=== PATIENT | male | born 1960 | race Caucasian/White ===

== ENCOUNTER 2018-08-06 21:25 | Inpatient (IN) ==
[2018-08-06] MEDS ORDERED: VANCOMYCIN 1,250 MG in 0.9 % SODIUM CHLORIDE 250 ML IV ONE (21:53)
--- NOTE | 2018-08-06 22:27 | Emergency Department Note ---
Skin/Abscess/FB HPI - General Chief complaint: Skin/Abscess/Foreign Body Stated complaint: infection Time Seen by Provider: 08/06/18 21:32 Source: patient Mode of arrival: ambulatory Limitations: no limitations - History of Present Illness HPI Narrative: 57-year-old male patient on dialysis is sent here by Dr. Barraza after receiving phone call by bacteremia. Apparently he has been sick for several weeks or more and has a sore near the his AV fistula. They did get blood cultures he was found to be bacteremic with gram-positive cocci in pairs but culture has not been finalized yet. He has had general malaise. Denies shortness of breath nausea vomiting diarrhea - Related Data Home Medications Medication Instructions Recorded Confirmed glipizide PO QDAY 03/13/18 04/22/18 Previous Rx's Medication Instructions Recorded sodium polystyrene sulfonate 15 60 ml PO .COMPLEX #500 ml 05/09/18 gram/60 mL oral suspension calcium acetate 667 mg tablet 667 mg PO TID #240 tab 06/18/18 vitamin B complex-vitamin C-folic 1 tab PO QDAY #90 tab 06/18/18 acid 0.8 mg tablet clindamycin HCl 300 mg capsule 300 mg PO Q6H #42 cap 08/06/18 Allergies Allergy/AdvReac Type Severity Reaction Status Date / Time bee venom protein (honey bee) Allergy Severe Anaphylaxis Verified 08/06/18 21:27 ceftriaxone Allergy Mild Hives Verified 08/06/18 21:27 coconut Allergy Unknown Unknown Verified 08/06/18 21:27 Penicillins Allergy Unknown Unknown Verified 08/06/18 21:27 Review of Systems All systems ED: reviewed and negative except as stated. Past Medical History - Past Medical History Attestation: Yes: The following information was validated with the patient. [facility] Narrative: Family History (Last Reviewed 04/22/18 @ 12:52 by Lori Pitts MD) Father Coronary artery disease Mother Coronary artery disease Medical History (Last Reviewed 04/22/18 @ 12:52 by Lori Pitts MD) History of shortness of breath (Chronic) Staghorn calculus (Chronic) Uremia (Chronic) DM type 2 (diabetes mellitus, type 2) (Chronic) Acute diastolic (congestive) heart failure (Chronic) Weakness (Chronic) Vomiting (Chronic) Flank pain (Chronic) UTI (urinary tract infection) (Chronic 09/08/17) DVT prophylaxis (Chronic 09/08/17) Hypertension (Chronic 09/08/17) Hyperkalemia (Chronic 09/08/17) Volume depletion (Chronic 09/08/17) Pyelonephritis (Chronic 09/08/17) Acute renal failure (Chronic 09/08/17) Acute kidney injury (Chronic 09/08/17) Insomnia (Chronic) Renal calculi (Chronic) Anemia due to end stage renal disease (Chronic) Staghorn renal calculus (Chronic) ESRD on hemodialysis (Chronic) Proteus (mirabilis) (morganii) as the cause of diseases classified elsewhere (Chronic) Past Surgical History (Last Reviewed 04/22/18 @ 12:52 by Lori Pitts MD) History of knee surgery (Chronic) History of nephrectomy (Chronic) Status post removal of arteriovenous fistula (Chronic) - Social History smoking status: Never smoker Physical Exam No acute distress resting. Normocephalic atraumatic. Conjunctive bilaterally mildly injected and nonicteric. No nasal discharge or congestion. Oropharynx is pink and moist. Neck is supple without lymphadenopathy or thyromegaly. Heart is regular rate and rhythm. 2 out of 6 midsystolic murmur. Lungs are clear to auscultation bilaterally without wheezes rales rhonchi or respiratory distress. Abdomen soft nontender nondistended. I did look at his AV fistula at the left wrist there is a small sore proximal to this but it has been unroofed. He is keeping this area bandaged. Mild erythema but I do not see any drainage. No pedal edema. Alert oriented, mentating at baseline. Hoarse voice Limitations: no limitations Course Vital Signs Temperature 99.3 F H 08/06/18 21:25 Pulse Rate 87 08/06/18 21:25 Respiratory Rate 20 08/06/18 21:25 Blood Pressure 116/69 08/06/18 21:25 Pulse Oximetry (%) 97 08/06/18 21:25 Temperature 98.2 F 08/07/18 02:35 Pulse Rate 70 08/07/18 02:35 Respiratory Rate 24 H 08/07/18 02:35 Blood Pressure 154/80 08/07/18 02:35 Pulse Oximetry (%) 96 08/07/18 02:35 Skin/Abscess/Foreign Body - Lab Data Lab results reviewed: Yes I reviewed the patient's lab results. Result diagrams: 08/07/18 03:40 08/07/18 03:40 Lab Results 08/06/18 08/06/18 08/06/18 Range/Units 22:29 22:29 22:29 WBC 11.9 H (4.5-11.0) K/mcL RBC 3.67 L (4.50-5.90) M/mcL Hgb 10.7 L (13.5-16.5) g/dL Hct 31.7 L (41.0-55.0) % MCV 86.3 (80.0-100.0) fL MCH 29.1 (26.0-34.0) pg MCHC 33.7 (31.0-36.0) g/dL RDW 13.2 (11.5-14.5) % Plt Count 239 (140-440) K/mcL MPV 8.4 (7.4-10.4) fL Gran % 81.8 H (38.0-78.0) % Lymph % (Auto) 9.2 L (15.5-49.0) % [place]imer % (Auto) 7.8 (1.0-12.0) % Eos % (Auto) 0.8 (0.0-7.0) % Baso % (Auto) 0.4 (0.0-2.0) % Gran # 9.8 H (1.8-8.0) K/mcL Lymph # (Auto) 1.1 L (1.5-4.8) K/mcL [place] # (Auto) 0.9 (0.1-0.9) K/mcL Eos # (Auto) 0.1 (0.0-0.7) K/mcL Baso # (Auto) 0 (0.0-0.3) K/mcL VBG Lactic Acid 1.0 (0.5-2.0) mmol/L Sodium 135 (133-145) mmol/L Potassium 4.7 (3.3-5.1) mmol/L Chloride 91 L (96-108) mmol/L Carbon Dioxide 28 (22-30) mmol/L Anion Gap 16.0 (8-16) BUN 33 H (6-20) mg/dl Creatinine 9.0 H* (0.7-1.2) mg/dl GFR Calculation 6 Glucose 113 H (70-105) mg/dL Calcium 8.7 (8.6-10.4) mg/dl Total Bilirubin 0.4 (0.0-1.0) mg/dL AST 8 (0-37) U/l ALT 6 (0-40) U/l Alkaline Phosphatase 54 (39-117) U/L Total Protein 7.4 (5.9-8.4) gm/dL Albumin 3.9 (3.2-5.2) gm/dL Globulin 3.5 (2.2-3.7) gm/dL Albumin/Globulin Ratio 1.1 (1.0-2.3) Disposition Pt seen by DESK[employer] PUBLISHER/PA only: No Clinical Impression: Bacteremia, ESRD on hemodialysis Summary: Per my discussion with Dr. Barraza will go ahead and start renal dose vancomycin for presumptive streptococci. Repeat cultures. labs ordered After getting labs back I contacted Dr. Wolf, the hospitalist. He agreed to admit the patient for further care and evaluation hospitalist. Dr. Barraza will be consulted Disposition: Xfer As Inpt ([facility]) Condition: Fair
[2018-08-06 23:00] LABS: Basophils # (Auto) 0 K/mcL (0.0-0.3); Basophils % (Auto) 0.4 % (0.0-2.0); Eosinophils # (Auto) 0.1 K/mcL (0.0-0.7); Eosinophils % (Auto) 0.8 % (0.0-7.0); Granulocytes % (Auto) 81.8 % (38.0-78.0); Lymphocytes # (Auto) 1.1 K/mcL (1.5-4.8); Lymphocytes % (Auto) 9.2 % (15.5-49.0); Mean Cell Volume 86.3 fL (80.0-100.0); Mean Corpuscular HGB Conc 33.7 g/dL (31.0-36.0); Monocytes # (Auto) 0.9 K/mcL (0.1-0.9); Monocytes % (Auto) 7.8 % (1.0-12.0); Platelet Count 239 K/mcL (140-440); RBC 3.67 M/mcL (4.50-5.90); Red Cell Distribution Width 13.2 % (11.5-14.5)
[2018-08-06 23:26] LABS: ALT/SGPT 6 U/l (0-40); Albumin 3.9 gm/dL (3.2-5.2); Albumin/Globulin Ratio 1.1 (1.0-2.3); Alkaline Phosphatase 54 U/L (39-117); Blood Urea Nitrogen 33 mg/dl (6-20)
[2018-08-07] MEDS ORDERED: ACETAMINOPHEN 325 MG TABLET PO PRN ×2 (05:11→07:12)
[2018-08-07] MEDS ORDERED: ACETAMINOPHEN 325 MG TABLET PO ONE (05:24)
[2018-08-07 05:57] LABS: Basophils # (Auto) 0.1 K/mcL (0.0-0.3); Basophils % (Auto) 0.8 % (0.0-2.0); Eosinophils # (Auto) 0.1 K/mcL (0.0-0.7); Eosinophils % (Auto) 1.4 % (0.0-7.0); Lymphocytes # (Auto) 1.5 K/mcL (1.5-4.8); Lymphocytes % (Auto) 13.6 % (15.5-49.0); Mean Cell Volume 89.2 fL (80.0-100.0); Mean Corpuscular HGB Conc 32.8 g/dL (31.0-36.0); Monocytes % (Auto) 9.2 % (1.0-12.0); Platelet Count 218 K/mcL (140-440); RBC 3.52 M/mcL (4.50-5.90); Red Cell Distribution Width 14.4 % (11.5-14.5)
[2018-08-07 07:00] LABS: ALT/SGPT 6 U/l (0-40); Albumin/Globulin Ratio 1.2 (1.0-2.3); Alkaline Phosphatase 63 U/L (39-117); Bilirubin,Direct < 0.2 mg/dL (0.0-0.3); Blood Urea Nitrogen 34 mg/dl (6-20); Gamma Glutamyl Transpeptidase 17 U/L (8-61); Uric Acid 4.1 mg/dL (2.5-8.0)
[2018-08-07] MEDS ORDERED: ONDANSETRON 4 MG/2 ML VIAL IV PRN (07:12)
[2018-08-07] MEDS ORDERED: VANCOMYCIN PER PHARMACY IV SCH (07:12)
[2018-08-07 08:41] LABS: Hemoglobin A1C 4.9 % HGB (4.0-6.0)
[2018-08-07] MEDS ORDERED: HEPARIN 5,000 UNIT/ML VIAL SQ SCH (09:00)
[2018-08-07] MEDS ORDERED: DOCUSATE SODIUM 100 MG CAPSULE PO SCH (09:00)
--- NOTE | 2018-08-07 10:49 | Internal Med History&Physical ---
Medical - H&P: [facility] Patient information: Note initiated : 08/07/18 at 10:47 am Service Date, if different from initiated Date: [] Patient: Khadar Rizo a 57 y/o M admitted on 08/07/18 for infection. Chief Complaint: [] Chief complaint: feeling sick History of present illness: Mr. Rizo is a 57 year old M who was sent for evaluation in the ER after blood cultures were found positive for gram-positive cocci. Patient is on hemodialysis following nephrectomy 2018. He has a left wrist fistula. He was in his baseline state of health. He has been splitting wood recently and possibly had a splinter injury on wrist around the fistula site couple of weeks ago. Over the last week and a half he has been feeling weak fatigued with increasing tenderness swelling around the left wrist extending up to the elbow. He was subsequently evaluated and underwent blood cultures and nephrology clinic and was directed to the ER following gram-positive cocci. Patient was started on vancomycin, hospitalist service was consulted. At the time evaluation patient is alert oriented. Denies any active distress. Denies drenching sweats, chest pain, bloody sputum, joint pain, back pain, head ache. Review of systems 10 point review of system was performed and is negative except as discussed above Medical - H&P: PMH Medical history: History of shortness of breath (Chronic) Staghorn calculus (Chronic) Uremia (Chronic) DM type 2 (diabetes mellitus, type 2) (Chronic) Acute diastolic (congestive) heart failure (Chronic) Weakness (Chronic) Vomiting (Chronic) Flank pain (Chronic) UTI (urinary tract infection) (Chronic 09/08/17) DVT prophylaxis (Chronic 09/08/17) Hypertension (Chronic 09/08/17) Hyperkalemia (Chronic 09/08/17) Volume depletion (Chronic 09/08/17) Pyelonephritis (Chronic 09/08/17) Acute renal failure (Chronic 09/08/17) Acute kidney injury (Chronic 09/08/17) Insomnia (Chronic) Renal calculi (Chronic) Anemia due to end stage renal disease (Chronic) Staghorn renal calculus (Chronic) ESRD on hemodialysis (Chronic) Proteus (mirabilis) (morganii) as the cause of diseases classified elsewhere (Chronic) Surgical History History of knee surgery (Chronic) History of nephrectomy (Chronic) Status post removal of arteriovenous fistula (Chronic) Family History Father Coronary artery disease Mother Coronary artery disease Social History smoking status: Never smoker alcohol intake frequency: does not drink substance use type: does not use Medical - H&P: Meds Home Medications Medication Instructions Recorded Confirmed Type glipizide PO QDAY 03/13/18 04/22/18 History sodium polystyrene sulfonate 15 60 ml PO .COMPLEX #500 ml 05/09/18 08/07/18 Rx gram/60 mL oral suspension calcium acetate 667 mg tablet 667 mg PO TID #240 tab 06/18/18 08/07/18 Rx vitamin B complex-vitamin C-folic 1 tab PO QDAY #90 tab 06/18/18 08/07/18 Rx acid 0.8 mg tablet clindamycin HCl 300 mg capsule 300 mg PO Q6H #42 cap 08/06/18 08/07/18 Rx Allergies Allergy/AdvReac Type Severity Reaction Status Date / Time bee venom protein (honey bee) Allergy Severe Anaphylaxis Verified 08/06/18 21:27 ceftriaxone Allergy Mild Hives Verified 08/06/18 21:27 coconut Allergy Unknown Unknown Verified 08/06/18 21:27 Penicillins Allergy Unknown Unknown Verified 08/06/18 21:27 Medical - H&P: Exam - Constitutional Vitals: Temp Pulse Resp BP Pulse Ox 98.2 F 70 24 H 154/80 96 08/07/18 02:35 08/07/18 02:35 08/07/18 02:35 08/07/18 02:35 08/07/18 02:35 General appearance: no acute distress Exam: Head normocephalic No lymphadenopathy Oral cavity dry No ear discharge S1 and S2 irregular rhythm Diminished breath sounds bases Abdomen soft Left upper extremity swelling around the ventral wrist along with tenderness extending up to the elbow No lymphedema No other suspicious skin lesion Psych alert cooperative Neuro nonfocal Medical - H&P: Reslt - Labs CBC & Chem 7: 08/07/18 03:40 08/07/18 03:40 Labs: Short CBC 08/06/18 08/07/18 Range/Units 22:29 03:40 WBC 11.9 H 10.9 (4.5-11.0) K/mcL Hgb 10.7 L 10.3 L (13.5-16.5) g/dL Hct 31.7 L 31.4 L (41.0-55.0) % Plt Count 239 218 (140-440) K/mcL BMP 08/06/18 08/07/18 22:29 03:40 Sodium 135 137 Potassium 4.7 4.6 Chloride 91 L 92 L Carbon Dioxide 28 30 BUN 33 H 34 H Creatinine 9.0 H* 8.8 H* Glucose 113 H 92 Calcium 8.7 8.8 Liver Function 08/06/18 08/07/18 Range/Units 22:29 03:40 Total Bilirubin 0.4 0.5 (0.0-1.0) mg/dL Direct Bilirubin < 0.2 (0.0-0.3) mg/dL GGT 17 (8-61) U/L AST 8 8 (0-37) U/l ALT 6 6 (0-40) U/l Alkaline Phosphatase 54 63 (39-117) U/L Albumin 3.9 4.0 (3.2-5.2) gm/dL Medical - H&P: A/P (1) Bacteremia due to Streptococcus Status: Acute * Streptococcus pyogenes bacteremia-continue vancomycin/clindamycin. Fernie veillance cultures. Likely source infected fistula. Consider ID consult. Echocardiogram * Left upper extremity cellulitis. Left wrist imaging. Antibiotic coverage. * Sepsis secondary to above-pending management per guidelines. White count 11.9. * ESRD on hemodialysis managed per nephrology * Full code * Prophylaxis heparin Plan * Antibiotic coverage/ID consult * Left wrist imaging * Echocardiogram Medical - H&P: Qual - VTE Deep Vein Thrombosis/Pulmonary Embolism Present on Admission: No
[2018-08-07] MEDS: SEVELAMER 800 MG TABLET PO SCH ×2 (11:00→17:36)
[2018-08-07] MEDS ORDERED: CLINDAMYCIN 600 MG in DEXTROSE 5% IN WATER 50 ML IV SCH (11:00)
[2018-08-07] MEDS ORDERED: 0.9 % SODIUM CHLORIDE 10 ML SYRINGE IV SCH (14:00)
--- NOTE | 2018-08-07 14:51 | Internal Med Progress Note ---
Medical - PN: Subj Patient information: Note initiated : 08/07/18 at 2:46 pm Service Date, if different from initiated Date: [] Patient: Khadar Rizo 57 y/o M admitted on 08/07/18 for infection. Chief Complaint: [] Interval history: Mr. Rizo is a 57 year old M who was sent for evaluation in the ER after blood cultures were found positive for gram-positive cocci. Patient is on hemodialysis following nephrectomy 2018. He has a left wrist fistula. He was in his baseline state of health. He has been splitting wood recently and possibly had a splinter injury on wrist around the fistula site couple of weeks ago. Over the last week and a half he has been feeling weak fatigued with increasing tenderness swelling around the left wrist extending up to the elbow. He was subsequently evaluated and underwent blood cultures and nephrology clinic and was directed to the ER following gram-positive cocci. Patient was started on vancomycin, hospitalist service was consulted. At the time evaluation patient is alert oriented. Denies any active distress. Denies drenching sweats, chest pain, bloody sputum, joint pain, back pain, headache. 08/08 - Constitutional Vitals: Vital Signs Temp Pulse Resp BP Pulse Ox 98.1 F 61 18 130/74 97 08/07/18 12:00 08/07/18 08:00 08/07/18 12:00 08/07/18 12:00 08/07/18 12:00 Period Temp Pulse Resp BP Sys/Ding Pulse Ox Last 24 Hr 98.0 F-99.3 F 61-87 3-24 116-184/66-91 89-99 Intake and Output 08/07/18 08/07/18 08/07/18 05:59 13:59 21:59 Intake Total 250 414 Balance 250 414 Weight 108.182 kg Intake & Output: Intake & Output 08/07/18 08/07/18 08/07/18 05:59 13:59 21:59 Intake Total 250 414 Balance 250 414 Weight 108.182 kg Intake: IV 250 54 Cleocin 600 mg In Dextrose 5% 54 in Water 50 ml @ 100 mls/hr IV Q8H [facility] Rx#:[id number] Vancomycin 1,250 mg In Sodium 250 Chloride 0.9% 250 ml @ 250 mls/ hr IV ONCE ONE Rx#:[id number] Oral 360 Other: Meal Lunch Percent of Meal Consumed 50% Feeding Ability Independent Exam: General: Alert, Awake, No acute Distress Eyes/N/T: EOMI, Head/Neck: neck supple, CV: irreg irreg, No murmurs, Pulm: Abd: soft, nontender, +BS x4 Ext: no clubbing/cyanosis/edema LE's. Left wrist with swelling/tenderness Neuro: Alert, no focal deficits, moves all extremities Skin: warm/dry Medical - PN: Obj Da - Labs CBC & Chem 7: 08/07/18 03:40 08/07/18 03:40 Labs: Abnormal Lab Results 08/07/18 08/07/18 08/06/18 03:40 03:40 22:29 WBC RBC 3.52 L Hgb 10.3 L Hct 31.4 L Gran % Lymph % (Auto) 13.6 L Gran # 8.2 H Lymph # (Auto) Be[place] # (Auto) 1.0 H Chloride 92 L 91 L BUN 34 H 33 H Creatinine 8.8 H* 9.0 H* Glucose 113 H Phosphorus 5.2 H 08/06/18 22:29 WBC 11.9 H RBC 3.67 L Hgb 10.7 L Hct 31.7 L Gran % 81.8 H Lymph % (Auto) 9.2 L Gran # 9.8 H Lymph # (Auto) 1.1 L [place] # (Auto) Chloride BUN Creatinine Glucose Phosphorus Meds: Medications Acetaminophen (Tylenol) 650 mg PO Q4-6HP PRN PRN Reason: PAIN/FEVER > 101 Docusate Sodium (Colace) 100 mg PO BID [facility] Last Admin: 08/07/18 08:31 Dose: Not Given Documented by: Heparin Sodium (Porcine) (Heparin) 5,000 unit SQ Q12 [facility] Last Admin: 08/07/18 08:33 Dose: 5,000 unit Documented by: Clindamycin Phosphate 600 mg/ (Dextrose) 54 mls @ 100 mls/hr IV Q8H [facility]; Protocol Last Infusion: 08/07/18 11:35 Dose: Infused Documented by: Ondansetron HCl (Zofran) 4 mg IV Q4-6HP PRN PRN Reason: Nausea And Vomiting Senna/Docusate Sodium (Senna Plus Tablet) 1 tab PO HS [facility] Sevelamer Carbonate (Renvela) 800 mg PO TIDCC [facility] Last Admin: 08/07/18 11:00 Dose: 800 mg Documented by: Sodium Chloride (Saline Flush) 10 ml IV Q8 [facility] Last Admin: 08/07/18 13:55 Dose: 10 ml Documented by: Vancomycin HCl (Vancomycin Per Pharmacy) 1 order IV UD [facility] Medical - PN: A/P - Time Spent With Patient Total time spent is greater than 50% in coordination of care (as documented) at patient's floor/unit and/or counseling patient: - Narrative A/P Narrative: A: *Streptococcus pyogenes bacteremia: Likely source infected fistula. *Left upper extremity cellulitis. Left wrist imaging. Antibiotic coverage. *Sepsis: 2/2 above *ESRD on hemodialysis managed per nephrology * Plan: -continue vancomycin/clindamycin. Surveillance cultures. -pending BC -echo pending -Consider ID consult -Antibiotic coverage/ID consult -Left wrist imaging -ppx: heparin full code Medical - PN: Qual - VTE Deep Vein Thrombosis/Pulmonary Embolism Present on Admission: No
--- NOTE | 2018-08-07 14:51 | Ultrasound Report ---
CLINICAL INFORMATION: infection, r/o abscess COMPARISON: None. FINDINGS: Radial artery to cephalic vein fistula is widely patent. There are two complex fluid collections adjacent to the cephalic outflow vein each approximately 2.5 cm. One is 4 cm from the anastomosis and the other is 8 cm from the anastomosis. Suspect small abscesses IMPRESSION: Small abscesses adjacent to the cephalic outflow vein - this is approximately 2.5 cm Radial artery to cephalic vein fistula is widely patent no stenosis or occlusion Interpreted and Authenticated by: Facundo Thorpe 08/07/18
--- NOTE | 2018-08-07 15:57 | Ultrasound Report ---
CLINICAL INFORMATION: CIRRHOSIS OF LIVER COMPARISON: None. FINDINGS: Liver is mildly enlarged and hyperechoic suggesting fatty change or other diffuse hepatocellular process. It is normal in configuration without supportive evidence for cirrhosis. No focal hepatic lesion. The gallbladder and bile ducts normal: CBD is 5 mm. the pancreas is normal. IMPRESSION: Mild enlarged, hyperechoic liver suggesting a diffuse hepatocellular process such as inflammation. No supportive evidence for cirrhosis however Interpreted and Authenticated by: Facundo Thorpe 08/07/18
--- NOTE | 2018-08-07 17:03 | Nephrology Consult Note ---
History of Present Illness - Reason for Consult Patient information: Note initiated : 08/07/18 at 4:59 pm Service Date, if different from initiated Date: [] Patient: Khadar Rizo 57 y/o M admitted on 08/07/18 for infection. Chief Complaint: [] Consult date: 08/07/18 end stage renal disease Requesting physician: Chad Huber - Chief Complaint bactremia - History of Present Illness Patient is a 57 y/o male with PMH of ESRD on HD who was sent to ER by me for gram positive bacteremia Patient had a wound on his AVF arm which he reported he got from cutting wood, this wound later got inflammed, keeler polygraph operator tried to educate him about caring the wound and to call if any concerns of antibiotics but he walked out on her. Vascular RN called him on Sunday to check on him but he reported his wound is getting better, he came for his routine dialysis yesterday and his AVF arm had edema and he had s/o infection/cellulitis proximal to AVF, we send blood culture and started him on oral antibiotic but his culture later came back positive and he was requested to come to ER by me (he initially declined but on persistent requested did come to ER) he did have URI symptoms and some weakness denied SOB, CP no edema denied any other concerns Review of Systems All systems PM: reviewed and no additional remarkable complaints except as stated (as in HPI) Past History Past medical history: 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 anemia of CKD DM type 2 CURRENTLY not on meds h/o staghorn calculi s/p nephrectomy to prevent recurrent infection/sepsis per urology recommendation HTN Past surgical history: avf h/o TCC b/l nephrectomy Past family history: not pertinent to this hospitalisation Past social history: no active addictions 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 Medications and Allergies Home Medications Medication Instructions Recorded Confirmed Type glipizide PO QDAY 03/13/18 04/22/18 History sodium polystyrene sulfonate 15 60 ml PO .COMPLEX #500 ml 05/09/18 08/07/18 Rx gram/60 mL oral suspension calcium acetate 667 mg tablet 667 mg PO TID #240 tab 06/18/18 08/07/18 Rx vitamin B complex-vitamin C-folic 1 tab PO QDAY #90 tab 06/18/18 08/07/18 Rx acid 0.8 mg tablet clindamycin HCl 300 mg capsule 300 mg PO Q6H #42 cap 08/06/18 08/07/18 Rx Allergies Allergy/AdvReac Type Severity Reaction Status Date / Time bee venom protein (honey bee) Allergy Severe Anaphylaxis Verified 08/06/18 21:27 ceftriaxone Allergy Mild Hives Verified 08/06/18 21:27 coconut Allergy Unknown Unknown Verified 08/06/18 21:27 Penicillins Allergy Unknown Unknown Verified 08/06/18 21:27 Exam - Vital Signs Vital signs: Temp Pulse Resp BP Pulse Ox 97.7 F 65 18 131/76 97 08/07/18 16:00 08/07/18 08:00 08/07/18 16:00 08/07/18 16:00 08/07/18 16:00 - General Appearance General appearance: appears started age EENT: mucous membranes moist Neck: no JVD Respiratory: clear Cardiology: no rub, no edema, regular rate, regular rhythm Gastrointestinal: normoactive bowel sounds, no guarding Integumentary: warm and dry (Left arm with erythema distal to AVF, no obvious purulent drainage , eryhtema and swelling imrpoved since yesterday) Neurologic: alert and oriented x3 Musculoskeletal: no cyanosis, no clubbing Psychiatric: mood/affect appropriate Results - Lab Results 08/07/18 03:40 08/07/18 03:40 Most recent lab results Calcium 8.8 mg/dl (8.6-10.4) 08/07/18 03:40 Phosphorus 5.2 mg/dL (2.7-4.5) H 08/07/18 03:40 Magnesium 2.0 mg/dL (1.6-2.5) 08/07/18 03:40 Assessment and Plan (1) Secondary hyperparathyroidism Status: Acute (2) Bacteremia due to Streptococcus Status: Acute (3) ESRD on hemodialysis Status: Chronic (4) Anemia due to end stage renal disease Status: Chronic - Narrative A/P Narrative: Patient with strep pyogenes bacteremia from infection distal to AVF on left arm AVF us with 2 small abscess[address] 2.5cm ct vanc, clindamycin added given strep bacteremia (penicillin cannot be used due to allergy) discussed with vascular surgery (Dr Payton) given issues on AVF arm requested to evaluate for possible need to drain abscess and surgical intervention discussed with the patient and he is willing to go to [facility] for this ESRD on HD, dialysis TTS, will need HD tomorrow anemia of CKD: Hb at goal for CKD today elevated phosphorus: initiated on renvela, renal diet liver US shows mild enlargement of liver ? fatty liver vs other process no cirrhosis (got rejected for renal transplant for cirrhosis on CT done in the past) will refer to GI for further evaluation of this and see if he could be cleared for renal transplant Appreciate hospitalist help in managing this patient
--- NOTE | 2018-08-07 17:36 | Transfer Summary ---
Transfer Discharge Sum: Prov Patient information: Note initiated : 08/07/18 at 5:32 pm Service Date, if different from initiated Date: [] Patient: Khadar Rizo 57 y/o M admitted on 08/07/18 for infection. Chief Complaint: [] Date of admission: 08/07/18 02:35 Discharge Date: 08/07/18 Primary care physician: Paulette García Consults: 08/07/18 Consult to Physician [CONS] Stat Comment: Consulting Provider: Chad Huber Reason For Exam: Physician to Consult 08/07/18 07:14 Consult to Physician [CONS] Routine Comment: Consulting Provider: Evelin Barraza Reason For Exam: Physician to Consult Transfer Discharge Sum: Med - Medications Active and Home Medications: Home Medications glipizide PO QDAY 03/13/18 [History Confirmed 04/22/18] sodium polystyrene sulfonate 15 gram/60 mL oral suspension 60 ml PO .COMPLEX #500 ml 05/09/18 [Rx Confirmed 08/07/18] calcium acetate 667 mg tablet 667 mg PO TID #240 tab 06/18/18 [Rx Confirmed 08/07/18] vitamin B complex-vitamin C-folic acid 0.8 mg tablet 1 tab PO QDAY #90 tab 06/18/18 [Rx Confirmed 08/07/18] clindamycin HCl 300 mg capsule 300 mg PO Q6H #42 cap 08/06/18 [Rx Confirmed 08/07/18] Active Medications Acetaminophen (Tylenol) 650 mg PO Q4-6HP PRN PRN Reason: PAIN/FEVER > 101 Docusate Sodium (Colace) 100 mg PO BID [facility] Last Admin: 08/07/18 08:31 Dose: Not Given Documented by: Heparin Sodium (Porcine) (Heparin) 5,000 unit SQ Q12 RED Last Admin: 08/07/18 08:33 Dose: 5,000 unit Documented by: Clindamycin Phosphate 600 mg/ (Dextrose) 54 mls @ 100 mls/hr IV Q8H [facility]; Protocol Last Infusion: 08/07/18 11:35 Dose: Infused Documented by: Ondansetron HCl (Zofran) 4 mg IV Q4-6HP PRN PRN Reason: Nausea And Vomiting Senna/Docusate Sodium (Senna Plus Tablet) 1 tab PO HS RED Sevelamer Carbonate (Renvela) 800 mg PO TIDCC [facility] Last Admin: 08/07/18 11:00 Dose: 800 mg Documented by: Sodium Chloride (Saline Flush) 10 ml IV Q8 [facility] Last Admin: 08/07/18 13:55 Dose: 10 ml Documented by: Vancomycin HCl (Vancomycin Per Pharmacy) 1 order IV UD [facility] Transfer Discharge Sum: Hosp Hospital course: Mr. Rizo is a 57 year old M who was sent for evaluation in the ER after blood cultures were found positive for gram-positive cocci. Patient is on hemodialysis following nephrectomy 2018. He has a left wrist fistula. He was in his baseline state of health. He has been splitting wood recently and possibly had a splinter injury on wrist around the fistula site couple of weeks ago. Over the last week and a half he has been feeling weak fatigued with increasing tenderness swelling around the left wrist extending up to the elbow. He was subsequently evaluated and underwent blood cultures and nephrology clinic and was directed to the ER following gram-positive cocci. Patient was started on vancomycin, hospitalist service was consulted. At the time evaluation patient is alert oriented. Denies any active distress. Denies drenching sweats, chest pain, bloody sputum, joint pain, back pain, headache. Patient found to have several small abscesses around the fistula site. Dr. Barraza talked to Dr. Payton at [facility] would accept the patient in consult with hospitalist. Discussed case with Dr. Davis who accepted patient. - Time Spent with Patient Total time spent providing and/or coordinating transfer services: Greater than 30 minutes Transfer Discharge Sum: Exam - Constitutional Vitals: Vital Signs Temp Pulse Pulse Resp BP BP Pulse Ox 08/07/18 16:00 97.7 F 18 131/76 97 08/07/18 12:00 98.1 F 18 130/74 97 08/07/18 08:00 98.0 F 65 19 141/67 97 08/07/18 02:35 98.2 F 70 24 H 154/80 96 08/07/18 02:17 75 21 173/82 96 08/07/18 02:01 10 L 176/81 08/07/18 01:46 72 6 L 177/72 91 08/07/18 01:31 68 12 159/75 96 08/07/18 01:16 76 13 176/75 93 08/07/18 01:01 72 14 166/74 94 08/07/18 00:46 70 12 184/66 89 L 08/07/18 00:31 72 10 L 183/66 89 L 08/07/18 00:16 74 11 L 177/75 91 08/07/18 00:01 73 12 169/76 91 08/06/18 23:55 77 3 L 175/74 94 08/06/18 23:31 74 13 167/91 96 08/06/18 23:16 73 13 161/71 95 08/06/18 23:01 75 19 166/69 94 08/06/18 22:49 79 164/67 99 08/06/18 22:46 79 164/67 94 08/06/18 21:25 99.3 F H 87 20 116/69 97 Intake and Output 08/07/18 08/07/18 08/07/18 05:59 13:59 21:59 Intake Total 250 414 100 Balance 250 414 100 Intake: IV 250 54 Cleocin 600 mg In Dextrose 5% 54 in Water 50 ml @ 100 mls/hr IV Q8H [facility] Rx#:[id number] Vancomycin 1,250 mg In Sodium 250 Chloride 0.9% 250 ml @ 250 mls/ hr IV ONCE ONE Rx#:[id number] Oral 360 100 Other: Meal Lunch Percent of Meal Consumed 50% Feeding Ability Independent Weight 108.182 kg Transfer Discharge Sum: Data Procedures and tests throughout hospitalization: Pending Orders 08/06/18 22:41 Blood Culture Stat 08/07/18 Condition Routine Consult to Physician [CONS] Stat 08/07/18 00:31 Elevate head of bed .ROUTINE IV Insertion/Management NOW Notify Provider .prn Vital Signs Q4 RD to Adjust Diet/Supplements as Needed Routine Incentive Spirometry Assess/Tx Q2HWA Pulse Oximetry .ROUTINE 08/07/18 00:32 Admit as Inpatient Routine 08/07/18 00:33 wire taper CONT 08/07/18 03:28 Resuscitation Status Routine 08/07/18 04:24 Renal/Consistent Carbohydrate Diet 08/07/18 04:25 Wound Nurse Referral .Routine 08/07/18 05:11 Acetaminophen [Tylenol] 650 mg PO Q4-6HP PRN 08/07/18 07:12 Ondansetron [Zofran] 4 mg IV Q4-6HP PRN Vancomycin Per Pharmacy 1 order IV UD Occupational Therapy Eval & Tx DAILY 08/07/18 07:13 Case Management Referral .Routine Ambulate-Progressive PRN Blood Culture PRN PRN Intake and Output 04,16 Occult blood, stool, guaic poc .ALL STOOLS Oral hygiene .ROUTINE PICC Line PRN Specialty Bed PRN Weight Monitoring QHS Physical Therapy Eval & Tx QD-BID Oxygen Order .Routine 08/07/18 07:14 Consult to Physician [CONS] Routine 08/07/18 08:19 Blood Culture DAILY 08/07/18 09:00 Docusate Sodium [Colace] 100 mg PO BID Heparin 5,000 unit SQ Q12 08/07/18 11:00 Clindamycin [Cleocin] 600 mg Dextrose 5% in Water 50 ml IV Q8H 08/07/18 12:00 Sevelamer [Renvela] 800 mg PO TIDCC 08/07/18 14:00 0.9 % Sodium Chloride [Saline Flush] 10 ml IV Q8 08/07/18 21:00 Sennosides/Docusate Sodium [Senna Plus Tablet] 1 tab PO HS 08/08/18 04:00 Complete Blood Count Man Dif DAILY Inpatient Panel DAILY 08/08/18 07:15 Blood Culture DAILY 08/09/18 04:00 Complete Blood Count Man Dif DAILY Inpatient Panel DAILY 08/09/18 07:15 Blood Culture DAILY 08/10/18 04:00 Complete Blood Count Man Dif DAILY Inpatient Panel DAILY 08/11/18 04:00 Complete Blood Count Man Dif DAILY Inpatient Panel DAILY 08/12/18 04:00 Complete Blood Count Man Dif DAILY Inpatient Panel DAILY Transfer Discharge Sum: A/P - Plan Overall status at transfer: patient is not back to baseline Disposition: [facility] Quality Measure Queries - VTE Deep Vein Thrombosis/Pulmonary Embolism Present on Admission: No
[2018-08-07] MEDS ORDERED: SENNOSIDES/DOCUSATE SODIUM 1 TAB TABLET PO SCH (21:00)
== END 2018-08-07 19:47 | disposition short-term general hospital (02) | DRG 871 ==
LOC: ED 21:25 → ICU 08-07 02:35
PROVIDERS: ADMIT Internal Medicine; ATTEND Internal Medicine

== ENCOUNTER 2020-03-22 07:00 | Inpatient (IN) ==
--- NOTE | 2020-03-22 07:27 | Emergency Department Note ---
HPI General Chief complaint: Cold/Flu Symptoms Stated complaint: cough Time Seen by Provider: 03/22/20 07:16 Source: patient and RN notes reviewed Mode of arrival: ambulatory Limitations: no limitations History of Present Illness HPI Narrative: Narrative: The dialysis patient was about to start dialysis but decided to come to the emergency room instead because he has had sinus congestion cough shortness of breath and back pain for the last couple of days. He says however he is always had a cough. May be slightly worse. He does have a headache but no nausea vomiting or diarrhea. Onset (ago): day(s) Related Data Home Medications Medication Instructions Recorded Confirmed acetaminophen 325 mg capsule 650 mg PO Q6H PRN 01/22/20 calcitriol 0.25 mcg capsule 0.25 mcg PO 3XW 01/22/20 calcium carbonate 200 mg calcium 2,000 mg PO TID tab 01/22/20 (500 mg) chewable tablet darbepoetin juany in polysorbat 40 40 mcg IV QWEEK 01/22/20 mcg/mL in polysorbate injection etelcalcetide 5 mg/mL intravenous 2.5 mg IV 3XW 01/22/20 solution heparin (porcine) 1,000 unit/mL 1,200 unit IV ml 01/22/20 injection solution heparin (porcine) 1,000 unit/mL 2,000 unit IV ml 01/22/20 injection solution hydroxyzine HCl 10 mg tablet 10 mg PO TID PRN 01/22/20 sodium ferric gluconat-sucrose 62.5 mg IV QWEEK ml 01/22/20 62.5 mg/5 mL intravenous Allergies Allergy/AdvReac Type Severity Reaction Status Date / Time bee venom protein (honey bee) Allergy Severe Anaphylaxis Verified 03/22/20 07:03 ceftriaxone Allergy Mild Hives Verified 03/22/20 07:03 coconut Allergy Unknown Unknown Verified 03/22/20 07:03 Penicillins Allergy Unknown Unknown Verified 03/22/20 07:03 Review of Systems ROS ROS Narrative: Narrative: All systems ED: reviewed and negative except as stated. PFSH Narrative Patient History Narrative: Narrative: Medical/Surgical/Family History All Active Problems (Updated 03/22/20 @ 08:47 by Sander Vega MD) Pneumonia (Acute) S/p nephrectomy (Acute) Fatty liver disease, nonalcoholic (Acute) Bacteremia (Acute) Bacteremia due to Streptococcus (Acute) Secondary hyperparathyroidism (Acute) Cellulitis (Acute) Abdominal muscle strain (Acute) Complications, dialysis, catheter, mechanical (Chronic) History of shortness of breath (Chronic) Staghorn calculus (Chronic) Uremia (Chronic) DM type 2 (diabetes mellitus, type 2) (Chronic) Acute diastolic (congestive) heart failure (Chronic) Weakness (Chronic) Vomiting (Chronic) Flank pain (Chronic) UTI (urinary tract infection) (Chronic 09/08/17) DVT prophylaxis (Chronic 09/08/17) Hypertension (Chronic 09/08/17) Hyperkalemia (Chronic 09/08/17) Volume depletion (Chronic 09/08/17) Pyelonephritis (Chronic 09/08/17) Acute renal failure (Chronic 09/08/17) Acute kidney injury (Chronic 09/08/17) Insomnia (Chronic) Renal calculi (Chronic) Anemia due to end stage renal disease (Chronic) Staghorn renal calculus (Chronic) ESRD on hemodialysis (Chronic) Proteus (mirabilis) (morganii) as the cause of diseases classified elsewhere (Chronic) Medical History (Updated 03/22/20 @ 08:47 by Sander Vega MD) Acute diastolic (congestive) heart failure (Chronic) Acute kidney injury (Chronic 09/08/17) Acute renal failure (Chronic 09/08/17) Anemia due to end stage renal disease (Chronic) DM type 2 (diabetes mellitus, type 2) (Chronic) DVT prophylaxis (Chronic 09/08/17) ESRD on hemodialysis (Chronic) Flank pain (Chronic) History of shortness of breath (Chronic) Hyperkalemia (Chronic 09/08/17) Hypertension (Chronic 09/08/17) Insomnia (Chronic) Proteus (mirabilis) (morganii) as the cause of diseases classified elsewhere (Chronic) Pyelonephritis (Chronic 09/08/17) Renal calculi (Chronic) Staghorn calculus (Chronic) Staghorn renal calculus (Chronic) Uremia (Chronic) UTI (urinary tract infection) (Chronic 09/08/17) Volume depletion (Chronic 09/08/17) Vomiting (Chronic) Weakness (Chronic) Surgical History (Updated 08/09/18 @ 22:45 by Chad Huber MD) History of knee surgery (Chronic) History of nephrectomy (Chronic) Status post removal of arteriovenous fistula (Chronic) Family History Father Coronary artery disease Mother Coronary artery disease Social History Smoking Status: Never smoker Alcohol Intake Frequency: does not drink Substance Use: does not use Exam Narrative Narrative: Narrative: General Limitations: no limitations Head Head: Present atraumatic, normocephalic and normal inspection Eye Eye: Present normal appearance and EOMI; Absent scleral icterus and conjunctival injection ENT ENT: Present normal exam, normal oropharynx and mucous membranes moist Expanded ENT Nose: negative sinus tenderness Neck Neck: Present normal inspection and full ROM Chest Chest: Present symmetric chest wall rise Respiratory Respiratory: Present normal lung sounds bilaterally; Absent respiratory distress, rales/crackles and wheezes Cardiovascular Cardiovascular: Present regular rate, normal rhythm and normal heart sounds Adbominal Abdominal: Present soft; Absent distention and tenderness Extremities Extremities: Present normal inspection and full ROM; Absent pedal edema and pretibial edema Neurological Neurological: Present alert Psychiatric Psychiatric: Present normal affect Skin Skin: Present warm (WNL) and dry; Absent diaphoresis Course Vital Signs Vital signs: Vital Signs Pulse Rate 78 03/22/20 07:01 Respiratory Rate 16 03/22/20 07:01 Blood Pressure 156/86 03/22/20 07:01 Pulse Oximetry (%) 98 03/22/20 07:01 Pulse Rate 78 03/22/20 07:01 Respiratory Rate 16 03/22/20 07:01 Blood Pressure 156/86 03/22/20 07:01 Pulse Oximetry (%) 98 03/22/20 07:01 [facility] MDM Narrative Medical decision making narrative: Narrative: Final disposition on this patient will be per Dr. Ji. Lab Data Result diagrams: 03/22/20 07:33 03/22/20 07:33 Labs: Lab Results 03/22/20 03/22/20 Range/Units 07:33 07:33 WBC 15.1 H (4.5-11.0) K/mcL RBC 3.12 L (4.50-5.90) M/mcL Hgb 9.4 L (13.5-16.5) g/dL Hct 28.6 L (41.0-55.0) % MCV 91.7 (80.0-100.0) fL MCH 30.1 (26.0-34.0) pg MCHC 32.9 (31.0-36.0) g/dL RDW 13.0 (11.5-14.5) % Plt Count 241 (140-440) K/mcL MPV 11.1 H (7.4-10.4) fL Neut % (Auto) 84.2 H (38.0-78.0) % Lymph % (Auto) 5.0 L (15.0-49.0) % [place] % (Auto) 6.7 (1.0-12.0) % Eos % (Auto) 3.6 (0.0-7.0) % Baso % (Auto) 0.5 (0.0-2.0) % Lymph # (Auto) 0.75 L (1.50-4.80) K/mcL [place] # (Auto) 1.01 H (0.10-0.90) K/mcL Eos # (Auto) 0.54 (0.00-0.70) K/mcL Baso # (Auto) 0.08 (0.00-0.20) K/mcL Absolute Neutrophils 12.67 H (1.80-8.00) K/mcL VBG Lactic Acid 0.9 (0.5-2.0) mmol/L Discharge Plan Patient/Caregiver Discharge Instructions Pt seen by ADV[employer]ALITY ENGINEER/PA only: No Clinical Impression: Pneumonia Patient Disposition: Still a Patient Follow up with: Paulette García ARNP [Primary Care Provider] - Prescriptions: No Action Aranesp (in polysorbate) 40 mcg/mL solution 40 mcg IV QWEEK RF: 0 calcitriol 0.25 mcg capsule 0.25 mcg PO 3XW RF: 0 sodium ferric gluconat-sucrose [Ferrlecit] 62.5 mg/5 mL solution 62.5 mg IV QWEEK RF: 0 heparin (porcine) 1,000 unit/mL solution 2,000 unit IV RF: 0 heparin (porcine) 1,000 unit/mL solution 1,200 unit IV RF: 0 hydroxyzine HCl 10 mg tablet 10 mg PO TID PRNRF: 0 Parsabiv 5 mg/mL solution 2.5 mg IV 3XW RF: 0 calcium carbonate [Tums] 200 mg calcium (500 mg) tablet,chewable 2,000 mg PO TID RF: 0 acetaminophen 325 mg capsule 650 mg PO Q6H PRNRF: 0
[2020-03-22] MEDS ORDERED: IPRATROPIUM/ALBUTEROL 3 ML AMPUL.NEB NEB ONE (07:37)
[2020-03-22] MEDS ORDERED: guaiFENesin/CODEINE 10 ML UDC PO ONE (07:46)
[2020-03-22] MEDS ORDERED: HYDROmorphone 0.5 MG/0.5 ML SYRINGE IV PRN ×2 (08:08→08:12)
[2020-03-22] MEDS ORDERED: AZITHROMYCIN 500 MG in DEXTROSE 5% IN WATER 250 ML IV ONE (08:13)
[2020-03-22 08:35] LABS: Basophils # (Auto) 0.08 K/mcL (0.00-0.20); Basophils % (Auto) 0.5 % (0.0-2.0); Eosinophils # (Auto) 0.54 K/mcL (0.00-0.70); Eosinophils % (Auto) 3.6 % (0.0-7.0); Hematocrit 28.6 % (41.0-55.0); Hemoglobin 9.4 g/dL (13.5-16.5); Lymphocytes # (Auto) 0.75 K/mcL (1.50-4.80); Mean Cell Volume 91.7 fL (80.0-100.0); Mean Corpuscular HGB Conc 32.9 g/dL (31.0-36.0); Mean Platelet Volume 11.1 fL (7.4-10.4); Monocytes # (Auto) 1.01 K/mcL (0.10-0.90); Monocytes % (Auto) 6.7 % (1.0-12.0); Neutrophils % (Auto) 84.2 % (38.0-78.0); Platelet Count 241 K/mcL (140-440); RBC 3.12 M/mcL (4.50-5.90); WBC 15.1 K/mcL (4.5-11.0)
--- NOTE | 2020-03-22 08:39 | XRay Report ---
INDICATION: sob TECHNIQUE: AP portable upright chest x-ray COMPARISON: Previous chest x-ray dated 03/12/2018 FINDINGS: Lungs:Mild patchy bibasilar pulmonary parenchymal infiltrates. Findings are improved but may be recurrent since 03/12/2018. Appearance is consistent with pneumonia and Covid pneumonia is possible Heart, vascular:No significant cardiomegaly. Pulmonary vascularity is normal. No pulmonary edema or pulmonary congestion Mediastinum, jl:No mediastinal widening. No hilar mass Pleura:No pleural fluid. No pleural-based mass or calcification Skeletal:Negative. IMPRESSION: Bilateral pulmonary parenchymal infiltrates consistent with pneumonia Interpreted and Authenticated by: Facundo Allred 03/22/20
[2020-03-22] MEDS ORDERED: OLANZapine 10 MG VIAL IM SCH (08:45)
[2020-03-22] MEDS: cefTRIAXone 2 GM in DEXTROSE 5% IN WATER 50 ML IV ONE ×2 (09:23→09:55)
[2020-03-22 10:03] LABS: ALT/SGPT 9 U/L (<40); AST/SGOT 12 U/L (<40); Albumin/Globulin Ratio 1.2 (1.0-2.3); Alkaline Phosphatase 74 U/L (39-117); Bilirubin,Total 0.4 mg/dL (0.1-1.0); Blood Urea Nitrogen 57 mg/dL (6-20); Calcium 9.2 mg/dL (8.6-10.4); Carbon Dioxide 20 mmol/L (22-30); Chloride 94 mmol/L (96-108); Globulin 3.3 gm/dL (2.2-3.7); Glomerular Filtration Rate 4; Glucose 95 mg/dL (70-105)
--- NOTE | 2020-03-22 10:33 | Emergency Department Note ---
HPI General Chief complaint: Cold/Flu Symptoms Stated complaint: cough Time Seen by Provider: 03/22/20 07:16 Source: patient and RN notes reviewed Mode of arrival: ambulatory Limitations: no limitations History of Present Illness HPI Narrative: Narrative: See dictated history and physical by Dr. Vega. Patient was to have dialysis this morning beginning around 7 AM but was sent here from dialysis due to cough and possible pneumonia. Evaluation here demonstrates a bilateral parenchymal bibasilar infiltrate. Appearance actually looks a little improved from 2 years ago also in February but is consistent with a pneumonia even a viral or Covid type of pneumonia. He denies fevers chills and sweats but is some short of breath. Rapid Covid test is negative. His nursing teacher is Dr. Hopper. Since arriving he had a breathing treatment and this seemed to help as well as a pain shot seem to help. He is a little less short of breath. He does not normally use oxygen. His cough is been present for multiple years but worse recently. He reports getting wet and cold last week 4 to 5 days ago and it seems to have worsened since then. The cause of his dialysis appears to have been staghorn calculi bilateral that got infected requiring removal of his kidneys. He reports that he does not usually wheeze. He does not have asthma. Related Data Home Medications Medication Instructions Recorded Confirmed acetaminophen 325 mg capsule 650 mg PO Q6H PRN 01/22/20 calcitriol 0.25 mcg capsule 0.25 mcg PO 3XW 01/22/20 calcium carbonate 200 mg calcium 2,000 mg PO TID tab 01/22/20 (500 mg) chewable tablet darbepoetin juany in polysorbat 40 40 mcg IV QWEEK 01/22/20 mcg/mL in polysorbate injection etelcalcetide 5 mg/mL intravenous 2.5 mg IV 3XW 01/22/20 solution heparin (porcine) 1,000 unit/mL 1,200 unit IV ml 01/22/20 injection solution heparin (porcine) 1,000 unit/mL 2,000 unit IV ml 01/22/20 injection solution hydroxyzine HCl 10 mg tablet 10 mg PO TID PRN 01/22/20 sodium ferric gluconat-sucrose 62.5 mg IV QWEEK ml 01/22/20 62.5 mg/5 mL intravenous Allergies Allergy/AdvReac Type Severity Reaction Status Date / Time bee venom protein (honey bee) Allergy Severe Anaphylaxis Verified 03/22/20 07:03 ceftriaxone Allergy Mild Hives Verified 03/22/20 07:03 coconut Allergy Unknown Unknown Verified 03/22/20 07:03 Penicillins Allergy Unknown Unknown Verified 03/22/20 07:03 Review of Systems ROS ROS Narrative: Narrative: [facility] Narrative Patient History Narrative: Narrative: Medical/Surgical/Family History All Active Problems (Updated 03/22/20 @ 10:34 by Albert Ji DO) Pneumonia (Acute) Dialysis patient (Acute) S/p nephrectomy (Acute) Fatty liver disease, nonalcoholic (Acute) Bacteremia (Acute) Bacteremia due to Streptococcus (Acute) Secondary hyperparathyroidism (Acute) Cellulitis (Acute) Abdominal muscle strain (Acute) Complications, dialysis, catheter, mechanical (Chronic) History of shortness of breath (Chronic) Staghorn calculus (Chronic) Uremia (Chronic) DM type 2 (diabetes mellitus, type 2) (Chronic) Acute diastolic (congestive) heart failure (Chronic) Weakness (Chronic) Vomiting (Chronic) Flank pain (Chronic) UTI (urinary tract infection) (Chronic 09/08/17) DVT prophylaxis (Chronic 09/08/17) Hypertension (Chronic 09/08/17) Hyperkalemia (Chronic 09/08/17) Volume depletion (Chronic 09/08/17) Pyelonephritis (Chronic 09/08/17) Acute renal failure (Chronic 09/08/17) Acute kidney injury (Chronic 09/08/17) Insomnia (Chronic) Renal calculi (Chronic) Anemia due to end stage renal disease (Chronic) Staghorn renal calculus (Chronic) ESRD on hemodialysis (Chronic) Proteus (mirabilis) (morganii) as the cause of diseases classified elsewhere (Chronic) Medical History (Updated 03/22/20 @ 10:34 by Albert Ji DO) Acute diastolic (congestive) heart failure (Chronic) Acute kidney injury (Chronic 09/08/17) Acute renal failure (Chronic 09/08/17) Anemia due to end stage renal disease (Chronic) DM type 2 (diabetes mellitus, type 2) (Chronic) DVT prophylaxis (Chronic 09/08/17) ESRD on hemodialysis (Chronic) Flank pain (Chronic) History of shortness of breath (Chronic) Hyperkalemia (Chronic 09/08/17) Hypertension (Chronic 09/08/17) Insomnia (Chronic) Proteus (mirabilis) (morganii) as the cause of diseases classified elsewhere (Chronic) Pyelonephritis (Chronic 09/08/17) Renal calculi (Chronic) Staghorn calculus (Chronic) Staghorn renal calculus (Chronic) Uremia (Chronic) UTI (urinary tract infection) (Chronic 09/08/17) Volume depletion (Chronic 09/08/17) Vomiting (Chronic) Weakness (Chronic) Surgical History (Updated 08/09/18 @ 22:45 by Chad Huber MD) History of knee surgery (Chronic) History of nephrectomy (Chronic) Status post removal of arteriovenous fistula (Chronic) Family History Coronary artery disease Father Mother Social History Smoking Status: Never smoker Alcohol Intake Frequency: does not drink Substance Use: does not use Exam Narrative Narrative: Narrative: General: Interactive and appropriate without major distress or toxic appearance. Mildly short of breath Lungs: Scattered pop wheezes posteriorly and mild coarseness. CV: Regular without murmur. Not particularly tachycardia. Slight systolic murmur present. Extremities: No edema of significance. Saturating normal on room air. General Limitations: no limitations Course Vital Signs Vital signs: Vital Signs Pulse Rate 78 03/22/20 07:01 Respiratory Rate 16 03/22/20 07:01 Blood Pressure 156/86 03/22/20 07:01 Pulse Oximetry (%) 98 03/22/20 07:01 Temperature 98.0 F 03/22/20 09:00 Pulse Rate 82 03/22/20 10:38 Respiratory Rate 20 03/22/20 10:38 Blood Pressure 149/80 03/22/20 10:38 Pulse Oximetry (%) 97 03/22/20 10:38 MDM MDM Narrative Medical decision making narrative: Narrative: Labs include a white count of 15.1. Hemoglobin and hematocrit are little lower than usual 4/28.6. Lactic acid however is normal at 0.9. PCR for Covid is negative. BNP is significantly elevated at 31,820. No other ones to compare with. Blood sugar on Accu-Chek was 104. Orders from Dr. Vega included ceftriaxone and azithromycin. Ceftriaxone canceled after it came to light that he had a previous rash reaction to ceftriaxone. Patient was given the azithromycin. 10:30 AM - call out recently to Dr. Hopper to discuss his inpatient treatment. Likely needs dialysis while getting antibiotics. 11:28 AM - spoke with nursing teacher, Dr. Hopper, who agrees with admission and willing to follow-up. He recommends Levaquin 500 q. OD. This was ordered for coverage now because of his ceftriaxone allergy. Call pending with hospitalist. 11:45 AM approximately - I spoke with Dr. Jerry Timmons, hospitalist, who will see patient for admission. Lab Data Result diagrams: 03/22/20 07:33 03/22/20 07:33 Labs: Lab Results 03/22/20 03/22/20 03/22/20 Range/Units 07:33 07:33 07:33 WBC 15.1 H (4.5-11.0) K/mcL RBC 3.12 L (4.50-5.90) M/mcL Hgb 9.4 L (13.5-16.5) g/dL Hct 28.6 L (41.0-55.0) % MCV 91.7 (80.0-100.0) fL MCH 30.1 (26.0-34.0) pg MCHC 32.9 (31.0-36.0) g/dL RDW 13.0 (11.5-14.5) % Plt Count 241 (140-440) K/mcL MPV 11.1 H (7.4-10.4) fL Neut % (Auto) 84.2 H (38.0-78.0) % Lymph % (Auto) 5.0 L (15.0-49.0) % [place] % (Auto) 6.7 (1.0-12.0) % Eos % (Auto) 3.6 (0.0-7.0) % Baso % (Auto) 0.5 (0.0-2.0) % Lymph # (Auto) 0.75 L (1.50-4.80) K/mcL [place] # (Auto) 1.01 H (0.10-0.90) K/mcL Eos # (Auto) 0.54 (0.00-0.70) K/mcL Baso # (Auto) 0.08 (0.00-0.20) K/mcL Absolute Neutrophils 12.67 H (1.80-8.00) K/mcL VBG Lactic Acid 0.9 (0.5-2.0) mmol/L Sodium 138 (133-145) mmol/L Potassium 4.7 (3.3-5.1) mmol/L Chloride 94 L (96-108) mmol/L Carbon Dioxide 20 L (22-30) mmol/L Anion Gap 24.0 H (8.0-16.0) BUN 57 H (6-20) mg/dL Creatinine 12.9 H* (0.7-1.2) mg/dL GFR Calculation 4 Glucose 95 (70-105) mg/dL Calcium 9.2 (8.6-10.4) mg/dL Total Bilirubin 0.4 (0.1-1.0) mg/dL AST 12 (<40) U/L ALT 9 (<40) U/L Alkaline Phosphatase 74 (39-117) U/L Troponin T (<0.03) ng/mL NT-Pro-B Natriuret Pep 25387.0 H (<125.0) pg/mL Total Protein 7.3 (5.9-8.4) gm/dL Albumin 4.0 (3.2-5.2) gm/dL Globulin 3.3 (2.2-3.7) gm/dL Albumin/Globulin Ratio 1.2 (1.0-2.3) SARS-CoV-2 (PCR) (Negative) 03/22/20 03/22/20 Range/Units 07:33 07:51 WBC (4.5-11.0) K/mcL RBC (4.50-5.90) M/mcL Hgb (13.5-16.5) g/dL Hct (41.0-55.0) % MCV (80.0-100.0) fL MCH (26.0-34.0) pg MCHC (31.0-36.0) g/dL RDW (11.5-14.5) % Plt Count (140-440) K/mcL MPV (7.4-10.4) fL Neut % (Auto) (38.0-78.0) % Lymph % (Auto) (15.0-49.0) % [place]reary % (Auto) (1.0-12.0) % Eos % (Auto) (0.0-7.0) % Baso % (Auto) (0.0-2.0) % Lymph # (Auto) (1.50-4.80) K/mcL [place] # (Auto) (0.10-0.90) K/mcL Eos # (Auto) (0.00-0.70) K/mcL Baso # (Auto) (0.00-0.20) K/mcL Absolute Neutrophils (1.80-8.00) K/mcL VBG Lactic Acid (0.5-2.0) mmol/L Sodium (133-145) mmol/L Potassium (3.3-5.1) mmol/L Chloride (96-108) mmol/L Carbon Dioxide (22-30) mmol/L Anion Gap (8.0-16.0) BUN (6-20) mg/dL Creatinine (0.7-1.2) mg/dL GFR Calculation Glucose (70-105) mg/dL Calcium (8.6-10.4) mg/dL Total Bilirubin (0.1-1.0) mg/dL AST (<40) U/L ALT (<40) U/L Alkaline Phosphatase (39-117) U/L Troponin T 0.09 H* (<0.03) ng/mL NT-Pro-B Natriuret Pep (<125.0) pg/mL Total Protein (5.9-8.4) gm/dL Albumin (3.2-5.2) gm/dL Globulin (2.2-3.7) gm/dL Albumin/Globulin Ratio (1.0-2.3) SARS-CoV-2 (PCR) Negative (Negative) Discharge Plan Patient/Caregiver Discharge Instructions Pt seen by PRODUCTION TRUCK DRIVER/PA only: No Clinical Impression: Dialysis patient Pneumonia Qualifiers: Pneumonia type: due to unspecified organism Laterality: bilateral Lung location: lower lobe of lung Qualified Code(s): J18.9 - Pneumonia, unspecified organism Patient Disposition: Xfer As Outpt/Obs ([facility]) Follow up with: Paulette García ARNP [Primary Care Provider] - Prescriptions: No Action Aranesp (in polysorbate) 40 mcg/mL solution 40 mcg IV QWEEK RF: 0 calcitriol 0.25 mcg capsule 0.25 mcg PO 3XW RF: 0 sodium ferric gluconat-sucrose [Ferrlecit] 62.5 mg/5 mL solution 62.5 mg IV QWEEK RF: 0 heparin (porcine) 1,000 unit/mL solution 2,000 unit IV RF: 0 heparin (porcine) 1,000 unit/mL solution 1,200 unit IV RF: 0 hydroxyzine HCl 10 mg tablet 10 mg PO TID PRNRF: 0 Parsabiv 5 mg/mL solution 2.5 mg IV 3XW RF: 0 calcium carbonate [Tums] 200 mg calcium (500 mg) tablet,chewable 2,000 mg PO TID RF: 0 acetaminophen 325 mg capsule 650 mg PO Q6H PRNRF: 0
[2020-03-22] MEDS ORDERED: LEVOFLOXACIN 500 MG/100 ML BAG IV ONE (11:35)
--- NOTE | 2020-03-22 12:08 | Internal Med History&Physical ---
HPI History of Present Illness Patient information: Note initiated : 03/22/20 at 12:04 pm Service Date, if different from initiated Date: [] Patient: Khadar Rizo a 59 y/o M admitted on for Cough. Chief Complaint: [] History of present illness: Mr. Rizo is a 59 year old M With a history of end-stage renal disease secondary to bilateral nephrectomies from staghorn calculi. Presents with worsening cough and shortness of breath. Patient does have a chronic cough however several days ago after getting back from hunting in the rain and getting chilled; subsequently developed an increased cough and shortness of breath. Dialysis this morning and because of the worsening cough and shortness of breath patient was sent to the ED. He was maintaining his oxygenation in the ED but appeared to be labored in his breathing. Case discussed with his retail department manager felt the patient needed dialysis today which we will do inpatient as well as admit for treating his pneumonia. Blood cell count elevated at 15. Patient denies fever chest pain but does have a headache and back pain from coughing. Patient denies history of heart condition and denies swelling in the legs however he says that he has been sitting in a chair for the past couple nights and has developed a little swelling in his legs. Review of Systems: Pertinent positives as above. Denies /fever/chills/nausea/vomiting/chest or abdominal pain/diarrhea. Many 10 point review of system reviewed negative PFSH PFSH All Active Problems (Updated 03/22/20 @ 10:34 by Albert Ji DO) Pneumonia (Acute) Dialysis patient (Acute) S/p nephrectomy (Acute) Fatty liver disease, nonalcoholic (Acute) Bacteremia (Acute) Bacteremia due to Streptococcus (Acute) Secondary hyperparathyroidism (Acute) Cellulitis (Acute) Abdominal muscle strain (Acute) Complications, dialysis, catheter, mechanical (Chronic) History of shortness of breath (Chronic) Staghorn calculus (Chronic) Uremia (Chronic) DM type 2 (diabetes mellitus, type 2) (Chronic) Acute diastolic (congestive) heart failure (Chronic) Weakness (Chronic) Vomiting (Chronic) Flank pain (Chronic) UTI (urinary tract infection) (Chronic 09/08/17) DVT prophylaxis (Chronic 09/08/17) Hypertension (Chronic 09/08/17) Hyperkalemia (Chronic 09/08/17) Volume depletion (Chronic 09/08/17) Pyelonephritis (Chronic 09/08/17) Acute renal failure (Chronic 09/08/17) Acute kidney injury (Chronic 09/08/17) Insomnia (Chronic) Renal calculi (Chronic) Anemia due to end stage renal disease (Chronic) Staghorn renal calculus (Chronic) ESRD on hemodialysis (Chronic) Proteus (mirabilis) (morganii) as the cause of diseases classified elsewhere (Chronic) Medical History (Updated 03/22/20 @ 10:34 by Albert Ji DO) Acute diastolic (congestive) heart failure (Chronic) Acute kidney injury (Chronic 09/08/17) Acute renal failure (Chronic 09/08/17) Anemia due to end stage renal disease (Chronic) DM type 2 (diabetes mellitus, type 2) (Chronic) DVT prophylaxis (Chronic 09/08/17) ESRD on hemodialysis (Chronic) Flank pain (Chronic) History of shortness of breath (Chronic) Hyperkalemia (Chronic 09/08/17) Hypertension (Chronic 09/08/17) Insomnia (Chronic) Proteus (mirabilis) (morganii) as the cause of diseases classified elsewhere (Chronic) Pyelonephritis (Chronic 09/08/17) Renal calculi (Chronic) Staghorn calculus (Chronic) Staghorn renal calculus (Chronic) Uremia (Chronic) UTI (urinary tract infection) (Chronic 09/08/17) Volume depletion (Chronic 09/08/17) Vomiting (Chronic) Weakness (Chronic) Surgical History (Updated 08/09/18 @ 22:45 by Chad Huber MD) History of knee surgery (Chronic) History of nephrectomy (Chronic) Status post removal of arteriovenous fistula (Chronic) Family History Father Coronary artery disease Mother Coronary artery disease Social History (Updated 04/22/18 @ 12:58 by Lori Pitts MD) smoking status: Never smoker alcohol intake frequency: does not drink substance use type: does not use MEDS/ALLERGIES Home Medications and Allergies Home Medications Medication Instructions Recorded Confirmed Type acetaminophen 325 mg capsule 650 mg PO Q6H PRN 01/22/20 History calcitriol 0.25 mcg capsule 0.25 mcg PO 3XW 01/22/20 History calcium carbonate 200 mg calcium 2,000 mg PO TID tab 01/22/20 History (500 mg) chewable tablet darbepoetin juany in polysorbat 40 40 mcg IV QWEEK 01/22/20 History mcg/mL in polysorbate injection etelcalcetide 5 mg/mL intravenous 2.5 mg IV 3XW 01/22/20 History solution heparin (porcine) 1,000 unit/mL 1,200 unit IV ml 01/22/20 History injection solution heparin (porcine) 1,000 unit/mL 2,000 unit IV ml 01/22/20 History injection solution hydroxyzine HCl 10 mg tablet 10 mg PO TID PRN 01/22/20 History sodium ferric gluconat-sucrose 62.5 mg IV QWEEK ml 01/22/20 History 62.5 mg/5 mL intravenous Allergies Allergy/AdvReac Type Severity Reaction Status Date / Time bee venom protein (honey bee) Allergy Severe Anaphylaxis Verified 03/22/20 07:03 ceftriaxone Allergy Mild Hives Verified 03/22/20 07:03 coconut Allergy Unknown Unknown Verified 03/22/20 07:03 Penicillins Allergy Unknown Unknown Verified 03/22/20 07:03 EXAM Constitutional Vitals: Temp Pulse Resp BP Pulse Ox 98.0 F 82 20 149/80 97 03/22/20 09:00 03/22/20 10:38 03/22/20 10:38 03/22/20 10:38 03/22/20 10:38 Exam: General: Alert, Awake, No acute Distress, obese Eyes/N/T: EOMI, PERRL, Head/Neck: neck supple, normocephalic atraumatic CV: RRR, No murmurs, normal s1/s2 Pulm: rhonchi b/l worse on left, no wheezing Abd: soft, nontender, +BS x4 Ext: no clubbing/cyanosis, 1+ b/l LE edema Neuro: Alert, no focal deficits, moves all extremities, CN 2-12 grossly intact, symmetrical strength b/l upper/lower, sensations intact b/l upper/lower Skin: warm/dry DATA Data Completed and Pending Labs: Labs from last 24 hours 03/22/20 03/22/20 03/22/20 07:51 07:33 07:33 WBC RBC Hgb Hct MCV MCH MCHC RDW Plt Count MPV Neut % (Auto) Lymph % (Auto) [place] % (Auto) Eos % (Auto) Baso % (Auto) Lymph # (Auto) [place] # (Auto) Eos # (Auto) Baso # (Auto) Absolute Neutrophils VBG Lactic Acid Sodium Potassium Chloride Carbon Dioxide Anion Gap BUN Creatinine GFR Calculation Glucose Calcium Total Bilirubin AST ALT Alkaline Phosphatase Troponin T 0.09 H* NT-Pro-B Natriuret Pep Total Protein Albumin Globulin Albumin/Globulin Ratio SARS-CoV-2 (PCR) Negative Pending 03/22/20 03/22/20 03/22/20 07:33 07:33 07:33 WBC 15.1 H RBC 3.12 L Hgb 9.4 L Hct 28.6 L MCV 91.7 MCH 30.1 MCHC 32.9 RDW 13.0 Plt Count 241 MPV 11.1 H Neut % (Auto) 84.2 H Lymph % (Auto) 5.0 L [place] % (Auto) 6.7 Eos % (Auto) 3.6 Baso % (Auto) 0.5 Lymph # (Auto) 0.75 L [place] # (Auto) 1.01 H Eos # (Auto) 0.54 Baso # (Auto) 0.08 Absolute Neutrophils 12.67 H VBG Lactic Acid 0.9 Sodium 138 Potassium 4.7 Chloride 94 L Carbon Dioxide 20 L Anion Gap 24.0 H BUN 57 H Creatinine 12.9 H* GFR Calculation 4 Glucose 95 Calcium 9.2 Total Bilirubin 0.4 AST 12 ALT 9 Alkaline Phosphatase 74 Troponin T NT-Pro-B Natriuret Pep 87839.0 H Total Protein 7.3 Albumin 4.0 Globulin 3.3 Albumin/Globulin Ratio 1.2 SARS-CoV-2 (PCR) A/P Narrative A/P Narrative: A: *CAP: -covid neg *Dyspnea/labored breathing: *ESRD: Follows with Dr. Hopper *Anemia, chronic: *Obesity: P: -Rocephin/azithromycin -RVP/SC pending -monitor O2 -Nephrology for HD -ppx: Heparin Full code Time Spent With Patient Time: Total time spent is greater than 50% in coordination of care (as documented) at patient's floor/unit and/or counseling patient:
[2020-03-22 13:24] LABS: Band Neutrophils % 11 % (0-10); Eosinophils % (Manual) 3 % (0-7); Hypochromasia 1+ (None Seen); Lymphocytes % 6 % (15-49); Monocytes % (Manual) 5 % (1-12); Platelet Estimate NORMAL (Normal); RBC Morphology ABNORMAL (Normal); Segmented Neutrophils % 75 % (38-78)
[2020-03-22] MEDS ORDERED: ONDANSETRON 4 MG/2 ML VIAL IV PRN (15:27)
[2020-03-22] MEDS ORDERED: SENNOSIDES 1 TABLET PO PRN (15:27)
[2020-03-22] MEDS ORDERED: POLYETHYLENE GLYCOL 3350 17 GM PACKET PO PRN (15:27)
[2020-03-22] MEDS ORDERED: IPRATROPIUM/ALBUTEROL 3 ML AMPUL.NEB NEB PRN (15:27)
[2020-03-22] MEDS ORDERED: MAGNESIUM SULFATE 2 GM/50 ML BAG IV PRN (15:27)
[2020-03-22] MEDS ORDERED: AZITHROMYCIN 500 MG in DEXTROSE 5% IN WATER 250 ML IV SCH (15:27)
[2020-03-22] MEDS ORDERED: cefTRIAXone 2 GM in DEXTROSE 5% IN WATER 50 ML IV SCH (15:27)
[2020-03-22] MEDS ORDERED: POTASSIUM CHLORIDE 20 MEQ TABLET PO PRN (15:27)
[2020-03-22] MEDS ORDERED: POTASSIUM CHLORIDE 40 MEQ in DEXTROSE 5% IN WATER 500 ML IV PRN (15:27)
--- NOTE | 2020-03-22 15:45 | Nephrology Consult Note ---
HPI Data of Consult Primary Care Provider: Paulette García Consult Narrative Patient Information: Note initiated : 03/22/20 at 3:42 pm Service Date, if different from initiated Date: [] Patient: Khadar Rizo 59 y/o M admitted on 03/22/20 for Cough. Chief Complaint: [Cough and SOB] Patient is well-known to me he has end-stage renal disease due to obstructive uropathy from staghorn calculi. In anticipation of renal transplant consideration he underwent bilateral nephrectomies but has not yet been approved for renal transplantation. Transplant surgeons were working under the assumption that he had hepatic cirrhosis but what he in fact has is a fatty liver and no evidence of cirrhosis and we have been working hard to get him reevaluated for transplant surgery. In addition to ESRD and a fatty liver, he has hypertension secondary hyperparathyroidism and the anemia of chronic kidney disease. Presented to the emergency room with worsening cough and shortness of breath. Patient does have a chronic cough however several days ago after getting back from hunting in the rain and getting chilled; subsequently developed an increased cough and shortness of breath. Dialysis this morning and because of the worsening cough and shortness of breath patient was sent to the ED. He was maintaining his oxygenation in the ED but appeared to be labored in his breathing. Case discussed with his weatherization and housing inspector felt the patient needed dialysis today which we will do inpatient as well as admit for treating his pneumonia. Blood cell count elevated at 15. Patient denies fever chest pain but does have a headache and back pain from coughing. Patient denies history of heart condition and denies swelling in the legs however he says that he has been sitting in a chair for the past couple nights and has developed a little swelling in his legs. Laboratory Tests 03/22/20 03/22/20 03/22/20 07:33 07:33 07:33 WBC 15.1 H Hgb 9.4 L Hct 28.6 L Plt Count 241 Eos % (Auto) 3.6 VBG Lactic Acid 0.9 Sodium 138 Potassium 4.7 Chloride 94 L Carbon Dioxide 20 L Anion Gap 24.0 H BUN 57 H Creatinine 12.9 H* GFR Calculation 4 Glucose 95 Calcium 9.2 Troponin T C-Reactive Protein NT-Pro-B Natriuret Pep 27671.0 H Albumin 4.0 Procalcitonin SARS-CoV-2 (PCR) 03/22/20 03/22/20 03/22/20 07:33 07:33 07:33 WBC Hgb Hct Plt Count Eos % (Auto) VBG Lactic Acid Sodium Potassium Chloride Carbon Dioxide Anion Gap BUN Creatinine GFR Calculation Glucose Calcium Troponin T 0.09 H* C-Reactive Protein 21.80 H NT-Pro-B Natriuret Pep Albumin Procalcitonin 1.47 H SARS-CoV-2 (PCR) neg CXR FINDINGS: Lungs:Mild patchy bibasilar pulmonary parenchymal infiltrates. Findings are improved but may be recurrent since 03/12/2018. Appearance is consistent with pneumonia and Covid pneumonia is possible Heart, vascular:No significant cardiomegaly. Pulmonary vascularity is normal. No pulmonary edema or pulmonary congestion Mediastinum, jl:No mediastinal widening. No hilar mass Pleura:No pleural fluid. No pleural-based mass or calcification Skeletal:Negative. IMPRESSION: Bilateral pulmonary parenchymal infiltrates consistent with pneumonia cc:: CC: Jerry Timmons Review of Systems All systems: reviewed and no additional remarkable complaints except as stated Constitutional Constitutional: Present headache(s); Absent chills and fever(s) Additional comments: Muscle pain EENT Eyes: Present as per HPI Nose, mouth and throat: Present headache(s) Cardiovascular Cardiovascular: Present as per HPI, chest pain, dyspnea and other Additional comments: cough with some sputum Respiratory Respiratory: Present cough, dyspnea on exertion, chest congestion and pain with cough Gastrointestinal Gastrointestinal: Present as per HPI Genitourinary Genitourinary: as per HPI Musculoskeletal Musculoskeletal: Present myalgias and neck pain Integumentary Integumentary: Present as per HPI Neurological Neurological: Present headache(s) Psychiatric Psychiatric: Present as per HPI and anxiety Endocrine Endocrine: Present as per HPI Hematologic/Lymphatic Additional comments: ALEX Therapy Allergic/Immunologic Allergic/Immunologic: Present as per HPI and seasonal rhinorrhea PFSH PFSH All Active Problems (Updated 03/22/20 @ 10:34 by Albert Ji DO) Pneumonia (Acute) Dialysis patient (Acute) S/p nephrectomy (Acute) Fatty liver disease, nonalcoholic (Acute) Bacteremia (Acute) Bacteremia due to Streptococcus (Acute) Secondary hyperparathyroidism (Acute) Cellulitis (Acute) Abdominal muscle strain (Acute) Complications, dialysis, catheter, mechanical (Chronic) History of shortness of breath (Chronic) Staghorn calculus (Chronic) Uremia (Chronic) DM type 2 (diabetes mellitus, type 2) (Chronic) Acute diastolic (congestive) heart failure (Chronic) Weakness (Chronic) Vomiting (Chronic) Flank pain (Chronic) UTI (urinary tract infection) (Chronic 09/08/17) DVT prophylaxis (Chronic 09/08/17) Hypertension (Chronic 09/08/17) Hyperkalemia (Chronic 09/08/17) Volume depletion (Chronic 09/08/17) Pyelonephritis (Chronic 09/08/17) Acute renal failure (Chronic 09/08/17) Acute kidney injury (Chronic 09/08/17) Insomnia (Chronic) Renal calculi (Chronic) Anemia due to end stage renal disease (Chronic) Staghorn renal calculus (Chronic) ESRD on hemodialysis (Chronic) Proteus (mirabilis) (morganii) as the cause of diseases classified elsewhere (Chronic) Medical History (Updated 03/22/20 @ 10:34 by Albert Ji DO) Acute diastolic (congestive) heart failure (Chronic) Acute kidney injury (Chronic 09/08/17) Acute renal failure (Chronic 09/08/17) Anemia due to end stage renal disease (Chronic) DM type 2 (diabetes mellitus, type 2) (Chronic) DVT prophylaxis (Chronic 09/08/17) ESRD on hemodialysis (Chronic) Flank pain (Chronic) History of shortness of breath (Chronic) Hyperkalemia (Chronic 09/08/17) Hypertension (Chronic 09/08/17) Insomnia (Chronic) Proteus (mirabilis) (morganii) as the cause of diseases classified elsewhere (Chronic) Pyelonephritis (Chronic 09/08/17) Renal calculi (Chronic) Staghorn calculus (Chronic) Staghorn renal calculus (Chronic) Uremia (Chronic) UTI (urinary tract infection) (Chronic 09/08/17) Volume depletion (Chronic 09/08/17) Vomiting (Chronic) Weakness (Chronic) Surgical History (Updated 08/09/18 @ 22:45 by Chad Huber MD) History of knee surgery (Chronic) History of nephrectomy (Chronic) Status post removal of arteriovenous fistula (Chronic) Family History Father Coronary artery disease Mother Coronary artery disease Social History (Updated 04/22/18 @ 12:58 by Lori Pitts MD) smoking status: Never smoker alcohol intake frequency: does not drink substance use type: does not use MEDS/ALLERGIES Home Medications and Allergies Home Medications Medication Instructions Recorded Confirmed Type calcitriol 0.25 mcg capsule 0.25 mcg PO 3XW 01/22/20 History calcium carbonate 200 mg calcium 2,000 mg PO TID tab 01/22/20 History (500 mg) chewable tablet darbepoetin juany in polysorbat 40 40 mcg IV QWEEK 01/22/20 History mcg/mL in polysorbate injection etelcalcetide 5 mg/mL intravenous 2.5 mg IV 3XW 01/22/20 History solution heparin (porcine) 1,000 unit/mL 1,200 unit IV ml 01/22/20 History injection solution heparin (porcine) 1,000 unit/mL 2,000 unit IV ml 01/22/20 History injection solution hydroxyzine HCl 10 mg tablet 10 mg PO TID PRN 01/22/20 History sodium ferric gluconat-sucrose 62.5 mg IV QWEEK ml 01/22/20 History 62.5 mg/5 mL intravenous Allergies Allergy/AdvReac Type Severity Reaction Status Date / Time bee venom protein (honey bee) Allergy Severe Anaphylaxis Verified 03/22/20 12:15 ceftriaxone Allergy Mild Hives Verified 03/22/20 12:15 coconut Allergy Unknown Unknown Verified 03/22/20 12:15 Penicillins Allergy Unknown Unknown Verified 03/22/20 12:15 Physical Examination Vital Signs Vital signs: Temp Pulse Resp BP Pulse Ox 37.0 C 80 22 135/83 99 03/22/20 14:10 03/22/20 14:10 03/22/20 14:10 03/22/20 14:10 03/22/20 14:10 General Appearance General appearance: appears started age, moderate distress and chronically ill EENT EENT: ATNC, PERRL and mucous membranes dry Neck Neck: no JVD, no carotid bruit and supple Respiratory Respiratory: no kyphosis, wheezing, course breath sounds and rhonchi Cardiovascular Cardiology: mid-systolic murmur, no gallops, regular rate, regular rhythm, normal S1 and normal S2 Gastrointestinal Gastrointestinal: normoactive bowel sounds and no guarding Integumentary Integumentary: no rash and warm and dry Neurologic Neurologic: no focal deficit, no asterixis, alert and oriented x3, strength 5/5 and CN 3-12 intact Musculoskeletal Musculoskeletal: no deformities, no erythema, no cyanosis and no clubbing Psychiatric Psychiatric: mood/affect appropriate and cooperative Results Lab Results Result Diagrams: 03/22/20 07:33 03/22/20 07:33 Lab results: Most recent lab results Calcium 9.2 mg/dL (8.6-10.4) 03/22/20 07:33 A/P Assessment and plan (1) ESRD on hemodialysis: Assessment and plan: * Dialysis this evening * Will probably do isolated ultrafiltration for more fluid removal tomorrow as there is likely to be a volume component given his edema and markedly elevated proBNP level * Orders have been written Status: Chronic (2) Pneumonia: Assessment and plan: * Sputum Gram stain and C&S ordered * Initial COVID-19 negative * Respiratory virus panel pending * Erythromycin x1 dose * Levofloxacin 500 mg IV every 48 hours * Additional dialysis to remove excess fluid Status: Acute Qualifiers: Laterality: bilateral Lung location: lower lobe of lung Pneumonia type: due to unspecified organism Qualified Code(s): J18.9 - Pneumonia, unspecified organism (3) Secondary hyperparathyroidism: Assessment and plan: * Continue calcitriol and calcium acetate Status: Acute (4) Anemia due to end stage renal disease: Status: Chronic Narrative A/P Narrative: Aranesp weekly Time Spent With Patient Time: Total time spent is greater than 50% in coordination of care (as documented) at patient's floor/unit and/or counseling patient: Total time spent with greater than 50% in coordination of care (as documented) at patient's floor/unit and/or counseling patient:: Greater than 35 minutes
[2020-03-22] MEDS ORDERED: LEVOFLOXACIN 250 MG/50 ML BAG IV ONE (16:00)
[2020-03-22] MEDS: 0.9 % SODIUM CHLORIDE 10 ML SYRINGE IV SCH ×2 (16:33→23:00)
[2020-03-22] MEDS: ACETAMINOPHEN 325 MG TABLET PO PRN (16:37)
[2020-03-22] MEDS: guaiFENesin/CODEINE 10 ML UDC PO PRN (17:44)
[2020-03-22] MEDS ORDERED: KETOROLAC 30 MG/ML VIAL IV ONE (18:24)
[2020-03-22] MEDS ORDERED: hydrALAZINE 20 MG/ML VIAL IV PRN (21:30)
[2020-03-22] MEDS: DOCUSATE SODIUM 100 MG CAPSULE PO SCH (21:50)
[2020-03-22] MEDS: HEPARIN 5,000 UNIT/ML VIAL SQ SCH (23:00)
[2020-03-23] MEDS: guaiFENesin/CODEINE 10 ML UDC PO PRN ×4 (00:27→22:48)
[2020-03-23] MEDS: 0.9 % SODIUM CHLORIDE 10 ML SYRINGE IV SCH ×3 (04:55→20:11)
[2020-03-23 06:56] LABS: Basophils # (Auto) 0.07 K/mcL (0.00-0.20); Basophils % (Auto) 0.6 % (0.0-2.0); Eosinophils # (Auto) 0.55 K/mcL (0.00-0.70); Eosinophils % (Auto) 5.1 % (0.0-7.0); Hematocrit 28.4 % (41.0-55.0); Hemoglobin 9.2 g/dL (13.5-16.5); Lymphocytes % (Auto) 6.4 % (15.0-49.0); Mean Cell Volume 92.8 fL (80.0-100.0); Mean Corpuscular HGB Conc 32.4 g/dL (31.0-36.0); Mean Platelet Volume 11.4 fL (7.4-10.4); Monocytes # (Auto) 0.84 K/mcL (0.10-0.90); Monocytes % (Auto) 7.7 % (1.0-12.0); Neutrophils % (Auto) 80.2 % (38.0-78.0); Platelet Count 214 K/mcL (140-440); RBC 3.06 M/mcL (4.50-5.90); Red Cell Distribution Width 13.1 % (11.5-14.5); WBC 10.9 K/mcL (4.5-11.0)
[2020-03-23] MEDS: DOCUSATE SODIUM 100 MG CAPSULE PO SCH ×2 (07:11→20:12)
[2020-03-23] MEDS: ACETAMINOPHEN 325 MG TABLET PO PRN ×3 (07:28→22:48)
--- NOTE | 2020-03-23 07:32 | Internal Med Progress Note ---
SUBJECTIVE Subjective Patient information: Note initiated : 03/23/20 at 7:28 am Service Date, if different from initiated Date: [] Patient: Khadar Rizo a 59 y/o M admitted on 03/22/20 for Cough. Chief Complaint: [] Interval history: History of present illness: Mr. Rizo is a 59 year old M With a history of end-stage renal disease secondary to bilateral nephrectomies from staghorn calculi. Presents with worsening cough and shortness of breath. Patient does have a chronic cough however several days ago after getting back from hunting in the rain and getting chilled; subsequently developed an increased cough and shortness of breath. Dialysis this morning and because of the worsening cough and shortness of breath patient was sent to the ED. He was maintaining his oxygenation in the ED but appeared to be labored in his breathing. Case discussed with his sonography technician felt the patient needed dialysis today which we will do inpatient as well as admit for treating his pneumonia. Blood cell count elevated at 15. Patient denies fever chest pain but does have a headache and back pain from coughing. Patient denies history of heart condition and denies swelling in the legs however he says that he has been sitting in a chair for the past couple nights and has developed a little swelling in his legs. 03/23 Feeling better today. Breathing better. Does have cough with headaches. She hemodialysis earlier this morning. Review of Systems: denies headache/fever/chills/nausea/vomiting/chest or abdominal pain/diarrhea. Otherwise see above. Constitutional Vitals: Vital Signs Temp Pulse Resp BP Pulse Ox 98.7 F 100 H 20 156/91 98 03/23/20 07:07 03/23/20 07:07 03/23/20 07:07 03/23/20 07:07 03/23/20 07:07 Period Temp Pulse Resp BP Sys/Ding Pulse Ox Last 24 Hr 97.8 F-98.9 F 61-105 18-28 106-182/62-108 93-99 Intake and Output 03/22/20 03/23/20 03/23/20 21:59 05:59 13:59 Intake Total 150 700 Output Total 3800 Balance 150 -3100 Weight 124.103 kg Intake & Output: Intake & Output 03/22/20 03/23/20 03/23/20 21:59 05:59 13:59 Intake Total 150 700 Output Total 3800 Balance 150 -3100 Weight 124.103 kg Intake: IV 50 Oral 100 700 Output: Hemodialysis UF 3800 Exam: General: Alert, Awake, No acute Distress, obese Eyes/N/T: EOMI, Head/Neck: neck supple, CV: RRR, No murmurs, Pulm: rhonchi b/l worse on left, no wheezing Abd: soft, nontender, +BS x4 Ext: no clubbing/cyanosis, trace b/l LE edema Neuro: Alert, no focal deficits, moves all extremities, Skin: warm/dry OBJ DATA Labs CBC & Chem 7: 03/23/20 05:15 03/23/20 05:15 Labs: Abnormal Lab Results 03/23/20 03/22/20 03/22/20 05:15 07:33 07:33 WBC RBC 3.06 L Hgb 9.2 L Hct 28.4 L MPV 11.4 H Neut % (Auto) 80.2 H Lymph % (Auto) 6.4 L Lymph # (Auto) 0.70 L [place] # (Auto) Band Neutrophils % Lymphocytes % Absolute Neutrophils 8.71 H RBC Morphology Hypochromasia Chloride Carbon Dioxide Anion Gap BUN Creatinine Troponin T C-Reactive Protein 21.80 H NT-Pro-B Natriuret Pep Procalcitonin 1.47 H 03/22/20 03/22/20 03/22/20 07:33 07:33 07:33 WBC RBC Hgb Hct MPV Neut % (Auto) Lymph % (Auto) Lymph # (Auto) [place] # (Auto) Band Neutrophils % 11 H Lymphocytes % 6 L Absolute Neutrophils RBC Morphology Abnormal A Hypochromasia 1+ A Chloride 94 L Carbon Dioxide 20 L Anion Gap 24.0 H BUN 57 H Creatinine 12.9 H* Troponin T 0.09 H* C-Reactive Protein NT-Pro-B Natriuret Pep 61270.0 H Procalcitonin 03/22/20 07:33 WBC 15.1 H RBC 3.12 L Hgb 9.4 L Hct 28.6 L MPV 11.1 H Neut % (Auto) 84.2 H Lymph % (Auto) 5.0 L Lymph # (Auto) 0.75 L [place] # (Auto) 1.01 H Band Neutrophils % Lymphocytes % Absolute Neutrophils 12.67 H RBC Morphology Hypochromasia Chloride Carbon Dioxide Anion Gap BUN Creatinine Troponin T C-Reactive Protein NT-Pro-B Natriuret Pep Procalcitonin Meds: Medications Acetaminophen (Tylenol) 650 mg PO Q6HP PRN PRN Reason: PAIN/FEVER > 101 Last Admin: 03/22/20 16:37 Dose: 650 mg Documented by: Albuterol/Ipratropium (Duoneb) 3 ml NEB Q4HP PRN PRN Reason: Shortness Of Breath Docusate Sodium (Colace) 100 mg PO BID [facility] Last Admin: 03/23/20 07:11 Dose: Not Given Documented by: Guaifenesin/Codeine Phosphate (Robitussin Ac) 10 ml PO Q4HP PRN PRN Reason: Cough Last Admin: 03/23/20 00:27 Dose: 10 ml Documented by: Heparin Sodium (Porcine) (Heparin) 5,000 unit SQ Q12 [facility] Last Admin: 03/22/20 23:00 Dose: 5,000 unit Documented by: Hydralazine HCl (Apresoline) 10 mg IV Q6HP PRN PRN Reason: Hypertension Potassium Chloride 40 meq/ (Dextrose) 520 mls @ 130 mls/hr IV UD PRN PRN Reason: Potassium < 3 Magnesium Sulfate (Magnesium Sulfate) 2 gm in 50 mls @ 50 mls/hr IV UD PRN PRN Reason: Magnesium </= 1.6 Levofloxacin (Levaquin) 500 mg in 100 mls @ 100 mls/hr IV Q48H [facility] Ondansetron HCl (Zofran) 4 mg IV Q4HP PRN PRN Reason: Nausea And Vomiting Pneumococcal Polyvalent Vaccine (Pneumovax 23) 0.5 ml IM .ONCE ONE Stop: 03/23/20 10:01 Polyethylene Glycol (Miralax) 17 gm PO DAILYP PRN PRN Reason: Constipation Potassium Chloride (Kdur) 40 meq PO UD PRN PRN Reason: Potassium < 3 Senna (Senokot) 2 tab PO DAILYP PRN PRN Reason: Constipation Sodium Chloride (Saline Flush) 10 ml IV Q8 [facility] Last Admin: 03/23/20 04:55 Dose: 10 ml Documented by: A/P Narrative A/P Narrative: A: *CAP: -covid neg, rhinovirus +, PCT elevated -SC with GPC *SIRS: leukocytosis resolved *Dyspnea/labored breathing: improved *ESRD: Follows with Dr. Hopper *Anemia, chronic: *Obesity: P: -Levaquin -SC pending -monitor O2 -Nephrology for HD -ppx: Heparin Time Spent With Patient Time: Total time spent is greater than 50% in coordination of care (as docume nted) at patient's floor/unit and/or counseling patient: QUALITY VTE Deep Vein Thrombosis/Pulmonary Embolism Present on Admission: No
[2020-03-23 07:52] LABS: ALT/SGPT 10 U/L (<40); AST/SGOT 15 U/L (<40); Albumin 3.9 gm/dL (3.2-5.2); Albumin/Globulin Ratio 1.1 (1.0-2.3); Alkaline Phosphatase 78 U/L (39-117); Bilirubin,Direct < 0.2 mg/dL (<0.3); Bilirubin,Total 0.6 mg/dL (0.1-1.0); Blood Urea Nitrogen 25 mg/dL (6-20); Calcium 8.8 mg/dL (8.6-10.4); Carbon Dioxide 28 mmol/L (22-30); Chloride 89 mmol/L (96-108); Globulin 3.4 gm/dL (2.2-3.7); Glomerular Filtration Rate 7; Glucose 88 mg/dL (70-105); Lactate Dehydrogenase 218 U/L (135-225); Phosphorous 4.1 mg/dL (2.5-4.5); Triglycerides 114 mg/dL (<150); Uric Acid 3.1 mg/dL (2.5-8.0)
[2020-03-23] MEDS: HEPARIN 5,000 UNIT/ML VIAL SQ SCH ×2 (08:39→20:11)
[2020-03-23] MEDS ORDERED: PNEUMOCOCCAL 23-VAL P-SAC VAC 0.5 ML SYRINGE IM ONE (10:00)
--- NOTE | 2020-03-23 17:31 | Nephrology Progress Note ---
SUBJECTIVE Subjective Patient information: Note initiated : 03/23/20 at 5:31 pm Service Date, if different from initiated Date: [] Patient: Khadar Rizo 59 y/o M admitted on 03/22/20 for Cough. Chief Complaint: [Cough and shortness of breath] Admitted yesterday with cough shortness of breath and concern for community- acquired pneumonia ABx given Looks like Strep will grow from gram stain and sputum culture Influenza, SARS CoV -2 neg x 2, Mycoplasma neg Dialyzed yesterday and additional isolated U/F today to make sure he is "dry" Routine MWF HD from here on out. Recheck procal, proBNP and CXR Laboratory Tests 03/23/20 03/23/20 03/23/20 05:15 05:15 08:17 WBC 10.9 Hgb 9.2 L Hct 28.4 L MCV 92.8 Plt Count 214 Eos % (Auto) 5.1 Sodium 132 L Potassium 4.2 Chloride 89 L Carbon Dioxide 28 BUN 25 H Creatinine 7.6 H* Glucose 88 Uric Acid 3.1 Calcium 8.8 Phosphorus 4.1 Magnesium 2.0 Mycoplasma pneumon IgM Negative Echo with rLVEF Need to start afterload reduction. Constitutional Vitals: Vital Signs Temp Pulse Resp BP Pulse Ox 36.7 C 95 H 20 167/107 98 03/23/20 16:42 03/23/20 17:10 03/23/20 16:00 03/23/20 17:10 03/23/20 12:00 Period Temp Pulse Resp BP Sys/Ding Pulse Ox Last 24 Hr 36.6 C-37.2 C 61-101 18-24 106-167/62-108 93-99 Intake and Output 03/23/20 03/23/20 03/23/20 05:59 13:59 21:59 Intake Total 700 500 Output Total 3800 Balance -3100 500 Weight 124.103 kg Patient Weight 03/24/20 05:59 Weight 124.103 kg Intake & Output: Intake & Output 03/23/20 03/23/20 03/23/20 05:59 13:59 21:59 Intake Total 700 500 Output Total 3800 Balance -3100 500 Weight 124.103 kg Intake: Oral 700 500 Output: Hemodialysis UF 3800 Other: Meal Breakfast Percent of Meal Consumed 100% Feeding Ability Independent General appearance: average body habitus, cooperative and mild distress Head Head exam: Present atraumatic and normocephalic Eye Eye exam: Present EOMI and PERRL Pupils: Present PERRL ENT ENT exam: Present mucous membranes moist Neck Neck exam: Present full ROM and normal inspection; Absent meningismus Respiratory Respiratory exam: Present decreased breath sounds, prolonged expiratory phase and rhonchi Cardiovascular Cardiovascular exam: Present normal rate and rhythm, +S1, +S2 and systolic murmur (2/6 GABY); Absent rubs and +S3 GI/Abdominal GI/Abdominal exam: Present normal bowel sounds; Absent bruit and distended Rectal Rectal exam: Present deferred Extremities Exam Extremities exam: Present pedal edema; Absent calf tenderness Back Exam Additional comments: No CVAT Neurological Exam Neurological exam: Present CN II-XII intact and oriented X3 Additional comments: Nonfocal Psychiatric Psychiatric exam: Present normal affect and normal mood Skin Skin exam: Present pallor A/P Assessment and plan (1) ESRD on hemodialysis: Assessment and plan: * Dialyzed close to euvolemia * Continue levoquin q 48 hr * Start losartan for rLVEF * Next HD tomorrow Status: Chronic (2) Pneumonia: Assessment and plan: * Sputum Gram stain and C&S not finalized but looks like gm positive in pairs, chains and clusters => ?strep * Initial COVID-19 negative * Respiratory virus panel negative * Erythromycin x1 dose * Levofloxacin 500 mg IV every 48 hours * Additional dialysis to remove excess fluid Status: Acute Qualifiers: Laterality: bilateral Lung location: lower lobe of lung Pneumonia type: due to unspecified organism Qualified Code(s): J18.9 - Pneumonia, unspecified organism (3) Secondary hyperparathyroidism: Assessment and plan: * Continue calcitriol and calcium acetate Status: Acute (4) Anemia due to end stage renal disease: Assessment and plan: Aranesp 100 ug tomorrow with HD Status: Chronic (5) Acute on chronic combined systolic and diastolic CHF, NYHA class 2: Status: Acute Comment: Start Losartan 25 mg po qHS Narrative A/P Narrative: Suspect he has bilateral strep pneumonia based on Gram stain of sputum Recheck procalcitonin and proBNP level Recheck PA and lateral chest x-ray tomorrow after dialysis Aranesp 100 mcg IV with dialysis tomorrow Start medical Rx or combined systolic and diastolic CHF with carvedilol and losartan Time Spent With Patient Time: Total time spent is greater than 50% in coordination of care (as docum ented) at patient's floor/unit and/or counseling patient: Total time spent with greater than 50% in coordination of care (as documented) at patient's floor/unit and/or counseling patient:: Greater than 35 minutes
[2020-03-23] MEDS ORDERED: LOSARTAN 25 MG TABLET PO SCH (21:00)
[2020-03-24] MEDS: 0.9 % SODIUM CHLORIDE 10 ML SYRINGE IV SCH (04:43)
--- NOTE | 2020-03-24 07:28 | Discharge Summary ---
Discharge Provider Provider Patient information: Note initiated : 03/24/20 at 7:27 am Service Date, if different from initiated Date: [] Patient: Khadar Rizo a 59 y/o M admitted on 03/22/20 for Cough. Chief Complaint: Discharge diagnosis *CAP: -covid neg, rhinovirus +, PCT elevated -SC with GPC. Clinically improved. Feels at baseline. Discharging on additional 4 days Levaquin *SIRS: leukocytosis resolved *Dyspnea/labored breathing: improved *ESRD: Follows with Dr. Hopper. Continue outpatient management as per nephrology *Anemia, chronic: *Obesity: Brief hospital course History of present illness: Mr. Rizo is a 59 year old M With a history of end-stage renal disease secondary to bilateral nephrectomies from staghorn calculi. Presents with worsening cough and shortness of breath. Patient does have a chronic cough however several days ago after getting back from hunting in the rain and getting chilled; subsequently developed an increased cough and shortness of breath. Dialysis this morning and because of the worsening cough and shortness of breath patient was sent to the ED. He was maintaining his oxygenation in the ED but appeared to be labored in his breathing. Case discussed with his motor bike mechanic felt the patient needed dialysis today which we will do inpatient as well as admit for treating his pneumonia. Blood cell count elevated at 15. Patient denies fever chest pain but does have a headache and back pain from coughing. Patient denies history of heart condition and denies swelling in the legs however he says that he has been sitting in a chair for the past couple nights and has developed a little swelling in his legs. 03/23 Feeling better today. Breathing better. Does have cough with headaches. She hemodialysis earlier this morning. 03/24-patient doing a lot better. White count normalized. Discharging with advised to continue hemodialysis outpatient follow-up with nephrology. Continue Levaquin for additional 4 days. Denies shortness of breath fever chills. Date of admission: 03/22/20 15:27 Discharge date: 03/24/20 Primary care physician: Paulette García Consults: 03/22/20 Consult to Physician [CONS] Stat Comment: Consulting Provider: Jerry Timmons Reason For Exam: Physician to Consult Consult to Physician [CONS] Stat Comment: Consulting Provider: Esau Hopper Reason For Exam: Physician to Consult Discharge Meds Discharge Medications Home Medications calcitriol 0.25 mcg capsule 0.25 mcg PO 3XW 01/22/20 [History Confirmed 03/22/20 Last Taken 03/19/20 11:00] calcium carbonate 200 mg calcium (500 mg) chewable tablet 2,000 mg PO TID tab 01/22/20 [History Confirmed 03/22/20 Last Taken 03/21/20 20:00] darbepoetin juany in polysorbat 40 mcg/mL in polysorbate injection 40 mcg IV Q WEEK 01/22/20 [History Confirmed 03/22/20 Last Taken 03/17/20 09:00] etelcalcetide 5 mg/mL intravenous solution 2.5 mg IV 3XW 01/22/20 [History Confirmed 03/22/20 Last Taken 03/19/20 11:00] heparin (porcine) 1,000 unit/mL injection solution 1,200 unit IV 3XW ml 01/22/20 [History Confirmed 03/22/20 Last Taken 03/19/20 09:00] heparin (porcine) 1,000 unit/mL injection solution 2,000 unit IV 3XW ml 01/22/20 [History Confirmed 03/22/20 Last Taken 03/19/20 09:00] hydroxyzine HCl 10 mg tablet 10 mg PO TID PRN 01/22/20 [History Confirmed 03/22/20 Last Taken Unknown] sodium ferric gluconat-sucrose 62.5 mg/5 mL intravenous 62.5 mg IV QWEEK ml 01/22/20 [History Confirmed 03/22/20 Last Taken 03/15/20 09:00] levofloxacin 500 mg PO Q48H #3 tab 03/24/20 [Rx Last Taken Unknown] COURSE Hospital Course Hospital course: . Discharge diagnosis: . Time Spent with Patient Time attestation: Total time spent providing and/or coordinating discharge services: EXAM Constitutional Vitals: Temp Pulse Resp BP Pulse Ox 97.6 F 92 H 20 145/92 96 03/24/20 04:42 03/24/20 04:42 03/24/20 04:42 03/24/20 04:42 03/24/20 04:42 Discharge Data Data Completed and Pending Labs on day of discharge: Labs from last 24 hours 03/23/20 03/23/20 03/22/20 08:17 05:15 07:33 Sodium 132 L Potassium 4.2 Chloride 89 L Carbon Dioxide 28 Anion Gap 15.0 BUN 25 H Creatinine 7.6 H* GFR Calculation 7 Glucose 88 Uric Acid 3.1 Calcium 8.8 Phosphorus 4.1 Magnesium 2.0 Total Bilirubin 0.6 Direct Bilirubin < 0.2 GGT 18 AST 15 ALT 10 Alkaline Phosphatase 78 Lactate Dehydrogenase 218 Total Protein 7.3 Albumin 3.9 Globulin 3.4 Albumin/Globulin Ratio 1.1 Triglycerides 114 Mycoplasma pneumon IgM Negative SARS-CoV-2 (PCR) Not detected Preliminary micro results at discharge 03/23/20 16:20 Gram Stain - Preliminary Sputum - Expectorated Sputum Culture - Preliminary 03/23/20 01:21 Gram Stain - Preliminary Sputum - Induced Sputum Culture - Preliminary Discharge Plan Patient/Caregiver Discharge Instructions Activity: increase activity as tolerated Diet: Renal Activity Restrictions/Additional Instructions: Continue dialysis as prior Follow-up nephrology as scheduled Continue additional 4 days oral Levaquin Return to ER if worsening shortness of breath fever chills noted Prescriptions: New levofloxacin 500 mg tablet 500 mg PO Q48H Qty: 3 RF: 0 Continued Aranesp (in polysorbate) 40 mcg/mL solution 40 mcg IV QWEEK RF: 0 calcitriol 0.25 mcg capsule 0.25 mcg PO 3XW RF: 0 sodium ferric gluconat-sucrose [Ferrlecit] 62.5 mg/5 mL solution 62.5 mg IV QWEEK RF: 0 heparin (porcine) 1,000 unit/mL solution 2,000 unit IV 3XW RF: 0 heparin (porcine) 1,000 unit/mL solution 1,200 unit IV 3XW RF: 0 hydroxyzine HCl 10 mg tablet 10 mg PO TID PRN (Reason: Anxiety) RF: 0 Parsabiv 5 mg/mL solution 2.5 mg IV 3XW RF: 0 calcium carbonate [Tums] 200 mg calcium (500 mg) tablet,chewable 2,000 mg PO TID RF: 0 Follow Up Plan Follow up with: Paulette García ARNP [Primary Care Provider] - Patient Disposition: Home, Self-Care Rehab Potential: Fair I certify that the patient requires SNF services: No Overall status at discharge: patient is progressing back to baseline Discharge Orders: Discharge Order (Routine); Ordered 03/24/20 Ordered By: Chad Huber QUALITY VTE Deep Vein Thrombosis/Pulmonary Embolism Present on Admission: No
[2020-03-24] MEDS ORDERED: CARVEDILOL 3.125 MG TABLET PO SCH (08:00)
[2020-03-24] MEDS ORDERED: LEVOFLOXACIN 500 MG/100 ML BAG IV SCH (09:00)
[2020-03-24] MEDS ORDERED: DARBEPOETIN ALFA 100 MCG/ML VIAL IV ONE (12:00)
== END 2020-03-24 08:00 | disposition home or self-care (01) | DRG 193 ==
LOC: ICU 07:00 → ED 07:00
PROVIDERS: ADMIT Internal Medicine; ATTEND Internal Medicine

== ENCOUNTER 2021-01-13 13:14 | Inpatient (IN) ==
[2021-01-13] MEDS ORDERED: ONDANSETRON 4 MG/2 ML VIAL IV ONE (13:51)
--- NOTE | 2021-01-13 13:59 | Emergency Department Note ---
SOB HPI General Chief Complaint: Shortness of Breath/Dyspnea Stated Complaint: SOB, cough, weakness Time Seen by Provider: 01/13/21 13:43 Source: patient Mode of arrival: ambulatory Limitations: no limitations History of Present Illness HPI Narrative: 60-year-old male presents chief complaint of shortness of breath for the last 2 days. Patient is on hemodialysis Sunday and missed dialysis yesterday and only had half a treatment on 2 days ago. He states he missed dialysis due to vomiting and diarrhea. He has had some nasal congestion for the last few days which he says is more of a chronic thing and has a subjective fevers and chills. Denies any chest pain. Patient was not vaccinated against COVID-19. Patient states he did have some family member that tested positive for COVID-19 but he most recently had a negative test. Some mild swelling in his legs. Related Data Home Medications Medication Instructions Recorded Confirmed calcitriol 0.25 mcg capsule 1 mcg PO 3XW cap 07/12/20 07/12/20 Previous Rx's Medication Instructions Recorded hydroxyzine HCl 25 mg tablet 25 mg PO TID PRN #90 tab 08/30/20 gabapentin 100 mg capsule 200 mg PO BID #120 cap 09/20/20 calcium acetate(phosphat bind) 667 2,668 mg PO .TID with meals #360 01/03/21 mg capsule cap Allergies Allergy/AdvReac Type Severity Reaction Status Date / Time bee venom protein (honey bee) Allergy Severe Anaphylaxis Verified 03/22/20 12:15 ceftriaxone Allergy Mild Hives Verified 03/22/20 12:15 coconut Allergy Unknown Unknown Verified 03/22/20 12:15 Penicillins Allergy Unknown Unknown Verified 03/22/20 12:15 Review of Systems ROS ROS Narrative: Narrative: All systems ED: reviewed and negative except as stated. Constitutional: Reports fever and chills Eyes: Denies vision change ENT ED: Reports congestion Cardiovascular: Denies chest pain Respiratory: Reports shortness of breath Gastrointestinal: Reports vomiting and diarrhea; Denies abdominal pain Genitourinary: Denies dysuria, frequency, urgency and hematuria Musculoskeletal: Denies back pain and joint pain Integumentary: Denies rash Neurological: Denies headache and dizziness Psychiatric: Denies anxiety, suicidal thoughts and homicidal thoughts Endocrine: Denies polydipsia and polyuria Hematological/Lymphatic: Denies easy bleeding and easy bruising PFSH Narrative Patient History Narrative: Narrative: Medical/Surgical/Family History All Active Problems (Updated 01/13/21 @ 16:06 by Oliver Smith MD) Proteus (mirabilis) (morganii) as the cause of diseases classified elsewhere (Chronic) ESRD on hemodialysis (Chronic) Staghorn renal calculus (Chronic) Anemia due to end stage renal disease (Chronic) Renal calculi (Chronic) Insomnia (Chronic) Acute kidney injury (Chronic 09/08/17) Acute renal failure (Chronic 09/08/17) Pyelonephritis (Chronic 09/08/17) Volume depletion (Chronic 09/08/17) Hyperkalemia (Acute 09/08/17) Hypertension (Chronic 09/08/17) DVT prophylaxis (Chronic 09/08/17) UTI (urinary tract infection) (Chronic 09/08/17) Flank pain (Chronic) Vomiting (Chronic) Weakness (Chronic) Acute diastolic (congestive) heart failure (Chronic) DM type 2 (diabetes mellitus, type 2) (Chronic) Uremia (Chronic) Staghorn calculus (Chronic) History of shortness of breath (Chronic) Complications, dialysis, catheter, mechanical (Chronic) Bacteremia (Acute) Bacteremia due to Streptococcus (Acute) Secondary hyperparathyroidism (Acute) Cellulitis (Acute) Abdominal muscle strain (Acute) Fatty liver disease, nonalcoholic (Acute) S/p nephrectomy (Acute) Pneumonia (Acute) Dialysis patient (Acute) Acute on chronic combined systolic and diastolic CHF, NYHA class 2 (Acute) Hyperparathyroidism due to end stage renal disease on dialysis (Acute) RLS (restless legs syndrome) (Acute) Nocturnal myoclonus (Acute) Pre-transplant evaluation for end stage renal disease (Acute) Pain (Acute) COVID-19 (Acute) Acute hyperkalemia (Acute) Fluid overload (Acute) Medical History (Updated 01/13/21 @ 16:06 by Oliver Smith MD) Acute diastolic (congestive) heart failure Acute kidney injury (09/08/17) Acute renal failure (09/08/17) Anemia due to end stage renal disease DM type 2 (diabetes mellitus, type 2) DVT prophylaxis (09/08/17) ESRD on hemodialysis Flank pain History of shortness of breath Hyperkalemia (09/08/17) Hypertension (09/08/17) Insomnia Proteus (mirabilis) (morganii) as the cause of diseases classified elsewhere Pyelonephritis (09/08/17) Renal calculi Staghorn calculus Staghorn renal calculus Uremia UTI (urinary tract infection) (09/08/17) Volume depletion (09/08/17) Vomiting Weakness Surgical History History of knee surgery History of nephrectomy Status post removal of arteriovenous fistula Family History Father Coronary artery disease Mother Coronary artery disease Social History Smoking Status: Never smoker Alcohol Intake Frequency: does not drink Substance Use: does not use Exam Narrative Narrative: Vital Signs reviewed. Constitutional: Awake alert no acute distress morbidly obese Head: Normocephalic, atraumatic Eyes: PERRLA, EOMI, no conjunctivitis Ear: Normal external exam Oropharynx: moist oral mucosa, no edema, no erythema, no exudate Neck: Supple, no lymphadenopathy, no JVD Lungs: Diminished breath sounds bases bilaterally lungs clear Cardiac: Regular rate and rhythm, normal distal pulses, GI: Soft nontender nondistended no guarding no rebound Musculoskeletal: No tenderness, no deformities, trace pedal edema full range of motion Back: no CVA or midline tenderness Neuro: Awake alert, cranial nerves II through XII grossly intact, no focal motor or sensory deficits Psychiatric: Normal mood and affect Skin: Warm dry no rash, cap refill less than 2 seconds General Limitations: no limitations Course Consultations Consultation #1: As discussed with store grocery merchandiser Dr. Smith who agreed to see the patient in consultation for dialysis Time: 15:21 Vital Signs Vital signs: Vital Signs Temperature 98.8 F 01/13/21 13:17 Pulse Rate 61 01/13/21 13:17 Respiratory Rate 24 H 01/13/21 13:17 Blood Pressure 170/75 01/13/21 13:17 Pulse Oximetry (%) 93 01/13/21 13:17 Temperature 98.8 F 01/13/21 13:17 Pulse Rate 51 L 01/13/21 15:56 Respiratory Rate 22 01/13/21 15:56 Blood Pressure 123/57 01/13/21 15:56 Pulse Oximetry (%) 93 01/13/21 15:56 [facility] MDM Narrative Medical decision making narrative: 60-year-old male presents with shortness of breath along with fevers chills upper respiratory symptoms for last few days. Patient is positive for COVID-19. Labs showed normal white blood cell count hemoglobin 10.4 metabolic derangements include sodium 138 potassium 7.6 which was treated with calcium, Kayexalate D50 and insulin, chloride 85 carb 20 BUN 85 creatinine 17.4. Shows cardiomegaly and bilateral alveolar infiltrates consistent with fluid overload. Pa Case discussed with store grocery merchandiser Dr. Cooper agrees to see the patient in consultation for dialysis. Unfortunately there are no beds available here at [facility] so the patient will need to be transferred. Care transferred and case discussed with oncoming physician awaiting transfer to a facility with capabilities to treat the patient needing dialysis. Differential Diagnosis Differential Diagnosis: Fluid overload CHF, metabolic derangement, Covid, pneumonia Lab Data Result diagrams: 01/13/21 14:05 01/13/21 14:05 Labs: Lab Results 01/13/21 01/13/21 01/13/21 Range/Units 14:05 14:05 14:05 WBC 7.2 (4.5-11.0) K/mcL RBC 3.60 L (4.63-6.08) M/mcL Hgb 10.4 L (13.7-17.5) g/dL Hct 32.8 L (40.1-51.0) % MCV 91.1 (80.0-100.0) fL MCH 28.9 (26.0-34.0) pg MCHC 31.7 (31.0-36.0) g/dL RDW 13.8 (11.5-14.5) % Plt Count 168 (140-440) K/mcL MPV 11.0 H (7.4-10.4) fL Seg Neutrophils % 82 H (38-78) % Band Neutrophils % 1 (0-10) % Lymphocytes % 5 L (15-49) % Monocytes % (Manual) 9 (1-12) % Eosinophils % (Manual) 3 (0-7) % Platelet Estimate Normal (Normal) RBC Morphology Normal (Normal) PT 14.7 H (11.9-14.5) sec INR 1.1 (0.9-1.1) APTT 39.7 H (20.0-37.0) sec Sodium 130 L (133-145) mmol/L Potassium 7.6 H* (3.3-5.1) mmol/L Chloride 85 L (96-108) mmol/L Carbon Dioxide 20 L (22-30) mmol/L Anion Gap 25.0 H (8.0-16.0) BUN 85 H (6-20) mg/dL Creatinine 17.4 H* (0.7-1.2) mg/dL GFR Calculation 3 Glucose 91 (70-105) mg/dL Calcium 7.4 L (8.6-10.4) mg/dL Total Bilirubin 0.2 (0.1-1.0) mg/dL AST 18 (<40) U/L ALT 13 (<40) U/L Alkaline Phosphatase 79 (39-117) U/L Troponin T (<0.03) ng/mL NT-Pro-B Natriuret Pep 55967.0 H (<125.0) pg/mL Total Protein 6.9 (5.9-8.4) gm/dL Albumin 3.6 (3.2-5.2) gm/dL Globulin 3.3 (2.2-3.7) gm/dL Albumin/Globulin Ratio 1.1 (1.0-2.3) 01/13/21 Range/Units 14:05 WBC (4.5-11.0) K/mcL RBC (4.63-6.08) M/mcL Hgb (13.7-17.5) g/dL Hct (40.1-51.0) % MCV (80.0-100.0) fL MCH (26.0-34.0) pg MCHC (31.0-36.0) g/dL RDW (11.5-14.5) % Plt Count (140-440) K/mcL MPV (7.4-10.4) fL Seg Neutrophils % (38-78) % Band Neutrophils % (0-10) % Lymphocytes % (15-49) % Monocytes % (Manual) (1-12) % Eosinophils % (Manual) (0-7) % Platelet Estimate (Normal) RBC Morphology (Normal) PT (11.9-14.5) sec INR (0.9-1.1) APTT (20.0-37.0) sec Sodium (133-145) mmol/L Potassium (3.3-5.1) mmol/L Chloride (96-108) mmol/L Carbon Dioxide (22-30) mmol/L Anion Gap (8.0-16.0) BUN (6-20) mg/dL Creatinine (0.7-1.2) mg/dL GFR Calculation Glucose (70-105) mg/dL Calcium (8.6-10.4) mg/dL Total Bilirubin (0.1-1.0) mg/dL AST (<40) U/L ALT (<40) U/L Alkaline Phosphatase (39-117) U/L Troponin T 0.06 H* (<0.03) ng/mL NT-Pro-B Natriuret Pep (<125.0) pg/mL Total Protein (5.9-8.4) gm/dL Albumin (3.2-5.2) gm/dL Globulin (2.2-3.7) gm/dL Albumin/Globulin Ratio (1.0-2.3) ED POC Tests ED POC Tests: ANABELA - SARS Antigen Positive Radiology Data Radiology results reviewed: Yes I reviewed the patient's radiology results. Radiology results narrative: IMPRESSION: Cardiomegaly Alveolar opacities in both lungs which could be congestive heart failure with pulmonary edema or diffuse pneumonia. Interpreted and Authenticated by: Wojciech Almaraz 01/13/21 EKG Data EKG #1: EKG attestation: Yes I reviewed and interpreted this EKG. and Yes There are no EKG findings of acute coronary syndrome EKG results narrative: EKG performed at 1406 shows sinus rhythm rate of 55 first-degree AV block normal axis nonspecific intraventricular conduction Jeff nonspecific ST changes no ectopy Discharge Plan Patient/Caregiver Discharge Instructions Pt seen by MONONITROTOLUENE OPERATOR/PA only: No Clinical Impression: COVID-19, ESRD on hemodialysis, Acute hyperkalemia, Fluid overload Patient Disposition: Still a Patient Condition: Fair Follow up with: Paulette García ARNP [Primary Care Provider] - Prescriptions: No Action hydroxyzine HCl 25 mg tablet 25 mg PO TID PRN (Reason: itching) Qty: 90 RF: 3 gabapentin 100 mg capsule 200 mg PO BID Qty: 120 RF: 11 calcium acetate(phosphat bind) 667 mg capsule 2,668 mg PO .TID with meals Qty: 360 RF: 11 calcitriol 0.25 mcg capsule 1 mcg PO 3XW RF: 0 Hold Instructions: Doctor's Order
[2021-01-13 14:39] LABS: Hematocrit 32.8 % (40.1-51.0); Hemoglobin 10.4 g/dL (13.7-17.5); Mean Cell Volume 91.1 fL (80.0-100.0); Mean Corpuscular HGB Conc 31.7 g/dL (31.0-36.0); Platelet Count 168 K/mcL (140-440); Red Cell Distribution Width 13.8 % (11.5-14.5); WBC 7.2 K/mcL (4.5-11.0)
[2021-01-13 14:57] LABS: INR 1.1 (0.9-1.1); Partial Thromboplastin Time 39.7 sec (20.0-37.0); Prothrombin Time 14.7 sec (11.9-14.5)
[2021-01-13 15:01] LABS: Band Neutrophils % 1 % (0-10); Eosinophils % (Manual) 3 % (0-7); Lymphocytes % 5 % (15-49); Monocytes % (Manual) 9 % (1-12); Platelet Estimate NORMAL (Normal); RBC Morphology NORMAL (Normal); Segmented Neutrophils % 82 % (38-78)
--- NOTE | 2021-01-13 15:01 | XRay Report ---
HISTORY: Dyspnea, cough and weakness FINDINGS: The heart is mild to moderately enlarged but magnified by portable technique. There are mild generalized alveolar opacities in both lungs and the pulmonary vessels appear enlarged. No pleural effusion is present. Comparison with the prior exam done on 06/29/2020 and 03/22/2020 shows the heart is larger today. Similar alveolar opacities were seen in 2020 but there is more diffuse involvement on today's study. IMPRESSION: Cardiomegaly Alveolar opacities in both lungs which could be congestive heart failure with pulmonary edema or diffuse pneumonia. Interpreted and Authenticated by: Wojciech Almaraz 01/13/21
[2021-01-13 15:06] LABS: ALT/SGPT 13 U/L (<40); AST/SGOT 18 U/L (<40); Albumin 3.6 gm/dL (3.2-5.2); Albumin/Globulin Ratio 1.1 (1.0-2.3); Alkaline Phosphatase 79 U/L (39-117); Bilirubin,Total 0.2 mg/dL (0.1-1.0); Blood Urea Nitrogen 85 mg/dL (6-20); Calcium 7.4 mg/dL (8.6-10.4); Carbon Dioxide 20 mmol/L (22-30); Chloride 85 mmol/L (96-108); Globulin 3.3 gm/dL (2.2-3.7); Glomerular Filtration Rate 3; Glucose 91 mg/dL (70-105)
[2021-01-13] MEDS ORDERED: DEXTROSE 50% 50 ML SYRINGE IV ONE (15:15)
[2021-01-13] MEDS ORDERED: INSULIN REGULAR, HUMAN 1 UNIT/0.01 ML UNIT IV ONE (15:15)
[2021-01-13] MEDS ORDERED: SODIUM POLYSTYRENE SULFONATE 15 GM/60 ML SUSPENSION PO ONE (15:15)
[2021-01-13] MEDS ORDERED: CALCIUM CHLORIDE 1,000 MG in DEXTROSE 5% IN WATER 50 ML IV ONE (15:15)
[2021-01-13] MEDS ORDERED: DEXTROSE 50% 50 ML VIAL IV ONE ×2 (15:23→17:04)
--- NOTE | 2021-01-13 16:06 | Nephrology Consult Note ---
HPI Data of Consult Patient: known to practice within the last 3 years Consult date: 01/13/21 Requesting physician: Сергей Salazar Primary Care Provider: Paulette García Consult Narrative Patient Information: Note initiated : 01/13/21 at 4:03 pm Patient: Khadar Rizo 60 y/o M admitted on for SOB, cough, weakness. Khadar Rizo is a 60-year-old male with end stage renal disease on hemodialysis, chronic anemia due to ESRD, hypertension, diabetes mellitus type 2 presented to ED for shortness of breath and being admitted on 01/13/21. His wo rkup in ED was significant for fluid overload, hyperkalemia, hyponatremia, metabolic acidosis as well as Covid-19. Nephrology consultation was requested for end stage renal disease. Chief complaint: Shortness of breath Reason for consult: End stage renal disease cc:: CC: Review of Systems ROS unobtainable: other PFSH PFSH All Active Problems (Updated 01/13/21 @ 16:06 by Oliver Smith MD) Proteus (mirabilis) (morganii) as the cause of diseases classified elsewhere (Chronic) ESRD on hemodialysis (Chronic) Staghorn renal calculus (Chronic) Anemia due to end stage renal disease (Chronic) Renal calculi (Chronic) Insomnia (Chronic) Acute kidney injury (Chronic 09/08/17) Acute renal failure (Chronic 09/08/17) Pyelonephritis (Chronic 09/08/17) Volume depletion (Chronic 09/08/17) Hyperkalemia (Acute 09/08/17) Hypertension (Chronic 09/08/17) DVT prophylaxis (Chronic 09/08/17) UTI (urinary tract infection) (Chronic 09/08/17) Flank pain (Chronic) Vomiting (Chronic) Weakness (Chronic) Acute diastolic (congestive) heart failure (Chronic) DM type 2 (diabetes mellitus, type 2) (Chronic) Uremia (Chronic) Staghorn calculus (Chronic) History of shortness of breath (Chronic) Complications, dialysis, catheter, mechanical (Chronic) Bacteremia (Acute) Bacteremia due to Streptococcus (Acute) Secondary hyperparathyroidism (Acute) Cellulitis (Acute) Abdominal muscle strain (Acute) Fatty liver disease, nonalcoholic (Acute) S/p nephrectomy (Acute) Pneumonia (Acute) Dialysis patient (Acute) Acute on chronic combined systolic and diastolic CHF, NYHA class 2 (Acute) Hyperparathyroidism due to end stage renal disease on dialysis (Acute) RLS (restless legs syndrome) (Acute) Nocturnal myoclonus (Acute) Pre-transplant evaluation for end stage renal disease (Acute) Pain (Acute) COVID-19 (Acute) Acute hyperkalemia (Acute) Fluid overload (Acute) Medical History (Updated 01/13/21 @ 16:06 by Oliver Smith MD) Acute diastolic (congestive) heart failure Acute kidney injury (09/08/17) Acute renal failure (09/08/17) Anemia due to end stage renal disease DM type 2 (diabetes mellitus, type 2) DVT prophylaxis (09/08/17) ESRD on hemodialysis Flank pain History of shortness of breath Hyperkalemia (09/08/17) Hypertension (09/08/17) Insomnia Proteus (mirabilis) (morganii) as the cause of diseases classified elsewhere Pyelonephritis (09/08/17) Renal calculi Staghorn calculus Staghorn renal calculus Uremia UTI (urinary tract infection) (09/08/17) Volume depletion (09/08/17) Vomiting Weakness Surgical History History of knee surgery History of nephrectomy Status post removal of arteriovenous fistula Family History Father Coronary artery disease Mother Coronary artery disease Social History (Updated 04/22/18 @ 12:58 by Lori Pitts MD) alcohol intake frequency: does not drink substance use type: does not use MEDS/ALLERGIES Home Medications and Allergies Home Medications Medication Instructions Recorded Confirmed Type calcitriol 0.25 mcg capsule 1 mcg PO 3XW cap 07/12/20 07/12/20 History hydroxyzine HCl 25 mg tablet 25 mg PO TID PRN #90 tab 08/30/20 Rx gabapentin 100 mg capsule 200 mg PO BID #120 cap 09/20/20 Rx calcium acetate(phosphat bind) 667 2,668 mg PO .TID with meals #360 01/03/21 Rx mg capsule cap Allergies Allergy/AdvReac Type Severity Reaction Status Date / Time bee venom protein (honey bee) Allergy Severe Anaphylaxis Verified 03/22/20 12:15 ceftriaxone Allergy Mild Hives Verified 03/22/20 12:15 coconut Allergy Unknown Unknown Verified 03/22/20 12:15 Penicillins Allergy Unknown Unknown Verified 03/22/20 12:15 Physical Examination Vital Signs Vital signs: Temp Pulse Resp BP Pulse Ox 98.8 F 51 L 22 123/57 93 01/13/21 13:17 01/13/21 15:56 01/13/21 15:56 01/13/21 15:56 01/13/21 15:56 General Appearance General appearance: obese and chronically ill Respiratory Respiratory: course breath sounds Cardiovascular Cardiology: edema Gastrointestinal Gastrointestinal: obese Integumentary Integumentary: no rash Neurologic Neurologic: alert and oriented x3 Psychiatric Psychiatric: mood/affect appropriate and cooperative Results Lab Results Result Diagrams: 01/13/21 14:05 01/13/21 14:05 Lab results: Most recent lab results Calcium 7.4 mg/dL (8.6-10.4) L 01/13/21 14:05 A/P Assessment and plan (1) ESRD on hemodialysis: Assessment and plan: Khadar Rizo is a 60-year-old male with end stage renal disease on hemod ialysis, chronic anemia due to ESRD, hypertension, diabetes mellitus type 2 presented to ED for shortness of breath and being admitted on 01/13/21. His workup in ED was significant for fluid overload, hyperkalemia, hyponatremia, metabolic acidosis as well as Covid-19. Nephrology consultation was requested for end stage renal disease. End stage renal disease on hemodialysis on MWF at [facility]. He missed hemodialysis yesterday. Fluid overload. Hyperkalemia. Hyponatremia. Metabolic acidosis. Chronic anemia due to ESRD. Recommendations/Plan: Hemodialysis today [facility] then again tomorrow. Status: Chronic (2) Hyperkalemia: Status: Acute (3) Fluid overload: Status: Acute Time Spent With Patient Time: Total time spent is greater than 50% in coordination of care (as documented) at patient's floor/unit and/or counseling patient:
[2021-01-13] MEDS ORDERED: morphine 2 MG/ML VIAL IV ONE (17:17)
--- NOTE | 2021-01-13 18:06 | Emergency Department Note ---
HPI General Chief complaint: Shortness of Breath/Dyspnea Stated complaint: SOB, cough, weakness Time Seen by Provider: 01/13/21 13:43 Source: patient Mode of arrival: ambulatory Limitations: no limitations History of Present Illness HPI Narrative: Narrative: Pt presented today for SOB, cough, weakness in setting of missed HD sessions d/t N/V/D. He was evaluated by Dr Jolley who found him to have COVID19 and hy perkalemia, along w/ a CXR showing pulmonary edema vs B/L infiltrates. He was started on standard hyperkalemia measures and supplemental O2 for mild hypoxia. Nephrology was consulted and was agreeable to admission here for HD, however no beds were available. I received the pt in sign out pending transfer. I spoke w/ Dr Castillo, the hospitalist at [facility], and she accepted the pt for T/F. However, the pt adamantly refused T/F, stating that he had no financial means of getting home and no family that could come pick him up. Related Data Home Medications Medication Instructions Recorded Confirmed calcitriol 0.25 mcg capsule 1 mcg PO 3XW cap 07/12/20 07/12/20 Previous Rx's Medication Instructions Recorded hydroxyzine HCl 25 mg tablet 25 mg PO TID PRN #90 tab 08/30/20 gabapentin 100 mg capsule 200 mg PO BID #120 cap 09/20/20 calcium acetate(phosphat bind) 667 2,668 mg PO .TID with meals #360 01/03/21 mg capsule cap Allergies Allergy/AdvReac Type Severity Reaction Status Date / Time bee venom protein (honey bee) Allergy Severe Anaphylaxis Verified 03/22/20 12:15 ceftriaxone Allergy Mild Hives Verified 03/22/20 12:15 coconut Allergy Unknown Unknown Verified 03/22/20 12:15 Penicillins Allergy Unknown Unknown Verified 03/22/20 12:15 Review of Systems ROS ROS Narrative: Narrative: Constitutional: Reports fever and chills ENT ED: Reports congestion Respiratory: Reports shortness of breath Gastrointestinal: Reports vomiting and diarrhea; Denies abdominal pain PFSH Narrative Patient History Narrative: Narrative: Medical/Surgical/Family History All Active Problems (Updated 01/13/21 @ 16:06 by Oliver Smith MD) Proteus (mirabilis) (morganii) as the cause of diseases classified elsewhere (Chronic) ESRD on hemodialysis (Chronic) Staghorn renal calculus (Chronic) Anemia due to end stage renal disease (Chronic) Renal calculi (Chronic) Insomnia (Chronic) Acute kidney injury (Chronic 09/08/17) Acute renal failure (Chronic 09/08/17) Pyelonephritis (Chronic 09/08/17) Volume depletion (Chronic 09/08/17) Hyperkalemia (Acute 09/08/17) Hypertension (Chronic 09/08/17) DVT prophylaxis (Chronic 09/08/17) UTI (urinary tract infection) (Chronic 09/08/17) Flank pain (Chronic) Vomiting (Chronic) Weakness (Chronic) Acute diastolic (congestive) heart failure (Chronic) DM type 2 (diabetes mellitus, type 2) (Chronic) Uremia (Chronic) Staghorn calculus (Chronic) History of shortness of breath (Chronic) Complications, dialysis, catheter, mechanical (Chronic) Bacteremia (Acute) Bacteremia due to Streptococcus (Acute) Secondary hyperparathyroidism (Acute) Cellulitis (Acute) Abdominal muscle strain (Acute) Fatty liver disease, nonalcoholic (Acute) S/p nephrectomy (Acute) Pneumonia (Acute) Dialysis patient (Acute) Acute on chronic combined systolic and diastolic CHF, NYHA class 2 (Acute) Hyperparathyroidism due to end stage renal disease on dialysis (Acute) RLS (restless legs syndrome) (Acute) Nocturnal myoclonus (Acute) Pre-transplant evaluation for end stage renal disease (Acute) Pain (Acute) COVID-19 (Acute) Acute hyperkalemia (Acute) Fluid overload (Acute) Medical History (Updated 01/13/21 @ 16:06 by Oliver Smith MD) Acute diastolic (congestive) heart failure Acute kidney injury (09/08/17) Acute renal failure (09/08/17) Anemia due to end stage renal disease DM type 2 (diabetes mellitus, type 2) DVT prophylaxis (09/08/17) ESRD on hemodialysis Flank pain History of shortness of breath Hyperkalemia (09/08/17) Hypertension (09/08/17) Insomnia Proteus (mirabilis) (morganii) as the cause of diseases classified elsewhere Pyelonephritis (09/08/17) Renal calculi Staghorn calculus Staghorn renal calculus Uremia UTI (urinary tract infection) (09/08/17) Volume depletion (04/14/18) Vomiting Weakness Surgical History History of knee surgery History of nephrectomy Status post removal of arteriovenous fistula Family History Father Coronary artery disease Mother Coronary artery disease Social History Smoking Status: Never smoker Alcohol Intake Frequency: does not drink Substance Use: does not use Exam Narrative Narrative: Narrative: General Limitations: no limitations General appearance: Present alert and in no apparent distress Neurological Neurological: Present alert and oriented X3 Psychiatric Psychiatric: Present normal affect Course Vital Signs Vital signs: Vital Signs Temperature 98.8 F 01/13/21 13:17 Pulse Rate 61 01/13/21 13:17 Respiratory Rate 24 H 01/13/21 13:17 Blood Pressure 170/75 01/13/21 13:17 Pulse Oximetry (%) 93 01/13/21 13:17 Temperature 100 F H 01/14/21 00:57 Pulse Rate 68 01/14/21 00:27 Respiratory Rate 14 01/14/21 00:27 Blood Pressure 125/84 01/14/21 00:08 Pulse Oximetry (%) 96 01/14/21 00:27 MDM MDM Narrative Medical decision making narrative: Narrative: This pt tolerated hyperkalemia measures well, and has remained stable. I was able to arrange for T/F, however as noted above, pt refused. The night manager has arrived and has confirmed that we have nurses ove rnight that can care for him in the PCU and that we are able to perform dialysis. I d/w nephrology again, reviewing his course thus far and repeat labs, and he is comfortable with this plan. He has requested that we contact the HD RN to come in. I have contacted the hospitalist, who has accepted the pt for admission. We reviewed his case and the hospitalist and I discussed options for the pts persistent hyperkalemia. It is 7.5 on repeat, however this is a POC, and thus it's hard to know the true trend as the previous K+ was a standard lab result. However, we both agree on a dose of calcium now. Pt will now be admitted to the PCU for ongoing care. Lab Data Lab results reviewed: Yes I reviewed the patient's lab results. Result diagrams: 01/13/21 14:05 01/13/21 14:05 Labs: Lab Results 01/13/21 01/13/21 01/13/21 Range/Units 14:05 14:05 14:05 WBC 7.2 (4.5-11.0) K/mcL RBC 3.60 L (4.63-6.08) M/mcL Hgb 10.4 L (13.7-17.5) g/dL Hct 32.8 L (40.1-51.0) % POC Hct (41-55) % MCV 91.1 (80.0-100.0) fL MCH 28.9 (26.0-34.0) pg MCHC 31.7 (31.0-36.0) g/dL RDW 13.8 (11.5-14.5) % Plt Count 168 (140-440) K/mcL MPV 11.0 H (7.4-10.4) fL Seg Neutrophils % 82 H (38-78) % Band Neutrophils % 1 (0-10) % Lymphocytes % 5 L (15-49) % Monocytes % (Manual) 9 (1-12) % Eosinophils % (Manual) 3 (0-7) % Platelet Estimate Normal (Normal) RBC Morphology Normal (Normal) PT 14.7 H (11.9-14.5) sec INR 1.1 (0.9-1.1) APTT 39.7 H (20.0-37.0) sec POC Sodium (133-145) mEq/L Sodium 130 L (133-145) mmol/L POC Potassium (3.3-5.1) mEql/L Potassium 7.6 H* (3.3-5.1) mmol/L POC Chloride (96-108) mEq/L Chloride 85 L (96-108) mmol/L Carbon Dioxide 20 L (22-30) mmol/L POC Total CO2 (22-30) mmol/L Anion Gap 25.0 H (8.0-16.0) POC BUN (6-20) mg/dL BUN 85 H (6-20) mg/dL Creatinine 17.4 H* (0.7-1.2) mg/dL POC Creatinine (0.6-1.2) mg/dL GFR Calculation 3 Glucose 91 (70-105) mg/dL POC Glucose (70-105) mg/dL Calcium 7.4 L (8.6-10.4) mg/dL POC WB Ioniz Calcium (1.16-1.32) mmEq/L Total Bilirubin 0.2 (0.1-1.0) mg/dL AST 18 (<40) U/L ALT 13 (<40) U/L Alkaline Phosphatase 79 (39-117) U/L Troponin T (<0.03) ng/mL NT-Pro-B Natriuret Pep 91310.0 H (<125.0) pg/mL Total Protein 6.9 (5.9-8.4) gm/dL Albumin 3.6 (3.2-5.2) gm/dL Globulin 3.3 (2.2-3.7) gm/dL Albumin/Globulin Ratio 1.1 (1.0-2.3) 01/13/21 01/13/21 Range/Units 14:05 23:38 WBC (4.5-11.0) K/mcL RBC (4.63-6.08) M/mcL Hgb (13.7-17.5) g/dL Hct (40.1-51.0) % POC Hct 31 L (41-55) % MCV (80.0-100.0) fL MCH (26.0-34.0) pg MCHC (31.0-36.0) g/dL RDW (11.5-14.5) % Plt Count (140-440) K/mcL MPV (7.4-10.4) fL Seg Neutrophils % (38-78) % Band Neutrophils % (0-10) % Lymphocytes % (15-49) % Monocytes % (Manual) (1-12) % Eosinophils % (Manual) (0-7) % Platelet Estimate (Normal) RBC Morphology (Normal) PT (11.9-14.5) sec INR (0.9-1.1) APTT (20.0-37.0) sec POC Sodium 129 L (133-145) mEq/L Sodium (133-145) mmol/L POC Potassium 7.5 H* (3.3-5.1) mEql/L Potassium (3.3-5.1) mmol/L POC Chloride 97 (96-108) mEq/L Chloride (96-108) mmol/L Carbon Dioxide (22-30) mmol/L POC Total CO2 22 (22-30) mmol/L Anion Gap (8.0-16.0) POC BUN 106 H* (6-20) mg/dL BUN (6-20) mg/dL Creatinine (0.7-1.2) mg/dL POC Creatinine 20.0 H* (0.6-1.2) mg/dL GFR Calculation Glucose (70-105) mg/dL POC Glucose 87 (70-105) mg/dL Calcium (8.6-10.4) mg/dL POC WB Ioniz Calcium 0.87 L (1.16-1.32) mmEq/L Total Bilirubin (0.1-1.0) mg/dL AST (<40) U/L ALT (<40) U/L Alkaline Phosphatase (39-117) U/L Troponin T 0.06 H* (<0.03) ng/mL NT-Pro-B Natriuret Pep 41450.0 H (<125.0) pg/mL Total Protein (5.9-8.4) gm/dL Albumin (3.2-5.2) gm/dL Globulin (2.2-3.7) gm/dL Albumin/Globulin Ratio (1.0-2.3) ED POC Tests ED POC Tests: ANABELA - SARS Antigen Positive Discharge Plan Patient/Caregiver Discharge Instructions Pt seen by [employer] OFFICER/PA only: No Clinical Impression: COVID-19, ESRD on hemodialysis, Acute hyperkalemia, Fluid overload Patient Disposition: Xfer As Inpt ([facility]) Condition: Fair Follow up with: Paulette García ARNP [Primary Care Provider] - Prescriptions: No Action hydroxyzine HCl 25 mg tablet 25 mg PO TID PRN (Reason: itching) Qty: 90 RF: 3 gabapentin 100 mg capsule 200 mg PO BID Qty: 120 RF: 11 calcium acetate(phosphat bind) 667 mg capsule 2,668 mg PO .TID with meals Qty: 360 RF: 11 calcitriol 0.25 mcg capsule 1 mcg PO 3XW RF: 0 Hold Instructions: Doctor's Order
[2021-01-13 23:51] LABS: POC Blood Urea Nitrogen 106 mg/dL (6-20); POC CO2 22 mmol/L (22-30); POC Calcium, Ionized 0.87 mmEq/L (1.16-1.32); POC Chloride 97 mEq/L (96-108); POC Glucose, Random 87 mg/dL (70-105); POC Hematocrit 31 % (41-55); POC Sodium 129 mEq/L (133-145)
[2021-01-14] MEDS ORDERED: CALCIUM GLUCONATE 4.65 MEQ/10 ML VIAL IV ONE (00:30)
[2021-01-14] MEDS ORDERED: SODIUM BICARBONATE 50 MEQ/50 ML VIAL IV ONE (00:59)
[2021-01-14] MEDS ORDERED: morphine 4 MG/ML VIAL IV ONE (01:28)
[2021-01-14] MEDS ORDERED: ONDANSETRON 4 MG/2 ML VIAL IV ONE (01:30)
[2021-01-14 03:39] LABS: POC Potassium 7.5 mEql/L (3.3-5.1)
[2021-01-14] MEDS ORDERED: morphine 2 MG/ML VIAL IV ONE (07:51)
--- NOTE | 2021-01-14 08:07 | Nephrology Progress Note ---
SUBJECTIVE Subjective Patient information: Note initiated : 01/14/21 at 8:02 am Patient: Khadar Rizo 60 y/o M admitted on 01/14/21 for SOB, cough, weakness. Chief Complaint: Shortness of breath Pertinent ROS: Shortness of breath Edema Confusion Weakness Constitutional Vitals: Vital Signs Temp Pulse Resp BP Pulse Ox 98.5 F 85 24 H 124/52 100 01/14/21 06:31 01/14/21 07:13 01/14/21 07:03 01/14/21 07:13 01/14/21 07:03 Period Temp Pulse Resp BP Sys/Ding Pulse Ox Last 24 Hr 98.5 F-100 F 40-109 14-31 101-267/52-239 82-100 Intake and Output 01/13/21 01/14/21 01/14/21 21:59 05:59 13:59 Intake Total 60 Output Total 3000 Balance 60 -3000 Weight 302 lb 12.8 oz Intake & Output: Intake & Output 01/13/21 01/14/21 01/14/21 21:59 05:59 13:59 Intake Total 60 Output Total 3000 Balance 60 -3000 Weight 302 lb 12.8 oz Intake: IV 60 Calcium Chloride 1,000 mg In 60 Dextrose 5% in Water 50 ml @ 25 mls/hr IV ONCE ONE Rx#: [id number] Output: Hemodialysis UF 3000 General appearance: no acute distress Exam: limited due to covid isolation Head Head exam: Present atraumatic and normal inspection Eye Eye exam: Present normal appearance Respiratory Additional comments: No respiratory distress Cardiovascular Cardiovascular exam: Present +S1 and +S2 GI/Abdominal Additional comments: nondistended Extremities Exam Extremities exam: Present pedal edema Neurological Exam Neurological exam: Present alert Psychiatric Psychiatric exam: Present agitated Skin Skin exam: Present pallor A/P Assessment and plan (1) ESRD on hemodialysis: Assessment and plan: Khadar Rizo is a 60-year-old male with end stage renal disease on hemodialysis, chronic anemia due to ESRD, hypertension, diabetes mellitus type 2 presented to ED for shortness of breath and being admitted on 01/13/21. His workup in ED was significant for fluid overload, hyperkalemia, hyponatremia, metabolic acidosis as well as Covid-19. Nephrology consultation was requested for end stage renal disease. End stage renal disease on hemodialysis on MWF at [facility]. Fluid overload. Hyperkalemia. Hyponatremia. Metabolic acidosis. Chronic anemia due to ESRD. Progress: Hemodialysis overnight for 3.5 hours and 3 kg UF. Recommendations/Plan: Next hemodialysis tomorrow. Status: Chronic (2) Hyperkalemia: Status: Acute (3) Fluid overload: Status: Acute Time Spent With Patient Time: Total time spent is greater than 50% in coordination of care (as documented) at patient's floor/unit and/or counseling patient:
--- NOTE | 2021-01-14 08:08 | Internal Med History&Physical ---
HPI History of Present Illness Patient information: Note initiated : 01/14/21 at 7:59 am Service Date, if different from initiated Date: [] Patient: Khadar Rizo a 60 y/o M admitted on 01/14/21 for SOB, cough, weakness. Chief Complaint: [] History of present illness: Mr. Rizo is a 60 year old M presents to ED with dyspnea. has missed last HD session due to vomiting and diarrhea and has had some sinus congestion. Was not vaccine against COVID-19 but it was around family members that were positive. Patient did test for positive for COVID-19 here. Chest x-ray shows bilateral infiltrates it was felt that is probably fluid overload as opposed to COVID-19 although that is not ruled out. Patient has a chronic cough that is no different than usual. Patient also had a hyperkalemia of 7.5. Case discussed with Dr. Garcia cigarette maker. Patient initially was given transferred out for urgent dialysis but we will to find a bed in the middle the night and case was rediscussed with Dr. nowak who ordered dialysis in the morning. Review of Systems: Pertinent positives as above. Denies headache/fever/chills/chest or abdominal pain. Remaining 10 point review of system reviewed negative PFSH PFSH All Active Problems (Updated 01/13/21 @ 16:06 by Oliver Nowak MD) Proteus (mirabilis) (morganii) as the cause of diseases classified elsewhere (Chronic) ESRD on hemodialysis (Chronic) Staghorn renal calculus (Chronic) Anemia due to end stage renal disease (Chronic) Renal calculi (Chronic) Insomnia (Chronic) Acute kidney injury (Chronic 09/08/17) Acute renal failure (Chronic 09/08/17) Pyelonephritis (Chronic 09/08/17) Volume depletion (Chronic 09/08/17) Hyperkalemia (Acute 09/08/17) Hypertension (Chronic 09/08/17) DVT prophylaxis (Chronic 09/08/17) UTI (urinary tract infection) (Chronic 09/08/17) Flank pain (Chronic) Vomiting (Chronic) Weakness (Chronic) Acute diastolic (congestive) heart failure (Chronic) DM type 2 (diabetes mellitus, type 2) (Chronic) Uremia (Chronic) Staghorn calculus (Chronic) History of shortness of breath (Chronic) Complications, dialysis, catheter, mechanical (Chronic) Bacteremia (Acute) Bacteremia due to Streptococcus (Acute) Secondary hyperparathyroidism (Acute) Cellulitis (Acute) Abdominal muscle strain (Acute) Fatty liver disease, nonalcoholic (Acute) S/p nephrectomy (Acute) Pneumonia (Acute) Dialysis patient (Acute) Acute on chronic combined systolic and diastolic CHF, NYHA class 2 (Acute) Hyperparathyroidism due to end stage renal disease on dialysis (Acute) RLS (restless legs syndrome) (Acute) Nocturnal myoclonus (Acute) Pre-transplant evaluation for end stage renal disease (Acute) Pain (Acute) COVID-19 (Acute) Acute hyperkalemia (Acute) Fluid overload (Acute) Medical History (Updated 01/13/21 @ 16:06 by Oliver Nowak MD) Acute diastolic (congestive) heart failure Acute kidney injury (09/08/17) Acute renal failure (09/08/17) Anemia due to end stage renal disease DM type 2 (diabetes mellitus, type 2) DVT prophylaxis (09/08/17) ESRD on hemodialysis Flank pain History of shortness of breath Hyperkalemia (09/08/17) Hypertension (09/08/17) Insomnia Proteus (mirabilis) (morganii) as the cause of diseases classified elsewhere Pyelonephritis (09/08/17) Renal calculi Staghorn calculus Staghorn renal calculus Uremia UTI (urinary tract infection) (09/08/17) Volume depletion (09/08/17) Vomiting Weakness Surgical History History of knee surgery History of nephrectomy Status post removal of arteriovenous fistula Family History Father Coronary artery disease Mother Coronary artery disease Social History (Updated 04/22/18 @ 12:58 by Lori Pitts MD) alcohol intake frequency: does not drink substance use type: does not use MEDS/ALLERGIES Home Medications and Allergies Home Medications Medication Instructions Recorded Confirmed Type calcitriol 0.25 mcg capsule 1 mcg PO 3XW cap 07/12/20 07/12/20 History hydroxyzine HCl 25 mg tablet 25 mg PO TID PRN #90 tab 08/30/20 Rx gabapentin 100 mg capsule 200 mg PO BID #120 cap 09/20/20 Rx calcium acetate(phosphat bind) 667 2,668 mg PO .TID with meals #360 01/03/21 Rx mg capsule cap Allergies Allergy/AdvReac Type Severity Reaction Status Date / Time bee venom protein (honey bee) Allergy Severe Anaphylaxis Verified 03/22/20 12:15 ceftriaxone Allergy Mild Hives Verified 03/22/20 12:15 coconut Allergy Unknown Unknown Verified 03/22/20 12:15 Penicillins Allergy Unknown Unknown Verified 03/22/20 12:15 EXAM Constitutional Vitals: Temp Pulse Resp BP Pulse Ox 98.5 F 85 24 H 124/52 100 01/14/21 06:31 01/14/21 07:13 01/14/21 07:03 01/14/21 07:13 01/14/21 07:03 Exam: General: Alert, Awake, No acute Distress, obese Eyes/N/T: EOMI, PERRL, Head/Neck: neck supple, normocephalic atraumatic CV: RRR, No murmurs, normal s1/s2 Pulm: Fine rales and diminished b/l, no wheezing Abd: soft, nontender, +BS x4 Ext: no clubbing/cyanosis, mild b/l LE edema Neuro: Alert, no focal deficits, moves all extremities, CN 2-12 grossly intact, symmetrical strength b/l upper/lower, sensations intact b/l upper/lower Skin: warm/dry DATA Data Completed and Pending Labs: Labs from last 24 hours 01/13/21 01/13/21 01/13/21 23:38 14:05 14:05 WBC RBC Hgb Hct POC Hct 31 L MCV MCH MCHC RDW Plt Count MPV Seg Neutrophils % Band Neutrophils % Lymphocytes % Monocytes % (Manual) Eosinophils % (Manual) Platelet Estimate RBC Morphology PT 14.7 H INR 1.1 APTT 39.7 H POC Sodium 129 L Sodium POC Potassium 7.5 H* Potassium POC Chloride 97 Chloride Carbon Dioxide POC Total CO2 22 Anion Gap POC BUN 106 H* BUN Creatinine POC Creatinine 20.0 H* GFR Calculation Glucose POC Glucose 87 Calcium POC WB Ioniz Calcium 0.87 L Total Bilirubin AST ALT Alkaline Phosphatase Troponin T 0.06 H* NT-Pro-B Natriuret Pep 36750.0 H Total Protein Albumin Globulin Albumin/Globulin Ratio 01/13/21 01/13/21 14:05 14:05 WBC 7.2 RBC 3.60 L Hgb 10.4 L Hct 32.8 L POC Hct MCV 91.1 MCH 28.9 MCHC 31.7 RDW 13.8 Plt Count 168 MPV 11.0 H Seg Neutrophils % 82 H Band Neutrophils % 1 Lymphocytes % 5 L Monocytes % (Manual) 9 Eosinophils % (Manual) 3 Platelet Estimate Normal RBC Morphology Normal PT INR APTT POC Sodium Sodium 130 L POC Potassium Potassium 7.6 H* POC Chloride Chloride 85 L Carbon Dioxide 20 L POC Total CO2 Anion Gap 25.0 H POC BUN BUN 85 H Creatinine 17.4 H* POC Creatinine GFR Calculation 3 Glucose 91 POC Glucose Calcium 7.4 L POC WB Ioniz Calcium Total Bilirubin 0.2 AST 18 ALT 13 Alkaline Phosphatase 79 Troponin T NT-Pro-B Natriuret Pep 27439.0 H Total Protein 6.9 Albumin 3.6 Globulin 3.3 Albumin/Globulin Ratio 1.1 A/P Narrative A/P Narrative: A: *Volume overload: missed HD session *Hyperkalemia: *b/l infiltrates on CXR: felt in ED to be more fluid overload vs covid, but not ruled out -f/u cxr with improvement on right and left same *COVID-19: n/v/diarrhea possible from covid *Acute hypoxic respiratory failure: 2/2 volume overload vs covid *ESRD: *Anemia, chronic: *obesity: *Hyponatremia: P: -Nephro for HD and electrolytes abnormalities -Dexa, no remdesivir d/t ESRD -wean O2 -f/u CXR - -pt/ot -ppx: heparin Time Spent With Patient Time: Total time spent is greater than 50% in coordination of care (as documented) at patient's floor/unit and/or counseling patient: QUALITY VTE Deep Vein Thrombosis/Pulmonary Embolism Present on Admission: No
[2021-01-14] MEDS ORDERED: REMDESIVIR 100 MG in 0.9 % SODIUM CHLORIDE 250 ML IV SCH (08:15)
[2021-01-14] MEDS ORDERED: REMDESIVIR 200 MG in 0.9 % SODIUM CHLORIDE 250 ML IV ONE (08:15)
[2021-01-14] MEDS: HYDROcodone/APAP 5/325MG TABLET PO PRN (08:20)
--- NOTE | 2021-01-14 08:38 | XRay Report ---
HISTORY: Fever cough and weakness FINDINGS: There is a patchy distribution of alveolar infiltrates in both lungs. There is greater involvement on the left side than right. There has been improvement on the right side and little change on the left since 01/13/21. The heart is mildly enlarged and has decreased in size. There is no lobar consolidation or pleural effusion. Impression: improved cardiomegaly. Improved infiltrate in the right lung and no change in the left. This is still nonspecific and could be due to congestive heart failure, pneumonia or combination of the two Interpreted and Authenticated by: Wojciech Almaraz 01/14/21
[2021-01-14 09:06] LABS: Hematocrit 31.9 % (40.1-51.0); Hemoglobin 10.5 g/dL (13.7-17.5); Mean Cell Volume 88.1 fL (80.0-100.0); Mean Corpuscular HGB Conc 32.9 g/dL (31.0-36.0); Platelet Count 185 K/mcL (140-440); RBC 3.62 M/mcL (4.63-6.08); Red Cell Distribution Width 13.9 % (11.5-14.5); WBC 6.8 K/mcL (4.5-11.0)
[2021-01-14] MEDS ORDERED: IPRATROPIUM/ALBUTEROL 3 ML AMPUL.NEB NEB PRN (09:14)
[2021-01-14] MEDS ORDERED: POTASSIUM CHLORIDE 40 MEQ in DEXTROSE 5% IN WATER 500 ML IV PRN (09:14)
[2021-01-14] MEDS ORDERED: POLYETHYLENE GLYCOL 3350 17 GM PACKET PO PRN (09:14)
[2021-01-14] MEDS ORDERED: MAGNESIUM SULFATE 2 GM/50 ML BAG IV PRN (09:14)
[2021-01-14] MEDS ORDERED: POTASSIUM CHLORIDE 20 MEQ TABLET PO PRN ×2 (09:14)
[2021-01-14] MEDS ORDERED: SENNOSIDES 1 TABLET PO PRN (09:14)
[2021-01-14 09:36] LABS: ALT/SGPT 16 U/L (<40); AST/SGOT 25 U/L (<40); Albumin 3.6 gm/dL (3.2-5.2); Alkaline Phosphatase 74 U/L (39-117); Bilirubin,Direct < 0.2 mg/dL (0-0.3); Bilirubin,Total 0.3 mg/dL (0.1-1.0); Blood Urea Nitrogen 38 mg/dL (6-20); Calcium 8.5 mg/dL (8.6-10.4); Carbon Dioxide 26 mmol/L (22-30); Chloride 88 mmol/L (96-108); Globulin 3.7 gm/dL (2.2-3.7); Glomerular Filtration Rate 6; Glucose 91 mg/dL (70-105); Lactate Dehydrogenase 339 U/L (135-225); Phosphorous 5.2 mg/dL (2.5-4.5); Triglycerides 202 mg/dL (<150)
[2021-01-14] MEDS: DEXAMETHASONE 4 MG TABLET PO SCH (10:00)
[2021-01-14] MEDS: HEPARIN 5,000 UNIT/ML VIAL SQ SCH ×2 (10:01→21:15)
[2021-01-14] MEDS: ONDANSETRON 4 MG/2 ML VIAL IV PRN ×3 (10:01→21:16)
[2021-01-14 10:43] LABS: Band Neutrophils % 7 % (0-10); Hypochromasia RARE (None Seen); Lymphocytes % 10 % (15-49); Monocytes % (Manual) 6 % (1-12); Platelet Estimate NORMAL (Normal); RBC Morphology ABNORMAL (Normal); Segmented Neutrophils % 77 % (38-78)
[2021-01-14] MEDS: 0.9 % SODIUM CHLORIDE 10 ML SYRINGE IV SCH ×2 (13:43→21:15)
[2021-01-14] MEDS ORDERED: PROMETHAZINE 25 MG/ML VIAL IV PRN (22:53)
[2021-01-14] MEDS ORDERED: METOCLOPRAMIDE 10 MG/2 ML VIAL IV PRN (22:53)
[2021-01-14] MEDS ORDERED: diphenhydrAMINE 50 MG/ML VIAL IV PRN (22:54)
[2021-01-15] MEDS: HYDROcodone/APAP 5/325MG TABLET PO PRN ×2 (02:35→17:43)
[2021-01-15] MEDS: 0.9 % SODIUM CHLORIDE 10 ML SYRINGE IV SCH ×3 (05:45→20:12)
[2021-01-15 07:47] LABS: ALT/SGPT 18 U/L (<40); AST/SGOT 27 U/L (<40); Albumin 3.5 gm/dL (3.2-5.2); Alkaline Phosphatase 67 U/L (39-117); Bilirubin,Direct < 0.2 mg/dL (0-0.3); Bilirubin,Total 0.3 mg/dL (0.1-1.0); Blood Urea Nitrogen 59 mg/dL (6-20); Calcium 8.1 mg/dL (8.6-10.4); Carbon Dioxide 27 mmol/L (22-30); Chloride 86 mmol/L (96-108); Globulin 3.5 gm/dL (2.2-3.7); Glomerular Filtration Rate 4; Glucose 119 mg/dL (70-105); Lactate Dehydrogenase 318 U/L (135-225); Phosphorous 10.9 mg/dL (2.5-4.5); Triglycerides 152 mg/dL (<150); Uric Acid 6.6 mg/dL (2.5-8.0)
[2021-01-15] MEDS ORDERED: hydrOXYzine 25 MG TABLET PO PRN (07:57)
--- NOTE | 2021-01-15 08:00 | Internal Med Progress Note ---
SUBJECTIVE Subjective Patient information: Note initiated : 01/15/21 at 7:54 am Service Date, if different from initiated Date: [] Patient: Khadar Rizo a 60 y/o M admitted on 01/14/21 for SOB, cough, weakness. Chief Complaint: [] Interval history: History of present illness: Mr. Rizo is a 60 year old M presents to ED with dyspnea. has missed last HD session due to vomiting and diarrhea and has had some sinus congestion. Was not vaccine against COVID-19 but it was around family members that were positive. Patient did test for posit richy for COVID-19 here. Chest x-ray shows bilateral infiltrates it was felt that is probably fluid ov erload as opposed to COVID-19 although that is not ruled out. Patient has a chronic cough that is no different than usual. Patient also had a hyperkalemia of 7.5. Case discussed with Dr. Garcia field pipe lines supervisor. Patient initially was given transferred out for urgent dialysis but we will to find a bed in the middle the night and case was rediscussed with Dr. nowak who ordered dialysis in the morning. 01/15 Patient had some sharp back pain with dialysis likely related to bed positioning. Had some nausea that went away on its own. Overall feels much better since his arrival. No new complaints. Patient does not wear oxygen at home. Undergoing dialysis this morning. Review of Systems: denies headache/fever/chills/nausea/vomiting/chest or abdominal pain/cough/dyspnea/diarrhea. Otherwise see above. Constitutional Vitals: Vital Signs Temp Pulse Resp BP Pulse Ox 97.5 F 66 16 136/79 95 01/15/21 04:00 01/15/21 06:28 01/15/21 06:28 01/15/21 06:01 01/15/21 06:28 Period Temp Pulse Resp BP Sys/Ding Pulse Ox Last 24 Hr 97.4 F-99.0 F 65-112 14-22 106-160/63-114 80-98 Intake and Output 01/14/21 01/15/21 01/15/21 21:59 05:59 13:59 Intake Total 240 Output Total 250 Balance -10 Weight 133.175 kg Intake & Output: Intake & Output 01/14/21 01/15/21 01/15/21 21:59 05:59 13:59 Intake Total 240 Output Total 250 Balance -10 Weight 133.175 kg Intake: Oral 240 Output: Emesis 250 Other: Meal Dinner Percent of Meal Consumed 25% Feeding Ability Independent Exam: General: Alert, Awake, No acute Distress, obese Eyes/N/T: EOMI, Head/Neck: neck supple, CV: RRR, No murmurs, Pulm: Fine rales and diminished b/l but better aeration today, no wheezing Abd: soft, nontender, +BS x4 Ext: no clubbing/cyanosis, mild b/l LE edema Neuro: Alert, no focal deficits, moves all extremities, Skin: warm/dry OBJ DATA Labs CBC & Chem 7: 01/15/21 04:55 01/15/21 04:55 Labs: Abnormal Lab Results 01/15/21 01/14/21 01/14/21 04:55 08:33 08:33 RBC Hgb Hct POC Hct MPV Seg Neutrophils % Lymphocytes % RBC Morphology Hypochromasia PT APTT POC Sodium Sodium POC Potassium Potassium 5.4 H Chloride 86 L 88 L Carbon Dioxide Anion Gap 23.0 H 22.0 H POC BUN BUN 59 H 38 H Creatinine 12.4 H* 9.2 H* POC Creatinine Glucose 119 H Calcium 8.1 L 8.5 L POC WB Ioniz Calcium Phosphorus 10.9 H* 5.2 H Lactate Dehydrogenase 318 H 339 H Troponin T C-Reactive Protein 19.20 H NT-Pro-B Natriuret Pep Triglycerides 152 H 202 H Procalcitonin 1.51 H 01/14/21 01/13/21 01/13/21 08:33 23:38 14:05 RBC 3.62 L Hgb 10.5 L Hct 31.9 L POC Hct 31 L MPV 11.0 H Seg Neutrophils % Lymphocytes % 10 L RBC Morphology Abnormal A Hypochromasia Rare A PT APTT POC Sodium 129 L Sodium POC Potassium 7.5 H* Potassium Chloride Carbon Dioxide Anion Gap POC BUN 106 H* BUN Creatinine POC Creatinine 20.0 H* Glucose Calcium POC WB Ioniz Calcium 0.87 L Phosphorus Lactate Dehydrogenase Troponin T 0.06 H* C-Reactive Protein NT-Pro-B Natriuret Pep 32139.0 H Triglycerides Procalcitonin 01/13/21 01/13/21 01/13/21 14:05 14:05 14:05 RBC 3.60 L Hgb 10.4 L Hct 32.8 L POC Hct MPV 11.0 H Seg Neutrophils % 82 H Lymphocytes % 5 L RBC Morphology Hypochromasia PT 14.7 H APTT 39.7 H POC Sodium Sodium 130 L POC Potassium Potassium 7.6 H* Chloride 85 L Carbon Dioxide 20 L Anion Gap 25.0 H POC BUN BUN 85 H Creatinine 17.4 H* POC Creatinine Glucose Calcium 7.4 L POC WB Ioniz Calcium Phosphorus Lactate Dehydrogenase Troponin T C-Reactive Protein NT-Pro-B Natriuret Pep 50607.0 H Triglycerides Procalcitonin Meds: Medications Hydrocodone Bitart/Acetaminophen (Hydrocodone/Apap 5/325mg Tablet) 1 tab PO Q6HP PRN; Protocol PRN Reason: Per Pain Protocol Last Admin: 01/15/21 02:35 Dose: 1 tab Documented by: Albuterol/Ipratropium (Ipratropium/Albuterol 3 Ml Ampul.Neb) 3 ml NEB Q4HP PRN PRN Reason: Shortness Of Breath Dexamethasone (Dexamethasone 4 Mg Tablet) 6 mg PO DAILY [facility] Last Admin: 01/14/21 10:00 Dose: 6 mg Documented by: Diphenhydramine HCl (Diphenhydramine 50 Mg/Ml Vial) 25 mg IV Q6HP PRN PRN Reason: Nausea And Vomiting Heparin Sodium (Porcine) (Heparin 5,000 Unit/Ml Vial) 5,000 unit SQ Q12 [facility] Last Admin: 01/14/21 21:15 Dose: 5,000 unit Documented by: Potassium Chloride 40 meq/ (Dextrose) 520 mls @ 130 mls/hr IV UD PRN PRN Reason: Potassium < 3 Magnesium Sulfate (Magnesium Sulfate) 2 gm in 50 mls @ 50 mls/hr IV UD PRN PRN Reason: Magnesium </= 1.6 Metoclopramide HCl (Metoclopramide 10 Mg/2 Ml Vial) 10 mg IV Q6HP PRN PRN Reason: Nausea And Vomiting Ondansetron HCl (Ondansetron 4 Mg/2 Ml Vial) 4 mg IV Q4HP PRN PRN Reason: Nausea And Vomiting Last Admin: 01/14/21 21:16 Dose: 4 mg Documented by: Polyethylene Glycol (Polyethylene Glycol 3350 17 Gm Packet) 17 gm PO DAILYP PRN PRN Reason: Constipation Potassium Chloride (Potassium Chloride 20 Meq Tablet) 40 meq PO UD PRN PRN Reason: Potssium is 3-3.5 Potassium Chloride (Potassium Chloride 20 Meq Tablet) 40 meq PO UD PRN PRN Reason: Potassium < 3 Promethazine HCl (Promethazine 25 Mg/Ml Vial) 12.5 mg IV Q6HP PRN PRN Reason: Nausea And Vomiting Senna (Sennosides 1 Tablet) 2 tab PO DAILYP PRN PRN Reason: Constipation Sodium Chloride (0.9 % Sodium Chloride 10 Ml Syringe) 10 ml IV Q8 RED Last Admin: 01/15/21 05:45 Dose: 10 ml Documented by: A/P Narrative A/P Narrative: A: *Volume overload: missed HD session *Hyperkalemia: resolved with initial HD, but mildly elevated again *b/l infiltrates on CXR: felt in ED to be more fluid overload vs covid, but not ruled out -f/u cxr with improvement on right and left same *COVID-19: n/v/diarrhea possible from covid *Acute on chronic hypoxic respiratory failure: 2/2 volume overload +/- covid -difficult to interpret pct in setting of ESRD *ESRD: *Anemia, chronic: *obesity: *Hyponatremia: improved P: -Nephro for HD and electrolytes abnormalities -Dexa, no remdesivir d/t ESRD -wean O2 -f/u CXR -home meds clarified and started this morning -pt/ot -ppx: heparin Time Spent With Patient Time: Total time spent is greater than 50% in coordination of care (as documented) at patient's floor/unit and/or counseling patient: QUALITY VTE Deep Vein Thrombosis/Pulmonary Embolism Present on Admission: No
[2021-01-15] MEDS ORDERED: morphine 2 MG/ML VIAL IV PRN (08:04)
[2021-01-15] MEDS: CALCIUM ACETATE 667 MG CAPSULE PO SCH ×3 (08:22→17:24)
[2021-01-15] MEDS: DEXAMETHASONE 4 MG TABLET PO SCH (08:23)
[2021-01-15] MEDS: HEPARIN 5,000 UNIT/ML VIAL SQ SCH ×2 (08:23→20:11)
[2021-01-15] MEDS: GABAPENTIN 100 MG CAPSULE PO SCH ×2 (08:23→20:11)
[2021-01-15 08:25] LABS: Hematocrit 31.2 % (40.1-51.0); Hemoglobin 10.1 g/dL (13.7-17.5); Mean Cell Volume 90.4 fL (80.0-100.0); Mean Corpuscular HGB Conc 32.4 g/dL (31.0-36.0); Mean Platelet Volume 11.3 fL (7.4-10.4); Platelet Count 187 K/mcL (140-440); RBC 3.45 M/mcL (4.63-6.08)
[2021-01-15 08:45] LABS: Band Neutrophils % 4 % (0-10); Lymphocytes % 5 % (15-49); Monocytes % (Manual) 11 % (1-12); Myelocytes % 1 %; Platelet Estimate NORMAL (Normal); RBC Morphology NORMAL (Normal); Segmented Neutrophils % 79 % (38-78)
--- NOTE | 2021-01-15 10:41 | XRay Report ---
HISTORY: Short of breath, cough, weakness, follow-up pulmonary infiltrates FINDINGS: There is respiration motion artifact. Mild alveolar infiltrates are present centrally in both lungs. Lung volumes are slightly larger today than they were yesterday. The heart is mildly enlarged and has increased in size since yesterday, but is similar to that seen on 01/13/21. No pleural effusion is present. IMPRESSION: Persistent cardiomegaly and mild congestive heart failure. Underlying pneumonia cannot be excluded. Interpreted and Authenticated by: Wojciech Almaraz 01/15/21
[2021-01-15] MEDS: CALCITRIOL 0.25 MCG CAPSULE PO SCH (13:31)
--- NOTE | 2021-01-15 17:33 | Nephrology Progress Note ---
SUBJECTIVE Subjective Patient information: Note initiated : 01/15/21 at 5:30 pm Service Date, if different from initiated Date: [] Patient: Khadar Rizo 60 y/o M admitted on 01/14/21 for SOB, cough, weakness. 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 Usually compliant with Tx schedule but no show Weds and To ED and dialysis early Sunday 01/14 and repeat today. Seen on HD. Sputum sent today (+) gm positive cocci in pairs along with intracullular location. Microbiology 01/15/21 14:45 Sputum source - Expectorated Few Epithelial Cells Many Polys Many Intracellular and Extracellular Gram Positive Cocci in Pairs and Chains Moderate Gram Negative Diplococci Few Gram Positive Bacilli Few Gram Negative Bacilli Laboratory Tests 01/15/21 04:55 WBC 6.0 Hgb 10.1 L Plt Count 187 Seg Neutrophils % 79 H Band Neutrophils % 4 01/15/21 04:55 Sodium 136 Potassium 5.4 H Chloride 86 L Carbon Dioxide 27 Anion Gap 23.0 H BUN 59 H Creatinine 12.4 H* GFR Calculation 4 Glucose 119 H Uric Acid 6.6 Calcium 8.1 L Phosphorus 10.9 H* Magnesium 2.2 Alkaline Phosphatase 67 Lactate Dehydrogenase 318 H Albumin 3.5 I would recommend Doxy or Azithro as treatment for pneumococcal PNA based on gram stain pending final ID as well as therap'y for moderately ill CoVid 19 patient requiring supplemental O2. Constitutional Vitals: Vital Signs Temp Pulse Resp BP Pulse Ox 36.2 C 98 H 19 122/74 93 01/15/21 16:01 01/15/21 16:01 01/15/21 16:01 01/15/21 16:01 01/15/21 16:01 Period Temp Pulse Resp BP Sys/Ding Pulse Ox Last 24 Hr 36.2 C-37.2 C 56-112 12-22 82-160/41-114 80-100 Intake and Output 01/15/21 01/15/21 01/15/21 05:59 13:59 21:59 Intake Total 250 360 240 Output Total 2000 Balance 250 -1640 240 Weight 133.175 kg Patient Weight 01/16/21 05:59 Weight 133.175 kg Current Medications Hydrocodone Bitart/Acetaminophen (Hydrocodone/Apap 5/325mg Tablet) 1 tab PO Q6HP PRN; Protocol PRN Reason: Per Pain Protocol Last Admin: 01/15/21 02:35 Dose: 1 tab Documented by: Albuterol/Ipratropium (Ipratropium/Albuterol 3 Ml Ampul.Neb) 3 ml NEB Q4HP PRN PRN Reason: Shortness Of Breath Calcitriol (Calcitriol 0.25 Mcg Capsule) 1 mcg PO MoWeFr [facility] Last Admin: 01/15/21 13:31 Dose: 1 mcg Documented by: Calcium Acetate (Calcium Acetate 667 Mg Capsule) 2,668 mg PO TIDCC [facility] Last Admin: 01/15/21 17:24 Dose: 2,668 mg Documented by: Dexamethasone (Dexamethasone 4 Mg Tablet) 6 mg PO DAILY [facility] Last Admin: 01/15/21 08:23 Dose: 6 mg Documented by: Diphenhydramine HCl (Diphenhydramine 50 Mg/Ml Vial) 25 mg IV Q6HP PRN PRN Reason: Nausea And Vomiting Gabapentin (Gabapentin 100 Mg Capsule) 200 mg PO BID [facility] Last Admin: 01/15/21 08:23 Dose: 200 mg Documented by: Heparin Sodium (Porcine) (Heparin 5,000 Unit/Ml Vial) 5,000 unit SQ Q12 [facility] Last Admin: 01/15/21 08:23 Dose: 5,000 unit Documented by: Hydroxyzine HCl (Hydroxyzine 25 Mg Tablet) 25 mg PO TID PRN PRN Reason: itching Potassium Chloride 40 meq/ (Dextrose) 520 mls @ 130 mls/hr IV UD PRN PRN Reason: Potassium < 3 Magnesium Sulfate (Magnesium Sulfate) 2 gm in 50 mls @ 50 mls/hr IV UD PRN PRN Reason: Magnesium </= 1.6 Metoclopramide HCl (Metoclopramide 10 Mg/2 Ml Vial) 10 mg IV Q6HP PRN PRN Reason: Nausea And Vomiting Morphine Sulfate (Morphine 2 Mg/Ml Vial) 1 - 4 mg IV Q6HP PRN; Protocol PRN Reason: Per Pain Protocol Ondansetron HCl (Ondansetron 4 Mg/2 Ml Vial) 4 mg IV Q4HP PRN PRN Reason: Nausea And Vomiting Last Admin: 01/14/21 21:16 Dose: 4 mg Documented by: Polyethylene Glycol (Polyethylene Glycol 3350 17 Gm Packet) 17 gm PO DAILYP PRN PRN Reason: Constipation Potassium Chloride (Potassium Chloride 20 Meq Tablet) 40 meq PO UD PRN PRN Reason: Potssium is 3-3.5 Potassium Chloride (Potassium Chloride 20 Meq Tablet) 40 meq PO UD PRN PRN Reason: Potassium < 3 Promethazine HCl (Promethazine 25 Mg/Ml Vial) 12.5 mg IV Q6HP PRN PRN Reason: Nausea And Vomiting Senna (Sennosides 1 Tablet) 2 tab PO DAILYP PRN PRN Reason: Constipation Sodium Chloride (0.9 % Sodium Chloride 10 Ml Syringe) 10 ml IV Q8 RED Last Admin: 01/15/21 13:31 Dose: 10 ml Documented by: Intake & Output: Intake & Output 01/15/21 01/15/21 01/15/21 05:59 13:59 21:59 Intake Total 250 360 240 Output Total 1999 Balance 250 -1640 240 Weight 133.175 kg Intake: Oral 250 360 240 Output: Hemodialysis UF 2000 Other: Meal Breakfast Lunch Percent of Meal Consumed 50% 100% Feeding Ability Independent Independent Nourishment/Supplement name ice chips General appearance: mild distress and obese Head Head exam: Present atraumatic Eye Eye exam: Present EOMI and PERRL; Absent scleral icterus Neck Neck exam: Present full ROM; Absent meningismus Respiratory Respiratory exam: Present decreased breath sounds, prolonged expiratory phase and rhonchi; Absent rales Cardiovascular Cardiovascular exam: Present normal rate and rhythm, +S1 and +S2 GI/Abdominal GI/Abdominal exam: Present soft and diminished bowel sounds Extremities Exam Extremities exam: Present full ROM; Absent calf tenderness, tenderness and Sameer's sign Expanded Lower Extremity Exam Ankle exam: Present swelling Foot/Toe exam: Present swelling Neurological Exam Neurological exam: Present CN II-XII intact and oriented X3 Skin Skin exam: Present dry; Absent petechiae, rash and vesicles A/P Assessment and plan (1) Community acquired pneumonia, bilateral: Status: Acute (2) COVID-19: Status: Acute (3) ESRD on hemodialysis: Assessment and plan: Khadar Rizo is a 60-year-old male with end stage renal disease on hemodialysis, chronic anemia due to ESRD, hypertension, diabetes mellitus type 2 presented to ED for shortness of breath and being admitted on 01/13/21. His workup in ED was significant for fluid overload, hyperkalemia, hyponatremia, metabolic acidosis as well as Covid-19. Nephrology consultation was requested for end stage renal disease. End stage renal disease on hemodialysis on MWF at [facility]. Fluid overload. Hyperkalemia. Hyponatremia. Metabolic acidosis. Chronic anemia due to ESRD. Progress: Hemodialysis overnight for 3.5 hours and 3 kg UF. Recommendations/Plan: Next hemodialysis tomorrow. Status: Chronic (4) Hyperkalemia: Status: Acute (5) Hyperparathyroidism due to end stage renal disease on dialysis: Status: Acute (6) Acute on chronic combined systolic and diastolic CHF, NYHA class 2: Status: Acute Comment: Start Losartan 25 mg po qHS Narrative A/P Narrative: 1. Pending sputum culture results, treat with azithromycin 250 mg p.o. twice daily 2. Continue dexamethasone 3. I would add ivermectin 600 mg po BID for COVID Tx 4. Daily O2 sats on R/A 5. Consider Apixaban 2.5 mg po BID. 6. Next HD Sunday but must confirm availability of isolation room for HD tr eatment as outpatient. Time Spent With Patient Time: Total time spent is greater than 50% in coordination of care (as document ed) at patient's floor/unit and/or counseling patient: Total time spent with greater than 50% in coordination of care (as documented) at patient's floor/unit and/or counseling patient:: 25 - 35 minutes
[2021-01-15] MEDS ORDERED: BENZONATATE 100 MG CAPSULE PO PRN (17:45)
[2021-01-15] MEDS ORDERED: guaiFENesin/CODEINE 10 ML UDC PO ONE (19:10)
[2021-01-15] MEDS: ONDANSETRON 4 MG/2 ML VIAL IV PRN (19:44)
[2021-01-15] MEDS: AZITHROMYCIN 250 MG TABLET PO SCH (20:18)
[2021-01-15] MEDS: IVERMECTIN 3 MG TABLET PO SCH (21:44)
[2021-01-16] MEDS ORDERED: VANCOMYCIN PER PHARMACY IV ONE (00:14)
[2021-01-16] MEDS ORDERED: VANCOMYCIN 1,500 MG in 0.9 % SODIUM CHLORIDE 500 ML IV ONE (00:42)
[2021-01-16] MEDS: PIPERACILLIN SODIUM/TAZOBACTAM 2.25 GM in DEXTROSE 5% IN WATER 50 ML IV SCH ×4 (01:00→20:59)
[2021-01-16] MEDS: ONDANSETRON 4 MG/2 ML VIAL IV PRN (01:23)
[2021-01-16] MEDS ORDERED: LORazepam 2 MG/ML VIAL IV ONE (01:30)
[2021-01-16] MEDS ORDERED: LORazepam 2 MG/ML VIAL ONE (01:35)
[2021-01-16] MEDS: 0.9 % SODIUM CHLORIDE 10 ML SYRINGE IV SCH ×3 (06:00→20:59)
--- NOTE | 2021-01-16 07:49 | Internal Med Progress Note ---
SUBJECTIVE Subjective Patient information: Note initiated : 01/16/21 at 7:47 am Service Date, if different from initiated Date: [] Patient: Khadar Rizo a 60 y/o M admitted on 01/14/21 for SOB, cough, weakness. Chief Complaint: [] Interval history: History of present illness: Mr. Rizo is a 60 year old M presents to ED with dyspnea. has missed last HD session due to vomiting and diarrhea and has had some sinus congestion. Was not vaccine against COVID-19 but it was around family members that were positive. Patient did test for posit richy for COVID-19 here. Chest x-ray shows bilateral infiltrates it was felt that is probably fluid ov erload as opposed to COVID-19 although that is not ruled out. Patient has a chronic cough that is no different than usual. Patient also had a hyperkalemia of 7.5. Case discussed with Dr. Garcia client representative. Patient initially was given transferred out for urgent dialysis but we will to find a bed in the middle the night and case was rediscussed with Dr. nowak who ordered dialysis in the morning. 01/15 Patient had some sharp back pain with dialysis likely related to bed positioning. Had some nausea that went away on its own. Overall feels much better since his arrival. No new complaints. Patient does not wear oxygen at home. Undergoing dialysis this morning. 01/16 Febrile overnight, blood cultures taken. Sputum culture with gram-positive cocci in pairs as well as gram-negative diplococci. Oxygen requirement 2 to 4 L. Patient complains about cough medicine. Says he feels okay, not to talkative or specific with answering questions. Review of Systems: denies headache/fever/chills/nausea/vomiting/chest or abdominal pain/diarrhea. Otherwise see above. Constitutional Vitals: Vital Signs Temp Pulse Resp BP Pulse Ox 103.3 F H 86 31 H 140/71 93 01/16/21 04:25 01/16/21 07:18 01/16/21 07:18 01/16/21 07:18 01/16/21 07:18 Period Temp Pulse Resp BP Sys/Ding Pulse Ox Last 24 Hr 97.2 F-103.8 F 56-116 12-32 82-184/41-110 85-100 Intake and Output 08/21/21 08/22/21 08/22/21 21:59 05:59 13:59 Intake Total 240 550 50 Output Total 0 Balance 240 550 50 Weight 133.084 kg Intake & Output: Intake & Output 01/15/21 01/16/21 01/16/21 21:59 05:59 13:59 Intake Total 240 550 50 Output Total 0 Balance 240 550 50 Weight 133.084 kg Intake: IV 550 50 Zosyn 2.25 gm In Dextrose 5% in 50 50 Water 50 ml @ 100 mls/hr IV Q6H RED Rx#:[id number] Vancomycin 1,500 mg In Sodium 500 Chloride 0.9% 500 ml @ 333.3 mls/hr IV ONCE ONE Rx#: [id number] Oral 240 Output: Void Amount 0 Other: Meal Dinner Percent of Meal Consumed 0% Feeding Ability Independent Exam: General: Alert, Awake, No acute Distress, obese Eyes/N/T: EOMI, Head/Neck: neck supple, CV: RRR, No murmurs, Pulm: Fine rales and diminished b/l but better aeration today, no wheezing Abd: soft, nontender, +BS x4 Ext: no clubbing/cyanosis, mild b/l LE edema Neuro: Alert, no focal deficits, moves all extremities, Skin: warm/dry OBJ DATA Labs CBC & Chem 7: 01/15/21 04:55 01/16/21 05:07 Labs: Abnormal Lab Results 01/15/21 01/15/21 01/14/21 04:55 04:55 08:33 RBC 3.45 L Hgb 10.1 L Hct 31.2 L POC Hct MPV 11.3 H Seg Neutrophils % 79 H Lymphocytes % 5 L RBC Morphology Hypochromasia PT APTT POC Sodium Sodium POC Potassium Potassium 5.4 H Chloride 86 L Carbon Dioxide Anion Gap 23.0 H POC BUN BUN 59 H Creatinine 12.4 H* POC Creatinine Glucose 119 H Calcium 8.1 L POC WB Ioniz Calcium Phosphorus 10.9 H* Lactate Dehydrogenase 318 H Troponin T C-Reactive Protein NT-Pro-B Natriuret Pep Triglycerides 152 H Procalcitonin 1.51 H 01/14/21 01/14/21 01/13/21 08:33 08:33 23:38 RBC 3.62 L Hgb 10.5 L Hct 31.9 L POC Hct 31 L MPV 11.0 H Seg Neutrophils % Lymphocytes % 10 L RBC Morphology Abnormal A Hypochromasia Rare A PT APTT POC Sodium 129 L Sodium POC Potassium 7.5 H* Potassium Chloride 88 L Carbon Dioxide Anion Gap 22.0 H POC BUN 106 H* BUN 38 H Creatinine 9.2 H* POC Creatinine 20.0 H* Glucose Calcium 8.5 L POC WB Ioniz Calcium 0.87 L Phosphorus 5.2 H Lactate Dehydrogenase 339 H Troponin T C-Reactive Protein 19.20 H NT-Pro-B Natriuret Pep 54575.0 H Triglycerides 202 H Procalcitonin 01/13/21 01/13/21 01/13/21 14:05 14:05 14:05 RBC Hgb Hct POC Hct MPV Seg Neutrophils % Lymphocytes % RBC Morphology Hypochromasia PT 14.7 H APTT 39.7 H POC Sodium Sodium 130 L POC Potassium Potassium 7.6 H* Chloride 85 L Carbon Dioxide 20 L Anion Gap 25.0 H POC BUN BUN 85 H Creatinine 17.4 H* POC Creatinine Glucose Calcium 7.4 L POC WB Ioniz Calcium Phosphorus Lactate Dehydrogenase Troponin T 0.06 H* C-Reactive Protein NT-Pro-B Natriuret Pep 71838.0 H Triglycerides Procalcitonin 01/13/21 14:05 RBC 3.60 L Hgb 10.4 L Hct 32.8 L POC Hct MPV 11.0 H Seg Neutrophils % 82 H Lymphocytes % 5 L RBC Morphology Hypochromasia PT APTT POC Sodium Sodium POC Potassium Potassium Chloride Carbon Dioxide Anion Gap POC BUN BUN Creatinine POC Creatinine Glucose Calcium POC WB Ioniz Calcium Phosphorus Lactate Dehydrogenase Troponin T C-Reactive Protein NT-Pro-B Natriuret Pep Triglycerides Procalcitonin Meds: Medications Hydrocodone Bitart/Acetaminophen (Hydrocodone/Apap 5/325mg Tablet) 1 tab PO Q6HP PRN; Protocol PRN Reason: Per Pain Protocol Last Admin: 01/15/21 17:43 Dose: 1 tab Documented by: Albuterol/Ipratropium (Ipratropium/Albuterol 3 Ml Ampul.Neb) 3 ml NEB Q4HP PRN PRN Reason: Shortness Of Breath Azithromycin (Azithromycin 250 Mg Tablet) 250 mg PO BID RED; Protocol Stop: 01/18/21 09:01 Last Admin: 01/15/21 20:18 Dose: 250 mg Documented by: Benzonatate (Benzonatate 100 Mg Capsule) 200 mg PO TIDP PRN PRN Reason: Cough Calcitriol (Calcitriol 0.25 Mcg Capsule) 1 mcg PO MoWeFr [facility] Last Admin: 01/15/21 13:31 Dose: 1 mcg Documented by: Calcium Acetate (Calcium Acetate 667 Mg Capsule) 2,668 mg PO TIDCC [facility] Last Admin: 01/15/21 17:24 Dose: 2,668 mg Documented by: Dexamethasone (Dexamethasone 4 Mg Tablet) 6 mg PO DAILY [facility] Last Admin: 01/15/21 08:23 Dose: 6 mg Documented by: Diphenhydramine HCl (Diphenhydramine 50 Mg/Ml Vial) 25 mg IV Q6HP PRN PRN Reason: Nausea And Vomiting Last Admin: 01/15/21 21:44 Dose: 25 mg Documented by: Gabapentin (Gabapentin 100 Mg Capsule) 200 mg PO BID [facility] Last Admin: 01/15/21 20:11 Dose: 200 mg Documented by: Heparin Sodium (Porcine) (Heparin 5,000 Unit/Ml Vial) 5,000 unit SQ Q12 [facility] Last Admin: 01/15/21 20:11 Dose: 5,000 unit Documented by: Potassium Chloride 40 meq/ (Dextrose) 520 mls @ 130 mls/hr IV UD PRN PRN Reason: Potassium < 3 Magnesium Sulfate (Magnesium Sulfate) 2 gm in 50 mls @ 50 mls/hr IV UD PRN PRN Reason: Magnesium </= 1.6 Piperacillin Sod/Tazobactam (Sod 2.25 gm/ Dextrose) 50 mls @ 100 mls/hr IV Q6H [facility]; Protocol Last Infusion: 01/16/21 06:49 Dose: Infused Documented by: Ivermectin (Ivermectin 3 Mg Tablet) 6 mg PO BID [facility] Last Admin: 01/15/21 21:44 Dose: Not Given Documented by: Morphine Sulfate (Morphine 2 Mg/Ml Vial) 1 - 4 mg IV Q6HP PRN; Protocol PRN Reason: Per Pain Protocol Ondansetron HCl (Ondansetron 4 Mg/2 Ml Vial) 4 mg IV Q4HP PRN PRN Reason: Nausea And Vomiting Last Admin: 01/16/21 01:23 Dose: 4 mg Documented by: Polyethylene Glycol (Polyethylene Glycol 3350 17 Gm Packet) 17 gm PO DAILYP PRN PRN Reason: Constipation Potassium Chloride (Potassium Chloride 20 Meq Tablet) 40 meq PO UD PRN PRN Reason: Potssium is 3-3.5 Potassium Chloride (Potassium Chloride 20 Meq Tablet) 40 meq PO UD PRN PRN Reason: Potassium < 3 Promethazine HCl (Promethazine 25 Mg/Ml Vial) 12.5 mg IV Q6HP PRN PRN Reason: Nausea And Vomiting Senna (Sennosides 1 Tablet) 2 tab PO DAILYP PRN PRN Reason: Constipation Sodium Chloride (0.9 % Sodium Chloride 10 Ml Syringe) 10 ml IV Q8 [facility] Last Admin: 01/16/21 06:00 Dose: 10 ml Documented by: Vancomycin HCl (Vancomycin Per Pharmacy) 1 order IV ONCE ONE; Protocol Stop: 01/16/21 00:15 Last Admin: 01/16/21 05:58 Dose: Not Given Documented by: A/P Narrative A/P Narrative: A: *Volume overload: missed HD session *Hyperkalemia: resolved with initial HD, but mildly elevated again *b/l infiltrates on CXR: felt in ED to be more fluid overload vs covid, but not ruled out -f/u cxr with improvement on right and left same *COVID-19 and possible pna from vs Bacterial pna: n/v/diarrhea possible from covid *Acute on chronic hypoxic respiratory failure: 2/2 volume overload +/- covid or bacterial pna - *ESRD: *Anemia, chronic: *obesity: *Hyponatremia: improved P: -empiric abx. pending SC -Nephro for HD and electrolytes abnormalities -Dexa, no remdesivir d/t ESRD -wean O2 as able, IS/Acapella -f/u CXR -home meds -pt/ot -ppx: heparin Time Spent With Patient Time: Total time spent is greater than 50% in coordination of care (as documented) at patient's floor/unit and/or counseling patient: QUALITY VTE Deep Vein Thrombosis/Pulmonary Embolism Present on Admission: No
[2021-01-16] MEDS ORDERED: VANCOMYCIN PER PHARMACY IV SCH (08:15)
[2021-01-16 08:41] LABS: ALT/SGPT 15 U/L (<40); AST/SGOT 26 U/L (<40); Albumin 3.5 gm/dL (3.2-5.2); Alkaline Phosphatase 58 U/L (39-117); Bilirubin,Direct < 0.2 mg/dL (0-0.3); Bilirubin,Total 0.3 mg/dL (0.1-1.0); Blood Urea Nitrogen 39 mg/dL (6-20); Calcium 8.2 mg/dL (8.6-10.4); Carbon Dioxide 30 mmol/L (22-30); Chloride 89 mmol/L (96-108); Globulin 3.4 gm/dL (2.2-3.7); Glomerular Filtration Rate 6; Glucose 104 mg/dL (70-105); Lactate Dehydrogenase 308 U/L (135-225); Phosphorous 5.3 mg/dL (2.5-4.5); Triglycerides 187 mg/dL (<150); Uric Acid 4.3 mg/dL (2.5-8.0)
--- NOTE | 2021-01-16 08:45 | Nephrology Progress Note ---
SUBJECTIVE Subjective Patient information: Note initiated : 01/16/21 at 8:42 am Service Date, if different from initiated Date: [] Patient: Khadar Rizo 60 y/o M admitted on 01/14/21 for SOB, cough, weakness. Chief Complaint: [SOB] SOB in setting of elevated BNP and missed HD, (+) COVID-19, Sputum with WBC and gm (+) cocci in pairs and chains with intracellular organisms. Febrile to 39.3 Was on Azithro, ivermectin and dexamethasone. Vanco and PIP/Genie added. To my eye, CXR looks worse. Next HD treatment Sunday01/17/2021. Constitutional Vitals: Vital Signs Temp Pulse Resp BP Pulse Ox 39.3 C H 85 32 H 136/58 95 01/16/21 08:01 01/16/21 08:01 01/16/21 08:01 01/16/21 08:01 01/16/21 08:01 Period Temp Pulse Resp BP Sys/Ding Pulse Ox Last 24 Hr 36.2 C-39.9 C 56-116 12-32 83-184/42-110 85-100 Intake and Output 01/15/21 01/16/21 01/16/21 21:59 05:59 13:59 Intake Total 240 550 50 Output Total 0 Balance 240 550 50 Weight 133.084 kg General appearance: moderate distress and obese Head Head exam: Present atraumatic and normal inspection Eye Eye exam: Present EOMI, nystagmus and PERRL ENT ENT exam: Present mucous membranes dry Neck Neck exam: Present full ROM Respiratory Respiratory exam: Present decreased breath sounds, prolonged expiratory phase, respiratory distress and rhonchi; Absent rales Cardiovascular Cardiovascular exam: Present normal rate and rhythm, +S1 and +S2; Absent JVD GI/Abdominal GI/Abdominal exam: Present soft and distended Extremities Exam Extremities exam: Present full ROM and pedal edema Neurological Exam Neurological exam: Present alert, CN II-XII intact and motor sensory deficit Psychiatric Psychiatric exam: Present flat affect Skin Skin exam: Present dry; Absent petechiae and rash A/P Assessment and plan (1) ESRD on hemodialysis: Status: Chronic Comment: HD qMWF (2) Community acquired pneumonia, bilateral: Assessment and plan: Sputum gram stain looks like strep pneumo so vanco and azithro Screened and afebrile. No signs or symptoms of CoVID-19positive do steroids, azithro and ivermectin Status: Acute (3) COVID-19: Status: Acute Narrative A/P Narrative: * Vanco, pip/genie/Azithro and Ivermectin * Check EKG / Qt interval * Follow up cultures and fever curve. * HD q MWF Time Spent With Patient Time: Total time spent is greater than 50% in coordination of care (as documented) at patient's floor/unit and/or counseling patient: Total time spent with greater than 50% in coordination of care (as documented) at patient's floor/unit and/or counseling patient:: Greater than 35 minutes
[2021-01-16] MEDS ORDERED: ACETAMINOPHEN 325 MG TABLET PO PRN (09:33)
--- NOTE | 2021-01-16 09:39 | XRay Report ---
HISTORY: Follow-up pulmonary infiltrates with shortness of breath and cough and weakness FINDINGS: Generalized alveolar opacities are present throughout both lungs. The greatest consolidation is around the left hilum. The heart remains mildly enlarged. There is no pleural effusion. There has been no improvement since 01/14/21. IMPRESSION: Persistent alveolar opacities bilaterally. This may be congestive heart failure which has not responded to treatment or the patient may have a superimposed pneumonia. Interpreted and Authenticated by: Wojciech Almaraz 01/16/21
[2021-01-16] MEDS: CALCIUM ACETATE 667 MG CAPSULE PO SCH ×3 (10:49→17:31)
[2021-01-16] MEDS: DEXAMETHASONE 4 MG TABLET PO SCH (11:02)
[2021-01-16] MEDS: AZITHROMYCIN 250 MG TABLET PO SCH ×2 (11:03→20:58)
[2021-01-16] MEDS: GABAPENTIN 100 MG CAPSULE PO SCH ×2 (11:03→20:58)
[2021-01-16] MEDS: ZINC SULFATE 50 MG CAPSULE PO SCH (11:03)
[2021-01-16] MEDS: HEPARIN 5,000 UNIT/ML VIAL SQ SCH ×2 (11:03→20:58)
[2021-01-16] MEDS: IVERMECTIN 3 MG TABLET PO SCH ×3 (13:02→20:58)
[2021-01-17] MEDS: PIPERACILLIN SODIUM/TAZOBACTAM 2.25 GM in DEXTROSE 5% IN WATER 50 ML IV SCH ×3 (05:33→21:38)
--- NOTE | 2021-01-17 07:16 | Internal Med Progress Note ---
SUBJECTIVE Subjective Patient information: Note initiated : 01/17/21 at 7:12 am Service Date, if different from initiated Date: [] Patient: Khadar Rizo a 60 y/o M admitted on 01/14/21 for SOB, cough, weakness. Chief Complaint: [] Interval history: History of present illness: Mr. Rizo is a 60 year old M presents to ED with dyspnea. has missed last HD session due to vomiting and diarrhea and has had some sinus congestion. Was not vaccine against COVID-19 but it was around family members that were positive. Patient did test for posit richy for COVID-19 here. Chest x-ray shows bilateral infiltrates it was felt that is probably fluid ov erload as opposed to COVID-19 although that is not ruled out. Patient has a chronic cough that is no different than usual. Patient also had a hyperkalemia of 7.5. Case discussed with Dr. Garcia insight leader. Patient initially was given transferred out for urgent dialysis but we will to find a bed in the middle the night and case was rediscussed with Dr. nowak who ordered dialysis in the morning. 01/15 Patient had some sharp back pain with dialysis likely related to bed positioning. Had some nausea that went away on its own. Overall feels much better since his arrival. No new complaints. Patient does not wear oxygen at home. Undergoing dialysis this morning. 01/16 Febrile overnight, blood cultures taken. Sputum culture with gram-positive cocci in pairs as well as gram-negative diplococci. Oxygen requirement 2 to 4 L. Patient complains about cough medicine. Says he feels okay, not to talkative or specific with answering questions. 01/17 Patient states he feels little better. He has productive cough but denies shortness of breath. Is on 2 L nasal cannula Sputum growing staph aureus and strep dysgal. Review of Systems: denies headache/fever/chills/nausea/vomiting/chest or abdominal pain/diarrhea. Otherwise see above. Constitutional Vitals: Vital Signs Temp Pulse Resp BP Pulse Ox 97.3 F 56 L 16 139/79 96 01/17/21 00:01 01/17/21 03:15 01/17/21 02:15 01/17/21 02:00 01/17/21 02:15 Period Temp Pulse Resp BP Sys/Ding Pulse Ox Last 24 Hr 97.3 F-102.8 F 56-103 16-32 102-147/58-95 87-99 Intake and Output 01/16/21 01/17/21 01/17/21 21:59 05:59 13:59 Intake Total 400 680 Output Total 0 Balance 400 680 0 Weight 131.678 kg Intake & Output: Intake & Output 01/16/21 01/17/21 01/17/21 21:59 05:59 13:59 Intake Total 400 680 Output Total 0 Balance 400 680 0 Weight 131.678 kg Intake: IV 100 Zosyn 2.25 gm In Dextrose 5% in 100 Water 50 ml @ 100 mls/hr IV Q8H [facility] Rx#:[id number] Oral 300 680 Output: Void Amount 0 Other: Meal Dinner Percent of Meal Consumed 100% Feeding Ability Independent Exam: General: Alert, Awake, No acute Distress, obese Eyes/N/T: EOMI, Head/Neck: neck supple, CV: RRR, No murmurs, Pulm: mild rhonchi/rales b/l but overal improved, no wheezing Abd: soft, nontender, +BS x4 Ext: no clubbing/cyanosis, trace-mild b/l LE edema Neuro: Alert, no focal deficits, moves all extremities, Skin: warm/dry OBJ DATA Labs CBC & Chem 7: 01/17/21 06:06 01/17/21 06:06 Labs: Abnormal Lab Results 01/16/21 01/15/21 01/15/21 05:07 04:55 04:55 RBC 3.45 L Hgb 10.1 L Hct 31.2 L MPV 11.3 H Seg Neutrophils % 79 H Lymphocytes % 5 L RBC Morphology Hypochromasia Potassium 5.5 H 5.4 H Chloride 89 L 86 L Anion Gap 23.0 H BUN 39 H 59 H Creatinine 9.0 H* 12.4 H* Glucose 119 H Calcium 8.2 L 8.1 L Phosphorus 5.3 H 10.9 H* Lactate Dehydrogenase 308 H 318 H C-Reactive Protein Triglycerides 187 H 152 H Procalcitonin 01/14/21 01/14/21 01/14/21 08:33 08:33 08:33 RBC 3.62 L Hgb 10.5 L Hct 31.9 L MPV 11.0 H Seg Neutrophils % Lymphocytes % 10 L RBC Morphology Abnormal A Hypochromasia Rare A Potassium Chloride 88 L Anion Gap 22.0 H BUN 38 H Creatinine 9.2 H* Glucose Calcium 8.5 L Phosphorus 5.2 H Lactate Dehydrogenase 339 H C-Reactive Protein 19.20 H Triglycerides 202 H Procalcitonin 1.51 H Meds: Medications Acetaminophen (Acetaminophen 325 Mg Tablet) 650 mg PO Q4HP PRN; Protocol PRN Reason: Fever >101 Last Admin: 01/16/21 11:05 Dose: 650 mg Documented by: Hydrocodone Bitart/Acetaminophen (Hydrocodone/Apap 5/325mg Tablet) 1 tab PO Q6HP PRN; Protocol PRN Reason: Per Pain Protocol Last Admin: 01/15/21 17:43 Dose: 1 tab Documented by: Albuterol/Ipratropium (Ipratropium/Albuterol 3 Ml Ampul.Neb) 3 ml NEB Q4HP PRN PRN Reason: Shortness Of Breath Azithromycin (Azithromycin 250 Mg Tablet) 250 mg PO BID [facility]; Protocol Stop: 01/18/21 09:01 Last Admin: 01/16/21 20:58 Dose: 250 mg Documented by: Benzonatate (Benzonatate 100 Mg Capsule) 200 mg PO TIDP PRN PRN Reason: Cough Calcitriol (Calcitriol 0.25 Mcg Capsule) 1 mcg PO MoWeFr [facility] Last Admin: 01/15/21 13:31 Dose: 1 mcg Documented by: Calcium Acetate (Calcium Acetate 667 Mg Capsule) 2,668 mg PO TIDCC [facility] Last Admin: 01/16/21 17:31 Dose: 2,668 mg Documented by: Dexamethasone (Dexamethasone 4 Mg Tablet) 6 mg PO DAILY [facility] Last Admin: 01/16/21 11:02 Dose: 6 mg Documented by: Diphenhydramine HCl (Diphenhydramine 50 Mg/Ml Vial) 25 mg IV Q6HP PRN PRN Reason: Nausea And Vomiting Last Admin: 01/15/21 21:44 Dose: 25 mg Documented by: Gabapentin (Gabapentin 100 Mg Capsule) 200 mg PO BID [facility] Last Admin: 01/16/21 20:58 Dose: 200 mg Documented by: Heparin Sodium (Porcine) (Heparin 5,000 Unit/Ml Vial) 5,000 unit SQ Q12 [facility] Last Admin: 01/16/21 20:58 Dose: 5,000 unit Documented by: Potassium Chloride 40 meq/ (Dextrose) 520 mls @ 130 mls/hr IV UD PRN PRN Reason: Potassium < 3 Magnesium Sulfate (Magnesium Sulfate) 2 gm in 50 mls @ 50 mls/hr IV UD PRN PRN Reason: Magnesium </= 1.6 Piperacillin Sod/Tazobactam (Sod 2.25 gm/ Dextrose) 50 mls @ 100 mls/hr IV Q8H [facility]; Protocol Last Admin: 01/17/21 05:33 Dose: 100 mls/hr Documented by: Ivermectin (Ivermectin 3 Mg Tablet) 6 mg PO BID [facility] Stop: 01/20/21 21:01 Last Admin: 01/16/21 20:58 Dose: 6 mg Documented by: Morphine Sulfate (Morphine 2 Mg/Ml Vial) 1 - 4 mg IV Q6HP PRN; Protocol PRN Reason: Per Pain Protocol Last Admin: 01/17/21 06:03 Dose: 2 mg Documented by: Ondansetron HCl (Ondansetron 4 Mg/2 Ml Vial) 4 mg IV Q4HP PRN PRN Reason: Nausea And Vomiting Last Admin: 01/16/21 01:23 Dose: 4 mg Documented by: Polyethylene Glycol (Polyethylene Glycol 3350 17 Gm Packet) 17 gm PO DAILYP PRN PRN Reason: Constipation Potassium Chloride (Potassium Chloride 20 Meq Tablet) 40 meq PO UD PRN PRN Reason: Potssium is 3-3.5 Potassium Chloride (Potassium Chloride 20 Meq Tablet) 40 meq PO UD PRN PRN Reason: Potassium < 3 Promethazine HCl (Promethazine 25 Mg/Ml Vial) 12.5 mg IV Q6HP PRN PRN Reason: Nausea And Vomiting Senna (Sennosides 1 Tablet) 2 tab PO DAILYP PRN PRN Reason: Constipation Sodium Chloride (0.9 % Sodium Chloride 10 Ml Syringe) 10 ml IV Q8 [facility] Last Admin: 01/16/21 20:59 Dose: 10 ml Documented by: Vancomycin HCl (Vancomycin Per Pharmacy) 1 order IV UD [facility]; Protocol Zinc Sulfate (Zinc Sulfate 50 Mg Capsule) 50 mg PO DAILY [facility] Last Admin: 01/16/21 11:03 Dose: 50 mg Documented by: A/P Narrative A/P Narrative: A: *Volume overload: missed HD session *Hyperkalemia: resolved with initial HD, but mildly elevated again *Bacterial (Staph aureus/strep) PNA+/- Covid PNA: -afebrile since yesterday afternoon *COVID-19(+) and possible PNA: n/v/diarrhea possible from covid *Acute on chronic hypoxic respiratory failure: 2/2 volume overload + PNA -on 2L NC *ESRD: *Anemia, chronic: *obesity: *Hyponatremia: improved P: -cont vanc/zosyn until final BC/SC -Nephro for HD and electrolytes abnormalities -Dexa, no remdesivir d/t ESRD -wean O2 as able, IS/Acapella -f/u CXR -cont home meds -pt/ot -ppx: heparin Time Spent With Patient Time: Total time spent is greater than 50% in coordination of care (as d ocumented) at patient's floor/unit and/or counseling patient: QUALITY VTE Deep Vein Thrombosis/Pulmonary Embolism Present on Admission: No
[2021-01-17 07:35] LABS: Hematocrit 30.5 % (40.1-51.0); Hemoglobin 9.8 g/dL (13.7-17.5); Mean Cell Volume 90.8 fL (80.0-100.0); Mean Corpuscular HGB Conc 32.1 g/dL (31.0-36.0); Mean Platelet Volume 10.8 fL (7.4-10.4); Platelet Count 215 K/mcL (140-440); RBC 3.36 M/mcL (4.63-6.08); Red Cell Distribution Width 13.8 % (11.5-14.5); WBC 8.3 K/mcL (4.5-11.0)
[2021-01-17] MEDS ORDERED: guaiFENesin/CODEINE 10 ML UDC PO PRN ×2 (07:57→14:05)
[2021-01-17] MEDS: DEXAMETHASONE 4 MG TABLET PO SCH (08:20)
[2021-01-17] MEDS: HEPARIN 5,000 UNIT/ML VIAL SQ SCH ×2 (08:20→21:11)
[2021-01-17] MEDS: GABAPENTIN 100 MG CAPSULE PO SCH ×2 (08:20→21:11)
[2021-01-17] MEDS: CALCIUM ACETATE 667 MG CAPSULE PO SCH ×3 (08:20→17:11)
[2021-01-17] MEDS: ZINC SULFATE 50 MG CAPSULE PO SCH (08:20)
[2021-01-17] MEDS: 0.9 % SODIUM CHLORIDE 10 ML SYRINGE IV SCH ×3 (08:21→21:13)
[2021-01-17] MEDS: AZITHROMYCIN 250 MG TABLET PO SCH ×2 (08:21→21:12)
[2021-01-17] MEDS: IVERMECTIN 3 MG TABLET PO SCH ×2 (08:22→21:12)
[2021-01-17 08:50] LABS: ALT/SGPT 14 U/L (<40); AST/SGOT 21 U/L (<40); Albumin 3.3 gm/dL (3.2-5.2); Albumin/Globulin Ratio 0.9 (1.0-2.3); Alkaline Phosphatase 54 U/L (39-117); Bilirubin,Direct < 0.2 mg/dL (0-0.3); Bilirubin,Total 0.3 mg/dL (0.1-1.0); Blood Urea Nitrogen 66 mg/dL (6-20); Calcium 9.1 mg/dL (8.6-10.4); Carbon Dioxide 24 mmol/L (22-30); Chloride 85 mmol/L (96-108); Globulin 3.5 gm/dL (2.2-3.7); Glomerular Filtration Rate 4; Glucose 110 mg/dL (70-105); Lactate Dehydrogenase 314 U/L (135-225); Triglycerides 225 mg/dL (<150); Uric Acid 5.8 mg/dL (2.5-8.0)
[2021-01-17 10:04] LABS: Band Neutrophils % 4 % (0-10); Lymphocytes % 7 % (15-49); Monocytes % (Manual) 2 % (1-12); Myelocytes % 1 %; Platelet Estimate NORMAL (Normal); RBC Morphology NORMAL (Normal); Segmented Neutrophils % 86 % (38-78)
[2021-01-17] MEDS: CALCITRIOL 0.25 MCG CAPSULE PO SCH ×2 (12:31→15:19)
[2021-01-17] MEDS ORDERED: morphine 2 MG/ML VIAL IV PRN (14:05)
[2021-01-17] MEDS ORDERED: POTASSIUM CHLORIDE 40 MEQ in DEXTROSE 5% IN WATER 500 ML IV PRN (14:05)
[2021-01-17] MEDS ORDERED: ONDANSETRON 4 MG/2 ML VIAL IV PRN (14:05)
[2021-01-17] MEDS ORDERED: POLYETHYLENE GLYCOL 3350 17 GM PACKET PO PRN (14:05)
[2021-01-17] MEDS ORDERED: ACETAMINOPHEN 325 MG TABLET PO PRN (14:05)
[2021-01-17] MEDS ORDERED: PROMETHAZINE 25 MG/ML VIAL IV PRN (14:05)
[2021-01-17] MEDS ORDERED: POTASSIUM CHLORIDE 20 MEQ TABLET PO PRN ×2 (14:05)
[2021-01-17] MEDS ORDERED: VANCOMYCIN PER PHARMACY IV SCH (14:05)
[2021-01-17] MEDS ORDERED: MAGNESIUM SULFATE 2 GM/50 ML BAG IV PRN (14:05)
[2021-01-17] MEDS ORDERED: SENNOSIDES 1 TABLET PO PRN (14:05)
[2021-01-17] MEDS ORDERED: BENZONATATE 100 MG CAPSULE PO PRN (14:05)
[2021-01-17] MEDS ORDERED: IPRATROPIUM/ALBUTEROL 3 ML AMPUL.NEB NEB PRN (14:05)
[2021-01-17] MEDS ORDERED: HYDROcodone/APAP 5/325MG TABLET PO PRN (14:05)
[2021-01-17] MEDS ORDERED: diphenhydrAMINE 50 MG/ML VIAL IV PRN (14:05)
[2021-01-17 15:52] LABS: Vancomycin,Random 14.3 ug/mL
--- NOTE | 2021-01-17 16:50 | Nephrology Progress Note ---
SUBJECTIVE Subjective Patient information: Note initiated : 01/17/21 at 4:49 pm Service Date, if different from initiated Date: [] Patient: Khadar Rizo 60 y/o M admitted on 01/14/21 for SOB, cough, weakness. Chief Complaint: [fever and SOB] Laboratory Tests 01/17/21 01/17/21 06:06 13:22 WBC 8.3 Hgb 9.8 L Hct 30.5 L MCV 90.8 Plt Count 215 Band Neutrophils % 4 Random Vancomycin 14.3 01/17/21 01/17/21 06:06 06:06 Sodium 129 L Potassium 5.5 H Chloride 85 L Carbon Dioxide 24 Anion Gap 20.0 H BUN 66 H Creatinine 11.6 H* GFR Calculation 4 Glucose 110 H Uric Acid 5.8 Calcium 9.1 Phosphorus 7.0 H* Magnesium 2.2 Total Bilirubin 0.3 AST 21 ALT 14 Alkaline Phosphatase 54 Lactate Dehydrogenase 314 H C-Reactive Protein 19.20 H Total Protein 6.8 Albumin 3.3 Procalcitonin 2.19 H Diarrhea numerous times during treatment which had to be cut short. COVID vs ABx related vs C diff Constitutional Vitals: Vital Signs Temp Pulse Resp BP Pulse Ox 36.3 C 77 17 135/76 91 01/17/21 16:07 01/17/21 16:09 01/17/21 12:02 01/17/21 16:09 01/17/21 16:01 Period Temp Pulse Resp BP Sys/Ding Pulse Ox Last 24 Hr 36.3 C-37.2 C 56-85 16-28 117-159/53-105 87-99 Intake and Output 01/17/21 01/17/21 01/17/21 05:59 13:59 21:59 Intake Total 680 290 240 Output Total 0 Balance 680 290 240 Intake & Output: Intake & Output 01/17/21 01/17/21 01/17/21 05:59 13:59 21:59 Intake Total 680 290 240 Output Total 0 Balance 680 290 240 Intake: IV 50 Zosyn 2.25 gm In Dextrose 5% in 50 Water 50 ml @ 100 mls/hr IV Q8H [facility] Rx#:[id number] Oral 680 240 240 Output: Void Amount 0 Other: Meal Breakfast Percent of Meal Consumed 50% Feeding Ability Independent # Bowel Movements 1 General appearance: mild distress and obese Head Head exam: Present atraumatic and normocephalic Eye Eye exam: Present EOMI and PERRL Pupils: Present fixed and PERRL ENT ENT exam: Present mucous membranes moist Neck Neck exam: Present full ROM Respiratory Respiratory exam: Present decreased breath sounds and rhonchi Cardiovascular Cardiovascular exam: Present normal rate and rhythm, +S1 and +S2; Absent JVD GI/Abdominal GI/Abdominal exam: Present normal bowel sounds and soft Extremities Exam Extremities exam: Present neurovascular intact Neurological Exam Neurological exam: Present CN II-XII intact and oriented X3 Psychiatric Psychiatric exam: Present flat affect Skin Skin exam: Present dry; Absent petechiae A/P Assessment and plan (1) Community acquired pneumonia, bilateral: Status: Acute Comment: Staph aureus (awaiting sensitivities) on Vanco Strep sp on Vanco and Azithro (2) COVID-19: Status: Acute Comment: Azithro and Ivermectin. Solumedrol as well. No Remdesavir due to ESRD (3) ESRD on hemodialysis: Status: Chronic Comment: HD qMWF Time Spent With Patient Time: Total time spent is greater than 50% in coordination of care (as documented) at patient's floor/unit and/or counseling patient:
[2021-01-17] MEDS: LOPERAMIDE 2 MG CAPSULE PO PRN (17:12)
[2021-01-17] MEDS ORDERED: VANCOMYCIN 1,500 MG in 0.9 % SODIUM CHLORIDE 500 ML IV ONE (18:00)
[2021-01-18] MEDS: LOPERAMIDE 2 MG CAPSULE PO PRN ×3 (02:56→14:28)
[2021-01-18] MEDS: PIPERACILLIN SODIUM/TAZOBACTAM 2.25 GM in DEXTROSE 5% IN WATER 50 ML IV SCH (05:43)
[2021-01-18] MEDS: 0.9 % SODIUM CHLORIDE 10 ML SYRINGE IV SCH ×3 (05:43→20:23)
--- NOTE | 2021-01-18 07:45 | Internal Med Progress Note ---
SUBJECTIVE Subjective Patient information: Note initiated : 01/18/21 at 7:42 am Service Date, if different from initiated Date: [] Patient: Khadar Rizo a 60 y/o M admitted on 01/14/21 for SOB, cough, weakness. Chief Complaint: [] Interval history: History of present illness: Mr. Rizo is a 60 year old M presents to ED with dyspnea. has missed last HD session due to vomiting and diarrhea and has had some sinus congestion. Was not vaccine against COVID-19 but it was around family members that were positive. Patient did test for posit richy for COVID-19 here. Chest x-ray shows bilateral infiltrates it was felt that is probably fluid ov erload as opposed to COVID-19 although that is not ruled out. Patient has a chronic cough that is no different than usual. Patient also had a hyperkalemia of 7.5. 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 Patient initially was given transferred out for urgent dialysis but we will to find a bed in the middle the night and case was rediscussed with Dr. nowak who ordered dialysis in the morning. 01/15 Patient had some sharp back pain with dialysis likely related to bed positioning. Had some nausea that went away on its own. Overall feels much better since his arrival. No new complaints. Patient does not wear oxygen at home. Undergoing dialysis this morning. 01/16 Febrile overnight, blood cultures taken. Sputum culture with gram-positive cocci in pairs as well as gram-negative diplococci. Oxygen requirement 2 to 4 L. Patient complains about cough medicine. Says he feels okay, not to talkative or specific with answering questions. 01/17 Patient states he feels little better. He has productive cough but denies shortness of breath. Is on 2 L nasal cannula Sputum growing staph aureus and strep dysgal. 01/18 Patient has continued cough. Minimal shortness of breath. But still requiring oxygen specially with ambulation to bathroom. Had dialysis yesterday. Review of Systems: denies headache/fever/chills/nausea/vomiting/chest or abdominal pain/diarrhea. Otherwise see above. Constitutional Vitals: Vital Signs Temp Pulse Resp BP Pulse Ox 99.8 F H 77 20 134/80 93 01/18/21 04:00 01/17/21 17:57 01/18/21 04:00 01/18/21 04:00 01/18/21 04:00 Period Temp Pulse Resp BP Sys/Ding Pulse Ox Last 24 Hr 97.2 F-99.9 F 58-77 17- 117-162/53-105 90-97 Intake and Output 01/17/21 01/18/21 01/18/21 21:59 05:59 13:59 Intake Total 940 350 50 Output Total 2700 Balance -1760 350 50 Weight 134.898 kg Intake & Output: Intake & Output 01/17/21 01/18/21 01/18/21 21:59 05:59 13:59 Intake Total 940 350 50 Output Total 2700 Balance -1760 350 50 Weight 134.898 kg Intake: IV 500 50 50 Zosyn 2.25 gm In Dextrose 5% in 50 50 Water 50 ml @ 100 mls/hr IV Q8H [facility] Rx#:[id number] Vancomycin 1,500 mg In Sodium 500 Chloride 0.9% 500 ml @ 333.3 mls/hr IV ONCE ONE Rx#: [id number] Oral 440 300 Output: Hemodialysis UF 2700 Other: Meal Dinner Percent of Meal Consumed 75% Stool Consistency Loose # Bowel Movements 1 # of times incontinent of 1 Bowels Exam: General: Alert, Awake, No acute Distress, obese Eyes/N/T: EOMI, Head/Neck: neck supple, CV: RRR, No murmurs, Pulm: mild rales b/l but overall improved, no wheezing Abd: soft, nontender, +BS x4 Ext: no clubbing/cyanosis, trace-mild b/l LE edema Neuro: Alert, no focal deficits, moves all extremities, Skin: warm/dry OBJ DATA Labs CBC & Chem 7: 01/17/21 06:06 01/18/21 05:56 Labs: Abnormal Lab Results 01/17/21 01/17/21 01/17/21 06:06 06:06 06:06 RBC 3.36 L Hgb 9.8 L Hct 30.5 L MPV 10.8 H Seg Neutrophils % 86 H Lymphocytes % 7 L Sodium 129 L Potassium 5.5 H Chloride 85 L Anion Gap 20.0 H BUN 66 H Creatinine 11.6 H* Glucose 110 H Calcium Phosphorus 7.0 H* Lactate Dehydrogenase 314 H C-Reactive Protein 19.20 H Albumin/Globulin Ratio 0.9 L Triglycerides 225 H Procalcitonin 2.19 H 01/16/21 01/15/21 01/15/21 05:07 04:55 04:55 RBC 3.45 L Hgb 10.1 L Hct 31.2 L MPV 11.3 H Seg Neutrophils % 79 H Lymphocytes % 5 L Sodium Potassium 5.5 H 5.4 H Chloride 89 L 86 L Anion Gap 23.0 H BUN 39 H 59 H Creatinine 9.0 H* 12.4 H* Glucose 119 H Calcium 8.2 L 8.1 L Phosphorus 5.3 H 10.9 H* Lactate Dehydrogenase 308 H 318 H C-Reactive Protein Albumin/Globulin Ratio Triglycerides 187 H 152 H Procalcitonin Meds: Medications Acetaminophen (Acetaminophen 325 Mg Tablet) 650 mg PO Q4HP PRN; Protocol PRN Reason: Fever >101 Hydrocodone Bitart/Acetaminophen (Hydrocodone/Apap 5/325mg Tablet) 1 tab PO Q6HP PRN; Protocol PRN Reason: Per Pain Protocol Albuterol/Ipratropium (Ipratropium/Albuterol 3 Ml Ampul.Neb) 3 ml NEB Q4HP PRN PRN Reason: Shortness Of Breath Azithromycin (Azithromycin 250 Mg Tablet) 250 mg PO BID [facility]; Protocol Stop: 01/18/21 09:01 Last Admin: 01/17/21 21:12 Dose: 250 mg Documented by: Benzonatate (Benzonatate 100 Mg Capsule) 200 mg PO TIDP PRN PRN Reason: Cough Calcitriol (Calcitriol 0.25 Mcg Capsule) 1 mcg PO MoWeFr [facility] Last Admin: 01/17/21 15:19 Dose: Not Given Documented by: Calcium Acetate (Calcium Acetate 667 Mg Capsule) 2,668 mg PO TIDCC [facility] Last Admin: 01/17/21 17:11 Dose: 2,668 mg Documented by: Dexamethasone (Dexamethasone 4 Mg Tablet) 6 mg PO DAILY [facility] Diphenhydramine HCl (Diphenhydramine 50 Mg/Ml Vial) 25 mg IV Q6HP PRN PRN Reason: Nausea And Vomiting Gabapentin (Gabapentin 100 Mg Capsule) 200 mg PO BID [facility] Last Admin: 01/17/21 21:11 Dose: 200 mg Documented by: Guaifenesin/Codeine Phosphate (Guaifenesin/Codeine 10 Ml Udc) 10 ml PO Q4HP PRN PRN Reason: Cough Last Admin: 01/17/21 19:12 Dose: 10 ml Documented by: Heparin Sodium (Porcine) (Heparin 5,000 Unit/Ml Vial) 5,000 unit SQ Q12 [facility] Last Admin: 01/17/21 21:11 Dose: 5,000 unit Documented by: Magnesium Sulfate (Magnesium Sulfate) 2 gm in 50 mls @ 50 mls/hr IV UD PRN PRN Reason: Magnesium </= 1.6 Piperacillin Sod/Tazobactam (Sod 2.25 gm/ Dextrose) 50 mls @ 100 mls/hr IV Q8H [facility]; Protocol Last Infusion: 01/18/21 07:19 Dose: Infused Documented by: Potassium Chloride 40 meq/ (Dextrose) 520 mls @ 130 mls/hr IV UD PRN PRN Reason: Potassium < 3 Ivermectin (Ivermectin 3 Mg Tablet) 6 mg PO BID [facility] Stop: 01/20/21 21:01 Last Admin: 01/17/21 21:12 Dose: 6 mg Documented by: Loperamide HCl (Loperamide 2 Mg Capsule) 2 mg PO PRN PRN PRN Reason: Diarrhea Last Admin: 01/18/21 04:47 Dose: 2 mg Documented by: Morphine Sulfate (Morphine 2 Mg/Ml Vial) 1 - 4 mg IV Q6HP PRN; Protocol PRN Reason: Per Pain Protocol Last Admin: 01/17/21 19:13 Dose: 2 mg Documented by: Ondansetron HCl (Ondansetron 4 Mg/2 Ml Vial) 4 mg IV Q4HP PRN PRN Reason: Nausea And Vomiting Polyethylene Glycol (Polyethylene Glycol 3350 17 Gm Packet) 17 gm PO DAILYP PRN PRN Reason: Constipation Potassium Chloride (Potassium Chloride 20 Meq Tablet) 40 meq PO UD PRN PRN Reason: Potssium is 3-3.5 Potassium Chloride (Potassium Chloride 20 Meq Tablet) 40 meq PO UD PRN PRN Reason: Potassium < 3 Promethazine HCl (Promethazine 25 Mg/Ml Vial) 12.5 mg IV Q6HP PRN PRN Reason: Nausea And Vomiting Senna (Sennosides 1 Tablet) 2 tab PO DAILYP PRN PRN Reason: Constipation Sodium Chloride (0.9 % Sodium Chloride 10 Ml Syringe) 10 ml IV Q8 [facility] Last Admin: 01/18/21 05:43 Dose: 10 ml Documented by: Vancomycin HCl (Vancomycin Per Pharmacy) 1 order IV UD [facility]; Protocol Zinc Sulfate (Zinc Sulfate 50 Mg Capsule) 50 mg PO DAILY [facility] A/P Narrative A/P Narrative: A: *Volume overload: missed HD session *Hyperkalemia: resolved with initial HD, but mildly elevated again *Bacterial (Staph aureus/strep) PNA+/- Covid PNA: -afebrile since *COVID-19(+) and possible PNA: n/v/diarrhea possible from covid *Acute on chronic hypoxic respiratory failure: 2/2 volume overload + PNA -on 2L NC *ESRD: *Anemia, chronic: *obesity: *Hyponatremia: P: -cont vanc/zosyn(d/c) until final BC/SC -Nephro for HD and electrolytes abnormalities -Dexa, no remdesivir d/t ESRD -wean O2 as able, IS/Acapella -f/u CXR in AM -cont home meds -pt/ot -ppx: heparin Time Spent With Patient Time: Total time spent is greater than 50% in coordination of care (as documented) at patient's floor/unit and/or counseling patient: QUALITY VTE Deep Vein Thrombosis/Pulmonary Embolism Present on Admission: No
[2021-01-18 08:36] LABS: ALT/SGPT 13 U/L (<40); AST/SGOT 20 U/L (<40); Albumin 3.1 gm/dL (3.2-5.2); Albumin/Globulin Ratio 0.9 (1.0-2.3); Alkaline Phosphatase 49 U/L (39-117); Bilirubin,Direct < 0.2 mg/dL (0-0.3); Bilirubin,Total 0.3 mg/dL (0.1-1.0); Blood Urea Nitrogen 43 mg/dL (6-20); Calcium 8.7 mg/dL (8.6-10.4); Carbon Dioxide 25 mmol/L (22-30); Chloride 88 mmol/L (96-108); Globulin 3.3 gm/dL (2.2-3.7); Glomerular Filtration Rate 7; Glucose 95 mg/dL (70-105); Lactate Dehydrogenase 328 U/L (135-225); Phosphorous 4.2 mg/dL (2.5-4.5); Triglycerides 267 mg/dL (<150); Uric Acid 3.9 mg/dL (2.5-8.0)
[2021-01-18] MEDS: DEXAMETHASONE 4 MG TABLET PO SCH (08:53)
[2021-01-18] MEDS: AZITHROMYCIN 250 MG TABLET PO SCH (08:53)
[2021-01-18] MEDS: CALCIUM ACETATE 667 MG CAPSULE PO SCH ×3 (08:53→17:31)
[2021-01-18] MEDS: ZINC SULFATE 50 MG CAPSULE PO SCH (08:53)
[2021-01-18] MEDS: GABAPENTIN 100 MG CAPSULE PO SCH ×2 (08:54→20:24)
[2021-01-18] MEDS: HEPARIN 5,000 UNIT/ML VIAL SQ SCH ×2 (08:54→20:24)
[2021-01-18] MEDS: IVERMECTIN 3 MG TABLET PO SCH ×2 (10:40→20:24)
--- NOTE | 2021-01-18 12:46 | Nephrology Progress Note ---
SUBJECTIVE Subjective Patient information: Note initiated : 01/18/21 at 12:44 pm Service Date, if different from initiated Date: [] Patient: Khadar Rizo 60 y/o M admitted on 01/14/21 for SOB, cough, weakness. Chief Complaint: [Shortness of breath with Covid and/or staph aureus pneumonia] Patient is a 60-year-old gentleman on chronic Sunday hemodialysis having had bilateral nephrectomies for staghorn calculi with chronic infection. He is being evaluated for renal transplantation and his only problem on dialysis is control of his phosphorus with result hyperparathyroidism. He is very compliant with his treatments, did miss a day last week and then presented short of breath upon investigation he had patchy bilateral infiltrates which I would not expect for missing 1 dialysis treatment. He had thick white sputum that was positive for both strep and staph aureus. Additionally a nasopharyngeal swab was positive for Covid. He was admitted to the hospital for supplemental oxygen and was started on piperacillin tazobactam after achieving a T-max of 39 4. Blood cultures were negative and sputum as outlined above. Not take remdesivir due to ESRD but was given dexamethasone and started on azithromycin 250 twice daily for 3 days as well as ivermectin 600 mg twice a day for 5 days. In the recent 24 to 36 hours he has developed a number of loose stools which caused him to have a shorter than usual dialysis yesterday. Selected Entries 01/18/21 08:00 Temperature 37.0 C Pulse Rate [Monitor Reading] 64 Respiratory Rate 17 Blood Pressure [Right Wrist] 132/72 Pulse Oximetry (%) 93 01/18/21 05:56 Sodium 128 L Potassium 4.8 Chloride 88 L Carbon Dioxide 25 Anion Gap 15.0 BUN 43 H Creatinine 7.8 H* GFR Calculation 7 Glucose 95 Uric Acid 3.9 Calcium 8.7 Phosphorus 4.2 Magnesium 2.0 Total Bilirubin 0.3 Direct Bilirubin < 0.2 GGT 17 AST 20 ALT 13 Alkaline Phosphatase 49 Lactate Dehydrogenase 328 H Total Protein 6.4 Albumin 3.1 L Globulin 3.3 Triglycerides 267 H Constitutional Vitals: Vital Signs Temp Pulse Resp BP Pulse Ox 37.0 C 64 17 132/72 93 01/18/21 08:00 01/18/21 08:00 01/18/21 08:00 01/18/21 08:00 01/18/21 08:00 Period Temp Pulse Resp BP Sys/Ding Pulse Ox Last 24 Hr 36.2 C-37.7 C 63-77 17-23 117-162/67-105 90-97 Intake and Output 01/17/21 01/18/21 01/18/21 21:59 05:59 13:59 Intake Total 940 350 50 Output Total 2700 Balance -1760 350 50 Weight 134.898 kg Intake & Output: Intake & Output 01/17/21 01/18/21 01/18/21 21:59 05:59 13:59 Intake Total 940 350 50 Output Total 2700 Balance -1760 350 50 Weight 134.898 kg Intake: IV 500 50 50 Zosyn 2.25 gm In Dextrose 5% in 50 50 Water 50 ml @ 100 mls/hr IV Q8H [facility] Rx#:[id number] Vancomycin 1,500 mg In Sodium 500 Chloride 0.9% 500 ml @ 333.3 mls/hr IV ONCE ONE Rx#: [id number] Oral 440 300 Output: Hemodialysis UF 2700 Other: Meal Dinner Breakfast Percent of Meal Consumed 75% 100% Stool Consistency Loose # Bowel Movements 1 1 # of times incontinent of 1 Bowels General appearance: mild distress and obese Head Head exam: Present normocephalic Eye Eye exam: Present EOMI; Absent conjunctival injection and scleral icterus Pupils: Present PERRL Neck Neck exam: Present full ROM; Absent meningismus Respiratory Respiratory exam: Present decreased breath sounds and rhonchi Additional comments: Down to 2 L/min by nasal cannula Cardiovascular Cardiovascular exam: Present normal rate and rhythm, +S1, +S2 and systolic murmur GI/Abdominal GI/Abdominal exam: Present normal bowel sounds and soft Extremities Exam Extremities exam: Present pedal edema and neurovascular intact; Absent calf tenderness Neurological Exam Neurological exam: Present abnormal gait (Could not test), alert, CN II-XII intact and oriented X3 Psychiatric Psychiatric exam: Present flat affect Skin Additional comments: Scattered ecchymoses Few lesions suggestive of calciphylaxis A/P Assessment and plan (1) Community acquired pneumonia, bilateral: Status: Acute Comment: Staph aureus (awaiting sensitivities) on Vanco. Switch to Augmentin Strep sp on Vanco and Azithro Now whitch to augmentin as well (2) COVID-19: Status: Acute Comment: Azithro and Ivermectin. Solumedrol as well. No Remdesavir due to ESRD Done with 3 days of azithro, finish 5 days of iveremectin and steroids (3) ESRD on hemodialysis: Assessment and plan: HD tomorrow 01/19/2021 Status: Chronic Comment: HD qMWF (4) Diarrhea: Assessment and plan: Could be covid, Rx or c diff. Check stool WBC Status: Acute Qualifiers: Diarrhea type: unspecified type Qualified Code(s): R19.7 - Diarrhea, unspecified Narrative A/P Narrative: 1. Stop pip/ tazobactam 2. Stop Vanco 3. Augmentin for additional 10 days 4. If 5-day course of dexamethasone and ivermectin. Azithromycin 3 days should have been completed 5. Discharge when long enough and O2 requirements have improved. 6. Dialysis ordered for tomorrow Time Spent With Patient Time: Total time spent is greater than 50% in coordination of care (as documented) at patient's floor/unit and/or counseling patient:
[2021-01-18] MEDS ORDERED: AZITHROMYCIN 500 MG in DEXTROSE 5% IN WATER 250 ML IV SCH (16:45)
[2021-01-18] MEDS: DOXYCYCLINE 100 MG in DEXTROSE 5% IN WATER 100 ML IV SCH (18:49)
[2021-01-19] MEDS: 0.9 % SODIUM CHLORIDE 10 ML SYRINGE IV SCH ×3 (05:45→20:18)
--- NOTE | 2021-01-19 06:42 | XRay Report ---
CLINICAL INFORMATION: f/u staph pna and covid pna COMPARISON: 01/16/2021 FINDINGS: Mild cardiomegaly is unchanged. Slight mediastinal widening stable. Pulmonary vessels are normal. Moderate patchy infiltrate in the perihilar and left basilar region show slight progression IMPRESSION: Moderate patchy infiltrates in the perihilar and left basilar regions-progressing Interpreted and Authenticated by: Facundo Thorpe 01/19/21
[2021-01-19 07:07] LABS: Basophils # (Auto) 0.01 K/mcL (0.00-0.30); Basophils % (Auto) 0.1 % (0.0-2.0); Eosinophils # (Auto) 0 K/mcL (0.00-0.70); Eosinophils % (Auto) 0 % (0.0-7.0); Hematocrit 33.4 % (40.1-51.0); Hemoglobin 9.5 g/dL (13.7-17.5); Lymphocytes # (Auto) 0.67 K/mcL (1.50-4.80); Lymphocytes % (Auto) 8.9 % (15.5-49.0); Mean Corpuscular HGB Conc 28.4 g/dL (31.0-36.0); Mean Platelet Volume 10.9 fL (7.4-10.4); Monocytes # (Auto) 0.53 K/mcL (0.10-0.90); Monocytes % (Auto) 7.1 % (1.0-12.0); Platelet Count 228 K/mcL (140-440); RBC 3.34 M/mcL (4.63-6.08); Red Cell Distribution Width 14.2 % (11.5-14.5); WBC 7.5 K/mcL (4.5-11.0)
[2021-01-19] MEDS: CALCIUM ACETATE 667 MG CAPSULE PO SCH ×4 (07:40→18:37)
[2021-01-19 08:19] LABS: ALT/SGPT 13 U/L (<40); AST/SGOT 18 U/L (<40); Albumin 2.8 gm/dL (3.2-5.2); Albumin/Globulin Ratio 0.8 (1.0-2.3); Alkaline Phosphatase 54 U/L (39-117); Bilirubin,Total 0.2 mg/dL (0.1-1.0); Blood Urea Nitrogen 66 mg/dL (6-20); Calcium 8.7 mg/dL (8.6-10.4); Carbon Dioxide 21 mmol/L (22-30); Chloride 88 mmol/L (96-108); Globulin 3.4 gm/dL (2.2-3.7); Glomerular Filtration Rate 5; Glucose 120 mg/dL (70-105)
[2021-01-19] MEDS: HEPARIN 5,000 UNIT/ML VIAL SQ SCH ×2 (08:44→20:17)
[2021-01-19] MEDS: ZINC SULFATE 50 MG CAPSULE PO SCH (08:45)
[2021-01-19] MEDS: GABAPENTIN 100 MG CAPSULE PO SCH ×2 (08:45→20:18)
[2021-01-19] MEDS: DEXAMETHASONE 4 MG TABLET PO SCH (08:45)
[2021-01-19] MEDS: DOXYCYCLINE 100 MG in DEXTROSE 5% IN WATER 100 ML IV SCH (08:46)
[2021-01-19] MEDS ORDERED: DARBEPOETIN ALFA 60 MCG/ML VIAL IV ONE (11:01)
[2021-01-19] MEDS: IVERMECTIN 3 MG TABLET PO SCH ×2 (12:38→20:18)
[2021-01-19] MEDS ORDERED: VANCOMYCIN 1,500 MG in 0.9 % SODIUM CHLORIDE 500 ML IV ONE (14:00)
[2021-01-19 14:22] LABS: Neutrophils % (Auto) 83.9 % (38.0-78.0)
--- NOTE | 2021-01-19 15:15 | Internal Med Progress Note ---
SUBJECTIVE Subjective Patient information: Note initiated : 01/19/21 at 3:08 pm Service Date, if different from initiated Date: [] Patient: Khadar Rizo a 60 y/o M admitted on 01/14/21 for SOB, cough, weakness. Chief Complaint: [CoVID pneumonia, bacterial PNA, ESRD on HD] History of present illness: Mr. Rizo is a 60 year old M presents to ED with dyspnea. has missed last HD session due to vomiting and diarrhea and has had some sinus congestion. Was not vaccine against COVID-19 but it was around family members that were positive. Patient did test for positive for COVID-19 here. Chest x-ray shows bilateral infiltrates it was felt that is probably fluid overload as opposed to COVID-19 although that is not ruled out. Patient has a chronic cough that is no different than usual. Patient also had a hyperkalemia of 7.5. Case discussed with Dr. Garcia manager architecture. Patient initially was given transferred out for urgent dialysis but we will to find a bed in the middle the night and case was rediscussed with Dr. nowak who ordered dialysis in the morning. 01/15 Patient had some sharp back pain with dialysis likely related to bed positioning. Had some nausea that went away on its own. Overall feels much better since his arrival. No new complaints. Patient does not wear oxygen at home. Undergoing dialysis this morning. 01/16 Febrile overnight, blood cultures taken. Sputum culture with gram-positive cocci in pairs as well as gram-negative diplococci. Oxygen requirement 2 to 4 L. Patient complains about cough medicine. Says he feels okay, not to talkative or specific with answering questions. 01/17 Patient states he feels little better. He has productive cough but denies shortness of breath. Is on 2 L nasal cannula Sputum growing staph aureus and strep dysgal. 01/18 Patient has continued cough. Minimal shortness of breath. But still requiring oxygen specially with ambulation to bathroom. Had dialysis yesterday. 01/19: Afebrile overnight. Been on 1.5L oxygen since this morning. Improving shortness of breath. Productive cough with white sputum. Denies wheezing. Denies chest pain. Denies fever or chills. Constitutional Vitals: Vital Signs Temp Pulse Resp BP Pulse Ox 36.2 C 62 18 134/71 94 01/19/21 13:49 01/19/21 13:49 01/19/21 08:40 01/19/21 13:49 01/19/21 08:40 Period Temp Pulse Resp BP Sys/Ding Pulse Ox Last 24 Hr 36.1 C-36.3 C 57-97 14-18 99-149/43-89 94-97 Intake and Output 01/19/21 01/19/21 01/19/21 05:59 13:59 21:59 Intake Total 360 580 Output Total 2200 Balance 360 -1620 Intake & Output: Intake & Output 01/19/21 01/19/21 01/19/21 05:59 13:59 21:59 Intake Total 360 580 Output Total 2200 Balance 360 -1620 Intake: IV 100 Vibramycin 100 mg In Dextrose 5 100 % in Water 100 ml @ 100 mls/hr IV Q12H [facility] Rx#:[id number] Oral 360 480 Output: Hemodialysis UF 2200 Other: Meal Breakfast Percent of Meal Consumed 100% Stool Size Smear Stool Color Brown Stool Consistency Soft General appearance: cooperative and no acute distress Head Head exam: Present atraumatic and normocephalic Eye Eye exam: Present EOMI and PERRL ENT ENT exam: Present mucous membranes moist, normal exam and normal external ear exam Additional comments: Nasal cannula in place Neck Neck exam: Present normal inspection; Absent lymphadenopathy, tenderness and thyromegaly Respiratory Respiratory exam: Present rhonchi; Absent accessory muscle use, respiratory distress and wheezes Cardiovascular Cardiovascular exam: Present normal rate and rhythm; Absent JVD GI/Abdominal GI/Abdominal exam: Present normal bowel sounds and soft; Absent organomegaly and tenderness Rectal Rectal exam: Present deferred Extremities Exam Extremities exam: Present full ROM, normal capillary refill and normal inspection; Absent tenderness Additional comments: AV fistula with palpable thrill left forearm Neurological Exam Neurological exam: Present alert, CN II-XII intact and oriented X3; Absent motor sensory deficit Psychiatric Psychiatric exam: Present normal affect and normal mood; Absent anxious and depressed Skin Skin exam: Present dry and intact OBJ DATA Labs CBC & Chem 7: 01/19/21 05:46 01/19/21 05:46 Labs: Abnormal Lab Results 01/19/21 01/19/21 01/18/21 05:46 05:46 05:56 RBC 3.34 L Hgb 9.5 L Hct 33.4 L MCHC 28.4 L MPV 10.9 H Neut % (Auto) 83.9 H Lymph % (Auto) 8.9 L Lymph # (Auto) 0.67 L Seg Neutrophils % Lymphocytes % Sodium 128 L 128 L Potassium 5.2 H Chloride 88 L 88 L Carbon Dioxide 21 L Anion Gap 19.0 H BUN 66 H 43 H Creatinine 9.9 H* 7.8 H* Glucose 120 H Phosphorus Lactate Dehydrogenase 328 H C-Reactive Protein Albumin 2.8 L 3.1 L Albumin/Globulin Ratio 0.8 L 0.9 L Triglycerides 267 H Procalcitonin 01/17/21 01/17/21 01/17/21 06:06 06:06 06:06 RBC 3.36 L Hgb 9.8 L Hct 30.5 L MCHC MPV 10.8 H Neut % (Auto) Lymph % (Auto) Lymph # (Auto) Seg Neutrophils % 86 H Lymphocytes % 7 L Sodium 129 L Potassium 5.5 H Chloride 85 L Carbon Dioxide Anion Gap 20.0 H BUN 66 H Creatinine 11.6 H* Glucose 110 H Phosphorus 7.0 H* Lactate Dehydrogenase 314 H C-Reactive Protein 19.20 H Albumin Albumin/Globulin Ratio 0.9 L Triglycerides 225 H Procalcitonin 2.19 H Meds: Medications Acetaminophen (Acetaminophen 325 Mg Tablet) 650 mg PO Q4HP PRN; Protocol PRN Reason: Fever >101 Hydrocodone Bitart/Acetaminophen (Hydrocodone/Apap 5/325mg Tablet) 1 tab PO Q6HP PRN; Protocol PRN Reason: Per Pain Protocol Albuterol/Ipratropium (Ipratropium/Albuterol 3 Ml Ampul.Neb) 3 ml NEB Q4HP PRN PRN Reason: Shortness Of Breath Benzonatate (Benzonatate 100 Mg Capsule) 200 mg PO TIDP PRN PRN Reason: Cough Calcitriol (Calcitriol 0.25 Mcg Capsule) 1 mcg PO MoWeFr [facility] Last Admin: 01/17/21 15:19 Dose: Not Given Documented by: Calcium Acetate (Calcium Acetate 667 Mg Capsule) 2,668 mg PO TIDCC [facility] Last Admin: 01/19/21 11:59 Dose: Not Given Documented by: Dexamethasone (Dexamethasone 4 Mg Tablet) 6 mg PO DAILY [facility] Last Admin: 01/19/21 08:45 Dose: 6 mg Documented by: Diphenhydramine HCl (Diphenhydramine 50 Mg/Ml Vial) 25 mg IV Q6HP PRN PRN Reason: Nausea And Vomiting Gabapentin (Gabapentin 100 Mg Capsule) 200 mg PO BID [facility] Last Admin: 01/19/21 08:45 Dose: 200 mg Documented by: Guaifenesin/Codeine Phosphate (Guaifenesin/Codeine 10 Ml Udc) 10 ml PO Q4HP PRN PRN Reason: Cough Last Admin: 01/17/21 19:12 Dose: 10 ml Documented by: Heparin Sodium (Porcine) (Heparin 5,000 Unit/Ml Vial) 5,000 unit SQ Q12 [facility] Last Admin: 01/19/21 08:44 Dose: 5,000 unit Documented by: Magnesium Sulfate (Magnesium Sulfate) 2 gm in 50 mls @ 50 mls/hr IV UD PRN PRN Reason: Magnesium </= 1.6 Potassium Chloride 40 meq/ (Dextrose) 520 mls @ 130 mls/hr IV UD PRN PRN Reason: Potassium < 3 Doxycycline Hyclate 100 mg/ (Dextrose) 100 mls @ 100 mls/hr IV Q12H [facility]; Protocol Last Infusion: 01/19/21 09:46 Dose: Infused Documented by: Vancomycin HCl 1,500 mg/ (Sodium Chloride) 500 mls @ 333.3 mls/hr IV ONCE ONE; Protocol Stop: 01/19/21 15:30 Ivermectin (Ivermectin 3 Mg Tablet) 6 mg PO BID [facility] Stop: 01/20/21 21:01 Last Admin: 01/19/21 12:38 Dose: 6 mg Documented by: Loperamide HCl (Loperamide 2 Mg Capsule) 2 mg PO PRN PRN PRN Reason: Diarrhea Last Admin: 01/18/21 14:28 Dose: 2 mg Documented by: Morphine Sulfate (Morphine 2 Mg/Ml Vial) 1 - 4 mg IV Q6HP PRN; Protocol PRN Reason: Per Pain Protocol Last Admin: 01/17/21 19:13 Dose: 2 mg Documented by: Ondansetron HCl (Ondansetron 4 Mg/2 Ml Vial) 4 mg IV Q4HP PRN PRN Reason: Nausea And Vomiting Polyethylene Glycol (Polyethylene Glycol 3350 17 Gm Packet) 17 gm PO DAILYP PRN PRN Reason: Constipation Potassium Chloride (Potassium Chloride 20 Meq Tablet) 40 meq PO UD PRN PRN Reason: Potssium is 3-3.5 Potassium Chloride (Potassium Chloride 20 Meq Tablet) 40 meq PO UD PRN PRN Reason: Potassium < 3 Promethazine HCl (Promethazine 25 Mg/Ml Vial) 12.5 mg IV Q6HP PRN PRN Reason: Nausea And Vomiting Senna (Sennosides 1 Tablet) 2 tab PO DAILYP PRN PRN Reason: Constipation Sodium Chloride (0.9 % Sodium Chloride 10 Ml Syringe) 10 ml IV Q8 [facility] Last Admin: 01/19/21 05:45 Dose: 10 ml Documented by: Zinc Sulfate (Zinc Sulfate 50 Mg Capsule) 50 mg PO DAILY [facility] Last Admin: 01/19/21 08:45 Dose: 50 mg Documented by: A/P Assessment and plan (1) ESRD on hemodialysis: Status: Chronic Comment: HD qMWF (2) Pneumonia: Status: Acute Qualifiers: Laterality: bilateral Lung location: lower lobe of lung Pneumonia type: due to unspecified organism Qualified Code(s): J18.9 - Pneumonia, unspecified organism (3) COVID-19: Status: Acute Comment: Azithro and Ivermectin. Solumedrol as well. No Remdesavir due to ESRD Done with 3 days of azithro, finish 5 days of iveremectin and steroids (4) Fluid overload: Status: Acute (5) Community acquired pneumonia, bilateral: Status: Acute Comment: Staph aureus (awaiting sensitivities) on Vanco. Switch to Augmentin Strep sp on Vanco and Azithro Now whitch to augmentin as well (6) Acute hyperkalemia: Status: Acute (7) Hyponatremia: Status: Acute Narrative A/P Narrative: Assessment and Plans: 1. CoVID pneumonia: Stays in inpatient med surg telemetry Isolation: airborne and contact Supplemental oxygen titrate to achieve spo2 >92% Remdesivir contraindicated given ESRD on HD status Ivermectin Dexamethasone Heparin DuoNeb NEB PRN wheezing Robitussin DM PRN cough Tylenol PRN fever cbc w/ auto diff in the morning to trend WBC 2. Bacterial pneumonia: Blood cultures no growth to date Sputum culture grew S auerus and Strep dysgalactiae Finished course of Zithromax Doxycycline Vancomycin DuoNeb NEB PRN wheezing Robitussin DM PRN cough Tylenol PRN fever Supplemental oxygen titrate to achieve spo2 >92% cbc w/ auto diff in the morning to trend WBC 3. ESRD on hemodialysis with associated anemia, hyponatremia, and hyperkalemia: Velvet Weaver Dr. Hopper consulted for dialysis needs cbc w/ auto diff in the morning to trend H/H; transfusion if hemoglobin <7.0, active bleeding, or symptomatic 4. Obesity: Order [employer] patient on life style modifications including regular exercise and healthy diet in order to lose weight GI ppx: not currently indicated DVT ppx: Heparin Code status: Full Prognosis: guarded Disposition: Inpatient med surg telemetry Time Spent With Patient Time: Total time spent is greater than 50% in coordination of care (as documented) at patient's floor/unit and/or counseling patient: Total time spent with greater than 50% in coordination of care (as documented) at patient's floor/unit and/or counseling patient:: 25 - 35 minutes QUALITY VTE Deep Vein Thrombosis/Pulmonary Embolism Present on Admission: No
[2021-01-19] MEDS: CALCITRIOL 0.25 MCG CAPSULE PO SCH (15:26)
[2021-01-19 15:50] LABS: Vancomycin,Random 13.2 ug/mL
--- NOTE | 2021-01-19 18:22 | Nephrology Progress Note ---
SUBJECTIVE Subjective Patient information: Note initiated : 01/19/21 at 6:20 pm Service Date, if different from initiated Date: [] Patient: Khadar Rizo 60 y/o M admitted on 01/14/21 for SOB, cough, weakness. Chief Complaint: [Shortness of breath] Patient has MSSA and Covid pneumonia. Today was his usual dialysis day seen and evaluated while on dialysis this morning. His chest x-ray belies his report that he feels better. He is afebrile and hemodynamically stable still requiring O2 but saturating above 94%. Vancomycin level is less than 18 so he should be redosed. As he is allergic to beta-lactam's and cephalosporins, we can use either Levaquin or Bactrim based on sensitivities of his staph aureus from sputum. As for Covid, he cannot receive remdesivir, he has received azithromycin, ivermectin, and steroids. We will send stool for WBC and if positive C. difficile although the frequency seems to be diminishing. Laboratory Tests 01/19/21 14:24 Random Vancomycin 13.2 CXR (01/19/2021): Mild cardiomegaly is unchanged. Slight mediastinal widening stable. Pulmonary vessels are normal. Moderate patchy infiltrate in the perihilar and left basilar region show slight progression IMPRESSION: Moderate patchy infiltrates in the perihilar and left basilar regions-progressing Constitutional Vitals: Vital Signs Temp Pulse Resp BP Pulse Ox 36.2 C 64 18 144/87 95 01/19/21 16:00 01/19/21 16:00 01/19/21 16:00 01/19/21 16:00 01/19/21 16:00 Period Temp Pulse Resp BP Sys/Ding Pulse Ox Last 24 Hr 36.1 C-36.3 C 57-97 14-18 99-149/43-89 94-97 Intake and Output 01/19/21 01/19/21 01/19/21 05:59 13:59 21:59 Intake Total 360 580 Output Total 2200 Balance 360 -1620 Intake & Output: Intake & Output 01/19/21 01/19/21 01/19/21 05:59 13:59 21:59 Intake Total 360 580 Output Total 2200 Balance 360 -1620 Intake: IV 100 Vibramycin 100 mg In Dextrose 5 100 % in Water 100 ml @ 100 mls/hr IV Q12H [facility] Rx#:[id number] Oral 360 480 Output: Hemodialysis UF 2200 Other: Meal Breakfast Lunch Percent of Meal Consumed 100% 100% Stool Size Smear Stool Color Brown Stool Consistency Soft General appearance: moderate distress and obese Exam: Nontoxic Head Head exam: Present normocephalic Eye Eye exam: Present EOMI and PERRL Pupils: Present PERRL ENT ENT exam: Present mucous membranes dry Neck Neck exam: Present full ROM; Absent meningismus Respiratory Respiratory exam: Present decreased breath sounds and rhonchi; Absent rales Cardiovascular Cardiovascular exam: Present normal rate and rhythm, +S1 and +S2; Absent gallop and rubs GI/Abdominal GI/Abdominal exam: Present diminished bowel sounds; Absent tenderness Extremities Exam Extremities exam: Present full ROM, pedal edema and neurovascular intact; Absent calf tenderness Neurological Exam Neurological exam: Present alert, CN II-XII intact and oriented X3 Psychiatric Psychiatric exam: Present anxious Skin Skin exam: Present dry; Absent petechiae and rash A/P Narrative A/P Narrative: 1. Stop pip/ tazobactam 2. Redosed with Vanco 01/19/2021 post HD 1.5 gm 3. Bactrim DS 1 po qHS until 01/30/2021 4. If 5-day course of dexamethasone and ivermectin. Azithromycin 3 days should have been completed 5. Discharge when O2 requirements have improved. 6. Dialysis Sunday01/21/2021 Time Spent With Patient Time: Total time spent is greater than 50% in coordination of care (as documented) at patient's floor/unit and/or counseling patient: Total time spent with greater than 50% in coordination of care (as documented) at patient's floor/unit and/or counseling patient:: 25 - 35 minutes
[2021-01-19] MEDS ORDERED: SULFAMETHOXAZOLE/TRIMETHOPRIM 1 TABLET PO SCH (21:00)
[2021-01-20] MEDS: 0.9 % SODIUM CHLORIDE 10 ML SYRINGE IV SCH (05:17)
--- NOTE | 2021-01-20 07:47 | Nephrology Progress Note ---
SUBJECTIVE Subjective Patient information: Note initiated : 01/20/21 at 7:42 am Service Date, if different from initiated Date: [] Patient: Khadar Rizo 60 y/o M admitted on 01/14/21 for SOB, cough, weakness. Chief Complaint: [SOB] HD qMWF with only issue dietary indiscretion and high PO4/hyperparathyroidism Admitted with bilateral infiltrates, cough, CoVid (+) and positive sputum for strep sp and MSSA Treated with Dexamethasone, azithro and ivermectin for SARs-CV2 Vanco and hope to D/C on just TMP/SMX DS 1 tab qHS Loose BM, especially 01/17/21: stool studies pending Laboratory Results - last 48 hr 01/18/21 01/19/21 01/19/21 05:56 05:46 05:46 WBC 7.5 RBC 3.34 L Hgb 9.5 L Hct 33.4 L MCV 100.0 MCH 28.4 MCHC 28.4 L RDW 14.2 Plt Count 228 MPV 10.9 H Neut % (Auto) 83.9 H Lymph % (Auto) 8.9 L [place] % (Auto) 7.1 Eos % (Auto) 0 Baso % (Auto) 0.1 Lymph # (Auto) 0.67 L [place]son # (Auto) 0.53 Eos # (Auto) 0 Baso # (Auto) 0.01 Absolute Neutrophils 6.30 Sodium 128 L 128 L Potassium 4.8 5.2 H Chloride 88 L 88 L Carbon Dioxide 25 21 L Anion Gap 15.0 19.0 H BUN 43 H 66 H Creatinine 7.8 H* 9.9 H* GFR Calculation 7 5 Glucose 95 120 H Uric Acid 3.9 Calcium 8.7 8.7 Phosphorus 4.2 Magnesium 2.0 Total Bilirubin 0.3 0.2 Direct Bilirubin < 0.2 GGT 17 AST 20 18 ALT 13 13 Alkaline Phosphatase 49 54 Lactate Dehydrogenase 328 H Total Protein 6.4 6.2 Albumin 3.1 L 2.8 L Globulin 3.3 3.4 Albumin/Globulin Ratio 0.9 L 0.8 L Triglycerides 267 H Random Vancomycin 13 Constitutional Vitals: Vital Signs Temp Pulse Resp BP Pulse Ox 36.5 C 60 16 163/99 93 01/20/21 04:22 01/20/21 04:22 01/20/21 04:22 01/20/21 04:22 01/20/21 04:22 Period Temp Pulse Resp BP Sys/Ding Pulse Ox Last 24 Hr 36.1 C-36.7 C 60-97 16-20 99-163/43-99 90-99 Intake and Output 01/19/21 01/20/21 01/20/21 21:59 05:59 13:59 Intake Total 500 500 Balance 500 500 Weight 135.624 kg Intake & Output: Intake & Output 01/19/21 01/20/21 01/20/21 21:59 05:59 13:59 Intake Total 500 500 Balance 500 500 Weight 135.624 kg Intake: IV 500 Vancomycin 1,500 mg In Sodium 500 Chloride 0.9% 500 ml @ 333.3 mls/hr IV ONCE ONE Rx#: [id number] Oral 500 Other: Meal Dinner Percent of Meal Consumed 75% Urine Appearance Clear Urine Color Bright Yellow # Voids 2 # Bowel Movements 1 Exam: General: Nontoxic HEENT: PERRL, EOMI Dry mucous membranes No thrush No elevated JVD Chest: Rhonchi, prolonged expiratory phase, no rales Cardiac: Normal S1 and S2 no S3 Abdomen: Central obesity, bowel sounds present nontender Extremities: Left AV fistula with large pseudoaneurysms Trace edema Neuro: Generalized weakness otherwise nonfocal Psychiatric: Crabby but otherwise at his baseline Skin: Scattered ecchymoses and some lesions consistent with calciphylaxis Lymphatic: No lymphadenopathy A/P Assessment and plan (1) Community acquired pneumonia, bilateral: Assessment and plan: Sputum gram stain looks like strep pneumo so vanco and azithro Screened and afebrile. No signs or symptoms of CoVID-19positive do steroids, azithro and ivermectin Due to penicillin allergy and cephalosporin allergy (rash): We will use Bactrim adjusted for ESRD Status: Acute Comment: Staph aureus (awaiting sensitivities) on Vanco. Switch to Augmentin Strep sp on Vanco and Azithro Now whitch to Bactrim due to penicillin and cephalosporin allergies at the time of discharge. (2) COVID-19: Status: Acute Comment: Azithro and Ivermectin. Solumedrol as well. No Remdesavir due to ESRD Done with 3 days of azithro, finish 5 days of iveremectin and steroids (3) ESRD on hemodialysis: Assessment and plan: HD tomorrow 01/21/2021 as outpatient Status: Chronic Comment: HD qMWF (4) Diarrhea: Assessment and plan: Could be covid, Rx or c diff. Check stool WBC=> negative Status: Acute Qualifiers: Diarrhea type: unspecified type Qualified Code(s): R19.7 - Diarrhea, unspecified Narrative A/P Narrative: 1. Stop pip/ tazobactam 2. Redosed with Vanco 01/19/2021 post HD 1.5 gm 3. Bactrim DS 1 po qHS until 01/30/2021 4. If 5-day course of dexamethasone and ivermectin. Azithromycin 3 days should have been completed 5. Discharge when O2 requirements have improved. 6. Dialysis Sunday01/21/2021 Time Spent With Patient Time: Total time spent is greater than 50% in coordination of care (as documented) at patient's floor/unit and/or counseling patient:
[2021-01-20 08:09] LABS: Basophils # (Auto) 0.03 K/mcL (0.00-0.30); Basophils % (Auto) 0.3 % (0.0-2.0); Eosinophils # (Auto) 0.03 K/mcL (0.00-0.70); Eosinophils % (Auto) 0.3 % (0.0-7.0); Hematocrit 29.9 % (40.1-51.0); Hemoglobin 9.3 g/dL (13.7-17.5); Lymphocytes # (Auto) 1.02 K/mcL (1.50-4.80); Lymphocytes % (Auto) 9.5 % (15.5-49.0); Mean Corpuscular HGB Conc 31.1 g/dL (31.0-36.0); Monocytes # (Auto) 0.94 K/mcL (0.10-0.90); Monocytes % (Auto) 8.8 % (1.0-12.0); Platelet Count 284 K/mcL (140-440); RBC 3.25 M/mcL (4.63-6.08); Red Cell Distribution Width 13.8 % (11.5-14.5); WBC 10.7 K/mcL (4.5-11.0)
[2021-01-20] MEDS: CALCIUM ACETATE 667 MG CAPSULE PO SCH ×2 (08:33→13:04)
[2021-01-20] MEDS: GABAPENTIN 100 MG CAPSULE PO SCH (08:34)
[2021-01-20] MEDS: HEPARIN 5,000 UNIT/ML VIAL SQ SCH (08:34)
[2021-01-20] MEDS: ZINC SULFATE 50 MG CAPSULE PO SCH (08:34)
[2021-01-20] MEDS: DEXAMETHASONE 4 MG TABLET PO SCH (08:35)
[2021-01-20 08:36] LABS: ALT/SGPT 22 U/L (<40); AST/SGOT 25 U/L (<40); Albumin/Globulin Ratio 0.9 (1.0-2.3); Alkaline Phosphatase 61 U/L (39-117); Bilirubin,Total 0.2 mg/dL (0.1-1.0); Blood Urea Nitrogen 41 mg/dL (6-20); Calcium 8.8 mg/dL (8.6-10.4); Carbon Dioxide 24 mmol/L (22-30); Chloride 95 mmol/L (96-108); Globulin 3.4 gm/dL (2.2-3.7); Glomerular Filtration Rate 8; Glucose 109 mg/dL (70-105)
[2021-01-20] MEDS: IVERMECTIN 3 MG TABLET PO SCH (09:31)
[2021-01-20 10:32] LABS: Neutrophils % (Auto) 81.1 % (38.0-78.0)
--- NOTE | 2021-01-20 10:51 | Discharge Summary ---
Discharge Provider Provider Patient information: Note initiated : 01/20/21 at 10:48 am Service Date, if different from initiated Date: [] Patient: Khadar Rizo 60 y/o M admitted on 01/14/21 for SOB, cough, weakness. Chief Complaint: [CoVID pnuemonia] Date of admission: 01/14/21 01:44 Discharge date: 01/20/21 Primary care physician: Paulette García Consults: 01/13/21 Consult to Physician [CONS] Stat Comment: Consulting Provider: Oliver Smith Reason For Exam: Physician to Consult 01/14/21 Consult to Physician [CONS] Stat Comment: Consulting Provider: Jerry Timmons Reason For Exam: Physician to Consult Discharge Meds Discharge Medications Home Medications calcitriol 0.25 mcg capsule 1 mcg PO 3XW cap 07/12/20 [History Confirmed 01/14/21 Last Taken 01/12/21] hydroxyzine HCl 25 mg tablet 25 mg PO TID PRN #90 tab 08/30/20 [Rx Confirmed 01/14/21 Last Taken 01/12/21] gabapentin 100 mg capsule 200 mg PO BID #120 cap 09/20/20 [Rx Confirmed 01/14/21 Last Taken 01/12/21] calcium acetate(phosphat bind) 667 mg capsule 2,668 mg PO .TID with meals #360 cap 01/03/21 [Rx Confirmed 01/14/21 Last Taken 01/12/21] codeine-guaifenesin [Guaiatussin AC] 10 ml PO Q4HP PRN 10 Days ml 01/20/21 [Rx Last Taken Unknown] sulfamethoxazole-trimethoprim 1 tab PO QHS 10 Days #10 tab 01/20/21 [Rx Last Taken Unknown] COURSE Hospital Course Hospital course: Patient was admitted on January 14, 2021 for Covid pneumonia complicated with bacterial pneumonia superinfections. Patient was provided with ivermectin, heparin, and dexamethasone as part of the treatment for his Covid pneumonia. Supplemental oxygen was also being offered. Patient's sputum culture grew staph aureus as well as strep this collected. Patient was being offered various antibiotics including vancomycin, doxycycline, and eventually Bactrim DS. Patient was also in end-stage renal disease patient on hemodialysis and dry janitor was consulted for hemodialysis needs. Patient received multiple rounds of hemodialysis during his hospitalizations. By January 20, 2021, patient has been tolerating room air, been afebrile for 24 hours or more, and reached clinical stability. As such, the decision was made to discharge patient home with prescriptions of the Bactrim DS to finished with 10-day course. Follow-up appointment with PCP made for the patient. All questions were answered prior to patient being physically discharged. Discharge diagnosis: covid pnuemonia Time Spent with Patient Time attestation: Total time spent providing and/or coordinating discharge services: Patient was admitted on January 14, 2021 for Covid pneumonia complicated with brenda terial pneumonia superinfections. Patient was provided with ivermectin, heparin, and dexamethasone as part of the treatment for his Covid pneumonia. Supplemental oxygen was also being offered. Patient's sputum culture grew staph aureus as well as strep this collected. Patient was being offered various antibiotics including vancomycin, doxycycline, and eventually Bactrim DS. Patient was also in end-stage renal disease patient on hemodialysis and dry janitor was consulted for hemodialysis needs. Patient received multiple rounds of hemodialysis during his hospitalizations. By January 20, 2021, patient has been tolerating room air, been afebrile for 24 hours or more, and reached clinical stability. As such, the decision was made to discharge patient home with prescriptions of the Bactrim DS to finished with 10-day course. Follow-up appointment with PCP made for the patient. All questions were answered prior to patient being physically discharged. EXAM Constitutional Vitals: Temp Pulse Resp BP Pulse Ox 36.6 C 62 20 142/83 91 01/20/21 08:00 01/20/21 08:00 01/20/21 08:00 01/20/21 08:00 01/20/21 08:00 General appearance: cooperative and no acute distress Head Head exam: Present atraumatic and normocephalic Eye Eye exam: Present EOMI and PERRL ENT ENT exam: Present mucous membranes moist, normal exam and normal external ear exam Neck Neck exam: Present normal inspection; Absent lymphadenopathy, tenderness and thyromegaly Respiratory Respiratory exam: Absent accessory muscle use, respiratory distress and wheezes Cardiovascular Cardiovascular exam: Present normal rate and rhythm; Absent JVD GI/Abdominal GI/Abdominal exam: Present normal bowel sounds and soft; Absent organomegaly and tenderness Rectal Rectal exam: Present deferred Extremities Exam Extremities exam: Present full ROM, normal capillary refill and normal inspection; Absent tenderness Neurological Exam Neurological exam: Present alert, CN II-XII intact and oriented X3; Absent motor sensory deficit Psychiatric Psychiatric exam: Present normal affect and normal mood; Absent anxious and depressed Skin Skin exam: Present dry and intact Discharge Data Data Completed and Pending Labs on day of discharge: Labs from last 24 hours 01/20/21 01/20/21 01/19/21 05:00 05:00 14:24 WBC 10.7 RBC 3.25 L Hgb 9.3 L Hct 29.9 L MCV 92.0 MCH 28.6 MCHC 31.1 RDW 13.8 Plt Count 284 MPV 11.0 H Neut % (Auto) 81.1 H Lymph % (Auto) 9.5 L [place] % (Auto) 8.8 Eos % (Auto) 0.3 Baso % (Auto) 0.3 Lymph # (Auto) 1.02 L [place] # (Auto) 0.94 H Eos # (Auto) 0.03 Baso # (Auto) 0.03 Absolute Neutrophils 8.70 H Sodium 138 Potassium 4.6 Chloride 95 L Carbon Dioxide 24 Anion Gap 19.0 H BUN 41 H Creatinine 6.6 H* GFR Calculation 8 Glucose 109 H Calcium 8.8 Total Bilirubin 0.2 AST 25 ALT 22 Alkaline Phosphatase 61 Total Protein 6.4 Albumin 3.0 L Globulin 3.4 Albumin/Globulin Ratio 0.9 L Random Vancomycin 13.2 01/19/21 05:46 WBC RBC Hgb Hct MCV MCH MCHC RDW Plt Count MPV Neut % (Auto) 83.9 H Lymph % (Auto) Kern % (Auto) Eos % (Auto) Baso % (Auto) Lymph # (Auto) Kern # (Auto) Eos # (Auto) Baso # (Auto) Absolute Neutrophils Sodium Potassium Chloride Carbon Dioxide Anion Gap BUN Creatinine GFR Calculation Glucose Calcium Total Bilirubin AST ALT Alkaline Phosphatase Total Protein Albumin Globulin Albumin/Globulin Ratio Random Vancomycin Preliminary micro results at discharge 01/16/21 00:48 Blood Culture - Preliminary Blood 01/16/21 00:20 Blood Culture - Preliminary Blood Discharge Plan Patient/Caregiver Discharge Instructions Activity: increase activity as tolerated Diet: Renal/Consistent Carbs Instructions: Hyperkalemia (GEN), COVID-19 (Coronavirus Disease 2019)(GEN) Prescriptions: New sulfamethoxazole-trimethoprim 800-160 mg Tablet 1 tab PO QHS 10 Days Qty: 10 RF: 0 codeine-guaifenesin [Guaiatussin AC] 10-100 mg/5 mL Liquid 10 ml PO Q4HP PRN (Reason: Cough) 10 Days RF: 0 Continued hydroxyzine HCl 25 mg tablet 25 mg PO TID PRN (Reason: itching) Qty: 90 RF: 3 gabapentin 100 mg capsule 200 mg PO BID Qty: 120 RF: 11 calcium acetate(phosphat bind) 667 mg capsule 2,668 mg PO .TID with meals Qty: 360 RF: 11 calcitriol 0.25 mcg capsule 1 mcg PO 3XW RF: 0 Hold Instructions: Doctor's Order Follow Up Plan Follow up with: Paulette García ARNP [Primary Care Provider] - Patient Disposition: Home, Self-Care Prognosis: Fair Rehab Potential: Undetermined I certify that the patient requires SNF services: No Overall status at discharge: patient is progressing back to baseline Discharge Orders: Discharge Order (Routine); Ordered 01/20/21 Ordered By: Nikos OSHEA VTE Deep Vein Thrombosis/Pulmonary Embolism Present on Admission: No
--- NOTE | 2021-01-29 10:05 | EKG ---
[facility] Test Date: 2021-01-13 Pat Name: Khadar Rizo Department: ED Room: Gender: Male Host Coordinator: HS : 1960 Requested By: Сергей Salazar Order Number: [id number] Reading MD: Juan M Morris Measurements Intervals [place] Rate: 55 P: -40 [place]: 204 QRS: 60 QRSD: 110 T: 69 QT: 444 QTc: 425 Interpretive Statements SINUS RHYTHM Electronically Signed On 01-29-2021 10:05:03 PDT by Juan M Morris [place] [email or web address]/[id number]
--- NOTE | 2021-01-30 07:48 | EKG ---
[facility] Test Date: 2021-01-17 Pat Name: Khadar Rizo Department: ICU Room: 119 Gender: Male Rheologist: : 1960 Requested By: Jerry Timmons Order Number: [id number] Reading MD: Juan M Morris Measurements Intervals [place] Rate: 71 P: 9 [place]: 148 QRS: 36 QRSD: 100 T: 65 QT: 440 QTc: 479 Interpretive Statements SINUS RHYTHM MULTIPLE VENTRICULAR PREMATURE COMPLEXES BORDERLINE PROLONGED QT INTERVAL Electronically Signed On 01-30-2021 7:48:25 PDT by Juan M Morris /store/M0/[id number]
== END 2021-01-20 14:20 | disposition home or self-care (01) | DRG 177 ==
LOC: ED 13:14 → ICU 01-14 01:40
PROVIDERS: ADMIT Internal Medicine; ATTEND Internal Medicine

== ENCOUNTER 2021-06-28 17:00 | Inpatient (IN) ==
[2021-06-28] MEDS ORDERED: ONDANSETRON 4 MG/2 ML VIAL IV ONE (17:07)
[2021-06-28 17:50] LABS: Hemoglobin 10.4 g/dL (13.7-17.5); Mean Cell Volume 86.1 fL (80.0-100.0); Mean Corpuscular HGB Conc 33.5 g/dL (31.0-36.0); Mean Platelet Volume 11.8 fL (7.4-10.4); Platelet Count 225 K/mcL (140-440); Red Cell Distribution Width 13.2 % (11.5-14.5); WBC 9.3 K/mcL (4.5-11.0)
[2021-06-28] MEDS ORDERED: CALCIUM CHLORIDE 1,000 MG/10 ML SYRINGE IV ONE (18:14)
[2021-06-28] MEDS ORDERED: ALBUTEROL SULFATE 5 MG/ML NEB SOLUTION BOTTLE NEB ONE (18:14)
[2021-06-28] MEDS ORDERED: INSULIN REGULAR, HUMAN 1 UNIT/0.01 ML UNIT IV ONE (18:14)
[2021-06-28] MEDS ORDERED: 0.9 % SODIUM CHLORIDE 500 ML IV ONE (18:15)
[2021-06-28] MEDS ORDERED: DEXTROSE 50% 50 ML SYRINGE IV ONE (18:24)
[2021-06-28] MEDS: DEXTROSE 50% 50 ML VIAL IV ONE ×2 (18:45→19:06)
[2021-06-28 18:57] LABS: POC Blood Urea Nitrogen 136 mg/dL (6-20); POC CO2 21 mmol/L (22-30); POC Calcium, Ionized 1.04 mmEq/L (1.16-1.32); POC Chloride 101 mEq/L (96-108); POC Creatinine 16.8 mg/dL (0.6-1.2); POC Glucose, Random 96 mg/dL (70-105); POC Hematocrit 34 % (41-55); POC Potassium 8.1 mEql/L (3.3-5.1); POC Sodium 132 mEq/L (133-145)
[2021-06-28 19:06] LABS: ALT/SGPT 8 U/L (<40); AST/SGOT 13 U/L (<40); Albumin 4.3 gm/dL (3.2-5.2); Albumin/Globulin Ratio 1.5 (1.0-2.3); Alkaline Phosphatase 81 U/L (39-117); Bilirubin,Total 0.3 mg/dL (0.1-1.0); Blood Urea Nitrogen 97 mg/dL (6-20); Calcium 8.9 mg/dL (8.6-10.4); Carbon Dioxide 19 mmol/L (22-30); Chloride 92 mmol/L (96-108); Globulin 2.9 gm/dL (2.2-3.7); Glomerular Filtration Rate 3; Glucose 94 mg/dL (70-105)
--- NOTE | 2021-06-28 19:14 | Emergency Department Note ---
Nausea/Vomiting/Diarrhea HPI General Chief complaint: Nausea/Vomiting/Diarrhea Stated complaint: nausea/vomiting, dialysis pt Time Seen by Provider: 06/28/21 17:06 Source: patient Mode of arrival: wheelchair Limitations: no limitations History of Present Illness HPI Narrative: 60-year-old dialysis dependent patient with end-stage renal disease presents with 48 hours of flulike symptoms, diarrhea with weakness, and unable to go to dialysis yesterday. He's had no nausea, but has had frequent diarrhea. He has been unable to eat or drink. He is an anuric. Denies F/C/S. Denies abdominal pain. Most significant complaint is he is too weak to stand. Had Covid in December. Has not been around known Covid exposures. Denies shortness of breath. Denies cough. Related Data Home Medications Medication Instructions Recorded Confirmed calcitriol 0.25 mcg capsule 1 mcg PO 3XW cap 07/12/20 01/14/21 Previous Rx's Medication Instructions Recorded gabapentin 100 mg capsule 200 mg PO BID #120 cap 09/20/20 calcium acetate(phosphat bind) 667 2,668 mg PO .TID with meals #360 02/07/21 mg capsule cap acetaminophen 120 mg-codeine 12 5 ml PO QHS PRN #200 ml 02/16/21 mg/5 mL (5 mL) oral solution codeine 10 mg-guaifenesin 100 mg/5 5 ml PO .Q12 PRN #237 ml 03/21/ mL oral liquid hydroxyzine HCl 25 mg tablet 25 mg PO TID PRN #90 tab 03/23/21 Allergies Allergy/AdvReac Type Severity Reaction Status Date / Time bee venom protein (honey bee) Allergy Severe Anaphylaxis Verified 06/28/21 17:02 ceftriaxone Allergy Mild Hives Verified 06/28/21 17:02 Penicillins Allergy Mild Hives Verified 06/28/21 17:02 coconut Allergy Unknown Unknown Verified 06/28/21 17:02 Review of Systems ROS ROS Narrative: Narrative: All systems ED: reviewed and negative except as stated. PFSH Narrative Patient History Narrative: Narrative: Medical/Surgical/Family History All Active Problems (Updated 06/28/21 @ 20:16 by Kailey Lim PA-C) Proteus (mirabilis) (morganii) as the cause of diseases classified elsewhere (Chronic) ESRD on hemodialysis (Chronic) Staghorn renal calculus (Chronic) Anemia due to end stage renal disease (Chronic) Renal calculi (Chronic) Insomnia (Chronic) Acute kidney injury (Chronic 09/08/17) Acute renal failure (Chronic 09/08/17) Pyelonephritis (Chronic 09/08/17) Volume depletion (Chronic 09/08/17) Hyperkalemia (Acute 09/08/17) Hypertension (Chronic 09/08/17) DVT prophylaxis (Chronic 09/08/17) UTI (urinary tract infection) (Chronic 09/08/17) Flank pain (Chronic) Vomiting (Chronic) Weakness (Chronic) Acute diastolic (congestive) heart failure (Chronic) DM type 2 (diabetes mellitus, type 2) (Chronic) Uremia (Chronic) Staghorn calculus (Chronic) History of shortness of breath (Chronic) Complications, dialysis, catheter, mechanical (Chronic) Bacteremia (Acute) Bacteremia due to Streptococcus (Acute) Secondary hyperparathyroidism (Acute) Cellulitis (Acute) Abdominal muscle strain (Acute) Fatty liver disease, nonalcoholic (Acute) S/p nephrectomy (Acute) Pneumonia (Acute) Dialysis patient (Acute) Acute on chronic combined systolic and diastolic CHF, NYHA class 2 (Acute) Hyperparathyroidism due to end stage renal disease on dialysis (Acute) RLS (restless legs syndrome) (Acute) Nocturnal myoclonus (Acute) Pre-transplant evaluation for end stage renal disease (Acute) Pain (Acute) COVID-19 (Acute) Acute hyperkalemia (Acute) Fluid overload (Acute) Community acquired pneumonia, bilateral (Acute) Diarrhea (Acute) Hyponatremia (Acute) Pseudoaneurysm of AV hemodialysis fistula (Acute) Cough (Acute) Acute renal failure (Acute) Acute hyperkalemia (Acute) Bradycardia (Acute) Medical History (Updated 06/28/21 @ 20:16 by Kailey Lim PA-C) Acute diastolic (congestive) heart failure Acute kidney injury (09/08/17) Acute renal failure (09/08/17) Anemia due to end stage renal disease DM type 2 (diabetes mellitus, type 2) DVT prophylaxis (09/08/17) ESRD on hemodialysis HD qMWF Flank pain History of shortness of breath Hyperkalemia (09/08/17) Hypertension (09/08/17) Insomnia Proteus (mirabilis) (morganii) as the cause of diseases classified elsewhere Pyelonephritis (09/08/17) Renal calculi Staghorn calculus Staghorn renal calculus Uremia UTI (urinary tract infection) (09/08/17) Volume depletion (09/08/17) Vomiting Weakness Surgical History History of knee surgery History of nephrectomy Status post removal of arteriovenous fistula Family History Father Coronary artery disease Mother Coronary artery disease Social History Smoking Status: Never smoker Alcohol Intake Frequency: does not drink Substance Use: does not use Exam Narrative Narrative: General: AOx3, NAD, weak appearing. Pleasant and conversant. HEENT: PERRL, EOMI, normocephalic. Dry mucous membranes. Normal facies and normal dentition. Chest: Symmetric, no pain to palpation Respiratory: Lungs clear to auscultation bilaterally. No respiratory distress. Unlabored breathing. Heart: Bradycardic rate and irregular, no murmurs/clicks/rubs. Abdomen: Non-tender, Non distended, normal bowel tones. No organomegaly. Extremities: Warm and well perfused. 1+ pitting edema bilaterally. DP 2+ bilaterally. No venous stasis. Neuro: No focal deficits. Cranial nerves II-XII grossly normal. Moves all fours against gravity 5/5 Skin: Warm dry, no rashes or lesions, no cyanosis. Notable pallor Psych: Normal mood and affect Heme/Lymph: No abnormal bruising General Limitations: no limitations Course Course Course Narrative: 60-year-old dialysis dependent end-stage renal disease patient presents with weakness and flulike symptoms Reevaluation(s) Reevaluation #1: Chem-8, CBC Check lactic acid EKG----> bradycardia 40s on telemetry. Baseline EKG shows normal sinus rhythm with sinus pauses and interventricular conduction delay. QTC is noted to be 510 ms Covid swab Blood cultures x2 Chest x-ray Reevaluation #2: Potassium is 8.1, BUN 136, creatinine 16.8, sodium 132. Patient was given 10 units of IV insulin, 1 g of calcium carbonate, 500 mL of normal saline, 10 mg nebulized albuterol, D50 bolus. Chest x-ray shows no discrete infiltrates and mild cardiomegaly Reevaluation #3: Patient's heart rate is now 80 bpm. Lactic acid is 1.8 I have spoken with the fulfillment representative who agrees for admission and dialysis this evening. Awaiting hospitalist for admission. Additional Reevaluation(s): CBG recheck is 74. We will give 25% dextrose and water x1 dose and recheck his blood sugars in about 30 minutes. Vital Signs Vital signs: Vital Signs Temperature 98.4 F 06/28/21 17:00 Pulse Rate 66 06/28/21 17:00 Respiratory Rate 20 06/28/21 17:00 Blood Pressure 157/102 06/28/21 17:00 Pulse Oximetry (%) 93 06/28/21 17:00 Temperature 98.4 F 06/28/21 17:00 Pulse Rate 70 06/28/21 19:28 Respiratory Rate 22 06/28/21 19:28 Blood Pressure 149/75 06/28/21 19:28 Pulse Oximetry (%) 100 06/28/21 19:28 MDM MDM Narrative Medical decision making narrative: Acute renal failure End-stage renal disease dialysis dependent Bradycardia Patient's bradycardia resolved with interventions. He is feeling improved. Rapid Covid swab is negative. Patient has been signed out to Dr. Timmons for admission and will undergo dialysis night. Dr. Hopper is aware of the patient and will be writing dialysis orders. Lab Data Result diagrams: 06/28/21 17:10 06/28/21 18:35 Labs: Lab Results 06/28/21 06/28/21 06/28/21 Range/Units 17:10 17:10 17:56 WBC 9.3 (4.5-11.0) K/mcL RBC 3.60 L (4.63-6.08) M/mcL Hgb 10.4 L (13.7-17.5) g/dL Hct 31.0 L (40.1-51.0) % POC Hct 34 L (41-55) % MCV 86.1 (80.0-100.0) fL MCH 28.9 (26.0-34.0) pg MCHC 33.5 (31.0-36.0) g/dL RDW 13.2 (11.5-14.5) % Plt Count 225 (140-440) K/mcL MPV 11.8 H (7.4-10.4) fL Seg Neutrophils % 81 H (38-78) % Lymphocytes % 8 L (15-49) % Monocytes % (Manual) 8 (1-12) % Eosinophils % (Manual) 3 (0-7) % Platelet Estimate Normal (Normal) RBC Morphology Normal (Normal) POC Sodium 132 L (133-145) mEq/L Sodium 135 (133-145) mmol/L POC Potassium 8.1 H* (3.3-5.1) mEql/L Potassium 7.7 H* (3.3-5.1) mmol/L POC Chloride 101 (96-108) mEq/L Chloride 92 L (96-108) mmol/L Carbon Dioxide 19 L (22-30) mmol/L POC Total CO2 21 L (22-30) mmol/L Anion Gap 24.0 H (8.0-16.0) POC BUN 136 H* (6-20) mg/dL BUN 97 H (6-20) mg/dL Creatinine 15.0 H* (0.7-1.2) mg/dL POC Creatinine 16.8 H* (0.6-1.2) mg/dL GFR Calculation 3 Glucose 94 (70-105) mg/dL POC Glucose 96 (70-105) mg/dL Calcium 8.9 (8.6-10.4) mg/dL POC WB Ioniz Calcium 1.04 L (1.16-1.32) mmEq/L Magnesium (1.6-2.5) mg/dL Total Bilirubin 0.3 (0.1-1.0) mg/dL AST 13 (<40) U/L ALT 8 (<40) U/L Alkaline Phosphatase 81 (39-117) U/L Total Protein 7.2 (5.9-8.4) gm/dL Albumin 4.3 (3.2-5.2) gm/dL Globulin 2.9 (2.2-3.7) gm/dL Albumin/Globulin Ratio 1.5 (1.0-2.3) 06/28/21 06/28/21 Range/Units 18:35 18:35 WBC (4.5-11.0) K/mcL RBC (4.63-6.08) M/mcL Hgb (13.7-17.5) g/dL Hct (40.1-51.0) % POC Hct (41-55) % MCV (80.0-100.0) fL MCH (26.0-34.0) pg MCHC (31.0-36.0) g/dL RDW (11.5-14.5) % Plt Count (140-440) K/mcL MPV (7.4-10.4) fL Seg Neutrophils % (38-78) % Lymphocytes % (15-49) % Monocytes % (Manual) (1-12) % Eosinophils % (Manual) (0-7) % Platelet Estimate (Normal) RBC Morphology (Normal) POC Sodium (133-145) mEq/L Sodium (133-145) mmol/L POC Potassium (3.3-5.1) mEql/L Potassium 8.5 H* (3.3-5.1) mmol/L POC Chloride (96-108) mEq/L Chloride (96-108) mmol/L Carbon Dioxide (22-30) mmol/L POC Total CO2 (22-30) mmol/L Anion Gap (8.0-16.0) POC BUN (6-20) mg/dL BUN (6-20) mg/dL Creatinine (0.7-1.2) mg/dL POC Creatinine (0.6-1.2) mg/dL GFR Calculation Glucose (70-105) mg/dL POC Glucose (70-105) mg/dL Calcium (8.6-10.4) mg/dL POC WB Ioniz Calcium (1.16-1.32) mmEq/L Magnesium 2.4 (1.6-2.5) mg/dL Total Bilirubin (0.1-1.0) mg/dL AST (<40) U/L ALT (<40) U/L Alkaline Phosphatase (39-117) U/L Total Protein (5.9-8.4) gm/dL Albumin (3.2-5.2) gm/dL Globulin (2.2-3.7) gm/dL Albumin/Globulin Ratio (1.0-2.3) ED POC Tests ED POC Tests: ANABELA - Influenza A Negative ANABELA - Influenza B Negative ANABELA - SARS Antigen Negative CC TIME Critical Care Time Attestation: I personally spent a total of 31 minutes of critical care time in obtaining history, performing a physical exam, bedside monitoring of interventions, collecting interpreting tests and discussions with consultants but excluding time spent performing procedures, treating other patients and teaching time. Clinical concern hyperkalemia and bradycardia Intervention hyperkalemia management with resolution of bradycardia Discharge Plan Patient/Caregiver Discharge Instructions Pt seen by MASH TUB COOKER/PA only: Yes Clinical Impression: Acute renal failure, Acute hyperkalemia, Bradycardia Patient Disposition: Xfer As Inpt ([facility]) Condition: Fair Follow up with: Paulette García ARNP [Primary Care Provider] - Prescriptions: No Action gabapentin 100 mg capsule 200 mg PO BID Qty: 120 11RF Rx Instructions: Increase dose to 200 mg (2 tabs) twice a day. Call if alteration in mental status occurs calcium acetate(phosphat bind) 667 mg capsule 2,668 mg PO .TID with meals Qty: 360 11RF Rx Instructions: Take 2 to 4 gel caps with each meal based on serum Phosphorous level acetaminophen-codeine 120 mg-12 mg /5 mL (5 mL) solution 5 ml PO QHS PRN (Reason: Cough post CoVID) Qty: 200 0RF codeine-guaifenesin 10-100 mg/5 mL liquid 5 ml PO .Q12 PRN (Reason: cough) Qty: 237 0RF hydroxyzine HCl 25 mg tablet 25 mg PO TID PRN (Reason: itching) Qty: 90 3RF calcitriol 0.25 mcg capsule 1 mcg PO 3XW 0RF Hold Instructions: Doctor's Order Rx Instructions: administer after dialysis on dialysis days
[2021-06-28 19:32] LABS: Eosinophils % (Manual) 3 % (0-7); Lymphocytes % 8 % (15-49); Monocytes % (Manual) 8 % (1-12); Platelet Estimate NORMAL (Normal); RBC Morphology NORMAL (Normal); Segmented Neutrophils % 81 % (38-78)
--- NOTE | 2021-06-28 19:51 | Internal Med History&Physical ---
HPI History of Present Illness Patient information: Note initiated : 06/28/21 at 7:43 pm Service Date, if different from initiated Date: [] Patient: Khadar Rizo a 60 y/o M admitted on for nausea/vomiting, dialysis pt. Chief Complaint: [] History of present illness: Mr. Rizo is a 60 year old M Presents to the ED with generalized weakness diarrhea not been been eating and drinking. He has had nausea and vomiting says 3 or 4 times. Diarrhea. This all started Sunday late morning. Missed dialysis yesterday. Came into the ED because of increasing weakness and felt dehydrated. Dyspnea on exertion but not hypoxic in the ED. [id number] potassium was 8.1. Had a sinus pause widened QRS. Started on potassium lower treatment in the ED and Dr. Hopper from nephrology was contacted who came and saw the patients in the setting of dialysis for tonight. Covid test in the ED was negative. Review of Systems: Pertinent positives as above plus pyrosis. denies headache/fever/chills/chest or abdominal pain/cough/dyspnea. Remaining 10 point review of system reviewed negative PFSH PFSH All Active Problems Proteus (mirabilis) (morganii) as the cause of diseases classified elsewhere (Chronic) ESRD on hemodialysis (Chronic) Staghorn renal calculus (Chronic) Anemia due to end stage renal disease (Chronic) Renal calculi (Chronic) Insomnia (Chronic) Acute kidney injury (Chronic 09/08/17) Acute renal failure (Chronic 09/08/17) Pyelonephritis (Chronic 09/08/17) Volume depletion (Chronic 09/08/17) Hyperkalemia (Acute 09/08/17) Hypertension (Chronic 09/08/17) DVT prophylaxis (Chronic 09/08/17) UTI (urinary tract infection) (Chronic 09/08/17) Flank pain (Chronic) Vomiting (Chronic) Weakness (Chronic) Acute diastolic (congestive) heart failure (Chronic) DM type 2 (diabetes mellitus, type 2) (Chronic) Uremia (Chronic) Staghorn calculus (Chronic) History of shortness of breath (Chronic) Complications, dialysis, catheter, mechanical (Chronic) Bacteremia (Acute) Bacteremia due to Streptococcus (Acute) Secondary hyperparathyroidism (Acute) Cellulitis (Acute) Abdominal muscle strain (Acute) Fatty liver disease, nonalcoholic (Acute) S/p nephrectomy (Acute) Pneumonia (Acute) Dialysis patient (Acute) Acute on chronic combined systolic and diastolic CHF, NYHA class 2 (Acute) Hyperparathyroidism due to end stage renal disease on dialysis (Acute) RLS (restless legs syndrome) (Acute) Nocturnal myoclonus (Acute) Pre-transplant evaluation for end stage renal disease (Acute) Pain (Acute) COVID-19 (Acute) Acute hyperkalemia (Acute) Fluid overload (Acute) Community acquired pneumonia, bilateral (Acute) Diarrhea (Acute) Hyponatremia (Acute) Pseudoaneurysm of AV hemodialysis fistula (Acute) Cough (Acute) Medical History Acute diastolic (congestive) heart failure Acute kidney injury (09/08/17) Acute renal failure (09/08/17) Anemia due to end stage renal disease DM type 2 (diabetes mellitus, type 2) DVT prophylaxis (09/08/17) ESRD on hemodialysis HD qMWF Flank pain History of shortness of breath Hyperkalemia (09/08/17) Hypertension (09/08/17) Insomnia Proteus (mirabilis) (morganii) as the cause of diseases classified elsewhere Pyelonephritis (09/08/17) Renal calculi Staghorn calculus Staghorn renal calculus Uremia UTI (urinary tract infection) (09/08/17) Volume depletion (09/08/17) Vomiting Weakness Surgical History History of knee surgery History of nephrectomy Status post removal of arteriovenous fistula Family History Father Coronary artery disease Mother Coronary artery disease Social History (Updated 04/22/18 @ 12:58 by Lori Pitts MD) alcohol intake frequency: does not drink substance use type: does not use MEDS/ALLERGIES Home Medications and Allergies Home Medications Medication Instructions Recorded Confirmed Type calcitriol 0.25 mcg capsule 1 mcg PO 3XW cap 07/12/20 01/14/21 History gabapentin 100 mg capsule 200 mg PO BID #120 cap 09/20/20 01/14/21 Rx calcium acetate(phosphat bind) 667 2,668 mg PO .TID with meals #360 02/07/21 Rx mg capsule cap acetaminophen 120 mg-codeine 12 5 ml PO QHS PRN #200 ml 02/16/21 Rx mg/5 mL (5 mL) oral solution codeine 10 mg-guaifenesin 100 mg/5 5 ml PO .Q12 PRN #237 ml 03/21/21 Rx mL oral liquid hydroxyzine HCl 25 mg tablet 25 mg PO TID PRN #90 tab 03/23/21 Rx Allergies Allergy/AdvReac Type Severity Reaction Status Date / Time bee venom protein (honey bee) Allergy Severe Anaphylaxis Verified 06/28/21 17:02 ceftriaxone Allergy Mild Hives Verified 06/28/21 17:02 Penicillins Allergy Mild Hives Verified 06/28/21 17:02 coconut Allergy Unknown Unknown Verified 06/28/21 17:02 EXAM Constitutional Vitals: Temp Pulse Resp BP Pulse Ox 98.4 F 70 22 149/75 100 06/28/21 17:00 06/28/21 19:28 06/28/21 19:28 06/28/21 19:28 06/28/21 19:28 Exam: Exam: General: Alert, Awake, No acute Distress, obese Eyes/N/T: EOMI, PERRL, Head/Neck: neck supple, normocephalic atraumatic CV: RRR, No murmurs, normal s1/s2 Pulm: diminished b/l, no wheezing Abd: soft, nontender, +BS x4 Ext: no clubbing/cyanosis, 1-2+ b/l LE edema Neuro: Alert, no focal deficits, moves all extremities, CN 2-12 grossly intact, symmetrical strength b/l upper/lower, sensations intact b/l upper/lower Skin: warm/dry DATA Data Completed and Pending Labs: Labs from last 24 hours 06/28/21 06/28/21 06/28/21 18:35 18:35 17:56 WBC RBC Hgb Hct POC Hct 34 L MCV MCH MCHC RDW Plt Count MPV Seg Neutrophils % Lymphocytes % Monocytes % (Manual) Eosinophils % (Manual) Platelet Estimate RBC Morphology POC Sodium 132 L Sodium POC Potassium 8.1 H* Potassium Pending POC Chloride 101 Chloride Carbon Dioxide POC Total CO2 21 L Anion Gap POC BUN 136 H* BUN Creatinine POC Creatinine 16.8 H* GFR Calculation Glucose POC Glucose 96 Calcium POC WB Ioniz Calcium 1.04 L Magnesium Pending Total Bilirubin AST ALT Alkaline Phosphatase Total Protein Albumin Globulin Albumin/Globulin Ratio 06/28/21 06/28/21 17:10 17:10 WBC 9.3 RBC 3.60 L Hgb 10.4 L Hct 31.0 L POC Hct MCV 86.1 MCH 28.9 MCHC 33.5 RDW 13.2 Plt Count 225 MPV 11.8 H Seg Neutrophils % 81 H Lymphocytes % 8 L Monocytes % (Manual) 8 Eosinophils % (Manual) 3 Platelet Estimate Normal RBC Morphology Normal POC Sodium Sodium 135 POC Potassium Potassium 7.7 H* POC Chloride Chloride 92 L Carbon Dioxide 19 L POC Total CO2 Anion Gap 24.0 H POC BUN BUN 97 H Creatinine 15.0 H* POC Creatinine GFR Calculation 3 Glucose 94 POC Glucose Calcium 8.9 POC WB Ioniz Calcium Magnesium Total Bilirubin 0.3 AST 13 ALT 8 Alkaline Phosphatase 81 Total Protein 7.2 Albumin 4.3 Globulin 2.9 Albumin/Globulin Ratio 1.5 A/P Assessment and plan (1) ESRD on hemodialysis: Status: Chronic Comment: HD qMWF (2) Acute hyperkalemia: Status: Acute (3) Fluid overload: Status: Acute (4) Anemia due to end stage renal disease: Status: Chronic (5) Cough: Status: Acute Narrative A/P Narrative: A: *Hyperkalemia w/ekg changes: *Likely volume overload: missed HD session *Viral prodrome with N/V/Diarrhea: covid negative in ED *ESRD on HD with acute component: pt anuric *Anemia, chronic: *obesity: *Neuropathy: P: -Nephro for HD and electrolytes abnormalities -cont home meds per nephro -Home medication reconciliation -pt/ot -ppx: heparin full code Time Spent With Patient Time: Total time spent is greater than 50% in coordination of care (as documented) at patient's floor/unit and/or counseling patient:
[2021-06-28] MEDS ORDERED: DEXTROSE 25 % 10ML SYRINGE (PEDIATRIC) IV ONE (20:07)
--- NOTE | 2021-06-28 20:24 | Nephrology Consult Note ---
HPI Data of Consult Patient: known to practice within the last 3 years Consult date: 06/28/21 Requesting physician: Jerry Timmons Primary Care Provider: Paulette García Consult Narrative Patient Information: Note initiated : 06/28/21 at 8:17 pm Service Date, if different from initiated Date: [] Patient: Khadar Rizo 60 y/o M admitted on for nausea/vomiting, dialysis pt. Chief Complaint: [] Chief complaint: Diarrhea, SARs CV2 exposure, missed HD Reason for consult: ESRD and hyperkalemia. cc:: Patient is well known to me. ESRD for > 3 years due to bilateral staghorn calculi. S/P bilateral NPx to get transplant listed at [facility] Tx unit but denied access/listing due to "cirrhosis" which proved to be a falsehood and he actually had no hepatic insufficiency just a fatty liver. Subsequently he is undergoing a relook as he is compliant with showing up for treatment. His issues revolve around a carnivorous diet and hyperphosphatemia. While visiting with family, he was exposed to SARS CV2 from one of his grandchildren. Subsequently, sees developed a cough, nausea a diarrhea. He could not attend dialysis due to the frequency of stooling and was rescheduled for today. He still is experiencing diarrhea so did not show today but instead presented to ED. There he was found to have hyperkalemia, acidosis, abnormal CXR. Repeat K was no better and I was called for acute HD. He was treated with usual hyperkalemia protocol to no benefit. EKD with some atrial block and but no hyperacute T wave changes. However, telemetry with HR 40's before albuterol. Acute HD orders were written and HD nurse contacted by myself for treatment tonight and repeat treatment tomorrow. Patient in agreement with plan. Due to diarrhea, he is near his outpatient dry weight. 06/28/2021 06/28/21 17:10 Sodium 135 Potassium 7.7 H* Chloride 92 L Carbon Dioxide 19 L Anion Gap 24.0 H BUN 97 H Creatinine 15.0 H* Glucose 94 Calcium 8.9 Albumin 4.3 Albumin/Globulin Ratio 1.5 Vital Signs Temp Pulse Resp BP Pulse Ox 06/28/21 20:31 71 15 142/86 92 06/28/21 20:17 19 146/94 06/28/21 20:02 78 21 146/72 100 06/28/21 19:47 78 20 145/69 100 06/28/21 19:32 72 22 150/65 100 06/28/21 19:28 70 22 149/75 100 06/28/21 19:22 22 149/75 06/28/21 19:19 71 28 H 100 06/28/21 18:17 44 L 23 H 151/81 06/28/21 18:10 43 L 18 141/80 93 06/28/21 18:01 43 L 28 H 94 06/28/21 17:52 42 L 21 140/73 93 06/28/21 17:47 41 L 23 H 159/84 93 06/28/21 17:32 51 L 159/78 92 06/28/21 17:19 67 22 158/90 92 06/28/21 17:18 158/90 06/28/21 17:00 36.9 C 66 20 157/102 93 Intake and Output 06/28/21 06/28/21 06/28/21 05:59 13:59 21:59 Intake Total 500 Balance 500 Intake: IV 500 Sodium Chloride 0.9% 500 ml @ 500 Wide Open IV BOLUS ONE Rx#: [id number] Other: Weight 131.542 kg Patient Weight 06/29/21 05:59 Weight 131.542 kg Constitutional Constitutional: Present as per HPI, fatigue, headache(s) and weakness EENT Eyes: Present as per HPI Ears: Present as per HPI Nose, mouth and throat: Present dizziness Cardiovascular Cardiovascular: Present dyspnea Respiratory Respiratory: Present cough and dyspnea on exertion Gastrointestinal Gastrointestinal: Present diarrhea, nausea and other (SARs CV exposure from grandchild) Musculoskeletal Musculoskeletal: Present muscle weakness Integumentary Integumentary: Present as per HPI Neurological Neurological: Present as per HPI Psychiatric Psychiatric: Present as per HPI Endocrine Endocrine: Present as per HPI and fatigue Hematologic/Lymphatic Additional comments: anemia of ESRD on ALEX Allergic/Immunologic Allergic/Immunologic: Present other (puritis due to uncontrolled hyperphosphatemia and hyperparathyroidism) PFSH PFSH All Active Problems (Updated 06/28/21 @ 21:15 by Esau Hopper MD) Acute renal failure (Acute) Acute hyperkalemia (Acute) Bradycardia (Acute) Acute hyperkalemia (Acute) Cough (Acute) ESRD on hemodialysis (Chronic) Fluid overload (Acute) Anemia due to end stage renal disease (Chronic) Diarrhea (Acute) Pseudoaneurysm of AV hemodialysis fistula (Acute) Hyponatremia (Acute) Community acquired pneumonia, bilateral (Acute) COVID-19 (Acute) Pain (Acute) Pre-transplant evaluation for end stage renal disease (Acute) Nocturnal myoclonus (Acute) Proteus (mirabilis) (morganii) as the cause of diseases classified elsewhere (Chronic) Staghorn renal calculus (Chronic) Renal calculi (Chronic) Insomnia (Chronic) Acute kidney injury (Chronic 09/08/17) Acute renal failure (Chronic 09/08/17) Pyelonephritis (Chronic 09/08/17) Volume depletion (Chronic 09/08/17) Hyperkalemia (Acute 09/08/17) Hypertension (Chronic 09/08/17) DVT prophylaxis (Chronic 09/08/17) UTI (urinary tract infection) (Chronic 09/08/17) Flank pain (Chronic) Vomiting (Chronic) Weakness (Chronic) Acute diastolic (congestive) heart failure (Chronic) DM type 2 (diabetes mellitus, type 2) (Chronic) Uremia (Chronic) Staghorn calculus (Chronic) History of shortness of breath (Chronic) Complications, dialysis, catheter, mechanical (Chronic) Bacteremia (Acute) Bacteremia due to Streptococcus (Acute) Secondary hyperparathyroidism (Acute) Cellulitis (Acute) Abdominal muscle strain (Acute) Fatty liver disease, nonalcoholic (Acute) S/p nephrectomy (Acute) Pneumonia (Acute) Dialysis patient (Acute) Acute on chronic combined systolic and diastolic CHF, NYHA class 2 (Acute) Hyperparathyroidism due to end stage renal disease on dialysis (Acute) RLS (restless legs syndrome) (Acute) Medical History (Updated 06/28/21 @ 21:15 by Esau Hopper MD) Acute diastolic (congestive) heart failure Acute kidney injury (09/08/17) Acute renal failure (09/08/17) Anemia due to end stage renal disease Once K corrected, give Aranesp DM type 2 (diabetes mellitus, type 2) DVT prophylaxis (09/08/17) ESRD on hemodialysis HD qMWF Flank pain History of shortness of breath Hyperkalemia (09/08/17) Hypertension (09/08/17) Insomnia Proteus (mirabilis) (morganii) as the cause of diseases classified elsewhere Pyelonephritis (09/08/17) Renal calculi Staghorn calculus Staghorn renal calculus Uremia UTI (urinary tract infection) (09/08/17) Volume depletion (09/08/17) Vomiting Weakness Surgical History History of knee surgery History of nephrectomy Status post removal of arteriovenous fistula Family History Father Coronary artery disease Mother Coronary artery disease Social History (Updated 04/22/18 @ 12:58 by Lori Pitts MD) alcohol intake frequency: does not drink substance use type: does not use MEDS/ALLERGIES Home Medications and Allergies Home Medications Medication Instructions Recorded Confirmed Type calcitriol 0.25 mcg capsule 1 mcg PO 3XW cap 07/12/20 01/14/21 History gabapentin 100 mg capsule 200 mg PO BID #120 cap 09/20/20 01/14/21 Rx calcium acetate(phosphat bind) 667 2,668 mg PO .TID with meals #360 02/07/21 Rx mg capsule cap acetaminophen 120 mg-codeine 12 5 ml PO QHS PRN #200 ml 02/16/21 Rx mg/5 mL (5 mL) oral solution codeine 10 mg-guaifenesin 100 mg/5 5 ml PO .Q12 PRN #237 ml 03/21/21 Rx mL oral liquid hydroxyzine HCl 25 mg tablet 25 mg PO TID PRN #90 tab 03/23/21 Rx Allergies Allergy/AdvReac Type Severity Reaction Status Date / Time bee venom protein (honey bee) Allergy Severe Anaphylaxis Verified 06/28/21 17:02 ceftriaxone Allergy Mild Hives Verified 06/28/21 17:02 Penicillins Allergy Mild Hives Verified 06/28/21 17:02 coconut Allergy Unknown Unknown Verified 06/28/21 17:02 Physical Examination Vital Signs Vital signs: Temp Pulse Resp BP Pulse Ox 36.9 C 78 21 146/72 100 06/28/21 17:00 06/28/21 20:02 06/28/21 20:02 06/28/21 20:02 06/28/21 20:02 General Appearance General appearance: obese, chronically ill and fatigue EENT EENT: ATNC, PERRL and mucous membranes dry Neck Neck: no JVD, no carotid bruit and supple Respiratory Respiratory: wheezing (on forced expiration), course breath sounds and rhonchi Cardiovascular Cardiology: no rub, no gallops, edema, normal S1 and normal S2 Gastrointestinal Gastrointestinal: abdominal bruit Integumentary Integumentary: no rash Neurologic Neurologic: no focal deficit and CN 3-12 intact Musculoskeletal Musculoskeletal: no deformities Psychiatric Psychiatric: mood/affect appropriate Results Lab Results Result Diagrams: 06/28/21 17:10 06/28/21 18:35 Lab results: Most recent lab results Calcium 8.9 mg/dL (8.6-10.4) 06/28/21 17:10 Magnesium 2.4 mg/dL (1.6-2.5) 06/28/21 18:35 A/P Assessment and plan (1) Acute hyperkalemia: Status: Acute Comment: ESRD x 3 hours tonight on 2K, high bicarb bath (2) ESRD on hemodialysis: Status: Chronic Comment: HD qMWF (3) Anemia due to end stage renal disease: Status: Chronic Comment: Once K corrected, give Aranesp (4) Fluid overload: Assessment and plan: Minimized by GI volume loss Status: Acute Comment: 1-3 liters of U/F (5) Cough: Assessment and plan: SARS CV exposure Abnormal CXR Status: Acute Comment: Likely Omicrom exposure PCR 1 dose Ivermectin pending PCR results On 1,25 vit D 2 analogue already Vit C, Zinc, Famotidine ABSOLUTELY NO REMDESIVER Narrative A/P Narrative: 1. Acute HD on 2K/high Bicarb bath 2. Check K at onset of HD tonight 3. Follow [facility] hospitalized protocol for SARS CV 2 4. SARS CV2 test 5. Serial labs and CXR 6. HD tonight and tomorrow. Time Spent With Patient Time: Total time spent is greater than 50% in coordination of care (as documented) at patient's floor/unit and/or counseling patient: Total time spent with greater than 50% in coordination of care (as documented) at patient's floor/unit and/or counseling patient:: Greater than 35 minutes
[2021-06-28] MEDS ORDERED: IPRATROPIUM/ALBUTEROL 3 ML AMPUL.NEB NEB PRN (21:19)
[2021-06-28] MEDS ORDERED: POTASSIUM CHLORIDE 40 MEQ in DEXTROSE 5% IN WATER 500 ML IV PRN (21:19)
[2021-06-28] MEDS ORDERED: MAGNESIUM SULFATE 2 GM/50 ML BAG IV PRN (21:19)
[2021-06-28] MEDS ORDERED: SENNOSIDES 1 TABLET PO PRN (21:19)
[2021-06-28] MEDS ORDERED: IVERMECTIN 3 MG TABLET PO SCH (21:19)
[2021-06-28] MEDS ORDERED: POLYETHYLENE GLYCOL 3350 17 GM PACKET PO PRN (21:19)
[2021-06-28] MEDS ORDERED: POTASSIUM CHLORIDE 20 MEQ TABLET PO PRN ×2 (21:19)
[2021-06-28] MEDS ORDERED: ONDANSETRON 4 MG/2 ML VIAL IV PRN (21:19)
--- NOTE | 2021-06-29 01:34 | XRay Report ---
CLINICAL INFORMATION: Sepsis COMPARISON: 01/19/2021 TECHNIQUE: Portable FINDINGS: Moderate cardiomegaly is unchanged. Mediastinum is unremarkable. Mild distention of upper lobe pulmonary vasculature. No infiltrates or effusions. IMPRESSION: No evidence of infection. Borderline CHF. Interpreted and Authenticated by: Facundo Thorpe 06/29/21
[2021-06-29] MEDS: DOCUSATE SODIUM 100 MG CAPSULE PO SCH ×3 (03:50→19:17)
[2021-06-29] MEDS: HEPARIN 5,000 UNIT/ML VIAL SQ SCH ×3 (03:50→19:16)
[2021-06-29] MEDS: ASCORBIC ACID 500 MG TABLET PO SCH ×3 (03:51→19:15)
[2021-06-29] MEDS: ZINC SULFATE 50 MG CAPSULE PO SCH ×3 (03:51→19:15)
[2021-06-29] MEDS: 0.9 % SODIUM CHLORIDE 10 ML SYRINGE IV SCH ×4 (03:51→22:10)
[2021-06-29] MEDS: FAMOTIDINE 20 MG TABLET PO SCH ×2 (03:51→19:16)
[2021-06-29] MEDS ORDERED: IVERMECTIN 3 MG TABLET PO SCH (04:00)
[2021-06-29 04:47] LABS: ALT/SGPT 12 U/L (<40); AST/SGOT 16 U/L (<40); Albumin/Globulin Ratio 1.3 (1.0-2.3); Alkaline Phosphatase 77 U/L (39-117); Bilirubin,Direct < 0.2 mg/dL (0-0.3); Bilirubin,Total 0.5 mg/dL (0.1-1.0); Blood Urea Nitrogen 45 mg/dL (6-20); Calcium 8.5 mg/dL (8.6-10.4); Carbon Dioxide 27 mmol/L (22-30); Chloride 90 mmol/L (96-108); Glomerular Filtration Rate 6; Glucose 81 mg/dL (70-105); Lactate Dehydrogenase 226 U/L (135-225); Phosphorous 4.9 mg/dL (2.5-4.5); Triglycerides 140 mg/dL (<150)
[2021-06-29] MEDS ORDERED: hydrOXYzine 25 MG TABLET PO PRN (07:34)
[2021-06-29] MEDS ORDERED: ACETAMINOPHEN W/CODEINE 5 ML ORAL.SOL PO PRN (07:34)
--- NOTE | 2021-06-29 07:34 | Internal Med Progress Note ---
SUBJECTIVE Subjective Patient information: Note initiated : 06/29/21 at 7:32 am Service Date, if different from initiated Date: [] Patient: Khadar Rizo a 60 y/o M admitted on 06/28/21 for nausea/vomiting, dialysis pt. Chief Complaint: [] Interval history: History of present illness: Mr. Rizo is a 60 year old M Presents to the ED with generalized weakness diarrhea not been been eating and drinking. He has had nausea and vomiting says 3 or 4 times. Diarrhea. This all started Sunday late morning. Missed dialysis yesterday. Came into the ED because of increasing weakness and felt dehydrated. Dyspnea on exertion but not hypoxic in the ED. [id number] potassium was 8.1. Had a sinus pause widened QRS. Started on potassium lower treatment in the ED and Dr. Hopper from nephrology was contacted who came and saw the patients in the setting of dialysis for tonight. Covid test in the ED was negative. 2/ Patient feeling much better after dialysis. No nausea vomiting diarrhea this morning. Review of Systems: denies headache/fever/chills//chest or abdominal pain/cough/dyspnea. Otherwise see above. Constitutional Vitals: Vital Signs Temp Pulse Resp BP Pulse Ox 97.1 F 95 H 16 132/76 93 06/29/21 04:01 06/29/21 06:28 06/29/21 06:28 06/29/21 06:02 06/29/21 06:28 Period Temp Pulse Resp BP Sys/Ding Pulse Ox Last 24 Hr 97.1 F-98.7 F 41-105 15-28 123-160/65-102 91-100 Intake and Output 06/28/21 06/29/21 06/29/21 21:59 05:59 13:59 Intake Total 500 480 Output Total 3000 Balance 500 -2520 Weight 139.026 kg Intake & Output: Intake & Output 06/28/21 06/29/21 06/29/21 21:59 05:59 13:59 Intake Total 500 480 Output Total 3000 Balance 500 -2520 Weight 139.026 kg Intake: IV 500 Sodium Chloride 0.9% 500 ml @ 500 Wide Open IV BOLUS ONE Rx#: [id number] Oral 480 Output: Hemodialysis UF 3000 Other: Meal snack Percent of Meal Consumed 100% Feeding Ability Independent Exam: General: Alert, Awake, No acute Distress, obese Eyes/N/T: EOMI, Head/Neck: neck supple, CV: RRR, No murmurs, Pulm: diminished b/l, no wheezing Abd: soft, nontender, +BS x4 Ext: no clubbing/cyanosis, 1-2+ b/l LE edema Neuro: Alert, no focal deficits, moves all extremities, Skin: warm/dry OBJ DATA Labs CBC & Chem 7: 06/28/21 17:10 06/29/21 03:10 Labs: Abnormal Lab Results 06/29/21 06/29/21 06/28/21 03:10 03:10 18:35 RBC Hgb Hct POC Hct MPV Seg Neutrophils % Lymphocytes % POC Sodium POC Potassium Potassium 8.5 H* Chloride 90 L Carbon Dioxide POC Total CO2 Anion Gap 20.0 H POC BUN BUN 45 H Creatinine 8.4 H* POC Creatinine Calcium 8.5 L POC WB Ioniz Calcium Phosphorus 4.9 H Lactate Dehydrogenase 226 H PTH Intact 404.5 H 06/28/21 06/28/21 06/28/21 17:56 17:10 17:10 RBC 3.60 L Hgb 10.4 L Hct 31.0 L POC Hct 34 L MPV 11.8 H Seg Neutrophils % 81 H Lymphocytes % 8 L POC Sodium 132 L POC Potassium 8.1 H* Potassium 7.7 H* Chloride 92 L Carbon Dioxide 19 L POC Total CO2 21 L Anion Gap 24.0 H POC BUN 136 H* BUN 97 H Creatinine 15.0 H* POC Creatinine 16.8 H* Calcium POC WB Ioniz Calcium 1.04 L Phosphorus Lactate Dehydrogenase PTH Intact Meds: Medications Albuterol/Ipratropium (Ipratropium/Albuterol 3 Ml Ampul.Neb) 3 ml NEB Q4HP PRN PRN Reason: Shortness Of Breath Ascorbic Acid (Ascorbic Acid 500 Mg Tablet) 500 mg PO BID [facility] Last Admin: 06/29/21 03:51 Dose: Not Given Documented by: Docusate Sodium (Docusate Sodium 100 Mg Capsule) 100 mg PO BID [facility] Last Admin: 06/29/21 03:50 Dose: Not Given Documented by: Famotidine (Famotidine 20 Mg Tablet) 20 mg PO HS [facility] Last Admin: 06/29/21 03:51 Dose: Not Given Documented by: Heparin Sodium (Porcine) (Heparin 5,000 Unit/Ml Vial) 5,000 unit SQ Q12 [facility] Last Admin: 06/29/21 03:50 Dose: Not Given Documented by: Potassium Chloride 40 meq/ (Dextrose) 520 mls @ 130 mls/hr IV UD PRN PRN Reason: Potassium < 3 Magnesium Sulfate (Magnesium Sulfate) 2 gm in 50 mls @ 50 mls/hr IV UD PRN PRN Reason: Magnesium </= 1.6 Ivermectin (Ivermectin 3 Mg Tablet) 15 mg PO [id number] [facility] Last Admin: 06/29/21 03:52 Dose: Not Given Documented by: Ondansetron HCl (Ondansetron 4 Mg/2 Ml Vial) 4 mg IV Q4HP PRN PRN Reason: Nausea And Vomiting Polyethylene Glycol (Polyethylene Glycol 3350 17 Gm Packet) 17 gm PO DAILYP PRN PRN Reason: Constipation Potassium Chloride (Potassium Chloride 20 Meq Tablet) 40 meq PO UD PRN PRN Reason: Potssium is 3-3.5 Potassium Chloride (Potassium Chloride 20 Meq Tablet) 40 meq PO UD PRN PRN Reason: Potassium < 3 Senna (Sennosides 1 Tablet) 2 tab PO DAILYP PRN PRN Reason: Constipation Sodium Chloride (0.9 % Sodium Chloride 10 Ml Syringe) 10 ml IV Q8 [facility] Last Admin: 06/29/21 05:55 Dose: 10 ml Documented by: Zinc Sulfate (Zinc Sulfate 50 Mg Capsule) 50 mg PO BID [facility] Last Admin: 06/29/21 03:51 Dose: Not Given Documented by: A/P Narrative A/P Narrative: A: *Hyperkalemia w/ekg changes: resolved s/p HD *Likely volume overload: missed HD session, on room air *Viral prodrome with N/V/Diarrhea: covid negative in ED. no diarrhea o/n *ESRD on HD with acute component: pt anuric *Anemia, chronic: *obesity: *Neuropathy: P: -Nephro for HD and electrolytes abnormalities -cont home meds per nephro -pt/ot -ppx: heparin full code Time Spent With Patient Time: Total time spent is greater than 50% in coordination of care (as documented) at patient's floor/unit and/or counseling patient:
[2021-06-29] MEDS ORDERED: guaiFENesin/CODEINE 10 ML UDC PO PRN (08:16)
--- NOTE | 2021-06-29 08:16 | Nephrology Progress Note ---
SUBJECTIVE Subjective Patient information: Note initiated : 06/29/21 at 8:08 am Service Date, if different from initiated Date: [] Patient: Khadar Rizo 60 y/o M admitted on 06/28/21 for nausea/vomiting, dialysis pt. Chief Complaint: [Cough, diarrhea and missed HD] Principal diagnosis: ESRD Interval history: Admitted after missing HD session due to frequent episodes of stooling which is poorly tolerated in the outpatient HD unit due to work involved in unhooking and reattaching blood lines several times during HD. Presented with Hyperkalemia, metabolic acidosis and cardiac abnormalities (Bradycardia and pauses). Therefore underwent acute HD last PM with resolution of metabolic abnormalities. To my mind, SARs-CV 2 needs early Tx if he is positive as he has a number of risks (HTN, obesity and ESRD) and did poorly with early episode of SARS CV2 until ivermectin was initiated. He has a cough and diarrhea along with exposure to a grandchild with CoVid infection so this seem likely though other causes of diarrhea (rotovirus, D diff, enteric pathogens are possible). Vital Signs Temp Pulse Resp BP Pulse Ox 06/29/21 06:28 95 H 16 93 06/29/21 06:02 92 H 19 132/76 93 06/29/21 04:01 36.2 C 92 H 21 130/82 95 06/29/21 03:31 71 21 149/82 96 06/29/21 03:16 67 20 160/73 95 06/29/21 03:01 17 146/91 06/29/21 02:46 71 19 138/84 97 06/29/21 02:31 72 19 151/87 97 06/29/21 02:16 90 16 142/77 96 06/29/21 02:06 70 18 145/88 96 06/29/21 02:01 16 151/80 06/29/21 01:59 36.4 C 70 151/80 06/29/21 01:46 74 19 152/81 97 06/29/21 01:45 76 152/81 06/29/21 01:31 65 18 143/70 98 06/29/21 01:30 75 143/70 06/29/21 01:16 85 18 138/83 97 06/29/21 01:14 80 138/83 06/29/21 01:01 76 19 148/82 96 06/29/21 00:59 76 148/82 06/29/21 00:46 15 124/79 06/29/21 00:44 73 124/79 06/29/21 00:31 85 19 130/70 97 06/29/21 00:29 80 130/70 06/29/21 00:16 16 125/86 06/29/21 00:14 87 125/86 06/29/21 00:01 36.5 C 75 18 137/81 96 06/28/21 23:59 75 137/81 06/28/21 23:46 18 124/78 06/28/21 23:45 91 H 124/78 06/28/21 23:31 105 H 19 130/82 96 06/28/21 23:30 75 130/82 06/28/21 23:20 80 125/75 06/28/21 23:16 75 18 125/75 94 06/28/21 23:01 62 19 141/68 95 06/28/21 23:00 36.7 C 71 141/68 06/28/21 22:46 62 21 123/72 92 06/28/21 22:31 63 19 133/78 91 06/28/21 22:16 64 19 138/78 94 06/28/21 22:01 37.1 C 67 21 131/71 92 06/28/21 21:46 57 L 19 140/82 91 06/28/21 21:31 73 19 138/83 95 06/28/21 21:16 36.6 C 73 20 147/76 97 06/28/21 21:10 82 23 H 150/88 94 06/28/21 20:31 71 15 142/86 92 06/28/21 20:17 19 146/94 06/28/21 20:02 78 21 146/72 100 06/28/21 19:47 78 20 145/69 100 06/28/21 19:32 72 22 150/65 100 06/28/21 19:28 70 22 149/75 100 06/28/21 19:22 22 149/75 06/28/21 19:19 71 28 H 100 06/28/21 18:17 44 L 23 H 151/81 06/28/21 18:10 43 L 18 141/80 93 06/28/21 18:01 43 L 28 H 94 06/28/21 17:52 42 L 21 140/73 93 06/28/21 17:47 41 L 23 H 159/84 93 06/28/21 17:32 51 L 159/78 92 06/28/21 17:19 67 22 158/90 92 06/28/21 17:18 158/90 06/28/21 17:00 36.9 C 66 20 157/102 93 Intake and Output 06/28/21 06/29/21 06/29/21 21:59 05:59 13:59 Intake Total 500 480 Output Total 3000 Balance 500 -2520 Intake: IV 500 Sodium Chloride 0.9% 500 ml @ 500 Wide Open IV BOLUS ONE Rx#: [id number] Oral 480 Output: Hemodialysis UF 3000 Other: Meal snack Percent of Meal Consumed 100% Feeding Ability Independent Weight 139.026 kg Laboratory Tests 06/29/21 06/29/21 06/29/21 03:10 03:10 03:10 Sodium 137 Potassium 4.2 Chloride 90 L Carbon Dioxide 27 Anion Gap 20.0 H BUN 45 H Creatinine 8.4 H* GFR Calculation 6 Glucose 81 Calcium 8.5 L Phosphorus 4.9 H Magnesium 2.0 AST 16 Lactate Dehydrogenase 226 H Albumin 4.0 PTH Intact 404.5 H Procedure/Result SARS-CoV-2 by PCR (MEHUL) - Pending Current Medications Acetaminophen/Codeine Phosphate (Acetaminophen W/Codeine 5 Ml Oral.Luci) 5 ml PO QHS PRN; Protocol PRN Reason: Cough post CoVID Albuterol/Ipratropium (Ipratropium/Albuterol 3 Ml Ampul.Neb) 3 ml NEB Q4HP PRN PRN Reason: Shortness Of Breath Ascorbic Acid (Ascorbic Acid 500 Mg Tablet) 500 mg PO BID [facility] Last Admin: 06/29/21 03:51 Dose: Not Given Documented by: Calcitriol (Calcitriol 0.25 Mcg Capsule) 1 mcg PO 3XW [facility] Calcium Acetate (Calcium Acetate 667 Mg Capsule) 2,668 mg PO .TID with meals [facility] Docusate Sodium (Docusate Sodium 100 Mg Capsule) 100 mg PO BID [facility] Last Admin: 06/29/21 03:50 Dose: Not Given Documented by: Famotidine (Famotidine 20 Mg Tablet) 20 mg PO [facility] Last Admin: 06/29/21 03:51 Dose: Not Given Documented by: Gabapentin (Gabapentin 100 Mg Capsule) 200 mg PO BID [facility] Guaifenesin/Codeine Phosphate (Guaifenesin/Codeine (Pp) 60 Ml Bottle) 5 ml PO .Q12 PRN PRN Reason: cough Heparin Sodium (Porcine) (Heparin 5,000 Unit/Ml Vial) 5,000 unit SQ Q12 [facility] Last Admin: 06/29/21 03:50 Dose: Not Given Documented by: Hydroxyzine HCl (Hydroxyzine 25 Mg Tablet) 25 mg PO TID PRN PRN Reason: itching Potassium Chloride 40 meq/ (Dextrose) 520 mls @ 130 mls/hr IV UD PRN PRN Reason: Potassium < 3 Magnesium Sulfate (Magnesium Sulfate) 2 gm in 50 mls @ 50 mls/hr IV UD PRN PRN Reason: Magnesium </= 1.6 Ivermectin (Ivermectin 3 Mg Tablet) 15 mg PO [id number] [facility] Last Admin: 06/29/21 03:52 Dose: Not Given Documented by: Ondansetron HCl (Ondansetron 4 Mg/2 Ml Vial) 4 mg IV Q4HP PRN PRN Reason: Nausea And Vomiting Polyethylene Glycol (Polyethylene Glycol 3350 17 Gm Packet) 17 gm PO DAILYP PRN PRN Reason: Constipation Potassium Chloride (Potassium Chloride 20 Meq Tablet) 40 meq PO UD PRN PRN Reason: Potssium is 3-3.5 Potassium Chloride (Potassium Chloride 20 Meq Tablet) 40 meq PO UD PRN PRN Reason: Potassium < 3 Senna (Sennosides 1 Tablet) 2 tab PO DAILYP PRN PRN Reason: Constipation Sodium Chloride (0.9 % Sodium Chloride 10 Ml Syringe) 10 ml IV Q8 [facility] Last Admin: 06/29/21 05:55 Dose: 10 ml Documented by: Zinc Sulfate (Zinc Sulfate 50 Mg Capsule) 50 mg PO BID [facility] Last Admin: 06/29/21 03:51 Dose: Not Given Documented by: Pertinent ROS: Feeling better Less cough Constitutional Vitals: Vital Signs Temp Pulse Resp BP Pulse Ox 36.2 C 95 H 16 132/76 93 06/29/21 04:01 06/29/21 06:28 06/29/21 06:28 06/29/21 06:02 06/29/21 06:28 Period Temp Pulse Resp BP Sys/Ding Pulse Ox Last 24 Hr 36.2 C-37.1 C 41-105 15-28 123-160/65-102 91-100 Intake and Output 06/28/21 06/29/21 06/29/21 21:59 05:59 13:59 Intake Total 500 480 Output Total 3000 Balance 500 -2520 Weight 139.026 kg Intake & Output: Intake & Output 06/28/21 06/29/21 06/29/21 21:59 05:59 13:59 Intake Total 500 480 Output Total 3000 Balance 500 -2520 Weight 139.026 kg Intake: IV 500 Sodium Chloride 0.9% 500 ml @ 500 Wide Open IV BOLUS ONE Rx#: [id number] Oral 480 Output: Hemodialysis UF 3000 Other: Meal snack Percent of Meal Consumed 100% Feeding Ability Independent General appearance: cooperative and no acute distress Head Head exam: Present atraumatic and normocephalic Eye Eye exam: Present EOMI and normal appearance Pupils: Present PERRL ENT ENT exam: Present mucous membranes moist Neck Neck exam: Present full ROM and normal inspection; Absent meningismus Respiratory Respiratory exam: Present decreased breath sounds, prolonged expiratory phase and rhonchi; Absent respiratory distress Cardiovascular Cardiovascular exam: Present normal rate and rhythm, RRR, +S1 and +S2; Absent irregular rhythm, JVD or rubs GI/Abdominal GI/Abdominal exam: Present normal bowel sounds and distended; Absent tenderness Extremities Exam Extremities exam: Present pedal edema; Absent calf tenderness Neurological Exam Neurological exam: Present alert, CN II-XII intact and oriented X3 Psychiatric Psychiatric exam: Present normal affect Skin Skin exam: Present dry; Absent cyanosis, erythema, mottled or petechiae A/P Assessment and plan (1) Acute hyperkalemia: Status: Acute Comment: ESRD x 3 hours tonight on 2K, high bicarb bath Bradycardia improved (2) ESRD on hemodialysis: Status: Chronic Comment: Back to HD qMWF Orders written for 06/29/2021 (3) Fluid overload: Status: Acute Comment: 1-3 liters of U/F again today Post HD weight and CXR (4) Anemia due to end stage renal disease: Assessment and plan: Aranesp 40 ug ordered Status: Chronic Comment: Once K corrected, give Aranesp (5) Bradycardia: Status: Acute Comment: Resolved (6) Cough: Assessment and plan: Improved Status: Acute Comment: Likely Omicrom exposure PCR 1 dose Ivermectin pending PCR results On 1,25 vit D 2 analogue already Vit C, Zinc, Famotidine ABSOLUTELY NO REMDESIVER PCR pending - Ivermectin suggested although HQ as good as Omicron variant is likely. Narrative A/P Narrative: 1. 3-hour HD today to get him back on his usual MWF cycle 2. Aranesp ordered 3. Check post treatment weight and chest x-ray 4. Following [email or web address] hospitalized protocol given at 25%-50% in the hospital mortality of dialysis patients if Covid positive. Remdesavir is contraindicated in ESRD and monoclonals not effective against Omicron spike protein antigen. He has natural immunity as previously infected and recovered with wither wild-type or delta variant. Awaiting pcr results. Time Spent With Patient Time: Total time spent is greater than 50% in coordination of care (as documented) at patient's floor/unit and/or counseling patient: Total time spent with greater than 50% in coordination of care (as documented) at patient's floor/unit and/or counseling patient:: Greater than 35 minutes
--- NOTE | 2021-06-29 08:48 | EKG ---
[facility] Test Date: 2021-06-28 Pat Name: Khadar Rizo Department: ICU Room: 120C Gender: Male Ward Nurse: : [id number] Requested By: Jerry Timmons Order Number: [id number] Reading MD: Ry Long D.O. Measurements Intervals [place] Rate: 73 P: 54 MI: 171 QRS: 60 QRSD: 140 T: 57 QT: 462 QTc: 510 Interpretive Statements Sinus arrhythmia Electronically Signed On 06-29-2021 8:48:32 PST by Ry Long D.O. /store/[email or web address]/[id number]
[2021-06-29] MEDS ORDERED: CALCITRIOL 0.25 MCG CAPSULE PO SCH (09:00)
[2021-06-29] MEDS: GABAPENTIN 100 MG CAPSULE PO SCH ×2 (09:59→19:16)
[2021-06-29] MEDS: CALCIUM ACETATE 667 MG CAPSULE PO SCH ×3 (09:59→17:29)
--- NOTE | 2021-06-29 10:21 | Discharge Summary ---
Discharge Provider Provider Patient information: Note initiated : 06/29/21 at 10:19 am Service Date, if different from initiated Date: [] Patient: Khadar Rizo 60 y/o M admitted on 06/28/21 for nausea/vomiting, dialysis pt. Chief Complaint: [] Date of admission: 06/28/21 21:03 Discharge date: 06/30/21 Primary care physician: Paulette García Consults: 06/28/21 Consult to Physician [CONS] Stat Comment: Consulting Provider: Jerry Timmons Reason For Exam: Physician to Consult Consult to Physician [CONS] Stat Comment: Consulting Provider: Esau Hopper Reason For Exam: Physician to Consult Discharge Meds Discharge Medications Home Medications calcitriol 0.25 mcg capsule 1 mcg PO 3XW cap 07/12/20 [History Confirmed 06/29/21 Last Taken 01/12/21] gabapentin 100 mg capsule 200 mg PO BID #120 cap 09/20/20 [Rx Confirmed 06/29/21 Last Taken 01/12/21] calcium acetate(phosphat bind) 667 mg capsule 2,668 mg PO .TID with meals #360 cap 02/07/21 [Rx Confirmed 06/29/21 Last Taken Unknown] acetaminophen 120 mg-codeine 12 mg/5 mL (5 mL) oral solution 5 ml PO QHS PRN #200 ml 02/16/21 [Rx Confirmed 06/29/21 Last Taken Unknown] codeine 10 mg-guaifenesin 100 mg/5 mL oral liquid 5 ml PO .Q12 PRN #237 ml 03/21/21 [Rx Confirmed 06/29/21 Last Taken Unknown] hydroxyzine HCl 25 mg tablet 25 mg PO TID PRN #90 tab 03/23/21 [Rx Confirmed 06/29/21 Last Taken Unknown] COURSE Hospital Course Hospital course: Interval history: History of present illness: Mr. Rizo is a 60 year old M Presents to the ED with generalized weakness diarrhea not been been eating and drinking. He has had nausea and vomiting says 3 or 4 times. Diarrhea. This all started Sunday late morning. Missed dialysis yesterday. Came into the ED because of increasing weakness and felt dehydrated. Dyspnea on exertion but not hypoxic in the ED. [id number] potassium was 8.1. Had a sinus pause widened QRS. Started on potassium lower treatment in the ED and Dr. Hopper from nephrology was contacted who came and saw the patients in the setting of dialysis for tonight. Covid test in the ED was negative. 2/2 Patient feeling much better after dialysis. No nausea vomiting diarrhea this morning. 2/3 Doing well received dialysis yesterday afternoon as well. Before discharge. A: *Hyperkalemia w/ekg changes: resolved s/p HD *Likely volume overload: missed HD session, on room air *Viral prodrome with N/V/Diarrhea: covid negative in ED. no diarrhea o/n *ESRD on HD with acute component: pt anuric *Anemia, chronic: *obesity: *Neuropathy: P: -Nephro for HD and electrolytes abnormalities Discharge diagnosis: Hyperkalemia volume overload viral prodrome end-stage renal disease chronic Secondary discharge diagnosis: Chronic anemia obesity neuropathy Time Spent with Patient Time attestation: Total time spent providing and/or coordinating discharge services: Time spent: Greater than 30 minutes EXAM Constitutional Vitals: Temp Pulse Resp BP Pulse Ox 97.2 F 80 20 140/91 93 06/29/21 08:02 06/29/21 08:11 06/29/21 08:11 06/29/21 08:02 06/29/21 08:11 Discharge Data Data Completed and Pending Labs on day of discharge: Labs from last 24 hours 06/29/21 06/29/21 06/29/21 03:10 03:10 03:10 WBC RBC Hgb Hct POC Hct MCV MCH MCHC RDW Plt Count MPV Seg Neutrophils % Lymphocytes % Monocytes % (Manual) Eosinophils % (Manual) Platelet Estimate RBC Morphology POC Sodium Sodium 137 POC Potassium Potassium 4.2 4.2 POC Chloride Chloride 90 L Carbon Dioxide 27 POC Total CO2 Anion Gap 20.0 H POC BUN BUN 45 H Creatinine 8.4 H* POC Creatinine GFR Calculation 6 Glucose 81 POC Glucose Uric Acid 4.0 Calcium 8.5 L POC WB Ioniz Calcium Phosphorus 4.9 H Magnesium 2.0 Total Bilirubin 0.5 Direct Bilirubin < 0.2 GGT 27 AST 16 ALT 12 Alkaline Phosphatase 77 Lactate Dehydrogenase 226 H Total Protein 7.0 Albumin 4.0 Globulin 3.0 Albumin/Globulin Ratio 1.3 Triglycerides 140 PTH Intact 404.5 H 06/28/21 06/28/21 06/28/21 18:35 18:35 17:56 WBC RBC Hgb Hct POC Hct 34 L MCV MCH MCHC RDW Plt Count MPV Seg Neutrophils % Lymphocytes % Monocytes % (Manual) Eosinophils % (Manual) Platelet Estimate RBC Morphology POC Sodium 132 L Sodium POC Potassium 8.1 H* Potassium 8.5 H* POC Chloride 101 Chloride Carbon Dioxide POC Total CO2 21 L Anion Gap POC BUN 136 H* BUN Creatinine POC Creatinine 16.8 H* GFR Calculation Glucose POC Glucose 96 Uric Acid Calcium POC WB Ioniz Calcium 1.04 L Phosphorus Magnesium 2.4 Total Bilirubin Direct Bilirubin GGT AST ALT Alkaline Phosphatase Lactate Dehydrogenase Total Protein Albumin Globulin Albumin/Globulin Ratio Triglycerides PTH Intact 06/28/21 06/28/21 17:10 17:10 WBC 9.3 RBC 3.60 L Hgb 10.4 L Hct 31.0 L POC Hct MCV 86.1 MCH 28.9 MCHC 33.5 RDW 13.2 Plt Count 225 MPV 11.8 H Seg Neutrophils % 81 H Lymphocytes % 8 L Monocytes % (Manual) 8 Eosinophils % (Manual) 3 Platelet Estimate Normal RBC Morphology Normal POC Sodium Sodium 135 POC Potassium Potassium 7.7 H* POC Chloride Chloride 92 L Carbon Dioxide 19 L POC Total CO2 Anion Gap 24.0 H POC BUN BUN 97 H Creatinine 15.0 H* POC Creatinine GFR Calculation 3 Glucose 94 POC Glucose Uric Acid Calcium 8.9 POC WB Ioniz Calcium Phosphorus Magnesium Total Bilirubin 0.3 Direct Bilirubin GGT AST 13 ALT 8 Alkaline Phosphatase 81 Lactate Dehydrogenase Total Protein 7.2 Albumin 4.3 Globulin 2.9 Albumin/Globulin Ratio 1.5 Triglycerides PTH Intact Discharge Plan Patient/Caregiver Discharge Instructions Activity: increase activity as tolerated Diet: Renal Instructions: Chronic Kidney Disease (GEN), Hyperkalemia (GEN), Metabolic Acidosis (GEN) Prescriptions: Continued gabapentin 100 mg capsule 200 mg PO BID Qty: 120 11RF Rx Instructions: Increase dose to 200 mg (2 tabs) twice a day. Call if alteration in mental status occurs calcium acetate(phosphat bind) 667 mg capsule 2,668 mg PO .TID with meals Qty: 360 11RF Rx Instructions: Take 2 to 4 gel caps with each meal based on serum Phosphorous level acetaminophen-codeine 120 mg-12 mg /5 mL (5 mL) solution 5 ml PO QHS PRN (Reason: Cough post CoVID) Qty: 200 0RF codeine-guaifenesin 10-100 mg/5 mL liquid 5 ml PO .Q12 PRN (Reason: cough) Qty: 237 0RF hydroxyzine HCl 25 mg tablet 25 mg PO TID PRN (Reason: itching) Qty: 90 3RF calcitriol 0.25 mcg capsule 1 mcg PO 3XW 0RF Hold Instructions: Doctor's Order Rx Instructions: administer after dialysis on dialysis days Follow Up Plan Follow up with: Esau Hopper MD [Physician] - (Follow up in clinic as usual) Paulette García ARNP [Primary Care Provider] - 07/06/21 1:00 pm (Please arrive 15 minutes before your appointment) Patient Disposition: Home, Self-Care Prognosis: Fair Overall status at discharge: patient is progressing back to baseline Discharge Orders: Discharge Order (Routine); Ordered 06/30/21 Ordered By: Jerry Timmons
[2021-06-29] MEDS ORDERED: MELATONIN 3 MG TABLET PO SCH (11:45)
[2021-06-29] MEDS ORDERED: DARBEPOETIN ALFA 40 MCG/ML VIAL IV ONE (13:45)
--- NOTE | 2021-06-29 16:59 | Nephrology Procedure Note ---
Procedure Note Patient information: Note initiated : 06/29/21 at 4:51 pm Service Date, if different from initiated Date: [] Patient: Khadar Rizo 60 y/o M admitted on 06/28/21 for nausea/vomiting, dialysis pt. Chief Complaint: [] Date of procedure: 06/29/21 Post-op diagnosis: same Procedure: Acute HD with multiple visits. Patient was seen and evaluated on admission to the ED 06/28/2021 and found to have K > 7 and cardiovascular irregularitites. By this AM when I rounded he was stable, diminshed cough and no arrhythmias on telemetry. See PE documented in AM note of this date Seen on HD this afternoon Stable VS with expected decline in BP with aggressive U/F. 3.5 liters removed with post HD weight 136 kg No JVD (+) rhonchi No pericardial rub 1(+) LE edema Post HD chest X ray pending COVID-19 SOO NAAT Final 06/29/21-1254 Plan: To floor and D/C when Ok'd by hospital medicine staff Anesthesia: none Surgeon: Esau Hopper Estimated blood loss: 0 Urine output: 0 Pathology: none sent Condition: stable Disposition: ICU
--- NOTE | 2021-06-29 18:39 | XRay Report ---
CLINICAL INFORMATION: Follow-up CHF COMPARISON: 06/28/2021 TECHNIQUE: Portable FINDINGS: The heart remains mildly enlarged. Peripheral pulmonary vessel returns to normal caliber. There is slight enlargement of the central pulmonary arteries which suggests pulmonary hypertension. Mediastinum is normal. Lungs are clear. No effusions. IMPRESSION: Interval resolution CHF pattern. No acute disease Interpreted and Authenticated by: Facundo Thorpe 06/29/21
[2021-06-30] MEDS: 0.9 % SODIUM CHLORIDE 10 ML SYRINGE IV SCH (05:45)
[2021-06-30] MEDS: HEPARIN 5,000 UNIT/ML VIAL SQ SCH (08:28)
[2021-06-30] MEDS: CALCIUM ACETATE 667 MG CAPSULE PO SCH (08:28)
[2021-06-30] MEDS: ASCORBIC ACID 500 MG TABLET PO SCH ×2 (08:29→08:48)
[2021-06-30] MEDS: ZINC SULFATE 50 MG CAPSULE PO SCH ×2 (08:29→08:48)
[2021-06-30] MEDS: GABAPENTIN 100 MG CAPSULE PO SCH ×2 (08:29→08:48)
[2021-06-30] MEDS: DOCUSATE SODIUM 100 MG CAPSULE PO SCH (08:48)
== END 2021-06-30 09:10 | disposition home or self-care (01) | DRG 640 ==
LOC: ED 17:00 → ICU 21:03
PROVIDERS: ADMIT Internal Medicine; ATTEND Internal Medicine

== ENCOUNTER 2021-12-05 23:47 | Inpatient (IN) ==
[2021-12-05] MEDS ORDERED: IOPAMIDOL 100 ML BOTTLE IV ONE (23:48)
[2021-12-05] MEDS ORDERED: ACETAMINOPHEN 325 MG TABLET PO ONE (23:56)
[2021-12-06] MEDS ORDERED: ACETAMINOPHEN 500 MG TABLET PO ONE ×2 (00:02→04:40)
[2021-12-06] MEDS ORDERED: PIPERACILLIN SODIUM/TAZOBACTAM 3.375 GM in DEXTROSE 5% IN WATER 50 ML IV ONE (00:06)
[2021-12-06] MEDS ORDERED: 0.9 % SODIUM CHLORIDE 1,000 ML IV ONE ×2 (00:06→01:14)
[2021-12-06] MEDS ORDERED: VANCOMYCIN 1,000 MG in 0.9 % SODIUM CHLORIDE 250 ML IV ONE (00:06)
[2021-12-06] MEDS ORDERED: diphenhydrAMINE 50 MG/ML VIAL IV ONE (00:06)
--- NOTE | 2021-12-06 00:17 | Emergency Department Note ---
SOB HPI General Chief Complaint: Shortness of Breath/Dyspnea Stated Complaint: SOB Time Seen by Provider: 12/05/21 23:49 Source: EMS Mode of arrival: EMS Limitations: no limitations History of Present Illness HPI Narrative: Narrative: Patient presents to ED via EMS with complaints of shortness of breath has been worsening over the last 3 days. Patient states that he just cannot breeze. Sons found him tripoding and called EMS. When EMS arrived patient with sat less than 90% on room air and required 4 L of oxygen nasal cannula to maintain adequate oxygenation greater than 90%. Patient report that he has felt feverish and has some chills and has been dry heaving. He denies cough, sputum production, cardiac chest pain, heart palpitation, hemoptysis, abdominal pain, dysuria, hematuria, urinary frequency. Patient is dialysis patient has a double nephrectomy. He has dialysis Sunday with his last dialysis being on Sunday. Patient today states been taking Tylenol with the last dose being a few days ago. He denies any other alleviating or aggravating factors. Related Data Previous Rx's Medication Instructions Recorded calcium acetate(phosphat bind) 667 2,668 mg PO .TID with meals high 02/07/21 mg capsule phosphorous #360 caps hydroxyzine HCl 25 mg tablet 25 mg PO TID PRN itching #90 tabs 08/06/21 clonazepam 0.5 mg tablet 0.5 mg PO QHS RLS and insomnia #30 11/29/21 tabs Allergies Allergy/AdvReac Type Severity Reaction Status Date / Time bee venom protein (honey bee) Allergy Severe Anaphylaxis Verified 12/05/21 23:54 coconut Allergy Severe Swelling Verified 12/07/21 00:14 of Lip/Tongue/Throat ceftriaxone Allergy Mild Hives Verified 12/05/21 23:54 Penicillins Allergy Mild Hives Verified 12/05/21 23:54 Review of Systems ROS ROS Narrative: Narrative: All systems ED: reviewed and negative except as stated. [facility] Narrative Patient History Narrative: Narrative: Medical/Surgical/Family History All Active Problems (Updated 12/06/21 @ 17:05 by Jean Perez MD) Gram-positive bacteremia (Acute) Proteus (mirabilis) (morganii) as the cause of diseases classified elsewhere (Chronic) ESRD on hemodialysis (Chronic) Staghorn renal calculus (Chronic) Anemia due to end stage renal disease (Chronic) Renal calculi (Chronic) Insomnia (Chronic) Acute kidney injury (Chronic 09/08/17) Acute renal failure (Chronic 09/08/17) Pyelonephritis (Chronic 09/08/17) Volume depletion (Chronic 09/08/17) Hyperkalemia (Acute 09/08/17) Hypertension (Chronic 09/08/17) DVT prophylaxis (Chronic 09/08/17) UTI (urinary tract infection) (Chronic 09/08/17) Flank pain (Chronic) Vomiting (Chronic) Weakness (Chronic) Acute diastolic (congestive) heart failure (Chronic) DM type 2 (diabetes mellitus, type 2) (Chronic) Uremia (Chronic) Staghorn calculus (Chronic) History of shortness of breath (Chronic) Complications, dialysis, catheter, mechanical (Chronic) Bacteremia (Acute) Bacteremia due to Streptococcus (Acute) Secondary hyperparathyroidism (Acute) Cellulitis (Acute) Abdominal muscle strain (Acute) Fatty liver disease, nonalcoholic (Acute) S/p nephrectomy (Acute) Pneumonia (Acute) Dialysis patient (Acute) Acute on chronic combined systolic and diastolic CHF, NYHA class 2 (Acute) Hyperparathyroidism due to end stage renal disease on dialysis (Acute) RLS (restless legs syndrome) (Acute) Nocturnal myoclonus (Acute) Pre-transplant evaluation for end stage renal disease (Acute) Pain (Acute) COVID-19 (Acute) Acute hyperkalemia (Acute) Fluid overload (Acute) Community acquired pneumonia, bilateral (Acute) Diarrhea (Acute) Hyponatremia (Acute) Pseudoaneurysm of AV hemodialysis fistula (Acute) Cough (Acute) Acute renal failure (Acute) Acute hyperkalemia (Acute) Bradycardia (Acute) Right lower lobe pneumonia (Acute) Back pain, thoracic (Acute) Dyspnea (Acute) Pulmonary edema cardiac cause (Acute) Dyspnea (Acute) Post-COVID chronic shortness of breath (Acute) Septic shock (Acute) Pneumonia (Acute) Acute and chronic respiratory failure with hypoxia (Acute) Medical History (Updated 12/06/21 @ 17:05 by Jean Perez MD) Acute diastolic (congestive) heart failure Acute kidney injury (09/08/17) Acute renal failure (09/08/17) Anemia due to end stage renal disease Once K corrected, give Aranesp DM type 2 (diabetes mellitus, type 2) DVT prophylaxis (09/08/17) ESRD on hemodialysis Flank pain History of shortness of breath Hyperkalemia (09/08/17) Hypertension (09/08/17) Insomnia Proteus (mirabilis) (morganii) as the cause of diseases classified elsewhere Pyelonephritis (09/08/17) Renal calculi Staghorn calculus Staghorn renal calculus Uremia UTI (urinary tract infection) (09/08/17) Volume depletion (09/08/17) Vomiting Weakness Surgical History History of knee surgery History of nephrectomy Status post removal of arteriovenous fistula Family History Father Coronary artery disease Mother Coronary artery disease Social History Smoking Status: Never smoker Alcohol Intake Frequency: does not drink Substance Use: does not use Exam Narrative Narrative: Narrative: General Limitations: no limitations General appearance: Present in distress Eye Eye: Present PERRL and EOMI ENT ENT: Present normal oropharynx and mucous membranes dry Chest Chest: Present normal inspection; Absent tenderness Respiratory Respiratory: Present normal lung sounds bilaterally, respiratory distress, rales/crackles and accessory muscle use; Absent wheezes or stridor Cardiovascular Cardiovascular: Present normal rhythm and tachycardia Adbominal Abdominal: Present soft and normal bowel sounds; Absent tenderness Neurological Neurological: Present alert and oriented X3 Psychiatric Psychiatric: Present anxious and serious Skin Skin: Present warm (WNL) and intact Course Course Course Narrative: Patient was evaluated for shortness of breath. Patient was in respiratory distress with tachypnea and tach he cardia. Concern for sepsis patient was bolused fluids, blood cultures obtained patient given IV vancomycin. Chest x- ray obtained with image of myself concerning for right-sided pneumonia. Patient was requiring 4 L of oxygen via nasal cannula. After receiving some fluids and some Tylenol his temperature did improve and were able to wean him down to 2 L via nasal cannula. D-dimer was elevated so CT of the chest was obtained with images reviewed myself negative for PE but concerning for right-sided pneumonia. Patient's blood pressure continued to drop down to 1017 did not improve with IV fluids. He was started on IV dopamine. Patient most likely experiencing septic shock secondary to pneumonia. Dopamine stabilize his blood pressure. Patient's BNP is greater than 70,000 creatinine is around 13. Patient definitely needs dialysis. Case was discussed with nephrology who was willing to keep patient here and dialyze him but the hospitalist states that he is at his personal capacity for excepting patient so we will have to transfer patient to an outside facility. Case has been signed out to Dr. Roberts as I am going off service. He has been updated on patient's condition and disposition plan. Reevaluation(s) Reevaluation #1: Patient remains hemodynamically stable. No new complaints at this time. Time: 12:55 Consultations Consultation #1: Case discussed with Dr. Smith, nephrology who is willing to keep the patient here and have dialysis pending hospitalist excepting patient. Time: 06:15 Consultation #2: Case discussed with hospitalist, Dr. Perez, who has refused to accept the patient despite nephrology being willing to dialyze him. He states that he is at capacity not the hospital but he personally is at his maximum patient load Time: 06:20 Vital Signs Vital signs: Vital Signs Temperature 103.7 F H 12/05/21 23:48 Pulse Rate 111 H 12/05/21 23:48 Respiratory Rate 32 H 12/05/21 23:48 Blood Pressure 106/52 12/05/21 23:48 Pulse Oximetry (%) 94 12/05/21 23:48 Oxygen Delivery Method 12/05/21 23:48 Temperature 98.7 F 12/07/21 16:10 Pulse Rate 91 H 12/07/21 16:10 Respiratory Rate 18 12/07/21 16:10 Blood Pressure 99/58 12/07/21 16:10 Pulse Oximetry (%) 95 12/07/21 16:10 Oxygen Delivery Method 12/07/21 08:07 Oxygen Flow Rate (L/min) 3 12/07/21 16:10 [facility] MDM Narrative Medical decision making narrative: Narrative: Differential Diagnosis Differential Diagnosis: Viral URI, PE, pneumonia Medical Records Medical records reviewed: Yes I reviewed the patient's medical records. Lab Data Lab results reviewed: Yes I reviewed the patient's lab results. Result diagrams: 12/07/21 05:18 12/07/21 05:18 Labs: Lab Results 12/05/21 12/06/21 12/06/21 Range/Units 00:14 00:14 00:14 WBC 17.2 H (4.5-11.0) K/mcL RBC 3.44 L (4.63-6.08) M/mcL Hgb 10.2 L (13.7-17.5) g/dL Hct 32.0 L (40.1-51.0) % POC Hct (41-55) MCV 93.0 (80.0-100.0) fL MCH 29.7 (26.0-34.0) pg MCHC 31.9 (31.0-36.0) g/dL RDW 14.9 H (11.5-14.5) % Plt Count 262 (140-440) K/mcL MPV 11.5 H (7.4-10.4) fL Immature Gran % (Auto) 1.1 H (0.0-0.5) % Neut % (Auto) 88.5 H (38.0-78.0) % Lymph % (Auto) 3.1 L (15.5-49.0) % [place] % (Auto) 7.0 (1.0-12.0) % Eos % (Auto) 0 (0.0-7.0) % Baso % (Auto) 0.3 (0.0-2.0) % Lymph # (Auto) 0.54 L (1.50-4.80) K/mcL [place] # (Auto) 1.20 H (0.10-0.90) K/mcL Eos # (Auto) 0 (0.00-0.70) K/mcL Baso # (Auto) 0.05 (0.00-0.30) K/mcL Immature Gran # 0.19 H (0.00-0.05) K/mcl Absolute Neutrophils 15.37 H (1.80-8.00) K/mcL D-Dimer 1.76 H (0.27-0.50) ug/mL POC VBG pH (7.32-7.42) POC VBG pCO2 at Temp (41-51) POC VBG pO2 (25-40) POC VBG HCO3 (24-28) POC VBG Total CO2 (25-29) POC Venous O2 Sat (40-70) POC VBG Base Excess (-2-2) VBG Lactic Acid (0.5-2) POC Sodium (133-145) Sodium 130 L (133-145) mmol/L POC Potassium (3.3-5.1) Potassium 5.1 (3.3-5.1) mmol/L POC Chloride (96-108) Chloride 89 L (96-108) mmol/L Carbon Dioxide 22 (22-30) mmol/L POC Total CO2 (22-30) Anion Gap 19.0 H (8.0-16.0) POC BUN (6-20) BUN 49 H (6-20) mg/dL Creatinine 11.2 H* (0.7-1.2) mg/dL POC Creatinine (0.6-1.2) GFR Calculation 4 Glucose 147 H (70-105) mg/dL POC Glucose (70-105) Calcium 9.0 (8.6-10.4) mg/dL POC WB Ioniz Calcium (1.16-1.32) Total Bilirubin 0.5 (0.1-1.0) mg/dL AST 16 (<40) U/L ALT 9 (<40) U/L Alkaline Phosphatase 72 (39-117) U/L NT-Pro-B Natriuret Pep > 42411.0 H (<125.0) pg/mL Total Protein 7.5 (5.9-8.4) gm/dL Albumin 4.3 (3.2-5.2) gm/dL Globulin 3.2 (2.2-3.7) gm/dL Albumin/Globulin Ratio 1.3 (1.0-2.3) 12/06/21 12/06/21 12/06/21 Range/Units 00:15 00:25 04:57 WBC (4.5-11.0) K/mcL RBC (4.63-6.08) M/mcL Hgb (13.7-17.5) g/dL Hct (40.1-51.0) % POC Hct 33.0 L (41-55) MCV (80.0-100.0) fL MCH (26.0-34.0) pg MCHC (31.0-36.0) g/dL RDW (11.5-14.5) % Plt Count (140-440) K/mcL MPV (7.4-10.4) fL Immature Gran % (Auto) (0.0-0.5) % Neut % (Auto) (38.0-78.0) % Lymph % (Auto) (15.5-49.0) % [place] % (Auto) (1.0-12.0) % Eos % (Auto) (0.0-7.0) % Baso % (Auto) (0.0-2.0) % Lymph # (Auto) (1.50-4.80) K/mcL [place] # (Auto) (0.10-0.90) K/mcL Eos # (Auto) (0.00-0.70) K/mcL Baso # (Auto) (0.00-0.30) K/mcL Immature Gran # (0.00-0.05) K/mcl Absolute Neutrophils (1.80-8.00) K/mcL D-Dimer (0.27-0.50) ug/mL POC VBG pH 7.49 H 7.43 H (7.32-7.42) POC VBG pCO2 at Temp 33.5 L 37.1 L (41-51) POC VBG pO2 72 H 35 (25-40) POC VBG HCO3 25.6 24.4 (24-28) POC VBG Total CO2 27.0 26.0 (25-29) POC Venous O2 Sat 96.0 H 69.0 (40-70) POC VBG Base Excess 2.0 0 (-2-2) VBG Lactic Acid 2.1 H 1.1 (0.5-2) POC Sodium 129 L (133-145) Sodium (133-145) mmol/L POC Potassium 5.0 (3.3-5.1) Potassium (3.3-5.1) mmol/L POC Chloride 93 L (96-108) Chloride (96-108) mmol/L Carbon Dioxide (22-30) mmol/L POC Total CO2 24.0 (22-30) Anion Gap (8.0-16.0) POC BUN 47 H (6-20) BUN (6-20) mg/dL Creatinine (0.7-1.2) mg/dL POC Creatinine 13.1 H* (0.6-1.2) GFR Calculation Glucose (70-105) mg/dL POC Glucose 153 H (70-105) Calcium (8.6-10.4) mg/dL POC WB Ioniz Calcium 1.02 L (1.16-1.32) Total Bilirubin (0.1-1.0) mg/dL AST (<40) U/L ALT (<40) U/L Alkaline Phosphatase (39-117) U/L NT-Pro-B Natriuret Pep (<125.0) pg/mL Total Protein (5.9-8.4) gm/dL Albumin (3.2-5.2) gm/dL Globulin (2.2-3.7) gm/dL Albumin/Globulin Ratio (1.0-2.3) ED POC Tests ED POC Tests: ANABELA - Influenza A Negative ANABELA - Influenza B Negative ANABELA - SARS Antigen Negative Radiology Data Radiology results reviewed: Yes I reviewed the patient's radiology results. Radiology results narrative: Chest x-ray of the chest obtained with image reviewed myself concerning for pneumonia CT of the chest obtained with image reviewed myself with no acute PE concerning for right-sided pneumonia. EKG Data EKG #1: EKG attestation: Yes I reviewed and interpreted this EKG. EKG shows normal: sinus rhythm Rate: tachycardia (113) Rhythm: NSR [place]/QRS: normal Heart block present: None ST segment elevation in: None ST segment depression in: None Hyperacute T waves: None QTc: normal QRS morphology: Present normal Interpretation: no acute changes Core Measures AMI Core Measures Followed: Yes CC TIME Critical Care Time Critical Care Time: Yes Total Critical Care Time: 55 Attestation: 55 minutes of critical care time utilized on this patient excluding any procedures. Discharge Plan Patient/Caregiver Discharge Instructions Pt seen by CRIMINOLOGY PROFESSOR/PA only: No Clinical Impression: Septic shock, Pneumonia, Acute and chronic respiratory failure with hypoxia Patient Disposition: Xfer As Inpt ([facility]) Condition: Critical Discharge Date/Time: 12/06/21 13:20
[2021-12-06 00:21] LABS: POC Calcium, Ionized 1.02 (1.16-1.32); POC Creatinine 13.1 (0.6-1.2)
[2021-12-06 01:31] LABS: Basophils # (Auto) 0.05 K/mcL (0.00-0.30); Basophils % (Auto) 0.3 % (0.0-2.0); Eosinophils # (Auto) 0 K/mcL (0.00-0.70); Eosinophils % (Auto) 0 % (0.0-7.0); Hemoglobin 10.2 g/dL (13.7-17.5); Lymphocytes # (Auto) 0.54 K/mcL (1.50-4.80); Lymphocytes % (Auto) 3.1 % (15.5-49.0); Mean Corpuscular HGB Conc 31.9 g/dL (31.0-36.0); Mean Platelet Volume 11.5 fL (7.4-10.4); Neutrophils % (Auto) 88.5 % (38.0-78.0); Platelet Count 262 K/mcL (140-440); RBC 3.44 M/mcL (4.63-6.08); Red Cell Distribution Width 14.9 % (11.5-14.5); WBC 17.2 K/mcL (4.5-11.0)
[2021-12-06 01:59] LABS: ALT/SGPT 9 U/L (<40); AST/SGOT 16 U/L (<40); Albumin 4.3 gm/dL (3.2-5.2); Albumin/Globulin Ratio 1.3 (1.0-2.3); Alkaline Phosphatase 72 U/L (39-117); Bilirubin,Total 0.5 mg/dL (0.1-1.0); Blood Urea Nitrogen 49 mg/dL (6-20); Carbon Dioxide 22 mmol/L (22-30); Chloride 89 mmol/L (96-108); Globulin 3.2 gm/dL (2.2-3.7); Glomerular Filtration Rate 4; Glucose 147 mg/dL (70-105)
[2021-12-06 02:08] LABS: proBNP > 70000.0 pg/mL (<125.0)
[2021-12-06] MEDS ORDERED: DOPamine 400 MG in PREMIX 1 BAG IV SCH ×2 (02:15→10:15)
[2021-12-06] MEDS: 0.9 % SODIUM CHLORIDE 250 ML IV SCH ×3 (02:35→22:52)
[2021-12-06] MEDS ORDERED: ONDANSETRON 4 MG/2 ML VIAL IV ONE (03:31)
[2021-12-06] MEDS ORDERED: ACETAMINOPHEN 325 MG TABLET PO ONE (04:40)
--- NOTE | 2021-12-06 05:56 | XRay Report ---
INDICATION: sob TECHNIQUE: AP portable semiupright chest x-ray COMPARISON: Previous chest x-rays dated 09/08/2021, 09/13/2021 FINDINGS: Lungs:No focal pulmonary parenchymal infiltrate or mass. Heart, vascular:There is cardiomegaly, unchanged. Pulmonary vascularity is prominent consistent with pulmonary congestion. There is mild peribronchial thickening which may indicate interstitial edema. There are no septal lines. Mediastinum, jl:No mediastinal widening. No hilar mass Pleura:No pleural fluid. No pleural-based mass or calcification Skeletal:Negative. IMPRESSION: 1. Cardiomegaly and pulmonary congestion 2. No focal infiltrate Interpreted and Authenticated by: Facundo Allred 12/06/21
--- NOTE | 2021-12-06 06:11 | Cat Scan Report ---
INDICATION: sob COMPARISON: Previous chest x-rays dated 12/05/2021, 09/08/2021, 09/03/2021 TECHNIQUE: Axial images obtained through the chest. 75ml Isovue 370 injected intravenously, and scanning was performed during pulmonary arterial phase. Sagittally and coronally reformatted images were obtained. MIP reformatted images. FINDINGS: Examination was initially interpreted by [facility] Lungs:Mild right lower lobe pulmonary parenchymal densities probably related to atelectasis. There is peribronchial thickening. Interstitial pulmonary edema is suspected. There is no definite interlobular septal thickening. Mediastinum, vascular:Main pulmonary artery is markedly enlarged and measures approximately 48 mm in cross-sectional diameter. No intraluminal filling defects. Right pulmonary artery is enlarged and measures 37 mm in diameter. Pulmonary arterial hypertension is suspected No emboli are present. No lobar, segmental, or subsegmental emboli. Negative examination for pulmonary emboli There are small nonspecific mediastinal and hilar lymph nodes Heart:There is calcified coronary artery disease. No pericardial effusion. No significant reflux of contrast material into the inferior vena cava or hepatic veins Pleura:Small right pleural effusion Axilla, supraclavicular regions, chest wall:No pathologic axillary or supraclavicular adenopathy. Musculoskeletal:Negative thoracic spine. No compression fracture. No lytic lesion. No rib or sternal lesions Upper Abdomen:Abnormality in the right renal fossa. This patient apparently has a history of nephrectomy. Soft tissue density and gas may be secondary to bowel with in the surgical bed. Infection is possible. Clinical correlation is necessary. Scan of the abdomen may be helpful. IMPRESSION: 1. Markedly enlarged main pulmonary artery and right pulmonary artery suggests pulmonary arterial hypertension 2. Otherwise negative pulmonary CTA. No pulmonary embolism 3. Mild right lower lobe parenchymal density. This is probably dependent atelectasis. 4. Small right pleural effusion 5. Abnormality in the right renal fossa. Clinical correlation is necessary. The abdominal CT scan may be helpful if clinically indicated 6. Coronary artery calcification 7. Mild nonspecific mediastinal and hilar adenopathy The exam was performed using radiation dose optimization techniques including, but not limited to, automated exposure control, adjustment of the mA and/or kV according to patient size and use of iterative reconstruction technique. Interpreted and Authenticated by: Facundo Allred 12/06/21
--- NOTE | 2021-12-06 07:23 | Emergency Department Note ---
Course Consultations Consultation #1: Dr. Perez hospitalist Time: 10:08 Vital Signs Vital signs: Vital Signs Temperature 103.7 F H 12/05/21 23:48 Pulse Rate 111 H 12/05/21 23:48 Respiratory Rate 32 H 12/05/21 23:48 Blood Pressure 106/52 12/05/21 23:48 Pulse Oximetry (%) 94 12/05/21 23:48 Oxygen Delivery Method 12/05/21 23:48 Temperature 97 F 12/06/21 13:49 Pulse Rate 70 12/06/21 13:59 Respiratory Rate 33 H 12/06/21 14:04 Blood Pressure 179/168 12/06/21 13:59 Pulse Oximetry (%) 91 12/06/21 13:59 Oxygen Delivery Method 12/06/21 01:46 Oxygen Flow Rate (L/min) 3 12/06/21 14:04 Procedures CVP Indication: Venous access and Hemodynamically unstable Location: Supraclaviclular Right / Left: Right Preparation: Sterile field and Chlorhexidine Anesthesia: Lidocaine Post Procedure: Adequate blood return and Equal bilateral breath sounds Patient Tolerated: Well Complications: None MDM MDM Narrative Medical decision making narrative: Patient received in signout from Dr. Greco. Worsening shortness of breath over the last 3 days, satting 90% on room air. History of ESRD on Sunday, , Sunday dialysis. He does not make urine. Concern for sepsis given hypotension and elevated lactate level. He was given IV fluids, blood cultures obtained, and started on IV vancomycin. CTA chest negative for PE but possible right-sided pneumonia. EKG showed sinus tachycardia with no ischemic changes. He was started on dopamine for his low blood pressures with improvement. Katty bernard is due for dialysis today. Nephrology was consulted and is willing to consult and dialyze the patient today. Will reevaluate for bed availability and possible admission. 1240: I spoke with Dr. Perez, hospitalist, who agreed to admit the patient. While in the ED, Patient was helped to the bedside commode and had a brief syncopal episode where he was unresponsive. CODE BLUE was called. Blood glucose was 139. EKG showed sinus rhythm with no ischemic changes or peaked T waves. Patient woke up and had good palpable pulses. He did not stop breathing. He continued to be hypotensive and his peripheral IV was lost. Central line was placed and post CVC placement chest x-ray showed no evidence of pneumothorax and catheter tip terminating in the SVC. Patient was transitioned to norepinephrine for blood pressure support. Patient transferred to the ICU and will receive dialysis today. Lab Data Lab results reviewed: Yes I reviewed the patient's lab results. Result diagrams: 12/06/21 00:14 12/05/21 00:14 Labs: Lab Results 12/05/21 12/06/21 12/06/21 Range/Units 00:14 00:14 00:14 WBC 17.2 H (4.5-11.0) K/mcL RBC 3.44 L (4.63-6.08) M/mcL Hgb 10.2 L (13.7-17.5) g/dL Hct 32.0 L (40.1-51.0) % POC Hct (41-55) MCV 93.0 (80.0-100.0) fL MCH 29.7 (26.0-34.0) pg MCHC 31.9 (31.0-36.0) g/dL RDW 14.9 H (11.5-14.5) % Plt Count 262 (140-440) K/mcL MPV 11.5 H (7.4-10.4) fL Immature Gran % (Auto) 1.1 H (0.0-0.5) % Neut % (Auto) 88.5 H (38.0-78.0) % Lymph % (Auto) 3.1 L (15.5-49.0) % [place] % (Auto) 7.0 (1.0-12.0) % Eos % (Auto) 0 (0.0-7.0) % Baso % (Auto) 0.3 (0.0-2.0) % Lymph # (Auto) 0.54 L (1.50-4.80) K/mcL [place] # (Auto) 1.20 H (0.10-0.90) K/mcL Eos # (Auto) 0 (0.00-0.70) K/mcL Baso # (Auto) 0.05 (0.00-0.30) K/mcL Immature Gran # 0.19 H (0.00-0.05) K/mcl Absolute Neutrophils 15.37 H (1.80-8.00) K/mcL D-Dimer 1.76 H (0.27-0.50) ug/mL POC VBG pH (7.32-7.42) POC VBG pCO2 at Temp (41-51) POC VBG pO2 (25-40) POC VBG HCO3 (24-28) POC VBG Total CO2 (25-29) POC Venous O2 Sat (40-70) POC VBG Base Excess (-2-2) VBG Lactic Acid (0.5-2) POC Sodium (133-145) Sodium 130 L (133-145) mmol/L POC Potassium (3.3-5.1) Potassium 5.1 (3.3-5.1) mmol/L POC Chloride (96-108) Chloride 89 L (96-108) mmol/L Carbon Dioxide 22 (22-30) mmol/L POC Total CO2 (22-30) Anion Gap 19.0 H (8.0-16.0) POC BUN (6-20) BUN 49 H (6-20) mg/dL Creatinine 11.2 H* (0.7-1.2) mg/dL POC Creatinine (0.6-1.2) GFR Calculation 4 Glucose 147 H (70-105) mg/dL POC Glucose (70-105) Calcium 9.0 (8.6-10.4) mg/dL POC WB Ioniz Calcium (1.16-1.32) Total Bilirubin 0.5 (0.1-1.0) mg/dL AST 16 (<40) U/L ALT 9 (<40) U/L Alkaline Phosphatase 72 (39-117) U/L NT-Pro-B Natriuret Pep > 55705.0 H (<125.0) pg/mL Total Protein 7.5 (5.9-8.4) gm/dL Albumin 4.3 (3.2-5.2) gm/dL Globulin 3.2 (2.2-3.7) gm/dL Albumin/Globulin Ratio 1.3 (1.0-2.3) 12/06/21 12/06/21 12/06/21 Range/Units 00:15 00:25 04:57 WBC (4.5-11.0) K/mcL RBC (4.63-6.08) M/mcL Hgb (13.7-17.5) g/dL Hct (40.1-51.0) % POC Hct 33.0 L (41-55) MCV (80.0-100.0) fL MCH (26.0-34.0) pg MCHC (31.0-36.0) g/dL RDW (11.5-14.5) % Plt Count (140-440) K/mcL MPV (7.4-10.4) fL Immature Gran % (Auto) (0.0-0.5) % Neut % (Auto) (38.0-78.0) % Lymph % (Auto) (15.5-49.0) % [place] % (Auto) (1.0-12.0) % Eos % (Auto) (0.0-7.0) % Baso % (Auto) (0.0-2.0) % Lymph # (Auto) (1.50-4.80) K/mcL [place] # (Auto) (0.10-0.90) K/mcL Eos # (Auto) (0.00-0.70) K/mcL Baso # (Auto) (0.00-0.30) K/mcL Immature Gran # (0.00-0.05) K/mcl Absolute Neutrophils (1.80-8.00) K/mcL D-Dimer (0.27-0.50) ug/mL POC VBG pH 7.49 H 7.43 H (7.32-7.42) POC VBG pCO2 at Temp 33.5 L 37.1 L (41-51) POC VBG pO2 72 H 35 (25-40) POC VBG HCO3 25.6 24.4 (24-28) POC VBG Total CO2 27.0 26.0 (25-29) POC Venous O2 Sat 96.0 H 69.0 (40-70) POC VBG Base Excess 2.0 0 (-2-2) VBG Lactic Acid 2.1 H 1.1 (0.5-2) POC Sodium 129 L (133-145) Sodium (133-145) mmol/L POC Potassium 5.0 (3.3-5.1) Potassium (3.3-5.1) mmol/L POC Chloride 93 L (96-108) Chloride (96-108) mmol/L Carbon Dioxide (22-30) mmol/L POC Total CO2 24.0 (22-30) Anion Gap (8.0-16.0) POC BUN 47 H (6-20) BUN (6-20) mg/dL Creatinine (0.7-1.2) mg/dL POC Creatinine 13.1 H* (0.6-1.2) GFR Calculation Glucose (70-105) mg/dL POC Glucose 153 H (70-105) Calcium (8.6-10.4) mg/dL POC WB Ioniz Calcium 1.02 L (1.16-1.32) Total Bilirubin (0.1-1.0) mg/dL AST (<40) U/L ALT (<40) U/L Alkaline Phosphatase (39-117) U/L NT-Pro-B Natriuret Pep (<125.0) pg/mL Total Protein (5.9-8.4) gm/dL Albumin (3.2-5.2) gm/dL Globulin (2.2-3.7) gm/dL Albumin/Globulin Ratio (1.0-2.3) ED POC Tests ED POC Tests: ANABELA - Influenza A Negative ANABELA - Influenza B Negative ANABELA - SARS Antigen Negative Radiology Data Radiology results reviewed: Yes I reviewed the patient's radiology results. Radiology results narrative: Ordering Physician:Francis Roberts M.D. Date of Service:12/06/21 Procedure(s):XR chest 1V portable INDICATION: line placement TECHNIQUE: AP portable chest x-ray COMPARISON: Previous chest x-rays dated 12/05/2021, 09/09/2019 FINDINGS:Interval placement of right central venous catheter with its tip in the superior vena cava. No pneumothorax. Lungs:There is peribronchial thickening and prominent vascularity. Appearance is consistent with interstitial pulmonary edema. No focal pulmonary parenchymal consolidation or mass Heart, vascular:Cardiomegaly, unchanged. Vascularity is prominent. Appearance is consistent with congestive heart failure Mediastinum, jl:No mediastinal widening. No hilar mass Pleura:No definite pleural effusion. No pneumothorax following right central venous catheter placement Skeletal:Negative. IMPRESSION: 1. Status post right central venous catheter placement. Tip is in the superior vena cava. No pneumothorax 2. Cardiomegaly and findings consistent with mild congestive heart failure Interpreted and Authenticated by: Facundo Allred 12/06/21 EKG Data EKG #1: EKG attestation: Yes I reviewed and interpreted this EKG. and Yes There are no EKG findings of acute coronary syndrome EKG results narrative: Sinus rhythm at [address] elevation or depression. No peaked T waves. QT appears prolonged. Discharge Plan Patient/Caregiver Discharge Instructions Pt seen by [employer]/PA only: No Clinical Impression: Septic shock, Pneumonia, Acute and chronic respiratory failure with hypoxia Patient Disposition: Xfer As Inpt ([facility]) Condition: Critical Discharge Date/Time: 12/06/21 13:20
[2021-12-06] MEDS ORDERED: 0.9 % SODIUM CHLORIDE 250 ML IV SCH ×2 (10:15→11:45)
--- NOTE | 2021-12-06 10:16 | EKG ---
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
--- NOTE | 2021-12-06 10:26 | Nephrology Consult Note ---
HPI Data of Consult Patient: known to practice within the last 3 years Consult date: 12/06/21 Requesting physician: Francis Roberts Primary Care Provider: Paulette García Consult Narrative Patient Information: Note initiated : 12/06/21 at 10:19 am Patient: Khadar Rizo 60 y/o M admitted on for SOB . Chief Complaint: Shortness of breath Khadar Rizo is a 60-year-old male with end stage renal disease on hemodialysis, chronic anemia due to ESRD, hypertension, diabetes mellitus type 2 presented to ED for shortness of breath and admitted on 12/06/21. His workup in ED was significant for Tmax 103.7, tachypnea (RR 30-40), tachycardia (HR~100), h ypoxia on 2L NC. Labs were significant for leukocytosis (WBC 17.2 with 88% neutrophils), sodium 129. CTA reported mild right lower lobe parenchymal density. He was given IV fluids, blood cultures obtained, and started on IV Vancomycin and Zosyn. He required IV Dopamine after 2 L NS bolus. Nephrology consultation was requested for end stage renal disease. Chief complaint: Shortness of breath Reason for consult: End stage renal disease on hemodialysis cc:: CC: Constitutional Constitutional: Present fatigue, fever(s), lethargy, malaise and weakness EENT Nose, mouth and throat: Absent nasal congestion or sore throat Cardiovascular Cardiovascular: Present dyspnea and leg edema Respiratory Respiratory: Present cough and dyspnea Gastrointestinal Gastrointestinal: Absent abdominal pain, nausea or vomiting Musculoskeletal Musculoskeletal: Absent joint swelling Integumentary Integumentary: Absent rash Neurological Neurological: Present weakness; Absent confusion Psychiatric Psychiatric: Absent anxiety or panic attacks Hematologic/Lymphatic Hematologic/Lymphatic: Absent easy bleeding or easy bruising Allergic/Immunologic Allergic/Immunologic: Absent tongue swelling or uticaria PFSH PFSH All Active Problems (Updated 12/06/21 @ 10:20 by Oliver Smith MD) Proteus (mirabilis) (morganii) as the cause of diseases classified elsewhere (Chronic) ESRD on hemodialysis (Chronic) Staghorn renal calculus (Chronic) Anemia due to end stage renal disease (Chronic) Renal calculi (Chronic) Insomnia (Chronic) Acute kidney injury (Chronic 09/08/17) Acute renal failure (Chronic 09/08/17) Pyelonephritis (Chronic 09/08/17) Volume depletion (Chronic 09/08/17) Hyperkalemia (Acute 09/08/17) Hypertension (Chronic 09/08/17) DVT prophylaxis (Chronic 09/08/17) UTI (urinary tract infection) (Chronic 09/08/17) Flank pain (Chronic) Vomiting (Chronic) Weakness (Chronic) Acute diastolic (congestive) heart failure (Chronic) DM type 2 (diabetes mellitus, type 2) (Chronic) Uremia (Chronic) Staghorn calculus (Chronic) History of shortness of breath (Chronic) Complications, dialysis, catheter, mechanical (Chronic) Bacteremia (Acute) Bacteremia due to Streptococcus (Acute) Secondary hyperparathyroidism (Acute) Cellulitis (Acute) Abdominal muscle strain (Acute) Fatty liver disease, nonalcoholic (Acute) S/p nephrectomy (Acute) Pneumonia (Acute) Dialysis patient (Acute) Acute on chronic combined systolic and diastolic CHF, NYHA class 2 (Acute) Hyperparathyroidism due to end stage renal disease on dialysis (Acute) RLS (restless legs syndrome) (Acute) Nocturnal myoclonus (Acute) Pre-transplant evaluation for end stage renal disease (Acute) Pain (Acute) COVID-19 (Acute) Acute hyperkalemia (Acute) Fluid overload (Acute) Community acquired pneumonia, bilateral (Acute) Diarrhea (Acute) Hyponatremia (Acute) Pseudoaneurysm of AV hemodialysis fistula (Acute) Cough (Acute) Acute renal failure (Acute) Acute hyperkalemia (Acute) Bradycardia (Acute) Right lower lobe pneumonia (Acute) Back pain, thoracic (Acute) Dyspnea (Acute) Pulmonary edema cardiac cause (Acute) Dyspnea (Acute) Post-COVID chronic shortness of breath (Acute) Septic shock (Acute) Pneumonia (Acute) Acute and chronic respiratory failure with hypoxia (Acute) Medical History (Updated 12/06/21 @ 10:20 by Oliver Smith MD) Acute diastolic (congestive) heart failure Acute kidney injury (09/08/17) Acute renal failure (09/08/17) Anemia due to end stage renal disease Once K corrected, give Aranesp DM type 2 (diabetes mellitus, type 2) DVT prophylaxis (09/08/17) ESRD on hemodialysis Flank pain History of shortness of breath Hyperkalemia (09/08/17) Hypertension (09/08/17) Insomnia Proteus (mirabilis) (morganii) as the cause of diseases classified elsewhere Pyelonephritis (09/08/17) Renal calculi Staghorn calculus Staghorn renal calculus Uremia UTI (urinary tract infection) (09/08/17) Volume depletion (09/08/17) Vomiting Weakness Surgical History History of knee surgery History of nephrectomy Status post removal of arteriovenous fistula Family History Father Coronary artery disease Mother Coronary artery disease Social History (Updated 04/22/18 @ 12:58 by Lori Pitts MD) alcohol intake frequency: does not drink substance use type: does not use MEDS/ALLERGIES Home Medications and Allergies Home Medications Medication Instructions Recorded Confirmed Type calcium acetate(phosphat bind) 667 2,668 mg PO .TID with meals high 02/07/21 12/06/21 Rx mg capsule phosphorous #360 caps hydroxyzine HCl 25 mg tablet 25 mg PO TID PRN itching #90 tabs 08/06/21 12/06/21 Rx clonazepam 0.5 mg tablet 0.5 mg PO QHS RLS and insomnia #30 11/29/21 12/06/21 Rx tabs Allergies Allergy/AdvReac Type Severity Reaction Status Date / Time bee venom protein (honey bee) Allergy Severe Anaphylaxis Verified 12/05/21 23:54 ceftriaxone Allergy Mild Hives Verified 12/05/21 23:54 Penicillins Allergy Mild Hives Verified 12/05/21 23:54 coconut Allergy Unknown Unknown Verified 12/05/21 23:54 Physical Examination Vital Signs Vital signs: Temp Pulse Resp BP Pulse Ox O2 Del Method O2 Flow Rate 98.9 F 89 35 H 82/52 100 5 12/06/21 10:10 12/06/21 09:31 12/06/21 09:31 12/06/21 09:31 12/06/21 09:31 12/06/21 01:46 12/06/21 08:46 General Appearance General appearance: obese, chronically ill and fatigue EENT EENT: mucous membranes moist Neck Neck: no JVD Respiratory Respiratory: course breath sounds Cardiovascular Cardiology: edema, regular rate and rapid rhythm Gastrointestinal Gastrointestinal: no tenderness and obese Integumentary Integumentary: warm and dry Neurologic Neurologic: alert and oriented x3 Psychiatric Psychiatric: mood/affect appropriate and cooperative Results Lab Results Result Diagrams: 12/06/21 00:14 12/05/21 00:14 Lab results: Most recent lab results Calcium 9.0 mg/dL (8.6-10.4) 12/05/21 00:14 A/P Assessment and plan (1) ESRD on hemodialysis: Assessment and plan: Khadar Rizo is a 60-year-old male with end stage renal disease on hemodialysis, chronic anemia due to ESRD, hypertension, diabetes mellitus type 2 presented to ED for shortness of breath and admitted on 12/06/21. His workup in ED was significant for Tmax 103.7, tachypnea (RR 30-40), tachycardia (HR~100), hypoxia on 2L NC. Labs were significant for leukocytosis (WBC 17.2 with 88% neutrophils), sodium 129. CTA reported mild right lower lobe parenchymal density. He was given IV fluids, blood cultures obtained, and started on IV Vancomycin and Zosyn. He required IV Dopamine after 2 L NS bolus. Nephrology consultation was requested for end stage renal disease. End stage renal disease on hemodialysis on MWF at [facility]. Chronic anemia due to ESRD. Sepsis with right sided pneumonia. Plan: Hemodialysis today. Status: Chronic Time Spent With Patient Time: Total time spent is greater than 50% in coordination of care (as documented) at patient's floor/unit and/or counseling patient:
[2021-12-06] MEDS ORDERED: NOREPINEPHRINE BITARTRATE 8 MG in 0.9 % SODIUM CHLORIDE 242 ML IV SCH (11:45)
[2021-12-06] MEDS ORDERED: VASOPRESSIN 20 UNIT in DEXTROSE 5% IN WATER 99 ML IV SCH (11:45)
--- NOTE | 2021-12-06 12:46 | XRay Report ---
INDICATION: line placement TECHNIQUE: AP portable chest x-ray COMPARISON: Previous chest x-rays dated 12/05/2021, 09/09/2019 FINDINGS:Interval placement of right central venous catheter with its tip in the superior vena cava. No pneumothorax. Lungs:There is peribronchial thickening and prominent vascularity. Appearance is consistent with interstitial pulmonary edema. No focal pulmonary parenchymal consolidation or mass Heart, vascular:Cardiomegaly, unchanged. Vascularity is prominent. Appearance is consistent with congestive heart failure Mediastinum, jl:No mediastinal widening. No hilar mass Pleura:No definite pleural effusion. No pneumothorax following right central venous catheter placement Skeletal:Negative. IMPRESSION: 1. Status post right central venous catheter placement. Tip is in the superior vena cava. No pneumothorax 2. Cardiomegaly and findings consistent with mild congestive heart failure Interpreted and Authenticated by: Facundo Allred 12/06/21
[2021-12-06] MEDS ORDERED: cefTRIAXone 1 GM VIAL IV SCH (13:30)
[2021-12-06] MEDS: IPRATROPIUM/ALBUTEROL 3 ML AMPUL.NEB NEB SCH ×2 (14:02→18:42)
[2021-12-06] MEDS: AZITHROMYCIN 250 MG in DEXTROSE 5% IN WATER 250 ML IV SCH (14:15)
--- NOTE | 2021-12-06 17:09 | Internal Med History&Physical ---
HPI History of Present Illness Patient information: Note initiated : 12/06/21 at 4:59 pm Service Date, if different from initiated Date: [] Patient: Khadar Rizo a 60 y/o M admitted on 12/06/21 for SOB . Chief Complaint: [SOB, malaise] Chief complaint: SOB History of present illness: Mr. Rizo is a 60 year old M with a complex past medical history significant for ESRD on HD TTS who presents to the hospital with 2 to 3-week history of progressive dyspnea and fatigue. The patient has not missed any sessions of dialysis however the amount of ultrafiltration that occurs is limited. At home, the sons found him in extremis. EMS were called and he was found to be hypoxemic, nauseous and appeared toxic. The patient states that he has had no sick contacts, no recent travel, but has had a productive cough. On arrival, he was hemodynamically tenuous as he was hypotensive. CTA was negative for PE but there was concerns for right lobar infiltrate. The patient was started on empiric vancomycin and bolused IV fluids. He was found to have a BNP of 70,000, and a white blood cell count of 18,000. There was concerns that this may be multifactorial in etiology due to pulmonary edema and pneumonia resulting in hypoxemic respiratory failure. The patient also became septic requiring dopamine and vasopressin. There was a brief CODE BLUE that was called that was thought to be vasovagal in etiology as he did not lose pulse. Central line was placed, nephrology were called to start dialysis, and the hospital service was asked to admit him to the ICU. Review of Systems All systems: reviewed and no additional remarkable complaints except as stated Constitutional Constitutional: Present as per HPI EENT Eyes: Present as per HPI; Absent blurry vision Cardiovascular Cardiovascular: Present as per HPI, dyspnea, dyspnea on exertion and leg edema; Absent chest pain or palpatations Respiratory Respiratory: Present as per HPI, dyspnea and dyspnea on exertion; Absent cough, wheezing or stridor Gastrointestinal Gastrointestinal: Present as per HPI; Absent abdominal pain, diarrhea, dysphagia, hematemesis, melena, nausea or vomiting Musculoskeletal Musculoskeletal: Present as per HPI; Absent joint swelling, limited range of motion, muscle cramps, muscle weakness or myalgias Integumentary Integumentary: Present as per HPI; Absent erythema, new lesions, rash or wounds Neurological Neurological: Present as per HPI; Absent abnormal gait, behavioral changes, focal weakness, headache(s), loss of vision, numbness, sensory deficit or syncope Endocrine Endocrine: Absent change in body appearance, fatigue or heat intolerance Hematologic/Lymphatic Hematologic/Lymphatic: Present as per HPI PFSH PFSH All Active Problems (Updated 12/06/21 @ 17:05 by Jean Perez MD) Gram-positive bacteremia (Acute) Proteus (mirabilis) (morganii) as the cause of diseases classified elsewhere (Chronic) ESRD on hemodialysis (Chronic) Staghorn renal calculus (Chronic) Anemia due to end stage renal disease (Chronic) Renal calculi (Chronic) Insomnia (Chronic) Acute kidney injury (Chronic 09/08/17) Acute renal failure (Chronic 09/08/17) Pyelonephritis (Chronic 09/08/17) Volume depletion (Chronic 09/08/17) Hyperkalemia (Acute 09/08/17) Hypertension (Chronic 09/08/17) DVT prophylaxis (Chronic 09/08/17) UTI (urinary tract infection) (Chronic 09/08/17) Flank pain (Chronic) Vomiting (Chronic) Weakness (Chronic) Acute diastolic (congestive) heart failure (Chronic) DM type 2 (diabetes mellitus, type 2) (Chronic) Uremia (Chronic) Staghorn calculus (Chronic) History of shortness of breath (Chronic) Complications, dialysis, catheter, mechanical (Chronic) Bacteremia (Acute) Bacteremia due to Streptococcus (Acute) Secondary hyperparathyroidism (Acute) Cellulitis (Acute) Abdominal muscle strain (Acute) Fatty liver disease, nonalcoholic (Acute) S/p nephrectomy (Acute) Pneumonia (Acute) Dialysis patient (Acute) Acute on chronic combined systolic and diastolic CHF, NYHA class 2 (Acute) Hyperparathyroidism due to end stage renal disease on dialysis (Acute) RLS (restless legs syndrome) (Acute) Nocturnal myoclonus (Acute) Pre-transplant evaluation for end stage renal disease (Acute) Pain (Acute) COVID-19 (Acute) Acute hyperkalemia (Acute) Fluid overload (Acute) Community acquired pneumonia, bilateral (Acute) Diarrhea (Acute) Hyponatremia (Acute) Pseudoaneurysm of AV hemodialysis fistula (Acute) Cough (Acute) Acute renal failure (Acute) Acute hyperkalemia (Acute) Bradycardia (Acute) Right lower lobe pneumonia (Acute) Back pain, thoracic (Acute) Dyspnea (Acute) Pulmonary edema cardiac cause (Acute) Dyspnea (Acute) Post-COVID chronic shortness of breath (Acute) Septic shock (Acute) Pneumonia (Acute) Acute and chronic respiratory failure with hypoxia (Acute) Medical History (Updated 12/06/21 @ 17:05 by Jean Perez MD) Acute diastolic (congestive) heart failure Acute kidney injury (09/08/17) Acute renal failure (09/08/17) Anemia due to end stage renal disease Once K corrected, give Aranesp DM type 2 (diabetes mellitus, type 2) DVT prophylaxis (09/08/17) ESRD on hemodialysis Flank pain History of shortness of breath Hyperkalemia (09/08/17) Hypertension (09/08/17) Insomnia Proteus (mirabilis) (morganii) as the cause of diseases classified elsewhere Pyelonephritis (09/08/17) Renal calculi Staghorn calculus Staghorn renal calculus Uremia UTI (urinary tract infection) (09/08/17) Volume depletion (09/08/17) Vomiting Weakness Surgical History History of knee surgery History of nephrectomy Status post removal of arteriovenous fistula Family History Father Coronary artery disease Mother Coronary artery disease Social History (Updated 04/22/18 @ 12:58 by Lori Pitts MD) alcohol intake frequency: does not drink substance use type: does not use MEDS/ALLERGIES Home Medications and Allergies Home Medications Medication Instructions Recorded Confirmed Type calcium acetate(phosphat bind) 667 2,668 mg PO .TID with meals high 02/07/21 12/06/21 Rx mg capsule phosphorous #360 caps hydroxyzine HCl 25 mg tablet 25 mg PO TID PRN itching #90 tabs 08/06/21 12/06/21 Rx clonazepam 0.5 mg tablet 0.5 mg PO QHS RLS and insomnia #30 11/29/21 12/06/21 Rx tabs Allergies Allergy/AdvReac Type Severity Reaction Status Date / Time bee venom protein (honey bee) Allergy Severe Anaphylaxis Verified 12/05/21 23:54 ceftriaxone Allergy Mild Hives Verified 12/05/21 23:54 Penicillins Allergy Mild Hives Verified 12/05/21 23:54 coconut Allergy Unknown Unknown Verified 12/05/21 23:54 EXAM Constitutional Vitals: Temp Pulse Resp BP Pulse Ox O2 Del Method O2 Flow Rate 96.9 F L 82 29 H 128/50 98 4 12/06/21 16:11 12/06/21 16:50 12/06/21 16:11 12/06/21 16:50 12/06/21 16:11 12/06/21 13:20 12/06/21 16:11 General appearance: obese Head Head exam: Present atraumatic, normal inspection and normocephalic Eye Eye exam: Present EOMI, normal appearance and PERRL; Absent conjunctival injection ENT ENT exam: Present normal exam; Absent mucous membranes dry Neck Neck exam: Present full ROM; Absent lymphadenopathy Respiratory Respiratory exam: Present decreased breath sounds and prolonged expiratory phase; Absent CTAB, respiratory distress or wheezes Cardiovascular Cardiovascular exam: Present normal rate and rhythm and RRR; Absent JVD GI/Abdominal GI/Abdominal exam: Present normal bowel sounds and soft; Absent diminished bowel sounds, distended, guarding, mass, rebound or tenderness Neurological Exam Neurological exam: Present alert, CN II-XII intact and oriented X3 Psychiatric Psychiatric exam: Present normal affect and normal mood Skin Skin exam: Present intact and warm; Absent erythema, pallor, petechiae or rash DATA Data Completed and Pending Labs: Labs from last 24 hours 12/06/21 12/06/21 12/06/21 04:57 00:25 00:15 WBC RBC Hgb Hct POC Hct 33.0 L MCV MCH MCHC RDW Plt Count MPV Immature Gran % (Auto) Neut % (Auto) Lymph % (Auto) [place] % (Auto) Eos % (Auto) Baso % (Auto) Lymph # (Auto) [place] # (Auto) Eos # (Auto) Baso # (Auto) Immature Gran # Absolute Neutrophils D-Dimer POC VBG pH 7.43 H 7.49 H POC VBG pCO2 at Temp 37.1 L 33.5 L POC VBG pO2 35 72 H POC VBG HCO3 24.4 25.6 POC VBG Total CO2 26.0 27.0 POC Venous O2 Sat 69.0 96.0 H POC VBG Base Excess 0 2.0 VBG Lactic Acid 1.1 2.1 H POC Sodium 129 L Sodium POC Potassium 5.0 Potassium POC Chloride 93 L Chloride Carbon Dioxide POC Total CO2 24.0 Anion Gap POC BUN 47 H BUN Creatinine POC Creatinine 13.1 H* GFR Calculation Glucose POC Glucose 153 H Calcium POC WB Ioniz Calcium 1.02 L Total Bilirubin AST ALT Alkaline Phosphatase NT-Pro-B Natriuret Pep Total Protein Albumin Globulin Albumin/Globulin Ratio 12/06/21 12/06/21 12/05/21 00:14 00:14 00:14 WBC 17.2 H RBC 3.44 L Hgb 10.2 L Hct 32.0 L POC Hct MCV 93.0 MCH 29.7 MCHC 31.9 RDW 14.9 H Plt Count 262 MPV 11.5 H Immature Gran % (Auto) 1.1 H Neut % (Auto) 88.5 H Lymph % (Auto) 3.1 L [place] % (Auto) 7.0 Eos % (Auto) 0 Baso % (Auto) 0.3 Lymph # (Auto) 0.54 L [place] # (Auto) 1.20 H Eos # (Auto) 0 Baso # (Auto) 0.05 Immature Gran # 0.19 H Absolute Neutrophils 15.37 H D-Dimer 1.76 H POC VBG pH POC VBG pCO2 at Temp POC VBG pO2 POC VBG HCO3 POC VBG Total CO2 POC Venous O2 Sat POC VBG Base Excess VBG Lactic Acid POC Sodium Sodium 130 L POC Potassium Potassium 5.1 POC Chloride Chloride 89 L Carbon Dioxide 22 POC Total CO2 Anion Gap 19.0 H POC BUN BUN 49 H Creatinine 11.2 H* POC Creatinine GFR Calculation 4 Glucose 147 H POC Glucose Calcium 9.0 POC WB Ioniz Calcium Total Bilirubin 0.5 AST 16 ALT 9 Alkaline Phosphatase 72 NT-Pro-B Natriuret Pep > 80514.0 H Total Protein 7.5 Albumin 4.3 Globulin 3.2 Albumin/Globulin Ratio 1.3 Preliminary micro results at discharge 12/06/21 00:14 Blood Culture - Preliminary Blood Gram positive cocci 12/06/21 00:45 Blood Culture - Preliminary Blood Gram positive cocci A/P Assessment and plan (1) Acute and chronic respiratory failure with hypoxia: Status: Acute (2) Septic shock: Status: Acute (3) Pneumonia: Status: Acute (4) Pulmonary edema cardiac cause: Status: Acute (5) ESRD on hemodialysis: Status: Chronic (6) Gram-positive bacteremia: Status: Acute Narrative A/P Narrative: #Septic shock -The patient was found to have WBc >18k, although afebrile -DDx: cardiogenic vs obstructive -Investigations: LA has now normalized -Tx: continue vasopressor support, switch to levophed -Monitor CVP >10, MAP >65, patient is anuric #Acute hypoxemic resp failure -2/2 shunting -DDx: PE, CHF, CAP -Investigations: CTA on admission performed, will obtain TTE -Tx: extracorporal UF, tx underlying PNA, continue supp O2 -Monitor CPOX #GPC bacteremia -?strep vs staph -Unclear source ?HD -Continue levaquin and vancomycin #ESRD on HD -HD today as per [facility] Time Spent With Patient Time: Total time spent is greater than 50% in coordination of care (as documented) at patient's floor/unit and/or counseling patient: Total time spent with greater than 50% in coordination of care (as documented) at patient's floor/unit and/or counseling patient:: Greater than 70 minutes Critical Care Time: Yes Total Critical Care Time: 75
[2021-12-06] MEDS ORDERED: LEVOFLOXACIN 750 MG/150 ML BAG IV ONE (18:00)
[2021-12-06] MEDS: 0.9 % SODIUM CHLORIDE 10 ML SYRINGE IV SCH ×4 (18:01→22:53)
[2021-12-06] MEDS: NOREPINEPHRINE BITARTRATE 8 MG in 0.9 % SODIUM CHLORIDE 242 ML IV SCH ×2 (18:25→22:46)
[2021-12-06] MEDS: 0.9 % SODIUM CHLORIDE 10 ML SYRINGE IV PRN ×2 (18:30→20:00)
[2021-12-06 19:34] LABS: Vancomycin,Random 6.9 ug/mL
[2021-12-06] MEDS: ACETAMINOPHEN 325 MG TABLET PO PRN ×2 (19:53→23:26)
[2021-12-06] MEDS ORDERED: VANCOMYCIN 1,500 MG in 0.9 % SODIUM CHLORIDE 500 ML IV ONE (21:00)
[2021-12-06] MEDS: HEPARIN 5,000 UNIT/ML VIAL SQ SCH (21:36)
[2021-12-06] MEDS: traMADol 50 MG TABLET PO PRN (23:42)
[2021-12-06] MEDS ORDERED: traMADol 50 MG TABLET PO ONE (23:46)
[2021-12-07] MEDS: IPRATROPIUM/ALBUTEROL 3 ML AMPUL.NEB NEB SCH ×2 (00:29→08:07)
[2021-12-07] MEDS: 0.9 % SODIUM CHLORIDE 10 ML SYRINGE IV PRN (05:30)
[2021-12-07] MEDS: traMADol 50 MG TABLET PO PRN ×3 (05:32→20:20)
[2021-12-07] MEDS: 0.9 % SODIUM CHLORIDE 10 ML SYRINGE IV SCH ×5 (05:35→21:49)
[2021-12-07] MEDS: 0.9 % SODIUM CHLORIDE 250 ML IV SCH ×5 (05:38→14:48)
[2021-12-07] MEDS ORDERED: traMADol 50 MG TABLET PO ONE (05:41)
[2021-12-07 06:46] LABS: Hematocrit 29.3 % (40.1-51.0); Hemoglobin 9.4 g/dL (13.7-17.5); Mean Cell Volume 92.7 fL (80.0-100.0); Mean Corpuscular HGB Conc 32.1 g/dL (31.0-36.0); Mean Platelet Volume 11.9 fL (7.4-10.4); Platelet Count 197 K/mcL (140-440); RBC 3.16 M/mcL (4.63-6.08); Red Cell Distribution Width 15.2 % (11.5-14.5)
--- NOTE | 2021-12-07 07:11 | Nephrology Progress Note ---
SUBJECTIVE Subjective Patient information: Note initiated : 12/07/21 at 7:07 am Patient: Khadar Rizo 60 y/o M admitted on 12/06/21 for SOB . Chief Complaint: Shortness of breath Pertinent ROS: Feels better Dyspnea improved Weakness Constitutional Vitals: Vital Signs Temp Pulse Resp BP Pulse Ox O2 Del Method O2 Flow Rate 97.2 F 96 H 26 H 134/81 94 3 12/07/21 02:03 12/07/21 06:01 12/07/21 06:01 12/07/21 06:01 12/07/21 06:01 12/07/21 02:00 12/07/21 06:01 Period Temp Pulse Resp BP Sys/Ding Pulse Ox O2 Del Method O2 Flow Rate Last 24 Hr 96.9 F-100.2 F 45-119 10-62 47-179/13-168 61-100 Nasal Cannula-Nasal Cannula 2-5 Intake and Output 12/06/21 12/07/21 12/07/21 21:59 05:59 13:59 Intake Total 1103 2069 Output Total 1999 0 Balance -897 2068 Weight 291 lb 14.4 oz Intake & Output: Intake & Output 12/06/21 12/07/21 12/07/21 21:59 05:59 13:59 Intake Total 1109 Output Total 1999 0 Balance -897 2068 Weight 291 lb 14.4 oz Intake: IV 683 1049 Sodium Chloride 0.9% 250 ml @ 250 250 20 mls/hr IV .[id number] RED Rx#: [id number] Zithromax 250 mg In Dextrose 5% 250 in Water 250 ml @ 250 mls/hr IV Q24H RED Rx#:[id number] Levophed 8 mg In Sodium 146 186 Chloride 0.9% 242 ml @ 10 MCG/ MIN 18.75 mls/hr IV Q14H RED Rx #:[id number] Vancomycin 1,500 mg In Sodium 500 Chloride 0.9% 500 ml @ 333.3 mls/hr IV ONCE ONE Rx#: [id number] Oral 420 120 IV - Manual Only 900 Output: Void Amount 0 0 Hemodialysis UF 2000 Other: Meal Bites of watermelon only 1/2 cup peaches Stool Size Smear Stool Color Green Stool Consistency Loose # Bowel Movements 1 General appearance: cooperative, no acute distress and obese Head Head exam: Present atraumatic and normal inspection Respiratory Respiratory exam: Present rales Cardiovascular Cardiovascular exam: Present RRR GI/Abdominal GI/Abdominal exam: Present soft Neurological Exam Neurological exam: Present alert and oriented X3 Psychiatric Psychiatric exam: Present normal affect and normal mood Skin Skin exam: Present pallor and warm A/P Assessment and plan (1) ESRD on hemodialysis: Assessment and plan: Khadar Rizo is a 60-year-old male with end stage renal disease on hemodialysis, chronic anemia due to ESRD, hypertension, diabetes mellitus type 2 presented to ED for shortness of breath and admitted on 12/06/21. His workup in ED was significant for Tmax 103.7, tachypnea (RR 30-40), tachycardia (HR~100), hypoxia on 2L NC. Labs were significant for leukocytosis (WBC 17.2 with 88% neutrophils), sodium 129. CTA reported mild right lower lobe parenchymal density. He was given IV fluids, blood cultures obtained, and started on IV Vancomycin and Zosyn. He required IV Dopamine after 2 L NS bolus. Nephrology consultation was requested for end stage renal disease. End stage renal disease on hemodialysis on MWF at [facility]. Chronic anemia due to ESRD. Septic shock with right sided pneumonia. Progress: HD for 3 hours with 2L UF on 12/06/21. Still on IV pressors. Plan: Next hemodialysis tomorrow. Status: Chronic Time Spent With Patient Time: Total time spent is greater than 50% in coordination of care (as documented) at patient's floor/unit and/or counseling patient:
[2021-12-07 07:43] LABS: Anisocytosis 1+ (None Seen); Band Neutrophils % 11 % (0-10); Lymphocytes % 5 % (15-49); Monocytes % (Manual) 4 % (1-12); Platelet Estimate NORMAL (Normal); RBC Morphology ABNORMAL (Normal); Segmented Neutrophils % 80 % (38-78)
[2021-12-07] MEDS ORDERED: IPRATROPIUM/ALBUTEROL 3 ML AMPUL.NEB NEB PRN (08:13)
[2021-12-07 08:16] LABS: Blood Urea Nitrogen 33 mg/dL (6-20); Calcium 8.8 mg/dL (8.6-10.4); Carbon Dioxide 25 mmol/L (22-30); Chloride 93 mmol/L (96-108); Glomerular Filtration Rate 6; Glucose 147 mg/dL (70-105)
[2021-12-07] MEDS: HEPARIN 5,000 UNIT/ML VIAL SQ SCH ×2 (08:48→21:48)
[2021-12-07] MEDS: PANTOPRAZOLE 40 MG TABLET PO SCH (08:48)
[2021-12-07] MEDS ORDERED: VANCOMYCIN PER PHARMACY IV SCH (09:00)
[2021-12-07] MEDS: AZITHROMYCIN 250 MG in DEXTROSE 5% IN WATER 250 ML IV SCH (09:25)
--- NOTE | 2021-12-07 09:38 | EKG ---
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 Measurements Intervals [place] Rate: 88 P: 58 IN: 178 QRS: 58 QRSD: 115 T: 37 QT: 412 QTc: 499 Interpretive Statements Sinus rhythm Nonspecific intraventricular conduction delay Electronically Signed On 12-07-2021 9:38:17 PDT by Facundo Almaraz M.D. /store/[email or web address]/[id number]/[id number].pdf
--- NOTE | 2021-12-07 10:22 | Internal Med Progress Note ---
SUBJECTIVE Subjective Patient information: Note initiated : 12/07/21 at 10:17 am Service Date, if different from initiated Date: [] Patient: Khadar Rizo 60 y/o M admitted on 12/06/21 for SOB . Chief Complaint: [SOB] Principal diagnosis: Septic shock Interval history: The patient states that he is feeling a little better this morning. He states that his breathing was easier status post dialysis yesterday. Discussed the case with the RN. Constitutional Vitals: Vital Signs Temp Pulse Resp BP Pulse Ox O2 Del Method O2 Flow Rate 97.3 F 93 H 18 95/64 95 3 12/07/21 08:01 12/07/21 10:01 12/07/21 10:01 12/07/21 10:01 12/07/21 10:01 12/07/21 08:07 12/07/21 10:01 Period Temp Pulse Resp BP Sys/Ding Pulse Ox O2 Del Method O2 Flow Rate Last 24 Hr 96.9 F-100.2 F 45-118 10-62 47-179/13-168 73-100 Nasal Cannula-Nasal Cannula 2-4 Intake and Output 12/06/21 12/07/21 12/07/21 21:59 05:59 13:59 Intake Total 1103 2069 99 Output Total 1999 0 Balance -892068 99 Weight 132.404 kg Intake & Output: Intake & Output 12/06/21 12/07/21 12/07/21 21:59 05:59 13:59 Intake Total 1103 2069 99 Output Total 1999 0 Balance -897 9 99 Weight 132.404 kg Intake: IV 683 1049 99 Sodium Chloride 0.9% 250 ml @ 250 250 20 mls/hr IV .[id number] RED Rx#: [id number] Zithromax 250 mg In Dextrose 5% 250 in Water 250 ml @ 250 mls/hr IV Q24H RED Rx#:[id number] Levophed 8 mg In Sodium 146 186 99 Chloride 0.9% 242 ml @ 10 MCG/ MIN 18.75 mls/hr IV Q14H RED Rx #:[id number] Vancomycin 1,500 mg In Sodium 500 Chloride 0.9% 500 ml @ 333.3 mls/hr IV ONCE ONE Rx#: [id number] Oral 420 120 IV - Manual Only 900 Output: Void Amount 0 0 Hemodialysis UF 2000 Other: Meal Bites of watermelon only 1/2 cup peaches Stool Size Smear Stool Color Green Stool Consistency Loose # Bowel Movements 1 General appearance: morbidly obese Head Head exam: Present atraumatic and normal inspection Eye Eye exam: Present normal appearance ENT ENT exam: Present mucous membranes moist, normal exam and normal external ear exam Neck Neck exam: Present normal inspection Respiratory Respiratory exam: Present decreased breath sounds; Absent normal respiratory exam Cardiovascular Cardiovascular exam: Present normal rate and rhythm GI/Abdominal GI/Abdominal exam: Present normal bowel sounds Back Exam Back exam: Present normal inspection Neurological Exam Neurological exam: Present alert and oriented X3 Skin Skin exam: Present intact and warm OBJ DATA Labs CBC & Chem 7: 12/07/21 05:18 12/07/21 05:18 Labs: Abnormal Lab Results 12/07/21 12/07/21 12/06/21 05:18 05:18 04:57 WBC 19.0 H RBC 3.16 L Hgb 9.4 L Hct 29.3 L POC Hct RDW 15.2 H MPV 11.9 H Immature Gran % (Auto) Neut % (Auto) Lymph % (Auto) Lymph # (Auto) Green # (Auto) Seg Neutrophils % 80 H Band Neutrophils % 11 H Lymphocytes % 5 L Immature Gran # Absolute Neutrophils RBC Morphology Abnormal A Anisocytosis 1+ A D-Dimer POC VBG pH 7.43 H POC VBG pCO2 at Temp 37.1 L POC VBG pO2 POC Venous O2 Sat VBG Lactic Acid POC Sodium Sodium POC Chloride Chloride 93 L Anion Gap POC BUN BUN 33 H Creatinine 8.1 H* POC Creatinine Glucose 147 H POC Glucose POC WB Ioniz Calcium NT-Pro-B Natriuret Pep 12/06/21 12/06/21 12/06/21 00:25 00:15 00:14 WBC RBC Hgb Hct POC Hct 33.0 L RDW MPV Immature Gran % (Auto) Neut % (Auto) Lymph % (Auto) Lymph # (Auto) Green # (Auto) Seg Neutrophils % Band Neutrophils % Lymphocytes % Immature Gran # Absolute Neutrophils RBC Morphology Anisocytosis D-Dimer 1.76 H POC VBG pH 7.49 H POC VBG pCO2 at Temp 33.5 L POC VBG pO2 72 H POC Venous O2 Sat 96.0 H VBG Lactic Acid 2.1 H POC Sodium 129 L Sodium POC Chloride 93 L Chloride Anion Gap POC BUN 47 H BUN Creatinine POC Creatinine 13.1 H* Glucose POC Glucose 153 H POC WB Ioniz Calcium 1.02 L NT-Pro-B Natriuret Pep 12/06/21 12/05/21 00:14 00:14 WBC 17.2 H RBC 3.44 L Hgb 10.2 L Hct 32.0 L POC Hct RDW 14.9 H MPV 11.5 H Immature Gran % (Auto) 1.1 H Neut % (Auto) 88.5 H Lymph % (Auto) 3.1 L Lymph # (Auto) 0.54 L Green # (Auto) 1.20 H Seg Neutrophils % Band Neutrophils % Lymphocytes % Immature Gran # 0.19 H Absolute Neutrophils 15.37 H RBC Morphology Anisocytosis D-Dimer POC VBG pH POC VBG pCO2 at Temp POC VBG pO2 POC Venous O2 Sat VBG Lactic Acid POC Sodium Sodium 130 L POC Chloride Chloride 89 L Anion Gap 19.0 H POC BUN BUN 49 H Creatinine 11.2 H* POC Creatinine Glucose 147 H POC Glucose POC WB Ioniz Calcium NT-Pro-B Natriuret Pep > 21524.0 H Meds: Medications Acetaminophen (Acetaminophen 325 Mg Tablet) 650 mg PO Q4-6HP PRN; Protocol PRN Reason: Per Pain Protocol/Fever > 101 Last Admin: 12/06/21 23:26 Dose: 650 mg Albuterol/Ipratropium (Ipratropium/Albuterol 3 Ml Ampul.Neb) 3 ml NEB Q4HP PRN PRN Reason: Shortness Of Breath Heparin Sodium (Porcine) (Heparin 5,000 Unit/Ml Vial) 5,000 unit SQ Q12 RED Last Admin: 12/07/21 08:48 Dose: 5,000 unit Sodium Chloride (Sodium Chloride 0.9%) 250 mls @ 20 mls/hr IV .[id number] RED Last Admin: 12/07/21 07:34 Dose: Not Given Azithromycin 250 mg/ Dextrose 250 mls @ 250 mls/hr IV Q24H [facility]; Protocol Stop: 12/08/21 14:29 Last Admin: 12/07/21 09:25 Dose: 250 mls/hr Norepinephrine Bitartrate 8 mg (/ Sodium Chloride) 250 mls @ 18.75 mls/hr IV Q14H [facility]; Protocol Last Titration: 12/07/21 08:21 Dose: 8 mcg/min, 15 mls/hr Sodium Chloride (Sodium Chloride 0.9%) 250 mls @ 20 mls/hr IV .[id number] [facility] Last Admin: 12/07/21 05:38 Dose: Not Given Levofloxacin (Levaquin) 500 mg in 100 mls @ 100 mls/hr IV Q48H RED Pantoprazole Sodium (Pantoprazole 40 Mg Tablet) 40 mg PO QAMAC [facility] Last Admin: 12/07/21 08:48 Dose: 40 mg Sodium Chloride (0.9 % Sodium Chloride 10 Ml Syringe) 10 ml IV Q8 RED Last Admin: 12/07/21 05:35 Dose: 10 ml Sodium Chloride (0.9 % Sodium Chloride 10 Ml Syringe) 10 ml IV Q12 [facility] Last Admin: 12/06/21 21:37 Dose: 10 ml Sodium Chloride (0.9 % Sodium Chloride 10 Ml Syringe) 10 ml IV UD PRN PRN Reason: FLUSH Last Admin: 12/07/21 05:30 Dose: 10 ml Tramadol HCl (Tramadol 50 Mg Tablet) 25 mg PO Q6HP PRN; Protocol PRN Reason: Pain Vancomycin HCl (Vancomycin Per Pharmacy) 1 order IV UD RED; Protocol A/P Assessment and plan (1) Acute and chronic respiratory failure with hypoxia: Status: Acute (2) Septic shock: Status: Acute (3) Pneumonia: Status: Acute (4) Pulmonary edema cardiac cause: Status: Acute (5) ESRD on hemodialysis: Status: Chronic (6) Gram-positive bacteremia: Status: Acute Narrative A/P Narrative: #Septic shock -The patient was found to have WBc >18k, although afebrile -DDx: cardiogenic vs obstructive -Investigations: LA has now normalized -Tx: continue vasopressor support, switch to levophed-> down to 8mcg (MAP 73) -Monitor CVP >10, MAP >65, patient is anuric #Acute hypoxemic resp failure -2/2 shunting -DDx: PE, CHF, CAP -Investigations: CTA on admission performed, will obtain TTE -Tx: extracorporal UF, tx underlying PNA, continue supp O2 -Monitor CPOX #GPC bacteremia -?strep vs staph -Unclear source ?HD -Continue levaquin and vancomycin #ESRD on HD -HD today as per nephro Time Spent With Patient Time: Total time spent is greater than 50% in coordination of care (as documented) at patient's floor/unit and/or counseling patient: Total time spent with greater than 50% in coordination of care (as documented) at patient's floor/unit and/or counseling patient:: 35 - 50 minutes Critical Care Time: Yes Total Critical Care Time: 30
[2021-12-07] MEDS: NOREPINEPHRINE BITARTRATE 8 MG in 0.9 % SODIUM CHLORIDE 242 ML IV SCH ×2 (10:29→13:18)
[2021-12-07] MEDS ORDERED: MAGNESIUM SULFATE 2 GM/50 ML BAG IV PRN (15:16)
[2021-12-07] MEDS ORDERED: NEUTRA PHOS 1 PACKET PO PRN (15:16)
[2021-12-07] MEDS ORDERED: POTASSIUM CHLORIDE 20 MEQ/15 ML ML PO PRN (15:16)
[2021-12-07] MEDS ORDERED: hydrOXYzine 25 MG TABLET PO PRN (16:56)
--- NOTE | 2021-12-07 21:38 | Internal Med Progress Note ---
SUBJECTIVE Subjective Patient information: Note initiated : 12/07/21 at 9:36 pm Service Date, if different from initiated Date: [] Patient: Khadar Rizo a 60 y/o M admitted on 12/06/21 for SOB . Chief Complaint: [] Principal diagnosis: Septic shock Interval history: History of present illness: Mr. Rizo is a 60 year old M with a complex past medical history significant for ESRD on HD TTS who presents to the hospital with 2 to 3-week history of progressive dyspnea and fatigue. The patient has not missed any sessions of dialysis however the amount of ultrafiltration that occurs is limited. At home, the sons found him in extremis. EMS were called and he was found to be hypoxemic, nauseous and appeared toxic. The patient states that he has had no sick contacts, no recent travel, but has had a productive cough. On arrival, he was hemodynamically tenuous as he was hypotensive. CTA was negative for PE but there was concerns for right lobar infiltrate. The patient was started on empiric vancomycin and bolused IV fluids. He was found to have a BNP of 70,000, and a white blood cell count of 18,000. There was concerns that this may be multifactorial in etiology due to pulmonary edema and pneumonia resulting in hypoxemic respiratory failure. The patient also became septic requiring dopamine and vasopressin. There was a brief CODE BLUE that was called that was thought to be vasovagal in etiology as he did not lose pulse. Central line was placed, nephrology were called to start dialysis, and the hospital service was asked to admit him to the ICU. 12/07Interval history: The patient states that he is feeling a little better this morning. He states that his breathing was easier status post dialysis yesterday. Discussed the case with the RN. 12/07-I took over care on 12/07 afternoon. Patient remains in septic shock on vasopressor support. GPC bacteremia on cultures. Reviewed echocardiogram, imaging, labs. Continue maintenance. Case discussed with nephrology. Patient might need transfer to tertiary center if persistent bacteremia noted for evaluation of endocarditis/cardiology/ID consultation Constitutional Vitals: Vital Signs Temp Pulse Resp BP Pulse Ox O2 Del Method O2 Flow Rate 97.4 F 74 25 H 87/53 97 3 12/07/21 20:01 12/07/21 21:04 12/07/21 21:04 12/07/21 21:04 12/07/21 21:04 12/07/21 08:07 12/07/21 21:04 Period Temp Pulse Resp BP Sys/Ding Pulse Ox O2 Del Method O2 Flow Rate Last 24 Hr 97.2 F-99.7 F 74-100 18-35 87-159/45-107 81-99 Nasal Cannula- Nasal Cannula 1-4 Intake and Output 12/07/21 12/07/21 12/07/21 05:59 13:59 21:59 Intake Total 2069 908 734 Output Total 0 0 Balance 9 908 734 Weight 133.402 kg Patient Weight 12/08/21 05:59 Weight 133.402 kg Lethargic but respond to commands On 2 L oxygen On vasopressors Right IJ central line Left forearm fistula Intake & Output: Intake & Output 12/07/21 12/07/21 12/07/21 05:59 13:59 21:59 Intake Total 9 908 734 Output Total 0 0 Balance 9 908 734 Weight 133.402 kg Intake: IV 1049 548 104 Sodium Chloride 0.9% 250 ml @ 250 144 20 mls/hr IV .[id number] [facility] Rx#: [id number] Zithromax 250 mg In Dextrose 5% 250 in Water 250 ml @ 250 mls/hr IV Q24H [facility] Rx#:[id number] Levophed 8 mg In Sodium 186 154 104 Chloride 0.9% 242 ml @ 10 MCG/ MIN 18.75 mls/hr IV Q14H [facility] Rx #:[id number] Vancomycin 1,500 mg In Sodium 500 Chloride 0.9% 500 ml @ 333.3 mls/hr IV ONCE ONE Rx#: [id number] Oral 120 360 630 IV - Manual Only 900 Output: Void Amount 0 0 Other: Meal 1/2 cup peaches Dinner Percent of Meal Consumed 25% Feeding Ability Independent OBJ DATA Labs CBC & Chem 7: 12/08/21 05:30 12/08/21 05:30 Labs: Abnormal Lab Results 12/07/21 12/07/21 12/06/21 05:18 05:18 04:57 WBC 19.0 H RBC 3.16 L Hgb 9.4 L Hct 29.3 L POC Hct RDW 15.2 H MPV 11.9 H Immature Gran % (Auto) Neut % (Auto) Lymph % (Auto) Lymph # (Auto) [place] # (Auto) Seg Neutrophils % 80 H Band Neutrophils % 11 H Lymphocytes % 5 L Immature Gran # Absolute Neutrophils RBC Morphology Abnormal A Anisocytosis 1+ A D-Dimer POC VBG pH 7.43 H POC VBG pCO2 at Temp 37.1 L POC VBG pO2 POC Venous O2 Sat VBG Lactic Acid POC Sodium Sodium POC Chloride Chloride 93 L Anion Gap POC BUN BUN 33 H Creatinine 8.1 H* POC Creatinine Glucose 147 H POC Glucose POC WB Ioniz Calcium NT-Pro-B Natriuret Pep 12/06/21 12/06/21 12/06/21 00:25 00:15 00:14 WBC RBC Hgb Hct POC Hct 33.0 L RDW MPV Immature Gran % (Auto) Neut % (Auto) Lymph % (Auto) Lymph # (Auto) [place] # (Auto) Seg Neutrophils % Band Neutrophils % Lymphocytes % Immature Gran # Absolute Neutrophils RBC Morphology Anisocytosis D-Dimer 1.76 H POC VBG pH 7.49 H POC VBG pCO2 at Temp 33.5 L POC VBG pO2 72 H POC Venous O2 Sat 96.0 H VBG Lactic Acid 2.1 H POC Sodium 129 L Sodium POC Chloride 93 L Chloride Anion Gap POC BUN 47 H BUN Creatinine POC Creatinine 13.1 H* Glucose POC Glucose 153 H POC WB Ioniz Calcium 1.02 L NT-Pro-B Natriuret Pep 12/06/21 12/05/21 00:14 00:14 WBC 17.2 H RBC 3.44 L Hgb 10.2 L Hct 32.0 L POC Hct RDW 14.9 H MPV 11.5 H Immature Gran % (Auto) 1.1 H Neut % (Auto) 88.5 H Lymph % (Auto) 3.1 L Lymph # (Auto) 0.54 L [place] # (Auto) 1.20 H Seg Neutrophils % Band Neutrophils % Lymphocytes % Immature Gran # 0.19 H Absolute Neutrophils 15.37 H RBC Morphology Anisocytosis D-Dimer POC VBG pH POC VBG pCO2 at Temp POC VBG pO2 POC Venous O2 Sat VBG Lactic Acid POC Sodium Sodium 130 L POC Chloride Chloride 89 L Anion Gap 19.0 H POC BUN BUN 49 H Creatinine 11.2 H* POC Creatinine Glucose 147 H POC Glucose POC WB Ioniz Calcium NT-Pro-B Natriuret Pep > 42226.0 H Meds: Medications Acetaminophen (Acetaminophen 325 Mg Tablet) 650 mg PO Q4-6HP PRN; Protocol PRN Reason: Per Pain Protocol/Fever > 101 Last Admin: 12/06/21 23:26 Dose: 650 mg Albuterol/Ipratropium (Ipratropium/Albuterol 3 Ml Ampul.Neb) 3 ml NEB Q4HP PRN PRN Reason: Shortness Of Breath Clonazepam (Clonazepam 0.5 Mg Tablet) 0.5 mg PO HS RED Heparin Sodium (Porcine) (Heparin 5,000 Unit/Ml Vial) 5,000 unit SQ Q12 [facility] Last Admin: 12/07/21 08:48 Dose: 5,000 unit Hydroxyzine HCl (Hydroxyzine 25 Mg Tablet) 25 mg PO TIDP PRN PRN Reason: Itching Sodium Chloride (Sodium Chloride 0.9%) 250 mls @ 20 mls/hr IV .[id number] [facility] Last Admin: 12/07/21 14:48 Dose: Not Given Norepinephrine Bitartrate 8 mg (/ Sodium Chloride) 250 mls @ 18.75 mls/hr IV Q14H [facility]; Protocol Last Titration: 12/07/21 21:03 Dose: 8 mcg/min, 15 mls/hr Sodium Chloride (Sodium Chloride 0.9%) 250 mls @ 20 mls/hr IV .[id number] [facility] Last Admin: 12/07/21 14:48 Dose: Not Given Levofloxacin (Levaquin) 500 mg in 100 mls @ 100 mls/hr IV Q48H RED Magnesium Sulfate (Magnesium Sulfate) 2 gm in 50 mls @ 50 mls/hr IV DAILYP PRN PRN Reason: Mag < or = 1.7 Pantoprazole Sodium (Pantoprazole 40 Mg Tablet) 40 mg PO QAMAC [facility] Last Admin: 12/07/21 08:48 Dose: 40 mg Potassium Chloride (Potassium Chloride 20 Meq/15 Ml Ml) 20 meq PO BIDP PRN PRN Reason: K <3.6 Stop: 12/08/21 15:15 Potassium/Phosphorus/Sodium (Neutra Phos 1 Packet) 2 packet PO DAILYP PRN PRN Reason: For phosphorus less than 2.5 Sodium Chloride (0.9 % Sodium Chloride 10 Ml Syringe) 10 ml IV Q8 [facility] Last Admin: 12/07/21 13:18 Dose: 10 ml Sodium Chloride (0.9 % Sodium Chloride 10 Ml Syringe) 10 ml IV Q12 RED Last Admin: 12/07/21 10:28 Dose: 10 ml Sodium Chloride (0.9 % Sodium Chloride 10 Ml Syringe) 10 ml IV UD PRN PRN Reason: FLUSH Last Admin: 12/07/21 05:30 Dose: 10 ml Tramadol HCl (Tramadol 50 Mg Tablet) 25 mg PO Q6HP PRN; Protocol PRN Reason: Pain Last Admin: 12/07/21 20:20 Dose: 25 mg Vancomycin HCl (Vancomycin Per Pharmacy) 1 order IV UD RED; Protocol A/P Assessment and plan (1) Septic shock: Status: Acute Narrative A/P Narrative: * Septic shock-secondary to staph for his bacteremia/pneumonia. On aggressive treatment on antibiotics including vancomycin, Levaquin. Continue vasopressor support * Suspected right lower lobe pneumonia * Acute mental status change secondary to sepsis endorgan dysfunction * ESRD on hemodialysis management nephrology * GPC bacteremia continue surveillance cultures, echocardiogram no evidence of valvular vegetation. Source investigation Plan * Continue vasopressor support * Hemodialysis per nephrology * Surveillance cultures/source investigation * Antibiotic de-escalation based on sensitivities Time Spent With Patient Time: Total time spent is greater than 50% in coordination of care (as documented) at patient's floor/unit and/or counseling patient: Total time spent with greater than 50% in coordination of care (as documented) at patient's floor/unit and/or counseling patient:: 25 - 35 minutes Total Critical Care Time: 35
[2021-12-07] MEDS: clonazePAM 0.5 MG TABLET PO SCH (21:45)
[2021-12-08] MEDS: 0.9 % SODIUM CHLORIDE 10 ML SYRINGE IV SCH ×5 (05:23→20:44)
[2021-12-08] MEDS: NOREPINEPHRINE BITARTRATE 8 MG in 0.9 % SODIUM CHLORIDE 242 ML IV SCH ×2 (06:02→16:12)
[2021-12-08 07:12] LABS: Basophils % (Auto) 0.6 % (0.0-2.0); Eosinophils # (Auto) 0.08 K/mcL (0.00-0.70); Eosinophils % (Auto) 0.4 % (0.0-7.0); Hematocrit 28.3 % (40.1-51.0); Hemoglobin 8.8 g/dL (13.7-17.5); Lymphocytes # (Auto) 0.41 K/mcL (1.50-4.80); Lymphocytes % (Auto) 2.3 % (15.5-49.0); Mean Cell Volume 95.3 fL (80.0-100.0); Mean Corpuscular HGB Conc 31.1 g/dL (31.0-36.0); Mean Platelet Volume 11.7 fL (7.4-10.4); Monocytes # (Auto) 2.13 K/mcL (0.10-0.90); Neutrophils % (Auto) 80.1 % (38.0-78.0); Platelet Count 194 K/mcL (140-440); RBC 2.97 M/mcL (4.63-6.08); Red Cell Distribution Width 15.5 % (11.5-14.5); WBC 17.8 K/mcL (4.5-11.0)
[2021-12-08] MEDS: 0.9 % SODIUM CHLORIDE 250 ML IV SCH ×5 (07:54→15:42)
--- NOTE | 2021-12-08 08:23 | Nephrology Progress Note ---
SUBJECTIVE Subjective Patient information: Note initiated : 12/08/21 at 8:20 am Patient: Khadar Rizo 60 y/o M admitted on 12/06/21 for SOB . Chief Complaint: Chest pain Principal diagnosis: Septic shock Pertinent ROS: Weakness Shortness of breath Sleepy Constitutional Vitals: Vital Signs Temp Pulse Resp BP Pulse Ox O2 Del Method O2 Flow Rate 96.9 F L 72 22 114/58 100 3.5 12/08/21 08:01 12/08/21 08:01 12/08/21 08:01 12/08/21 08:01 12/08/21 08:01 12/08/21 01:00 12/08/21 08:01 Period Temp Pulse Resp BP Sys/Ding Pulse Ox O2 Del Method O2 Flow Rate Last 24 Hr 96.9 F-99.1 F 71-96 17-30 87-114/45-70 81-100 Nasal Cannula- Nasal Cannula 1-3.5 Intake and Output 12/07/21 12/08/21 12/08/21 21:59 05:59 13:59 Intake Total 739 102 55 Output Total 0 0 Balance 739 102 55 Weight 294 lb 1.6 oz Intake & Output: Intake & Output 12/07/21 12/08/21 12/08/21 21:59 05:59 13:59 Intake Total 739 102 55 Output Total 0 0 Balance 739 102 55 Weight 294 lb 1.6 oz Intake: IV 109 102 55 Levophed 8 mg In Sodium 109 102 55 Chloride 0.9% 242 ml @ 10 MCG/ MIN 18.75 mls/hr IV Q14H [facility] Rx #:[id number] Oral 630 0 Output: Void Amount 0 0 Other: Meal Dinner Percent of Meal Consumed 25% Feeding Ability Independent General appearance: no acute distress and obese Head Head exam: Present atraumatic and normal inspection ENT ENT exam: Present mucous membranes dry Respiratory Respiratory exam: Present decreased breath sounds and rales Cardiovascular Cardiovascular exam: Present normal rate and rhythm GI/Abdominal GI/Abdominal exam: Present soft Neurological Exam Neurological exam: Present altered Psychiatric Psychiatric exam: Present normal affect and normal mood Skin Skin exam: Present pallor A/P Assessment and plan (1) ESRD on hemodialysis: Assessment and plan: Khadar Rizo is a 60-year-old male with end stage renal disease on hemodialysis, chronic anemia due to ESRD, hypertension, diabetes mellitus type 2 presented to ED for shortness of breath and admitted on 12/06/21. His workup in ED was significant for Tmax 103.7, tachypnea (RR 30-40), tachycardia (HR~100), hypoxia on 2L NC. Labs were significant for leukocytosis (WBC 17.2 with 88% neutrophils), sodium 129. CTA reported mild right lower lobe parenchymal density. He was given IV fluids, blood cultures obtained, and started on IV Vancomycin and Zosyn. He required IV Dopamine after 2 L NS bolus. Nephrology consultation was requested for end stage renal disease. End stage renal disease on hemodialysis on MWF at [facility]. Chronic anemia due to ESRD. Septic shock with MRSA bacteremia and right sided pneumonia. Progress: HD for 3 hours with 2L UF on 12/06/21. Still on IV pressors. Hyponatremia. Hyperkalemia. Plan: Hemodialysis today and tomorrow. The patient seen and evaluated during hemodialysis at 11:50. Tolerating well. NE at 10. Status: Chronic Time Spent With Patient Time: Total time spent is greater than 50% in coordination of care (as documented) at patient's floor/unit and/or counseling patient:
[2021-12-08] MEDS: PANTOPRAZOLE 40 MG TABLET PO SCH (08:25)
[2021-12-08 08:29] LABS: ALT/SGPT 18 U/L (<40); AST/SGOT 20 U/L (<40); Albumin 2.7 gm/dL (3.2-5.2); Albumin/Globulin Ratio 0.8 (1.0-2.3); Alkaline Phosphatase 119 U/L (39-117); Bilirubin,Direct < 0.2 mg/dL (0-0.3); Bilirubin,Total 0.4 mg/dL (0.1-1.0); Blood Urea Nitrogen 40 mg/dL (6-20); Calcium 8.4 mg/dL (8.6-10.4); Carbon Dioxide 22 mmol/L (22-30); Chloride 94 mmol/L (96-108); Globulin 3.3 gm/dL (2.2-3.7); Glomerular Filtration Rate 6; Glucose 98 mg/dL (70-105); Lactate Dehydrogenase 315 U/L (135-225); Phosphorous 6.4 mg/dL (2.5-4.5); Triglycerides 187 mg/dL (<150); Uric Acid 5.2 mg/dL (2.5-8.0)
[2021-12-08] MEDS: HEPARIN 5,000 UNIT/ML VIAL SQ SCH ×2 (08:33→20:43)
[2021-12-08] MEDS ORDERED: LEVOFLOXACIN 500 MG/100 ML BAG IV SCH (09:00)
--- NOTE | 2021-12-08 09:15 | EKG ---
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
--- NOTE | 2021-12-08 11:55 | Internal Med Progress Note ---
SUBJECTIVE Subjective Patient information: Note initiated : 12/08/21 at 11:51 am Service Date, if different from initiated Date: [] Patient: Khadar Rizo a 60 y/o M admitted on 12/06/21 for SOB . Chief Complaint: [] Principal diagnosis: Septic shock Interval history: History of present illness: Mr. Rizo is a 60 year old M with a complex past medical history significant for ESRD on HD TTS who presents to the hospital with 2 to 3-week history of progressive dyspnea and fatigue. The patient has not missed any sessions of dialysis however the amount of ultrafiltration that occurs is limited. At home, the sons found him in extremis. EMS were called and he was found to be hypoxemic, nauseous and appeared toxic. The patient states that he has had no sick contacts, no recent travel, but has had a productive cough. On arrival, he was hemodynamically tenuous as he was hypotensive. CTA was negative for PE but there was concerns for right lobar infiltrate. The patient was started on empiric vancomycin and bolused IV fluids. He was found to have a BNP of 70,000, and a white blood cell count of 18,000. There was concerns that this may be multifactorial in etiology due to pulmonary edema and pneumonia resulting in hypoxemic respiratory failure. The patient also became septic requiring dopamine and vasopressin. There was a brief CODE BLUE that was called that was thought to be vasovagal in etiology as he did not lose pulse. Central line was placed, nephrology were called to start dialysis, and the hospital service was asked to admit him to the ICU. 12/07Interval history: The patient states that he is feeling a little better this morning. He states that his breathing was easier status post dialysis yesterday. Discussed the case with the RN. 12/07-I took over care on 12/07 afternoon. Patient remains in septic shock on vasopressor support. GPC bacteremia on cultures. Reviewed echocardiogram, imaging, labs. Continue maintenance. Case discussed with nephrology. Patient might need transfer to tertiary center if persistent bacteremia noted for evaluation of endocarditis/cardiology/ID consultation 12/08-patient currently on Levophed at 10 mics. Staff aureus bacteremia, surveillance cultures pending. On vancomycin. Ongoing hemodialysis. Case discussed with nephrology. Recommends continuation of antibiotics/source evaluation.Echocardiogram no evidence of valvular vegetation, EF 40%. Patient remains critically ill, white count down from 19-17.8, sodium 132, potassium 5.6, remains intermittently confused lethargic. [place] 2 score over 16 indicating high risk mortality. Discussed with patient possible transfer to tertiary center which at this time he refuses and would like to stay at [facility] for continued treatment. He understands the risk associated which may include worsening of his current condition and the worst possible outcome including Constitutional Vitals: Vital Signs Temp Pulse Resp BP Pulse Ox O2 Del Method O2 Flow Rate 97.1 F 88 23 H 116/71 100 3.5 12/08/21 10:40 12/08/21 11:47 12/08/21 11:16 12/08/21 11:47 12/08/21 11:16 12/08/21 01:00 12/08/21 11:16 Period Temp Pulse Resp BP Sys/Ding Pulse Ox O2 Del Method O2 Flow Rate Last 24 Hr 96.9 F-99.1 F 68-94 16-30 87-122/43-97 81-100 Nasal Cannula- Nasal Cannula 1-3.5 Intake and Output 12/07/21 12/08/21 12/08/21 21:59 05:59 13:59 Intake Total 739 102 245 Output Total 0 0 Balance 739 102 245 Weight 133.402 kg Patient remains lethargic Nonlabored breathing on 3.5 L oxygen Ongoing hemodialysis Systolics around 100 on pressors Intake & Output: Intake & Output 12/07/21 12/08/21 12/08/21 21:59 05:59 13:59 Intake Total 739 102 245 Output Total 0 0 Balance 739 102 245 Weight 133.402 kg Intake: IV 109 102 245 Levophed 8 mg In Sodium 109 102 145 Chloride 0.9% 242 ml @ 10 MCG/ MIN 18.75 mls/hr IV Q14H [facility] Rx #:[id number] Oral 630 0 Output: Void Amount 0 0 Other: Meal Dinner Percent of Meal Consumed 25% Feeding Ability Independent OBJ DATA Labs CBC & Chem 7: 12/09/21 05:34 12/09/21 05:36 Labs: Abnormal Lab Results 12/08/21 12/08/21 12/07/21 05:30 05:30 05:18 WBC 17.8 H RBC 2.97 L Hgb 8.8 L Hct 28.3 L POC Hct RDW 15.5 H MPV 11.7 H Immature Gran % (Auto) 4.6 H Neut % (Auto) 80.1 H Lymph % (Auto) 2.3 L Lymph # (Auto) 0.41 L [place] # (Auto) 2.13 H Seg Neutrophils % Band Neutrophils % Lymphocytes % Immature Gran # 0.82 H Absolute Neutrophils 15.10 H RBC Morphology Anisocytosis D-Dimer POC VBG pH POC VBG pCO2 at Temp POC VBG pO2 POC Venous O2 Sat VBG Lactic Acid POC Sodium Sodium 132 L Potassium 5.6 H POC Chloride Chloride 94 L 93 L Anion Gap POC BUN BUN 40 H 33 H Creatinine 9.0 H* 8.1 H* POC Creatinine Glucose 147 H POC Glucose Calcium 8.4 L POC WB Ioniz Calcium Phosphorus 6.4 H* Alkaline Phosphatase 119 H Lactate Dehydrogenase 315 H NT-Pro-B Natriuret Pep Albumin 2.7 L Albumin/Globulin Ratio 0.8 L Triglycerides 187 H 12/07/21 12/06/21 12/06/21 05:18 04:57 00:25 WBC 19.0 H RBC 3.16 L Hgb 9.4 L Hct 29.3 L POC Hct RDW 15.2 H MPV 11.9 H Immature Gran % (Auto) Neut % (Auto) Lymph % (Auto) Lymph # (Auto) [place] # (Auto) Seg Neutrophils % 80 H Band Neutrophils % 11 H Lymphocytes % 5 L Immature Gran # Absolute Neutrophils RBC Morphology Abnormal A Anisocytosis 1+ A D-Dimer POC VBG pH 7.43 H 7.49 H POC VBG pCO2 at Temp 37.1 L 33.5 L POC VBG pO2 72 H POC Venous O2 Sat 96.0 H VBG Lactic Acid 2.1 H POC Sodium Sodium Potassium POC Chloride Chloride Anion Gap POC BUN BUN Creatinine POC Creatinine Glucose POC Glucose Calcium POC WB Ioniz Calcium Phosphorus Alkaline Phosphatase Lactate Dehydrogenase NT-Pro-B Natriuret Pep Albumin Albumin/Globulin Ratio Triglycerides 12/06/21 12/06/21 12/06/21 00:15 00:14 00:14 WBC 17.2 H RBC 3.44 L Hgb 10.2 L Hct 32.0 L POC Hct 33.0 L RDW 14.9 H MPV 11.5 H Immature Gran % (Auto) 1.1 H Neut % (Auto) 88.5 H Lymph % (Auto) 3.1 L Lymph # (Auto) 0.54 L [place] # (Auto) 1.20 H Seg Neutrophils % Band Neutrophils % Lymphocytes % Immature Gran # 0.19 H Absolute Neutrophils 15.37 H RBC Morphology Anisocytosis D-Dimer 1.76 H POC VBG pH POC VBG pCO2 at Temp POC VBG pO2 POC Venous O2 Sat VBG Lactic Acid POC Sodium 129 L Sodium Potassium POC Chloride 93 L Chloride Anion Gap POC BUN 47 H BUN Creatinine POC Creatinine 13.1 H* Glucose POC Glucose 153 H Calcium POC WB Ioniz Calcium 1.02 L Phosphorus Alkaline Phosphatase Lactate Dehydrogenase NT-Pro-B Natriuret Pep Albumin Albumin/Globulin Ratio Triglycerides 12/05/21 00:14 WBC RBC Hgb Hct POC Hct RDW MPV Immature Gran % (Auto) Neut % (Auto) Lymph % (Auto) Lymph # (Auto) [place] # (Auto) Seg Neutrophils % Band Neutrophils % Lymphocytes % Immature Gran # Absolute Neutrophils RBC Morphology Anisocytosis D-Dimer POC VBG pH POC VBG pCO2 at Temp POC VBG pO2 POC Venous O2 Sat VBG Lactic Acid POC Sodium Sodium 130 L Potassium POC Chloride Chloride 89 L Anion Gap 19.0 H POC BUN BUN 49 H Creatinine 11.2 H* POC Creatinine Glucose 147 H POC Glucose Calcium POC WB Ioniz Calcium Phosphorus Alkaline Phosphatase Lactate Dehydrogenase NT-Pro-B Natriuret Pep > 34759.0 H Albumin Albumin/Globulin Ratio Triglycerides Meds: Medications Acetaminophen (Acetaminophen 325 Mg Tablet) 650 mg PO Q4-6HP PRN; Protocol PRN Reason: Per Pain Protocol/Fever > 101 Last Admin: 12/06/21 23:26 Dose: 650 mg Albuterol/Ipratropium (Ipratropium/Albuterol 3 Ml Ampul.Neb) 3 ml NEB Q4HP PRN PRN Reason: Shortness Of Breath Clonazepam (Clonazepam 0.5 Mg Tablet) 0.5 mg PO HS [facility] Last Admin: 12/07/21 21:45 Dose: Not Given Heparin Sodium (Porcine) (Heparin 5,000 Unit/Ml Vial) 5,000 unit SQ Q12 RED Last Admin: 12/08/21 08:33 Dose: 5,000 unit Hydroxyzine HCl (Hydroxyzine 25 Mg Tablet) 25 mg PO TIDP PRN PRN Reason: Itching Sodium Chloride (Sodium Chloride 0.9%) 250 mls @ 20 mls/hr IV .[id number] [facility] Last Admin: 12/08/21 07:54 Dose: Not Given Norepinephrine Bitartrate 8 mg (/ Sodium Chloride) 250 mls @ 18.75 mls/hr IV Q14H [facility]; Protocol Last Titration: 12/08/21 11:47 Dose: 9 mcg/min, 16.875 mls/hr Sodium Chloride (Sodium Chloride 0.9%) 250 mls @ 20 mls/hr IV .[id number] [facility] Last Admin: 12/08/21 07:54 Dose: Not Given Levofloxacin (Levaquin) 500 mg in 100 mls @ 100 mls/hr IV Q48H [facility] Last Infusion: 12/08/21 09:43 Dose: Infused Magnesium Sulfate (Magnesium Sulfate) 2 gm in 50 mls @ 50 mls/hr IV DAILYP PRN PRN Reason: Mag < or = 1.7 Pantoprazole Sodium (Pantoprazole 40 Mg Tablet) 40 mg PO QAMAC [facility] Last Admin: 12/08/21 08:25 Dose: Not Given Potassium Chloride (Potassium Chloride 20 Meq/15 Ml Ml) 20 meq PO BIDP PRN PRN Reason: K <3.6 Stop: 12/08/21 15:15 Potassium/Phosphorus/Sodium (Neutra Phos 1 Packet) 2 packet PO DAILYP PRN PRN Reason: For phosphorus less than 2.5 Sodium Chloride (0.9 % Sodium Chloride 10 Ml Syringe) 10 ml IV Q8 [facility] Last Admin: 12/08/21 05:23 Dose: Not Given Sodium Chloride (0.9 % Sodium Chloride 10 Ml Syringe) 10 ml IV Q12 [facility] Last Admin: 12/08/21 08:33 Dose: 10 ml Sodium Chloride (0.9 % Sodium Chloride 10 Ml Syringe) 10 ml IV UD PRN PRN Reason: FLUSH Last Admin: 12/07/21 05:30 Dose: 10 ml Tramadol HCl (Tramadol 50 Mg Tablet) 25 mg PO Q6HP PRN; Protocol PRN Reason: Pain Last Admin: 12/07/21 20:20 Dose: 25 mg Vancomycin HCl (Vancomycin Per Pharmacy) 1 order IV UD [facility]; Protocol A/P Assessment and plan (1) Septic shock: Status: Acute Narrative A/P Narrative: * Septic shock-secondary to MRSA bacteremia/pneumonia. On antibiotics including vancomycin, Levaquin. Continue vasopressor support * Suspected right lower lobe pneumonia * Acute mental status change secondary to sepsis endorgan dysfunction * ESRD on hemodialysis management nephrology, per nephrology patient can be managed at [facility] on continued antibiotics with dialysis on Sunday followed by Sunday * MRSA bacteremia continue surveillance cultures, echocardiogram no evidence of valvular vegetation. MRI lower back Plan * Continue vasopressor support * Hemodialysis per nephrology * MRI lower back * Surveillance cultures/source investigation * Continue vancomycin Time Spent With Patient Time: Total time spent is greater than 50% in coordination of care (as documented) at patient's floor/unit and/or counseling patient: Critical Care Time: Yes Total Critical Care Time: 35
[2021-12-08 15:25] LABS: Vancomycin,Random 13.3 ug/mL
[2021-12-08] MEDS ORDERED: VANCOMYCIN 1,500 MG in 0.9 % SODIUM CHLORIDE 500 ML IV ONE (16:00)
[2021-12-08] MEDS: traMADol 50 MG TABLET PO PRN (18:58)
[2021-12-08] MEDS: clonazePAM 0.5 MG TABLET PO SCH ×2 (20:43→21:14)
[2021-12-09] MEDS: 0.9 % SODIUM CHLORIDE 250 ML IV SCH ×4 (03:12→16:15)
[2021-12-09] MEDS: traMADol 50 MG TABLET PO PRN ×2 (04:13→20:24)
[2021-12-09] MEDS: NOREPINEPHRINE BITARTRATE 8 MG in 0.9 % SODIUM CHLORIDE 242 ML IV SCH ×2 (05:30→10:53)
[2021-12-09] MEDS: 0.9 % SODIUM CHLORIDE 10 ML SYRINGE IV SCH ×5 (05:38→23:53)
[2021-12-09 06:57] LABS: Basophils # (Auto) 0.11 K/mcL (0.00-0.30); Basophils % (Auto) 0.6 % (0.0-2.0); Eosinophils # (Auto) 0.22 K/mcL (0.00-0.70); Eosinophils % (Auto) 1.3 % (0.0-7.0); Hematocrit 29.5 % (40.1-51.0); Hemoglobin 9.2 g/dL (13.7-17.5); Lymphocytes # (Auto) 0.69 K/mcL (1.50-4.80); Mean Cell Volume 94.2 fL (80.0-100.0); Mean Corpuscular HGB Conc 31.2 g/dL (31.0-36.0); Mean Platelet Volume 11.6 fL (7.4-10.4); Monocytes # (Auto) 2.07 K/mcL (0.10-0.90); Neutrophils % (Auto) 78.1 % (38.0-78.0); Platelet Count 203 K/mcL (140-440); RBC 3.13 M/mcL (4.63-6.08); Red Cell Distribution Width 15.7 % (11.5-14.5); WBC 17.2 K/mcL (4.5-11.0)
[2021-12-09] MEDS: PANTOPRAZOLE 40 MG TABLET PO SCH (07:25)
[2021-12-09 07:56] LABS: ALT/SGPT 14 U/L (<40); AST/SGOT 16 U/L (<40); Albumin 2.8 gm/dL (3.2-5.2); Albumin/Globulin Ratio 0.8 (1.0-2.3); Alkaline Phosphatase 103 U/L (39-117); Bilirubin,Direct 0.2 mg/dL (<0.3); Bilirubin,Total 0.4 mg/dL (0.1-1.0); Blood Urea Nitrogen 31 mg/dL (6-20); Calcium 8.9 mg/dL (8.6-10.4); Carbon Dioxide 27 mmol/L (22-30); Chloride 91 mmol/L (96-108); Globulin 3.4 gm/dL (2.2-3.7); Glomerular Filtration Rate 7; Glucose 92 mg/dL (70-105); Lactate Dehydrogenase 275 U/L (135-225); Phosphorous 5.5 mg/dL (2.5-4.5); Triglycerides 168 mg/dL (<150); Uric Acid 4.1 mg/dL (2.5-8.0)
[2021-12-09] MEDS: HEPARIN 5,000 UNIT/ML VIAL SQ SCH ×2 (08:15→21:00)
--- NOTE | 2021-12-09 08:22 | Nephrology Progress Note ---
SUBJECTIVE Subjective Patient information: Note initiated : 12/09/21 at 8:19 am Patient: Khadar Rizo 60 y/o M admitted on 12/06/21 for SOB . Chief Complaint: Shortness of breath Principal diagnosis: Septic shock Pertinent ROS: Less confused More awake Dyspnea improved Weakness Constitutional Vitals: Vital Signs Temp Pulse Resp BP Pulse Ox O2 Del Method O2 Flow Rate 97.7 F 86 24 H 127/63 100 2 12/09/21 08:01 12/09/21 08:01 12/09/21 08:01 12/09/21 08:01 12/09/21 08:01 12/09/21 02:00 12/09/21 05:00 Period Temp Pulse Resp BP Sys/Ding Pulse Ox O2 Del Method O2 Flow Rate Last 24 Hr 97.1 F-98.2 F 68-96 14-32 71-127/41-108 90-100 Nasal Cannula- Nasal Cannula 2-4 Intake and Output 12/08/21 12/09/21 12/09/21 21:59 05:59 13:59 Intake Total 574 695 90 Output Total 3000 0 Balance -2426 695 90 Weight 285 lb 11.2 oz Intake & Output: Intake & Output 12/08/21 12/09/21 12/09/21 21:59 05:59 13:59 Intake Total 574 695 90 Output Total 3000 0 Balance -2426 695 90 Weight 285 lb 11.2 oz Intake: IV 574 55 90 Levophed 8 mg In Sodium 74 55 90 Chloride 0.9% 242 ml @ 10 MCG/ MIN 18.75 mls/hr IV Q14H [facility] Rx #:[id number] Vancomycin 1,500 mg In Sodium 500 Chloride 0.9% 500 ml @ 333.3 mls/hr IV ONCE ONE Rx#: [id number] Oral 640 0 Output: Void Amount 0 Hemodialysis UF 3000 Other: Meal Dinner Percent of Meal Consumed 25% General appearance: cooperative, no acute distress and obese Head Head exam: Present atraumatic and normal inspection Respiratory Respiratory exam: Present decreased breath sounds and rales Cardiovascular Cardiovascular exam: Present normal rate and rhythm GI/Abdominal GI/Abdominal exam: Present soft Neurological Exam Neurological exam: Present alert and oriented X3 Psychiatric Psychiatric exam: Present normal affect and normal mood Skin Skin exam: Present warm A/P Assessment and plan (1) ESRD on hemodialysis: Assessment and plan: Khadar Rizo is a 60-year-old male with end stage renal disease on hemodialysis, chronic anemia due to ESRD, hypertension, diabetes mellitus type 2 presented to ED for shortness of breath and admitted on 12/06/21. His workup in ED was significant for Tmax 103.7, tachypnea (RR 30-40), tachycardia (HR~100), hypoxia on 2L NC. Labs were significant for leukocytosis (WBC 17.2 with 88% neutrophils), sodium 129. CTA reported mild right lower lobe parenchymal density. He was given IV fluids, blood cultures obtained, and started on IV Vancomycin and Zosyn. He required IV Dopamine after 2 L NS bolus. Nephrology consultation was requested for end stage renal disease. End stage renal disease on hemodialysis on MWF at [facility]. Chronic anemia due to ESRD. Septic shock with MRSA bacteremia and right sided pneumonia. Progress: HD for 3 hours with 2L UF on 12/06/21. HD for 3 hours with 3L UF on 12/08/21. Still on IV pressors, but at a lower rate. Hyponatremia, mild. Plan: Hemodialysis today then on Sunday. The patient seen and elevated during hemodialysis at 10:05. Tolerating well so far. Status: Chronic Time Spent With Patient Time: Total time spent is greater than 50% in coordination of care (as documented) at patient's floor/unit and/or counseling patient:
--- NOTE | 2021-12-09 09:38 | Internal Med Progress Note ---
SUBJECTIVE Subjective Patient information: Note initiated : 12/09/21 at 9:33 am Service Date, if different from initiated Date: [] Patient: Khadar Rizo a 60 y/o M admitted on 12/06/21 for SOB . Chief Complaint: [] Principal diagnosis: Septic shock Interval history: Mr. Rizo is a 60 year old M with a complex past medical history significant for ESRD on HD TTS who presents to the hospital with 2 to 3-week history of progressive dyspnea and fatigue. The patient has not missed any sessions of dialysis however the amount of ultrafiltration that occurs is limited. At home, the sons found him in extremis. EMS were called and he was found to be hypoxemic, nauseous and appeared toxic. The patient states that he has had no sick contacts, no recent travel, but has had a productive cough. On arrival, he was hemodynamically tenuous as he was hypotensive. CTA was negative for PE but there was concerns for right lobar infiltrate. The patient was started on empiric vancomycin and bolused IV fluids. He was found to have a BNP of 70,000, and a white blood cell count of 18,000. There was concerns that this may be multifactorial in etiology due to pulmonary edema and pneumonia resulting in hypoxemic respiratory failure. The patient also became septic requiring dopamine and vasopressin. There was a brief CODE BLUE that was called that was thought to be vasovagal in etiology as he did not lose pulse. Central line was placed, nephrology were called to start dialysis, and the hospital service was asked to admit him to the ICU. 12/07Interval history: The patient states that he is feeling a little better this morning. He states that his breathing was easier status post dialysis yesterday. Discussed the case with the RN. 12/07-I took over care on 12/07 afternoon. Patient remains in septic shock on vasopressor support. GPC bacteremia on cultures. Reviewed echocardiogram, imaging, labs. Continue maintenance. Case discussed with nephrology. Patient might need transfer to tertiary center if persistent bacteremia noted for evaluation of endocarditis/cardiology/ID consultation 12/08-patient currently on Levophed at 10 mics. Staff aureus bacteremia, surveillance cultures pending. On vancomycin. Ongoing hemodialysis. Case discussed with nephrology. Recommends continuation of antibiotics/source evaluation.Echocardiogram no evidence of valvular vegetation, EF 40%. Patient remains critically ill, white count down from 19-17.8, sodium 132, potassium 5.6, remains intermittently confused lethargic. [place] 2 score over 16 indicating high risk mortality. Discussed with patient possible transfer to tertiary center which at this time he refuses and would like to stay at [facility] for continued treatment. He understands the risk associated which may include worsening of his current condition and the worst possible outcome including 12/09-patient clinically status quo currently on vasopressors. Ongoing hemodialysis. Surveillance cultures positive for GPC. High probability endocarditis. Coordinate tertiary center transfer for further management. No overnight fever chills. Mentation improving. Constitutional Vitals: Vital Signs Temp Pulse Resp BP Pulse Ox O2 Del Method O2 Flow Rate 97.7 F 91 H 31 H 101/46 99 2 12/09/21 08:01 12/09/21 09:01 12/09/21 09:01 12/09/21 09:01 12/09/21 09:01 12/09/21 02:00 12/09/21 05:00 Period Temp Pulse Resp BP Sys/Ding Pulse Ox O2 Del Method O2 Flow Rate Last 24 Hr 97.1 F-98.2 F 68-96 14-32 71-127/41-108 90-100 Nasal Cannula- Nasal Cannula 2-4 Intake and Output 12/08/21 12/09/21 12/09/21 21:59 05:59 13:59 Intake Total 574 695 90 Output Total 3000 0 Balance -2426 695 90 Weight 129.591 kg Alert oriented Ongoing hemodialysis Right IJ central line Nontender nondistended abdomen Intake & Output: Intake & Output 12/08/21 12/09/21 12/09/21 21:59 05:59 13:59 Intake Total 574 695 90 Output Total 3000 0 Balance -2426 695 90 Weight 129.591 kg Intake: IV 574 55 90 Levophed 8 mg In Sodium 74 55 90 Chloride 0.9% 242 ml @ 10 MCG/ MIN 18.75 mls/hr IV Q14H [facility] Rx #:[id number] Vancomycin 1,500 mg In Sodium 500 Chloride 0.9% 500 ml @ 333.3 mls/hr IV ONCE ONE Rx#: [id number] Oral 640 0 Output: Void Amount 0 Hemodialysis UF 3000 Other: Meal Dinner Percent of Meal Consumed 25% OBJ DATA Labs CBC & Chem 7: 12/09/21 05:34 12/09/21 05:36 Labs: Abnormal Lab Results 12/09/21 12/09/21 12/08/21 05:36 05:34 05:30 WBC 17.2 H 17.8 H RBC 3.13 L 2.97 L Hgb 9.2 L 8.8 L Hct 29.5 L 28.3 L RDW 15.7 H 15.5 H MPV 11.6 H 11.7 H Immature Gran % (Auto) 4.0 H 4.6 H Neut % (Auto) 78.1 H 80.1 H Lymph % (Auto) 4.0 L 2.3 L Lymph # (Auto) 0.69 L 0.41 L [place] # (Auto) 2.07 H 2.13 H Seg Neutrophils % Band Neutrophils % Lymphocytes % Immature Gran # 0.69 H 0.82 H Absolute Neutrophils 14.11 H 15.10 H RBC Morphology Anisocytosis Sodium 132 L Potassium Chloride 91 L BUN 31 H Creatinine 7.3 H* Glucose Calcium Phosphorus 5.5 H Alkaline Phosphatase Lactate Dehydrogenase 275 H Albumin 2.8 L Albumin/Globulin Ratio 0.8 L Triglycerides 168 H 12/08/21 12/07/21 12/07/21 05:30 05:18 05:18 WBC 19.0 H RBC 3.16 L Hgb 9.4 L Hct 29.3 L RDW 15.2 H MPV 11.9 H Immature Gran % (Auto) Neut % (Auto) Lymph % (Auto) Lymph # (Auto) [place] # (Auto) Seg Neutrophils % 80 H Band Neutrophils % 11 H Lymphocytes % 5 L Immature Gran # Absolute Neutrophils RBC Morphology Abnormal A Anisocytosis 1+ A Sodium 132 L Potassium 5.6 H Chloride 94 L 93 L BUN 40 H 33 H Creatinine 9.0 H* 8.1 H* Glucose 147 H Calcium 8.4 L Phosphorus 6.4 H* Alkaline Phosphatase 119 H Lactate Dehydrogenase 315 H Albumin 2.7 L Albumin/Globulin Ratio 0.8 L Triglycerides 187 H Meds: Medications Acetaminophen (Acetaminophen 325 Mg Tablet) 650 mg PO Q4-6HP PRN; Protocol PRN Reason: Per Pain Protocol/Fever > 101 Last Admin: 12/06/21 23:26 Dose: 650 mg Albuterol/Ipratropium (Ipratropium/Albuterol 3 Ml Ampul.Neb) 3 ml NEB Q4HP PRN PRN Reason: Shortness Of Breath Clonazepam (Clonazepam 0.5 Mg Tablet) 0.5 mg PO HS [facility] Last Admin: 12/08/21 21:14 Dose: Not Given Heparin Sodium (Porcine) (Heparin 5,000 Unit/Ml Vial) 5,000 unit SQ Q12 [facility] Last Admin: 12/09/21 08:15 Dose: 5,000 unit Hydroxyzine HCl (Hydroxyzine 25 Mg Tablet) 25 mg PO TIDP PRN PRN Reason: Itching Sodium Chloride (Sodium Chloride 0.9%) 250 mls @ 20 mls/hr IV .[id number] [facility] Last Admin: 12/09/21 04:25 Dose: Not Given Sodium Chloride (Sodium Chloride 0.9%) 250 mls @ 20 mls/hr IV .[id number] [facility] Last Admin: 12/09/21 03:12 Dose: Not Given Levofloxacin (Levaquin) 500 mg in 100 mls @ 100 mls/hr IV Q48H [facility] Last Infusion: 12/08/21 09:43 Dose: Infused Magnesium Sulfate (Magnesium Sulfate) 2 gm in 50 mls @ 50 mls/hr IV DAILYP PRN PRN Reason: Mag < or = 1.7 Norepinephrine Bitartrate 8 mg (/ Sodium Chloride) 250 mls @ 18.75 mls/hr IV Q18H [facility]; Protocol Pantoprazole Sodium (Pantoprazole 40 Mg Tablet) 40 mg PO QAMAC [facility] Last Admin: 12/09/21 07:25 Dose: 40 mg Potassium/Phosphorus/Sodium (Neutra Phos 1 Packet) 2 packet PO DAILYP PRN PRN Reason: For phosphorus less than 2.5 Sodium Chloride (0.9 % Sodium Chloride 10 Ml Syringe) 10 ml IV Q8 [facility] Last Admin: 12/09/21 05:38 Dose: 10 ml Sodium Chloride (0.9 % Sodium Chloride 10 Ml Syringe) 10 ml IV Q12 [facility] Last Admin: 12/09/21 08:15 Dose: 10 ml Sodium Chloride (0.9 % Sodium Chloride 10 Ml Syringe) 10 ml IV UD PRN PRN Reason: FLUSH Last Admin: 12/07/21 05:30 Dose: 10 ml Tramadol HCl (Tramadol 50 Mg Tablet) 25 mg PO Q6HP PRN; Protocol PRN Reason: Pain Last Admin: 07/15/22 04:13 Dose: 25 mg Vancomycin HCl (Vancomycin Per Pharmacy) 1 order IV UD [facility]; Protocol A/P Assessment and plan (1) Septic shock: Status: Acute Narrative A/P Narrative: * MRSA bacteremia , surveillance cultures positive 12/08, 12/06, high probability endocarditis despite TTE without evidence of valvular vegetation. MRI lower back could not perform due to pressors * Septic shock-secondary to MRSA bacteremia/pneumonia. Continue pressor support/broad-spectrum antibiotics including vancomycin, Levaquin. * Suspected right lower lobe pneumonia * Acute mental status change secondary to sepsis endorgan dysfunction, gradually improving * ESRD on hemodialysis management nephrology * Lower back pain rule out vertebral osteomyelitis, MRI pending Plan * Continue vasopressor support/antibiotics * Hemodialysis per nephrology * MRI lower back pending * Surveillance cultures/source investigation * Tertiary center transfer coordination Time Spent With Patient Time: Total time spent is greater than 50% in coordination of care (as documented) at patient's floor/unit and/or counseling patient: Total time spent with greater than 50% in coordination of care (as documented) at patient's floor/unit and/or counseling patient:: 25 - 35 minutes
[2021-12-09 14:35] LABS: Vancomycin,Random 21.5 ug/mL
[2021-12-09] MEDS ORDERED: ASPIRIN 81 MG TAB.CHEW CHEWED ONE (16:52)
[2021-12-09] MEDS: clonazePAM 0.5 MG TABLET PO SCH (23:52)
[2021-12-10] MEDS: NOREPINEPHRINE BITARTRATE 8 MG in 0.9 % SODIUM CHLORIDE 242 ML IV SCH ×2 (04:10→12:57)
[2021-12-10] MEDS: 0.9 % SODIUM CHLORIDE 250 ML IV SCH ×2 (04:31→12:57)
[2021-12-10 05:56] LABS: Basophils % (Auto) 0.6 % (0.0-2.0); Eosinophils # (Auto) 0.33 K/mcL (0.00-0.70); Eosinophils % (Auto) 1.9 % (0.0-7.0); Hematocrit 28.2 % (40.1-51.0); Hemoglobin 9.1 g/dL (13.7-17.5); Lymphocytes % (Auto) 3.9 % (15.5-49.0); Mean Cell Volume 96.6 fL (80.0-100.0); Mean Corpuscular HGB Conc 32.3 g/dL (31.0-36.0); Mean Platelet Volume 11.3 fL (7.4-10.4); Monocytes # (Auto) 2.26 K/mcL (0.10-0.90); Monocytes % (Auto) 12.7 % (1.0-12.0); Neutrophils % (Auto) 75.4 % (38.0-78.0); Platelet Count 188 K/mcL (140-440); RBC 2.92 M/mcL (4.63-6.08); Red Cell Distribution Width 16.3 % (11.5-14.5); WBC 17.8 K/mcL (4.5-11.0)
[2021-12-10] MEDS: 0.9 % SODIUM CHLORIDE 10 ML SYRINGE IV SCH ×3 (06:02→16:05)
[2021-12-10 06:11] LABS: ALT/SGPT 10 U/L (<40); AST/SGOT 11 U/L (<40); Albumin 2.8 gm/dL (3.2-5.2); Albumin/Globulin Ratio 0.8 (1.0-2.3); Alkaline Phosphatase 104 U/L (39-117); Bilirubin,Direct 0.3 mg/dL (<0.3); Bilirubin,Total 0.4 mg/dL (0.1-1.0); Blood Urea Nitrogen 32 mg/dL (6-20); Calcium 9.2 mg/dL (8.6-10.4); Carbon Dioxide 27 mmol/L (22-30); Chloride 92 mmol/L (96-108); Globulin 3.4 gm/dL (2.2-3.7); Glomerular Filtration Rate 9; Glucose 105 mg/dL (70-105); Lactate Dehydrogenase 188 U/L (135-225); Phosphorous 5.3 mg/dL (2.5-4.5); Triglycerides 174 mg/dL (<150); Uric Acid 3.8 mg/dL (2.5-8.0)
--- NOTE | 2021-12-10 07:16 | Nephrology Progress Note ---
SUBJECTIVE Subjective Patient information: Note initiated : 12/10/21 at 7:15 am Patient: Khadar Rizo 60 y/o M admitted on 12/06/21 for SOB . Chief Complaint: Shortness of breath Principal diagnosis: Septic shock Pertinent ROS: Shortness of breath Weakness Constitutional Vitals: Vital Signs Temp Pulse Resp BP Pulse Ox O2 Del Method O2 Flow Rate 97.6 F 40 L 24 H 64/42 99 4 12/10/21 04:05 12/10/21 06:02 12/10/21 06:02 12/10/21 06:01 12/10/21 06:02 12/10/21 02:00 12/10/21 05:05 Period Temp Pulse Resp BP Sys/Ding Pulse Ox O2 Del Method O2 Flow Rate Last 24 Hr 97.3 F-98.2 F 38-96 15-31 64-143/42-119 81-100 Nasal Cannula- Nasal Cannula 2-4 Intake and Output 12/09/21 12/10/21 12/10/21 21:59 05:59 13:59 Intake Total 955 308 6 Output Total 0 Balance 955 308 6 Weight 287 lb 14.4 oz Intake & Output: Intake & Output 12/09/21 12/10/21 12/10/21 21:59 05:59 13:59 Intake Total 955 308 6 Output Total 0 Balance 955 308 6 Weight 287 lb 14.4 oz Intake: IV 415 88 6 Sodium Chloride 0.9% 250 ml @ 250 20 mls/hr IV .[id number] [facility] Rx#: [id number] Levophed 8 mg In Sodium 165 88 6 Chloride 0.9% 242 ml @ 10 MCG/ MIN 18.75 mls/hr IV Q18H [facility] Rx #:[id number] Oral 540 220 Output: Void Amount 0 Other: Meal Dinner Percent of Meal Consumed 25% General appearance: cooperative, no acute distress and obese Head Head exam: Present atraumatic and normal inspection Respiratory Respiratory exam: Present decreased breath sounds Cardiovascular Cardiovascular exam: Present normal rate and rhythm GI/Abdominal GI/Abdominal exam: Present soft Neurological Exam Neurological exam: Present alert and oriented X3 Psychiatric Psychiatric exam: Present normal affect and normal mood Skin Skin exam: Present warm A/P Assessment and plan (1) ESRD on hemodialysis: Assessment and plan: Khadar Rizo is a 60-year-old male with end stage renal disease on hemodialysis, chronic anemia due to ESRD, hypertension, diabetes mellitus type 2 presented to ED for shortness of breath and admitted on 12/06/21. His workup in ED was significant for Tmax 103.7, tachypnea (RR 30-40), tachycardia (HR~100), hypoxia on 2L NC. Labs were significant for leukocytosis (WBC 17.2 with 88% neutrophils), sodium 129. CTA reported mild right lower lobe parenchymal density. He was given IV fluids, blood cultures obtained, and started on IV Vancomycin and Zosyn. He required IV Dopamine after 2 L NS bolus. Nephrology consultation was requested for end stage renal disease. End stage renal disease on hemodialysis on MWF at [facility]. Chronic anemia due to ESRD. Septic shock with persistent MRSA bacteremia and right sided pneumonia, suspected endocarditis. Progress: HD for 3 hours with 2L UF on 12/06/21. HD for 3 hours with 3L UF on 12/08/21. HD for 3 hours with 3L UF on 12/09/21. Still on IV pressors, but at a lower rate. Hyponatremia, mild. Plan: Next hemodialysis on Sunday. Persistent MRSA bacteremia with ongoing IV pressor need. Recommend transfer to higher level of care. Status: Chronic Time Spent With Patient Time: Total time spent is greater than 50% in coordination of care (as documented) at patient's floor/unit and/or counseling patient:
--- NOTE | 2021-12-10 08:36 | Internal Med Progress Note ---
SUBJECTIVE Subjective Patient information: Note initiated : 12/10/21 at 8:31 am Service Date, if different from initiated Date: [] Patient: Khadar Rizo a 60 y/o M admitted on 12/06/21 for SOB . Chief Complaint: [] Principal diagnosis: Septic shock Interval history: Mr. Rizo is a 60 year old M with a complex past medical history significant for ESRD on HD TTS who presents to the hospital with 2 to 3-week history of progressive dyspnea and fatigue. The patient has not missed any sessions of dialysis however the amount of ultrafiltration that occurs is limited. At home, the sons found him in extremis. EMS were called and he was found to be hypoxemic, nauseous and appeared toxic. The patient states that he has had no sick contacts, no recent travel, but has had a productive cough. On arrival, he was hemodynamically tenuous as he was hypotensive. CTA was negative for PE but there was concerns for right lobar infiltrate. The patient was started on empiric vancomycin and bolused IV fluids. He was found to have a BNP of 70,000, and a white blood cell count of 18,000. There was concerns that this may be multifactorial in etiology due to pulmonary edema and pneumonia resulting in hypoxemic respiratory failure. The patient also became septic requiring dopamine and vasopressin. There was a brief CODE BLUE that was called that was thought to be vasovagal in etiology as he did not lose pulse. Central line was placed, nephrology were called to start dialysis, and the hospital service was asked to admit him to the ICU. 12/07Interval history: The patient states that he is feeling a little better this morning. He states that his breathing was easier status post dialysis yesterday. Discussed the case with the RN. 12/07-I took over care on 12/07 afternoon. Patient remains in septic shock on vasopressor support. GPC bacteremia on cultures. Reviewed echocardiogram, imaging, labs. Continue maintenance. Case discussed with nephrology. Patient might need transfer to tertiary center if persistent bacteremia noted for evaluation of endocarditis/cardiology/ID consultation 12/08-patient currently on Levophed at 10 mics. Staff aureus bacteremia, surveillance cultures pending. On vancomycin. Ongoing hemodialysis. Case discussed with nephrology. Recommends continuation of antibiotics/source evaluation.Echocardiogram no evidence of valvular vegetation, EF 40%. Patient remains critically ill, white count down from 19-17.8, sodium 132, potassium 5.6, remains intermittently confused lethargic. [place] 2 score over 16 indicating high risk mortality. Discussed with patient possible transfer to tertiary center which at this time he refuses and would like to stay at [facility] for continued treatment. He understands the risk associated which may include worsening of his current condition and the worst possible outcome including 12/09-patient clinically status quo currently on vasopressors. Ongoing hemodialysis. Surveillance cultures positive for GPC. High probability endocarditis. Coordinate tertiary center transfer for further management. No overnight fever chills. Mentation improving. Patient remains critically ill and unable to wean off pressors. MRI could not be performed, persistent bacteremia. Surveillance cultures ordered. Will likely need transfer to tertiary center in the setting of worsening leukocytosis, bacteremia, pressor support and need for hemodialysis. Plan was discussed with patient. Transfer coordination ongoing however no beds available at [place] or [place]. 12/10-ongoing transfer coordination in light of septic shock/critically ill, [place] 2 score over 16 indicating high risk mortality. White count at 17.8, hem odialysis not available this weekend, map around 60 on vasopressor support patient lethargic. Serial troponin no elevation peak 0.45 likely type II [place] in the setting of septic shock. Recurrent ectopy/arrhythmias on Levophed. Poor prognosis overall Case discussed with marketing proposal coordinator at [facility]. Patient accepted for further management. Patient will be transferred via air ambulance. Continue pressors. Constitutional Vitals: Vital Signs Temp Pulse Resp BP Pulse Ox O2 Del Method O2 Flow Rate 97.6 F 91 H 22 97/72 93 3 12/10/21 04:05 12/10/21 08:16 12/10/21 08:16 12/10/21 08:16 12/10/21 08:16 12/10/21 07:37 12/10/21 07:37 Period Temp Pulse Resp BP Sys/Ding Pulse Ox O2 Del Method O2 Flow Rate Last 24 Hr 97.3 F-98.2 F 36-96 14-35 64-158/39-119 81-100 Nasal Cannula- Nasal Cannula 2-4 Intake and Output 12/09/21 12/10/21 12/10/21 21:59 05:59 13:59 Intake Total 955 308 9 Output Total 0 Balance 955 308 9 Weight 130.589 kg Lethargic and poorly responsive, awakens to command Frequent arrhythmias including bradycardia cardia, PVC's, ectopies Nontender fistula site left arm Right IJ central line Intake & Output: Intake & Output 12/09/21 12/10/21 12/10/21 21:59 05:59 13:59 Intake Total 955 308 9 Output Total 0 Balance 955 308 9 Weight 130.589 kg Intake: IV 415 88 9 Sodium Chloride 0.9% 250 ml @ 250 20 mls/hr IV .[id number] RED Rx#: [id number] Levophed 8 mg In Sodium 165 88 9 Chloride 0.9% 242 ml @ 10 MCG/ MIN 18.75 mls/hr IV Q18H RED Rx #:[id number] Oral 540 220 Output: Void Amount 0 Other: Meal Dinner Percent of Meal Consumed 25% OBJ DATA Labs CBC & Chem 7: 12/10/21 05:12 12/10/21 05:13 Labs: Abnormal Lab Results 12/10/21 12/10/21 12/10/21 05:13 05:13 05:12 WBC 17.8 H RBC 2.92 L Hgb 9.1 L Hct 28.2 L RDW 16.3 H MPV 11.3 H Immature Gran % (Auto) 5.5 H Neut % (Auto) Lymph % (Auto) 3.9 L [place] % (Auto) 12.7 H Lymph # (Auto) 0.70 L [place] # (Auto) 2.26 H Immature Gran # 0.98 H Absolute Neutrophils 14.40 H Sodium 132 L Potassium Chloride 92 L BUN 32 H Creatinine 6.2 H* Calcium Phosphorus 5.3 H Direct Bilirubin 0.3 H Alkaline Phosphatase Lactate Dehydrogenase Troponin T 0.42 H* Albumin 2.8 L Albumin/Globulin Ratio 0.8 L Triglycerides 174 H 12/09/21 12/09/21 12/09/21 18:09 15:23 05:36 WBC RBC Hgb Hct RDW MPV Immature Gran % (Auto) Neut % (Auto) Lymph % (Auto) [place] % (Auto) Lymph # (Auto) [place] # (Auto) Immature Gran # Absolute Neutrophils Sodium 132 L Potassium Chloride 91 L BUN 31 H Creatinine 7.3 H* Calcium Phosphorus 5.5 H Direct Bilirubin Alkaline Phosphatase Lactate Dehydrogenase 275 H Troponin T 0.45 H* 0.45 H* Albumin 2.8 L Albumin/Globulin Ratio 0.8 L Triglycerides 168 H 12/09/21 12/08/21 12/08/21 05:34 05:30 05:30 WBC 17.2 H 17.8 H RBC 3.13 L 2.97 L Hgb 9.2 L 8.8 L Hct 29.5 L 28.3 L RDW 15.7 H 15.5 H MPV 11.6 H 11.7 H Immature Gran % (Auto) 4.0 H 4.6 H Neut % (Auto) 78.1 H 80.1 H Lymph % (Auto) 4.0 L 2.3 L [place] % (Auto) Lymph # (Auto) 0.69 L 0.41 L [place] # (Auto) 2.07 H 2.13 H Immature Gran # 0.69 H 0.82 H Absolute Neutrophils 14.11 H 15.10 H Sodium 132 L Potassium 5.6 H Chloride 94 L BUN 40 H Creatinine 9.0 H* Calcium 8.4 L Phosphorus 6.4 H* Direct Bilirubin Alkaline Phosphatase 119 H Lactate Dehydrogenase 315 H Troponin T Albumin 2.7 L Albumin/Globulin Ratio 0.8 L Triglycerides 187 H Meds: Medications Acetaminophen (Acetaminophen 325 Mg Tablet) 650 mg PO Q4-6HP PRN; Protocol PRN Reason: Per Pain Protocol/Fever > 101 Last Admin: 12/06/21 23:26 Dose: 650 mg Albuterol/Ipratropium (Ipratropium/Albuterol 3 Ml Ampul.Neb) 3 ml NEB Q4HP PRN PRN Reason: Shortness Of Breath Clonazepam (Clonazepam 0.5 Mg Tablet) 0.5 mg PO HS [facility] Last Admin: 12/09/21 23:52 Dose: Not Given Heparin Sodium (Porcine) (Heparin 5,000 Unit/Ml Vial) 5,000 unit SQ Q12 RED Last Admin: 12/09/21 21:00 Dose: 5,000 unit Hydroxyzine HCl (Hydroxyzine 25 Mg Tablet) 25 mg PO TIDP PRN PRN Reason: Itching Sodium Chloride (Sodium Chloride 0.9%) 250 mls @ 20 mls/hr IV .[id number] [facility] Last Admin: 12/09/21 16:15 Dose: 10 mls/hr Sodium Chloride (Sodium Chloride 0.9%) 250 mls @ 20 mls/hr IV .[id number] RED Last Admin: 12/10/21 04:31 Dose: Not Given Magnesium Sulfate (Magnesium Sulfate) 2 gm in 50 mls @ 50 mls/hr IV DAILYP PRN PRN Reason: Mag < or = 1.7 Norepinephrine Bitartrate 8 mg (/ Sodium Chloride) 250 mls @ 18.75 mls/hr IV Q18H RED; Protocol Last Titration: 12/10/21 07:27 Dose: 4 mcg/min, 7.5 mls/hr Pantoprazole Sodium (Pantoprazole 40 Mg Tablet) 40 mg PO QAMAC RED Last Admin: 12/09/21 07:25 Dose: 40 mg Potassium/Phosphorus/Sodium (Neutra Phos 1 Packet) 2 packet PO DAILYP PRN PRN Reason: For phosphorus less than 2.5 Sodium Chloride (0.9 % Sodium Chloride 10 Ml Syringe) 10 ml IV Q8 RED Last Admin: 12/10/21 06:02 Dose: 10 ml Sodium Chloride (0.9 % Sodium Chloride 10 Ml Syringe) 10 ml IV Q12 RED Last Admin: 12/09/21 23:53 Dose: 10 ml Sodium Chloride (0.9 % Sodium Chloride 10 Ml Syringe) 10 ml IV UD PRN PRN Reason: FLUSH Last Admin: 12/07/21 05:30 Dose: 10 ml Tramadol HCl (Tramadol 50 Mg Tablet) 25 mg PO Q6HP PRN; Protocol PRN Reason: Pain Last Admin: 12/09/21 20:24 Dose: 25 mg Vancomycin HCl (Vancomycin Per Pharmacy) 1 order IV UD RED; Protocol A/P Assessment and plan (1) Septic shock: Status: Acute Narrative A/P Narrative: * MRSA bacteremia , surveillance cultures positive 12/08, repeat surveillance pending, high probability endocarditis despite TTE without evidence of valvular vegetation. MRI lower back could not perform due to pressors. Await transfer to tertiary center for ID/cardiology/nephrology support. Patient remains critically ill with high risk mortality * Septic shock-secondary to MRSA bacteremia. Maintaining pressor support/broad- spectrum antibiotics including vancomycin, Levaquin. * Suspected right lower lobe pneumonia, on Levaquin/vancomycin * Acute mental status change, sepsis endorgan manifestation * ESRD on hemodialysis management nephrology, last HD 12/09. No ST available in weekend * Lower back pain rule out vertebral osteomyelitis, MRI could not be performed due to patient on pressors. Plan * Continue vasopressor support/antibiotics * Tertiary center transfer coordination * Hemodialysis per nephrology * MRI lower back once able to wean pressors off * Surveillance cultures/bacteremia source investigation Time Spent With Patient Time: Total time spent is greater than 50% in coordination of care (as documented) at patient's floor/unit and/or counseling patient: Critical Care Time: Yes Total Critical Care Time: 85
[2021-12-10] MEDS: HEPARIN 5,000 UNIT/ML VIAL SQ SCH (09:17)
--- NOTE | 2021-12-10 10:29 | Transfer Summary ---
Discharge Provider Provider IMPORTANT FOLLOW-UP INFORMATION FOR PCP: Patient information: Note initiated : 12/10/21 at 10:26 am Service Date, if different from initiated Date: [] Patient: Khadar Rizo 60 y/o M admitted on 12/06/21 for SOB . Chief Complaint: [] Date of admission: 12/06/21 13:20 Discharge date: 12/10/21 Primary care physician: Paulette García Consults: 12/06/21 10:02 Consult to Physician [CONS] Stat Comment: Consulting Provider: Jean Perez Reason For Exam: Physician to Consult COURSE Hospital Course Hospital course: Discharge diagnosis * MRSA bacteremia , surveillance cultures positive 12/08, repeat surveillance pending, high probability endocarditis despite TTE without evidence of valvular vegetation. MRI lower back could not be performed due to pressors. Await transfer to tertiary center for ID/cardiology/nephrology support. Patient remains critically ill with high risk mortality * Septic shock-secondary to MRSA bacteremia. Maintaining pressor support/broad- spectrum antibiotics including vancomycin, Levaquin. Worsening leukocytosis at 17.8 * Suspected right lower lobe pneumonia, on Levaquin/vancomycin * Acute mental status change, sepsis endorgan manifestation * ESRD on hemodialysis management nephrology, last HD 12/09. No ST available in weekend * Lower back pain rule out vertebral osteomyelitis, MRI could not be performed due to patient on pressors. Brief hospital course Mr. Rizo is a 60 year old M with a complex past medical history significant for ESRD on HD TTS who presents to the hospital with 2 to 3-week history of progressive dyspnea and fatigue. The patient has not missed any sessions of dialysis however the amount of ultrafiltration that occurs is limited. At home, the sons found him in extremis. EMS were called and he was found to be hypoxemic, nauseous and appeared toxic. The patient states that he has had no sick contacts, no recent travel, but has had a productive cough. On arrival, he was hemodynamically tenuous as he was hypotensive. CTA was negative for PE but there was concerns for right lobar infiltrate. The patient was started on empiric vancomycin and bolused IV fluids. He was found to have a BNP of 70,000, and a white blood cell count of 18,000. There was concerns that this may be multifactorial in etiology due to pulmonary edema and pneumonia resulting in hypoxemic respiratory failure. The patient also became septic requiring dopamine and vasopressin. There was a brief CODE BLUE that was called that was thought to be vasovagal in etiology as he did not lose pulse. Central line was placed, nephrology were called to start dialysis, and the hospital service was asked to admit him to the ICU. 12/07Interval history: The patient states that he is feeling a little better this morning. He states that his breathing was easier status post dialysis yesterday. Discussed the case with the RN. 12/07-I took over care on 12/07 afternoon. Patient remains in septic shock on vasopressor support. GPC bacteremia on cultures. Reviewed echocardiogram, imaging, labs. Continue maintenance. Case discussed with nephrology. Patient might need transfer to tertiary center if persistent bacteremia noted for evaluation of endocarditis/cardiology/ID consultation 12/08-patient currently on Levophed at 10 mics. Staff aureus bacteremia, surveillance cultures pending. On vancomycin. Ongoing hemodialysis. Case discussed with nephrology. Recommends continuation of antibiotics/source evaluation.Echocardiogram no evidence of valvular vegetation, EF 40%. Patient remains critically ill, white count down from 19-17.8, sodium 132, potassium 5.6, remains intermittently confused lethargic. [place] 2 score over 16 indicating high risk mortality. Discussed with patient possible transfer to [facility] which at this time he refuses and would like to stay at [facility] for continued treatment. He understands the risk associated which may include worsening of his current condition and the worst possible outcome including 12/09-patient clinically status quo currently on vasopressors. Ongoing hemodialysis. Surveillance cultures positive for GPC. High probability endocarditis. Coordinate tertiary center transfer for further management. No overnight fever chills. Mentation improving. Patient remains critically ill and unable to wean off pressors. MRI could not be performed, persistent bacteremia. Surveillance cultures ordered. Will likely need transfer to tertiary center in the setting of worsening leukocytosis, bacteremia, pressor support and need for hemodialysis. Plan was discussed with patient. Transfer coordination ongoing however no beds available at [place] or [place]. 12/10-ongoing transfer coordination in light of septic shock/critically ill, [place] 2 score over 16 indicating high risk mortality. White count at 17.8, hemodialysis not available this weekend, map around 60 on vasopressor support patient lethargic. Serial troponin no elevation peak 0.45 likely type II ND in the setting of septic shock. Recurrent ectopy/arrhythmias on Levophed. Poor prognosis overall Case discussed with national sales director at [facility]. Patient accepted for further management. Patient will be transferred via air ambulance. Continue pressors. Discharge diagnosis: Septic shock Time Spent with Patient Time attestation: Total time spent providing and/or coordinating discharge services: Time spent: Greater than 30 minutes EXAM Constitutional Vitals: Temp Pulse Resp BP Pulse Ox O2 Del Method O2 Flow Rate 97.6 F 39 L 26 H 79/50 95 3 12/10/21 04:05 12/10/21 09:17 12/10/21 09:17 12/10/21 09:17 12/10/21 09:17 12/10/21 07:37 12/10/21 09:17 Discharge Data Data Completed and Pending Labs on day of discharge: Labs from last 24 hours 12/10/21 12/10/21 12/10/21 05:13 05:13 05:12 WBC 17.8 H RBC 2.92 L Hgb 9.1 L Hct 28.2 L MCV 96.6 MCH 31.2 MCHC 32.3 RDW 16.3 H Plt Count 188 MPV 11.3 H Immature Gran % (Auto) 5.5 H Neut % (Auto) 75.4 Lymph % (Auto) 3.9 L [place] % (Auto) 12.7 H Eos % (Auto) 1.9 Baso % (Auto) 0.6 Lymph # (Auto) 0.70 L [place] # (Auto) 2.26 H Eos # (Auto) 0.33 Baso # (Auto) 0.10 Immature Gran # 0.98 H Absolute Neutrophils 14.40 H Sodium 132 L Potassium 4.4 Chloride 92 L Carbon Dioxide 27 Anion Gap 13.0 BUN 32 H Creatinine 6.2 H* GFR Calculation 9 Glucose 105 Uric Acid 3.8 Calcium 9.2 Phosphorus 5.3 H Magnesium 2.1 Total Bilirubin 0.4 Direct Bilirubin 0.3 H GGT 40 AST 11 ALT 10 Alkaline Phosphatase 104 Lactate Dehydrogenase 188 Troponin T 0.42 H* Total Protein 6.2 Albumin 2.8 L Globulin 3.4 Albumin/Globulin Ratio 0.8 L Triglycerides 174 H Random Vancomycin 12/09/21 12/09/21 12/09/21 18:09 15:23 13:23 WBC RBC Hgb Hct MCV MCH MCHC RDW Plt Count MPV Immature Gran % (Auto) Neut % (Auto) Lymph % (Auto) [place] % (Auto) Eos % (Auto) Baso % (Auto) Lymph # (Auto) [place] # (Auto) Eos # (Auto) Baso # (Auto) Immature Gran # Absolute Neutrophils Sodium Potassium Chloride Carbon Dioxide Anion Gap BUN Creatinine GFR Calculation Glucose Uric Acid Calcium Phosphorus Magnesium Total Bilirubin Direct Bilirubin GGT AST ALT Alkaline Phosphatase Lactate Dehydrogenase Troponin T 0.45 H* 0.45 H* Total Protein Albumin Globulin Albumin/Globulin Ratio Triglycerides Random Vancomycin 21.5 Preliminary micro results at discharge 12/08/21 05:30 Blood Culture - Preliminary Blood Staphylococcus aureus 12/08/21 05:35 Blood Culture - Preliminary Blood Staphylococcus aureus Discharge Plan Patient/Caregiver Discharge Instructions Activity: other Prescriptions: No Action calcium acetate(phosphat bind) 667 mg capsule 2,668 mg PO .TID with meals Qty: 360 11RF Rx Instructions: Take 2 to 4 gel caps with each meal based on serum Phosphorous level hydroxyzine HCl 25 mg tablet 25 mg PO TID PRN (Reason: itching) Qty: 90 3RF clonazepam 0.5 mg tablet 0.5 mg PO QHS Qty: 30 0RF Rx Instructions: administer 30 minutes before bedtime Follow Up Plan Follow up with: Paulette García ARNP [Primary Care Provider] - Patient Disposition: Xfer [facility] Prognosis: Critical Rehab Potential: Critical I certify that the patient requires SNF services: No Overall status at discharge: patient is not back to baseline Discharge Orders: Discharge Order (Routine); Ordered 12/10/21 Ordered By: Chad Huber
[2021-12-10] MEDS: traMADol 50 MG TABLET PO PRN (10:39)
[2021-12-10] MEDS: PANTOPRAZOLE 40 MG TABLET PO SCH (10:39)
--- NOTE | 2021-12-10 13:30 | Ultrasound Report ---
INDICATION: evaluate for fistula thrombosis TECHNIQUE: Routine grayscale and color flow Doppler spectral imaging COMPARISON: Previous examination dated 08/11/2021 FINDINGS: There is a radial artery to left cephalic vein fistula. Fistula is patent. There is no thrombosis. There is no pseudoaneurysm or hematoma. Maximum systolic inflow velocity measures 130 cm/s. At the arterial anastomosis the velocity measures 399 cm/s. This is a 3-1 ratio on the represent 50% stenosis. This is unchanged. The cephalic vein is patent. There is no thrombosis. There is a branch arising from the distal cephalic vein. IMPRESSION: 1. Left radial artery to cephalic vein fistula. 2. Fistula is patent without thrombosis. 3. Probable 50% diameter stenosis. 4. No interval change since 08/12/2019 Interpreted and Authenticated by: Facundo Allred 12/10/21
== END 2021-12-10 16:28 | disposition short-term general hospital (02) | DRG 871 ==
LOC: ED 23:47 → ICU 12-06 13:20
PROVIDERS: ADMIT Student in an Organized Health Care Education/Training Program; ATTEND Internal Medicine